=== PATIENT | male | born 1940 | race Caucasian/White ===

== ENCOUNTER 2021-05-11 00:12 | Day surgery (SDC) | payer MEDICARE, SELFPAY ==
[2021-05-03 14:54] VITALS: BMI 25.9
--- NOTE | 2021-05-03 15:18 | PC.NURSE ---
Report to the Outpatient Waiting Room, entrance under the green pavilion located off [facility], at time _1000_ on date _05/11/21_. OR Time: _1200_. - You and your visitor will be asked a series of questions to screen for COVID 19 for your protection. - A mask is required within the hospital. Preoperative COVID Testing Requirements: No COVID Test needed if: (proof is required; if not received patient will have Rapid Test prior to entry) - Patient has received COVID Vaccine at least 14 days prior to procedure date or - Patient has positive COVID test result within last 90 days of surgery date. COVID Test needed if above criteria is not met If not COVID vaccinated a COVID test must be conducted within 72 hours of surgery and patient is asked to isolate self from time of testing until procedure. You will go to the [facility] for your COVID testing. The [facility] Testing site is located at the corner of [address] [facility]. You will only be called if COVID results are positive and your surgeon may reschedule your elective surgery date. Patients may have clear liquids (water, carbonated beverages, clear teas, apple juice) until 3 hours prior to surgery with a maximum of 20 ounces. - No food from midnight until time of surgery - Infants may have breast milk until 4 hours before surgery, infant formula 6 hours prior to surgery. - Children will be allowed to drink immediately following surgery. If applicable, please bring a bottle or sippy cup to assist with drinking. Juice, water, soda, and popsicles are readily available. For infants on formula, please bring formula the day of surgery. Pacifiers are allowed. Take the following medications with a SIP of water the morning of surgery: _METOPROLOL_ Medications to discontinue per DR. CABRAL - _PLAVIX -PT STATES TAKING LAST DOSE 04/01/21, _ Medications to discontinue per ANESTHESIA _ALL VITAMINS AND SUPPLEMENTS 3 DAYS PRIOR TO SURGERY, Date to take last dose_05/07/21_ Please no make-up, nail syriac, hairspray, perfume, deodorant, or body powder the day of surgery. No jewelry (including any body piercings) or valuables the day of surgery, leave them at home. Please take a shower or bath the night before, or the morning of, surgery with an antibacterial soap. Wear comfortable, loose fitting clothing. Children are encouraged to wear pajamas. - Jewelry must be removed prior to entering the operating room. Rings and piercings that are not removed may be cut off. - The hospital will not accept responsibility for valuables. - Please leave all valuables, including medications, at home the day of surgery. If you are going home after surgery, a licensed otr company driver must drive you home. - NO public transportation without another adult. - We recommend that an adult stay with you for 24 hours following discharge. - We also recommend that you do not drive, make important decision, drink alcoholic beverages, or take any drugs that were not prescribed by your health care provider for at least 24 hours after your discharge time. For Pediatric surgeries, we recommend two adults accompany the child home (only one inside the building at this time). One visitor will be allowed to accompany the patient into the hospital. Patients visitor will be instructed to remain with patient at all times or leave the building. We will allow the visitor to come back to the postoperative area when patient is ready. Follow any additional instructions given to you from your surgeon. Telephone instructions given to __PT and asked if any additional questions and then verbalized understanding. Patient advised to call surgeon office or pre surgery nurse liaison [phone] if any additional questions.
--- NOTE | 2021-05-08 07:09 | P.HP_ITS ---
H&P: HPI History of Present Illness Date/Time: 05/08/21 07:09 Pleasant 80-year-old male who has been in our practice since May 2018. for outlet obstructive voiding symptoms at that time he underwent 8 Urolift. He had an initial favorable response which has since regressed. Now, he reports marked hesitancy intermittency and near urinary retention. 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 He has failed resumption of medical management with tamsulosin and the now elects for a TURP after discussing other therapeutic options. He is aware of the risk of this procedure including, but not limited to, persistent irritable and or obstructive voiding symptoms, retrograde ejaculation, hematuria, adverse cardiopulmonary events.. Chief Complaint: Difficult voiding Review of Systems Cardiovascular: Cardiovascular: Denies chest pain, Denies lightheadedness, Denies palpitations and Denies dyspnea Respiratory: Respiratory: Denies dyspnea Gastrointestinal: Gastrointestinal: Denies diarrhea, Denies nausea and Denies vomiting Genitourinary: Genitourinary: Denies hematuria and Denies dysuria Endocrine: Endocrine: Denies palpitations PMFSH Social History Social History Smoking packs per day: 1 Smoking cigarettes per day: 20.0 Years smoked: 25 Smoking pack-years: 25.00 Smoking status: Former smoker Tobacco type: cigarettes Second hand tobacco smoke exposure: No Smoking end date: 03/18/90 Alcohol intake: current Drinks per week: 2 Substance use: never Substance use type: does not use Living arrangements: with family Gender identity (if verbalized by the patient): Male Spiritual care concerns: No Meds Home Medications and Allergies Home Medications Medication Instructions Recorded Confirmed Type PreserVision AREDS-2 1 tablet PO DAILY 02/16/19 05/03/21 History multivitamin [Multiple Vitamins] 1 tablet PO DAILY 02/16/19 05/03/21 History omeprazole 20 mg PO DAILY 02/16/19 05/03/21 History atorvastatin 40 mg DAILY 05/03/21 05/03/21 History clopidogrel 75 mg DAILY 05/03/21 05/03/21 History furosemide 20 mg DAILY 05/03/21 05/03/21 History lisinopril 40 mg DAILY 05/03/21 05/03/21 History metoprolol tartrate 12.5 mg BID 05/03/21 05/03/21 History tramadol 50 mg PO BID PRN 05/03/21 05/03/21 History Allergies Allergy/AdvReac Type Severity Reaction Status Date / Time No Known Allergies Allergy Unverified 05/03/21 14:49 Exam Const: General: no acute distress Resp: Effort & Inspection: normal respiratory effort GI: Inspection: non-distended GI Palp: No abdominal tenderness and No Guarding due to palpation present (GI) Auscultation: normal bowel sounds Assessment and Plan Assessment and plan (1) BPH loc w urin obs/LUTS: Code(s): N40.1 - Benign prostatic hyperplasia with lower urinary tract symptoms Status: Acute Assessment and Plan: * TURP
[2021-05-11] VITALS (15 sets, daily range): BP systolic 108–167; BP diastolic 47–93; PULSE 65–86; RESP 12–18; TEMP 36.4–36.9; O2SAT 93–100
--- NOTE | 2021-05-11 06:45 | WPDHPUPDATE1 ---
History and Physical Update Update Date/Time: 05/11/21 06:45 History and Physical has been reviewed, including an updated exam of the patient. There are NO changes in the patient's condition. Risks, benefits, and alternatives have been discussed and questions answered. Patient agrees to proceed with procedure.
[2021-05-11] MEDS: LACTATED RINGERS 1,000 ML 30 ML IV CONT (10:00)
--- NOTE | 2021-05-11 10:08 | P.PNAN_ITS ---
Anes - Eval Pre Procedure Procedure: Operation Date: 05/11/21 11:30 Proposed Procedures p Trans Urethral Resection Prostate - Mikey Beltre MD Date/Time: 05/11/21 10:08 Pre Op Diagnosis: bph Patient Data Age: 80 Gender: M Height: 1.78 m Weight: 80.3 kg Last Vital Signs Temp 98.2 F 05/11/21 09:35 Pulse 86 05/11/21 09:35 Resp 16 05/11/21 09:35 BP 148/78 H 05/11/21 09:35 Pulse Ox 98 05/11/21 09:35 Allergies Allergy/AdvReac Type Severity Reaction Status Date / Time No Known Allergies Allergy Unverified 05/11/21 09:41 Home Medications Medication Instructions Recorded Confirmed Type PreserVision AREDS-2 1 tablet PO DAILY 02/16/19 05/11/21 History multivitamin [Multiple Vitamins] 1 tablet PO DAILY 02/16/19 05/11/21 History omeprazole 20 mg PO DAILY 02/16/19 05/11/21 History atorvastatin 40 mg DAILY 05/03/21 05/11/21 History clopidogrel 75 mg DAILY 05/03/21 05/03/21 History furosemide 20 mg DAILY 05/03/21 05/11/21 History lisinopril 40 mg DAILY 05/03/21 05/11/21 History metoprolol tartrate 12.5 mg BID 05/03/21 05/11/21 History tramadol 50 mg PO BID PRN 05/03/21 05/11/21 History aspirin [Adult Low Dose Aspirin] 81 mg PO DAILY 05/11/21 05/11/21 History Patient hx anesthesia problems: none Family hx anesthesia problems: none Results Review: All pre-operative results and documents have been reviewed as part of the pre-operative evaluation. [facility]LY [facility] Past Medical History Medical History BPH (benign prostatic hyperplasia) GERD (gastroesophageal reflux disease) History of smoking HTN (hypertension) with goal to be determined Hyperlipidemia Systolic murmur Surgical History Surgical History Hx of CABG Social History Social History Smoking packs per day: 1 Smoking cigarettes per day: 20.0 Years smoked: 25 Smoking pack-years: 25.00 Smoking status: Former smoker Tobacco type: cigarettes Second hand tobacco smoke exposure: No Smoking end date: 03/18/90 Alcohol intake: current Drinks per week: 2 Substance use: never Substance use type: does not use Living arrangements: with family Gender identity (if verbalized by the patient): Male Spiritual care concerns: No Exam Day of Procedure 05/11/21 10:08 Patient weight: overweight Heart: murmur (3/6 systolic) Lungs: clear to auscultation Airway: Mallampati scale class II Neurological: alert and oriented
--- NOTE | 2021-05-11 10:12 | WPDANESEFPP ---
Anes - Eval Final PreProcedure Day of Procedure 05/11/21 10:12 Patient weight: normal Heart: regular rate and rhythm and murmur (III/ SM) Lungs: clear to auscultation Airway: Mallampati scale class II Neurological: alert and oriented Last oral intake: >/= 8 hours ASA classification: III Anesthetic plan: proceed Anesthesia type and monitoring: general LMA and standard monitoring Results Review: All pre-operative results and documents have been reviewed as part of the pre-operative evaluation. Informed Consent: The patient's anesthetic plan and its attendant risks and benefits were discussed with the patient/family/POA. Questions were solicited and answers provided to the satisfaction of the patient/family/POA.
[2021-05-11] MEDS: ceFAZolin 2 GM/D5W 50 ML 2 GM/50 ML BAG IVPB (10:15)
--- NOTE | 2021-05-11 11:09 | P.OP_ITS ---
Procedure Note - Detailed Date of Procedure 05/11/21 Pre-op Diagnosis BPH Post-op Diagnosis other (BPH / Possible bladder tumor) Procedure Performed 1. TURBT (small, 2cm) 2. TURP Surgeon Mikey Beltre MD Anesthesia general Description of Procedure The patient was brought to the operative suite where he is prepped and draped in routine sterile fashion while in the dorsal lithotomy position after the uneventful induction of a general LMA anesthetic. A 27 Cambodian resectoscope sheath was placed into his bladder. He had no urethral strictures. The patient had bilobar hyperplasia with a small median lobe. The bladder, itself, this is a small area of papillary growth in the posterior bladder that measures to 2 cm.There was a single, orthotopic ureteral orifice bilaterally. These orifices were identified and preserved throughout the remainder of the procedure. I did resect a small posterior bladder growth in cauterized the base and periphery with loop electrode. Attention was then turned to resection of the median lobe. This resection was undertaken from the bladder neck to the verumontanum and carried out until the transverse fibers of the bladder neck were identified. The left lateral lobe was then resected starting at the 6 o'clock position, working counter clockwise to the 12 o'clock position. Again, resection was carried out from the bladder neck to the verumontanum until the capsular fibers of the prostate were identified. The right lateral lobe was resected in a similar fashion starting at the 6 o'clock position working clockwise to the 12 o'clock position and carried out until the capsular fibers of the prostate were identified. Apical tissue was then circumferentially resected. All chips were evacuated from the bladder using an [employer] evacuator. Hemostasis was obtained with electric cautery. The ureteral orifices were again inspected and found to be without inj ury. Estimated blood loss throughout this procedure was 50cc. The patient was taken to recovery room having tolerated this well. Drains Yes Packing No Pathology yes Complications No immediate complications Condition stable Disposition PACU
[2021-05-11] MEDS: fentaNYL CITRATE INJ (*CRX) 100 MCG/2 ML VIAL 25 MCG IV PUSH ×6 (11:15→12:31)
--- NOTE | 2021-05-11 13:03 | ADMGEN ---
This patient, Shania Pandya, was admitted to [facility] Surgery-5. Patient/family oriented to hospital policies and general routines including ID bracelet, bed and alarms, visiting hours, pain management, procedures, bathroom and other care routines, personal items, smoking policy, room service/diet, and visiting hours. Information on how to activate the Rapid Response Team has been discussed. Patient/Family are encouraged to report perceived risks to care and to ask questions if they do not understand what they are told or what they should do.
[2021-05-11] MEDS: lisinopriL 20 MG TABLET 40 MG PO (14:24)
[2021-05-11] MEDS: ATORVASTATIN 40 MG TABLET PO (14:24)
[2021-05-11] MEDS: DOCUSATE SODIUM 100 MG CAPSULE PO (16:46)
[2021-05-11] MEDS: METOPROLOL TARTRATE 12.5 MG TABLET PO (16:48)
[2021-05-12] VITALS (7 sets, daily range): BP systolic 116–149; BP diastolic 71–85; PULSE 71–73; RESP 16–18; TEMP 36.6–36.7; O2SAT 96–97
[2021-05-12 06:02] LABS: Hematocrit 40.7 % (42.0-52.0); Hemoglobin 13.9 g/dL (14.0-18.0)
[2021-05-12 06:20] LABS: Anion Gap 6 mmol/L (8-16); Blood Urea Nitrogen 17 mg/dL (9-20); Calcium 8.8 mg/dL (8.4-10.2); Carbon Dioxide 26 mmol/L (22-30); Chloride 107 mmol/L (98-107); Estimated CRCL calculation 74 ml/min; Estimated Glomerular Filt Rate > 60; Glucose 128 mg/dL (65-110); Potassium 4.4 mmol/L (3.4-5.0); Sodium 139 mmol/L (137-145)
--- NOTE | 2021-05-12 07:17 | WPDUROPN2 ---
Progress Note: A&P Assessment and Plan (1) BPH loc w urin obs/LUTS: Code(s): N40.1 - Benign prostatic hyperplasia with lower urinary tract symptoms Status: Acute Assessment and Plan: Doing well POD #1 Stop CBI now / voiding trial later this moring. Anticipate discharge midday. Subjective Subjective Date/Time Seen: 05/12/21 07:17 Comfortable/no complaints and urine clear Review of Systems Cardiovascular: Cardiovascular: Denies chest pain, Denies lightheadedness, Denies palpitations and Denies dyspnea Respiratory: Respiratory: Denies dyspnea Gastrointestinal: Gastrointestinal: Denies diarrhea, Denies nausea and Denies vomiting Genitourinary: Genitourinary: Denies hematuria and Denies dysuria Endocrine: Endocrine: Denies palpitations Exam Const: General: no acute distress Resp: Effort & Inspection: normal respiratory effort GI: Inspection: non-distended GI Palp: No abdominal tenderness and No Guarding due to palpation present (GI) Auscultation: normal bowel sounds Objective Data Vital Signs Vital Signs: Vital Signs - 24 hr 05/11/21 09:35 05/11/21 11:06 05/11/21 11:20 Temperature 98.2 F 98.0 F Pulse Rate 86 79 72 Respiratory Rate 16 16 14 Blood Pressure 148/78 H 137/84 117/47 L Pulse Oximetry 98 99 99 05/11/21 11:35 05/11/21 11:50 05/11/21 12:05 Temperature Pulse Rate 69 78 77 Respiratory Rate 12 12 12 Blood Pressure 167/77 H 150/81 H 149/79 H Pulse Oximetry 100 93 93 05/11/21 12:20 05/11/21 12:38 05/11/21 12:53 Temperature 97.6 F 97.6 F Pulse Rate 78 76 78 Respiratory Rate 14 14 14 Blood Pressure 136/70 138/66 126/93 H Pulse Oximetry 93 96 94 05/11/21 13:23 05/11/21 14:23 05/11/21 16:48 Temperature 98.1 F 97.6 F Pulse Rate 65 78 80 Respiratory Rate 12 16 Blood Pressure 146/70 H 131/67 Pulse Oximetry 96 97 05/11/21 18:23 05/11/21 20:00 05/11/21 22:23 Temperature 98.1 F 98.4 F Pulse Rate 74 68 Respiratory Rate 16 18 18 Blood Pressure 117/62 108/68 Pulse Oximetry 97 96 05/12/21 00:32 05/12/21 02:23 05/12/21 04:00 Temperature 98.0 F 98.1 F Pulse Rate 71 73 Respiratory Rate 18 18 18 Blood Pressure 116/71 149/85 H Pulse Oximetry 96 97 05/12/21 06:23 Temperature Pulse Rate Respiratory Rate 18 Blood Pressure Pulse Oximetry Intake/Output Intake/Output: Intake & Output 05/09/21 05/10/21 05/11/21 05/12/21 23:59 23:59 23:59 23:59 Intake Total 1010 300 Output Total 86383 30282 Balance -[id number] -80421 Meds/Results Medications: Active Medications Generic Name Dose Route Start Last Admin Trade Name Freq PRN Reason Stop Dose Admin Hydrocodone Bitart/Acetaminophen 1 tab 05/11/21 12:38 Hydrocodone/Acetaminophen (*Crx) 5-325 Mg Tablet PO Q4H PRN Pain Rated 1-6 Atorvastatin Calcium 40 mg 05/11/21 12:50 05/11/21 14:24 Atorvastatin 40 Mg Tablet PO 40 mg DAILY [facility] Administration Cephalexin HCl 500 mg 05/12/21 09:00 Cephalexin 500 Mg Capsule PO QID SAURABH Docusate Sodium 100 mg 05/11/21 17:00 05/11/21 16:46 Docusate Sodium 100 Mg Capsule PO 100 mg BID SAURABH Administration Furosemide 20 mg 05/12/21 09:00 Furosemide 20 Mg Tablet PO DAILY ASURABH Hyoscyamine 0.125 mg 05/11/21 12:38 Hyoscyamine Sulfate 0.125 Mg Tablet SUBLINGUAL Q6H PRN Bladder Spasm Lisinopril 40 mg 05/11/21 12:50 05/11/21 14:24 Lisinopril 20 Mg Tablet PO 40 mg DAILY SAURABH Administration Metoprolol Tartrate 12.5 mg 05/11/21 17:00 05/11/21 16:48 Metoprolol Tartrate 12.5 Mg Tablet PO 12.5 mg BID SAURABH Administration Morphine Sulfate 2 mg 05/11/21 12:38 Morphine Sulfate (*Crx) 2 Mg/Ml Inj IV PUSH Q2H PRN Pain Rated 7-10 Multivitamins/Minerals 1 tablet 05/12/21 09:00 Opti-Gen Tab PO DAILY [facility] Naloxone HCl 0.1 mg 05/11/21 12:38 Naloxone Hcl 0.4 Mg/Ml Vial IV PUSH Q2M PRN Opiate Reversal Ondansetron HCl 4 mg
[2021-05-12] MEDS: DOCUSATE SODIUM 100 MG CAPSULE PO (08:29)
[2021-05-12] MEDS: CEPHALEXIN 500 MG CAPSULE PO (08:29)
[2021-05-12] MEDS: FUROSEMIDE 20 MG TABLET PO (08:29)
[2021-05-12] MEDS: ATORVASTATIN 40 MG TABLET PO (08:29)
[2021-05-12] MEDS: lisinopriL 20 MG TABLET 40 MG PO (08:31)
[2021-05-12] MEDS: OPTI-GEN TAB 1 TABLET PO (08:32)
[2021-05-12] MEDS: HYDROcodone/acetaminophen (*CRX) 5-325 MG TABLET 1 TAB PO (08:32)
[2021-05-12] MEDS: METOPROLOL TARTRATE 12.5 MG TABLET PO (08:32)
[2021-05-12] MEDS: PANTOPRAZOLE 40 MG TABLET PO (08:32)
--- NOTE | 2021-05-12 11:01 | P.DS_ITS ---
DS: Admitting Diagnosis Discharge Date 05/12/2021 Admitting Diagnosis BPH DS: Discharge Diagnosis Discharge Diagnosis (1) BPH loc w urin obs/LUTS: Code(s): N40.1 - Benign prostatic hyperplasia with lower urinary tract symptoms Status: Acute DS: Summary Hospital Course Hospital Course: This patient with longstanding prostatism refractory for medical management was admitted on the morning of his planned TURP. The procedure was undertaken on that same day in an uneventful fashion. His post- operative course was, likewise, uneventful. On the evening of the procedure he was tolerating a diet. On POD#1 his urine was clear on CBI. The urine remained clear and, therefore, the catheter was removed late morning. The patient was observed for several hours, until he demonstrated he could void effectively without significant hematuria. He was discharged with careful instruction on limiting physical activity x2 weeks and plans to f/ in 2-3 weeks. At discharge he was comfortable and tolerating a diet. Time Spent with Patient Time attestation: Total time spent providing and/or coordinating discharge services: Exam Const: General: no acute distress Resp: Effort & Inspection: normal respiratory effort GI: Inspection: non-distended GI Palp: No abdominal tenderness and No Guarding due to palpation present (GI) Auscultation: normal bowel sounds DS: Data Data Completed and Pending Pending studies at discharge: Pending at discharge 05/11/21 10:33 Surgical [PTH] Routine Surgical [PTH] Routine Labs on day of discharge: Labs from last 24 hours 05/12/21 05/12/21 05:48 05:47 Hgb 13.9 L Hct 40.7 L Sodium 139 Potassium 4.4 Chloride 107 Carbon Dioxide 26 Anion Gap 6 L BUN 17 Creatinine 0.70 Estim Creat Clear Calc 74 Estimated GFR > 60 Glucose 128 H Calcium 8.8 Discharge Plan Discharge Patient Disposition: Home, Self-Care Discharge Instructions: 1) Activity: No lifting/straining >15lbs. x2 weeks. 2) Diet: Resume normal pre-admission diet. 3) Follow-up: 2-3 weeks / call office for appointment ([phone]). Stand Alone Forms: General Discharge Instructions Discharge Orders: Discharge Order (Routine); Ordered 05/12/21 Ordered By: Mikey Beltre Discharge Medications: New hydrocodone-acetaminophen 5-325 mg tablet 1 - 2 tablet PO Q6H PRN (Reason: pain) Qty: 20 RF: 0 cephalexin 500 mg capsule 500 mg PO Q8H Qty: 9 RF: 0 docusate sodium [Colace] 100 mg capsule 100 mg PO DAILY Qty: 30 RF: 0 Continued atorvastatin 40 mg tablet 40 mg DAILY RF: 0 tramadol 50 mg Tablet 50 mg PO BID PRN (Reason: Pain) RF: 0 furosemide 20 mg tablet 20 mg DAILY RF: 0 lisinopril 40 mg tablet 40 mg DAILY RF: 0 metoprolol tartrate 25 mg tablet 12.5 mg BID RF: 0 multivitamin [Multiple Vitamins] Tablet 1 tablet PO DAILY RF: 0 omeprazole 20 mg Tablet,Delayed Release (Dr/Ec) 20 mg PO DAILY RF: 0 PreserVision AREDS-2 [phone] Capsule 1 tablet PO DAILY RF: 0 Held clopidogrel 75 mg tablet 75 mg DAILY RF: 0 Hold Instructions: Resume on 05/15/21. aspirin 81 mg Tablet 81 mg PO DAILY RF: 0 Hold Instructions: Resume on 05/15/21.
== END 2021-05-12 11:50 | disposition home or self-care (01) ==
LOC: ANHSURGERY 11:15 → ANHSUROVER 12:42
PROVIDERS: PCP Family Medicine; Visit Provider Urology
PROC: 0VT08ZZ Resection of Prostate, Via Natural or Artificial Opening Endoscopic (ICD-10-PCS; CPT 52601; principal; 2021-05-11 11:30)
DX: D07.5 Carcinoma in situ of prostate (principal); D09.0 Carcinoma in situ of bladder; R33.8 Other retention of urine; K21.9 Gastro-esophageal reflux disease without esophagitis; I10 Essential (primary) hypertension; E78.5 Hyperlipidemia, unspecified; R01.1 Cardiac murmur, unspecified; Z87.891 Personal history of nicotine dependence; Z95.1 Presence of aortocoronary bypass graft
CPT/HCPCS: 52601; 52234; 36415; 80048; 85014; 85018; 88305; A9270; C1757; J0690; J1100; J2250; J2370; J2405; J2704; J3010; J7120

== ENCOUNTER 2021-06-05 07:36 | Outpatient (CLI) | payer MEDICARE, SELFPAY ==
--- NOTE | ~2021-06-05 | CT_ITS ---
EXAMINATION: CT abdomen pelvis wo/w con DATE: 06/05/2021 08:20 INDICATION: Transitional cell carcinoma of the prostate TECHNIQUE: Computed tomography (CT) of the abdomen and pelvis was performed without intravenous contr ast. CT of the abdomen and pelvis was then performed with a total of 130 mL Omnipaque 350 intravenous contrast using a double-bolus technique for simultaneous opacification of the renal parenchyma and r enal collecting system. The dose-length product (DLP) was 880.28 mGy-cm. Automated exposure control a nd iterative reconstruction technique were employed. COMPARISON: None FINDINGS: Minimal dependent atelectasis is present in the lung bases. The heart size is normal. The l iver, pancreas, and adrenal glands are normal. Punctate calcifications in an otherwise normal spleen likely represent healed granulomatous disease. A stone is present in the nondistended gallbladder. Si mple cysts of the kidneys measure up to 3.1 cm on the left. There is a 1.2 cm proteinaceous cyst of t he right mid kidney. No definite suspicious renal or urothelial lesion is identified. A 6 mm stone is present in the urinary bladder. No stones are identified in the kidneys or ureters. There is no hydr onephrosis or hydroureter. There is mild wall thickening of the urinary bladder. There is a 3.2 x 2.9 cm spiculated and partially calcified mass of the small bowel mesentery in the left mid abdomen. The re is no free intraperitoneal gas or evidence of bowel obstruction. Colonic diverticulosis is present without evidence of diverticulitis. There is moderate lumbar spondylosis. IMPRESSION: 1. Wall thickening of the urinary bladder which could reflect chronic outlet obstruction versus cysti tis. 2. Small stone in the urinary bladder. 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 Surgical consultation is recommended. Reviewed, dictated and finalized at location B. IMPRESSION: 1. Wall thickening of the urinary bladder which could reflect chronic outlet ob struction versus cystitis. 2. Small stone in the urinary bladder. 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 Surgical consultation is recomme nded.
--- NOTE | ~2021-06-05 | XR_ITS ---
EXAMINATION: XR chest 2V 06/05/2021 07:55 INDICATION: Transitional cell carcinoma. PROCEDURE: 2 view chest COMPARISON: No prior studies for comparison. FINDINGS: The lungs are clear. The cardiomediastinal silhouette is within normal limits. There are no pleural effusions. There is no pneumothorax suspected. Status post median sternotomy for CABG. IMPRESSION: 1: NO ACUTE CARDIOPULMONARY DISEASE. Reviewed, dictated and finalized at location A.
== END 2021-06-05 07:37 | disposition home or self-care (01) ==
LOC: ANHIMG 07:39
PROVIDERS: PCP Family Medicine; Visit Provider Urology
DX: C61 Malignant neoplasm of prostate (principal); D07.5 Carcinoma in situ of prostate; N21.0 Calculus in bladder; N28.1 Cyst of kidney, acquired; K80.80 Other cholelithiasis without obstruction; K57.30 Diverticulosis of large intestine without perforation or abscess without bleeding; M47.816 Spondylosis without myelopathy or radiculopathy, lumbar region; D37.2 Neoplasm of uncertain behavior of small intestine; Z95.1 Presence of aortocoronary bypass graft
CPT/HCPCS: 71046; 74178; Q9967

== ENCOUNTER 2021-11-08 00:56 | Day surgery (SDC) | payer MEDICARE, SELFPAY ==
[2021-10-11 14:40] VITALS: BMI 25.2
--- NOTE | 2021-10-23 11:12 | SUR.PREOP ---
dr sarmiento office faxed response ok to hold plavix, pt called and instructed to hold his plavix for 4 days prior to colonoscopy. last will be november 03. pt voiced understanding.
[2021-11-08 09:54] VITALS: BP 149/86; PULSE 109; RESP 20; TEMP 36.6; O2SAT 98; BMI 23.6
[2021-11-08] MEDS: LACTATED RINGERS 1,000 ML 150 ML IV CONT (10:09)
--- NOTE | 2021-11-08 10:25 | WPDANESEPPF ---
Anes - Initial Pre Proc Eval Procedure: Operation Date: 11/08/21 12:30 Proposed Procedures p Screening Colonoscopy - Kael Ayala MD Date/Time: 11/08/21 10:25 Surgeon: Kael Ayala MD Pre Op Diagnosis: hx of colon polyps Patient Data Age: 81 Gender: M Height: 1.78 m Weight: 74.8 kg Last Vital Signs Temp 98 F 11/08/21 09:54 Pulse 109 H 11/08/21 09:54 Resp 20 11/08/21 09:54 BP 149/86 H 11/08/21 09:54 Pulse Ox 98 11/08/21 09:54 O2 Del Method Room Air 11/08/21 09:54 Allergies Allergy/AdvReac Type Severity Reaction Status Date / Time No Known Allergies Allergy Verified 10/11/21 14:34 Home Medications Medication Instructions Recorded Confirmed Type multivitamin (Multiple Vitamins 1 tablet PO DAILY 02/16/19 10/11/21 History tablet) atorvastatin 40 mg tablet 40 mg DAILY 05/03/21 10/11/21 History clopidogrel 75 mg tablet 75 mg DAILY 05/03/21 10/11/21 History furosemide 20 mg tablet 20 mg DAILY 05/03/21 10/11/21 History lisinopril 40 mg tablet 40 mg DAILY 05/03/21 10/11/21 History metoprolol tartrate 25 mg tablet 12.5 mg BID 05/03/21 10/11/21 History tramadol 50 mg tablet 50 mg PO BID PRN Pain 05/03/21 10/11/21 History aspirin 81 mg tablet 81 mg PO DAILY 05/11/21 10/11/21 History levothyroxine 75 mcg capsule 75 mcg PO DAILY 09/12/21 10/11/21 History omeprazole magnesium 20 mg 20 mg PO .every other day 09/12/21 10/11/21 History tablet,delayed release (Prilosec OTC) vitamins A,C,G-qqtu-hbpone 14,320 1 cap PO BID 09/12/21 10/11/21 History unit-226 mg-200 unit capsule (ICaps AREDS) Patient hx anesthesia problems: none Family hx anesthesia problems: none Results Review: All pre-operative results and documents have been reviewed as part of the pre-operative evaluation. [facility] Past Medical History Medical History (Updated 09/12/21 @ 10:26 by Luz Haile) Bladder cancer BPH (benign prostatic hyperplasia) GERD (gastroesophageal reflux disease) History of smoking HTN (hypertension) with goal to be determined Hyperlipidemia Systolic murmur Surgical History Surgical History (Updated 09/12/21 @ 10:04 by Luz Haile) History of appendectomy History of inguinal hernia repair Hx of CABG Social History Social History Smoking packs per day: 1 Smoking cigarettes per day: 20.0 Years smoked: 20 Smoking pack-years: 20.00 Smoking status: Former smoker Tobacco type: cigarettes Alcohol intake: current Drinks per week: 3 Substance use: never Substance use type: does not use Living arrangements: with family Gender identity (if verbalized by the patient): Male Spiritual care concerns: No Anes - Eval Final PreProcedure Day of Procedure 11/08/21 10:25 Patient weight: normal Heart: regular rate and rhythm Lungs: clear to auscultation Airway: Mallampati scale class II Neurological: alert and oriented Last oral intake: >/= 8 hours ASA classification: III Emergent: no Anesthetic plan: proceed Anesthesia type and monitoring: general GIVS and standard monitoring Results Review: All pre-operative results and documents have been reviewed as part of the pre-operative evaluation. Informed Consent: The patient's anesthetic plan and its attendant risks and benefits were discussed with the patient/family/POA. Questions were solicited and answers provided to the satisfaction of the patient/family/POA.
--- NOTE | 2021-11-08 11:02 | PM.HPGS ---
History of Present Illness History of Present Illness Consent: Risks, benefits, and alternatives have been discussed and questions answered. Patient agrees to proceed with procedure. Chief complaint: hx of colon polyps Narrative: Shania Pandya is a 81 year old male with colon polyps in 2018 Review of Systems Constitutional: Constitutional: Denies headache(s) and Denies weakness Eyes: Eyes: Denies blurry vision ENT: Reports Normal hearing present, Denies headache(s) and Denies neck pain Cardiovascular: Cardiovascular: Denies chest pain and Denies dyspnea Respiratory: Respiratory: Denies dyspnea Gastrointestinal: Gastrointestinal: Reports no additional gastrointestinal complaints Genitourinary: Genitourinary: Denies dysuria Musculoskeletal: Musculoskeletal: Denies neck pain Integumentary/Breasts: Skin/Breast: Denies dry skin Neurologic: Reports Normal hearing present, Denies headache(s) and Denies weakness Psychiatric: Psychiatric: Denies anxiety Endocrine: Endocrine: Denies change in body appearance Hematologic/Lymphatic: Hematologic/Lymphatic: Denies easy bleeding Allergic/Immunologic: Allergic/Immunologic: Denies urticaria PMFSH Past Medical History Medical History (Updated 09/12/21 @ 10:26 by Luz Haile) Bladder cancer BPH (benign prostatic hyperplasia) GERD (gastroesophageal reflux disease) History of smoking HTN (hypertension) with goal to be determined Hyperlipidemia Systolic murmur Surgical History Surgical History (Updated 09/12/21 @ 10:04 by Luz Haile) History of appendectomy History of inguinal hernia repair Hx of CABG Social History Social History Smoking packs per day: 1 Smoking cigarettes per day: 20.0 Years smoked: 20 Smoking pack-years: 20.00 Smoking status: Former smoker Tobacco type: cigarettes Alcohol intake: current Drinks per week: 3 Substance use: never Substance use type: does not use Living arrangements: with family Gender identity (if verbalized by the patient): Male Spiritual care concerns: No Meds Home Medications and Allergies Home Medications Medication Instructions Recorded Confirmed Type multivitamin (Multiple Vitamins 1 tablet PO DAILY 02/16/19 10/11/21 History tablet) atorvastatin 40 mg tablet 40 mg DAILY 05/03/21 10/11/21 History clopidogrel 75 mg tablet 75 mg DAILY 05/03/21 10/11/21 History furosemide 20 mg tablet 20 mg DAILY 05/03/21 10/11/21 History lisinopril 40 mg tablet 40 mg DAILY 05/03/21 10/11/21 History metoprolol tartrate 25 mg tablet 12.5 mg BID 05/03/21 10/11/21 History tramadol 50 mg tablet 50 mg PO BID PRN Pain 05/03/21 10/11/21 History aspirin 81 mg tablet 81 mg PO DAILY 05/11/21 10/11/21 History levothyroxine 75 mcg capsule 75 mcg PO DAILY 09/12/21 10/11/21 History omeprazole magnesium 20 mg 20 mg PO .every other day 09/12/21 10/11/21 History tablet,delayed release (Prilosec OTC) vitamins A,C,V-rqaq-kpfihc 14,320 1 cap PO BID 09/12/21 10/11/21 History unit-226 mg-200 unit capsule (ICaps AREDS) Allergies Allergy/AdvReac Type Severity Reaction Status Date / Time No Known Allergies Allergy Verified 10/11/21 14:34 Vital Signs Vital Signs - 24 hr 11/08/21 09:54 Temperature 98 F Pulse Rate 109 H Respiratory Rate 20 Blood Pressure 149/86 H Pulse Oximetry 98 Oxygen Delivery Room Air Exam Const: General: comfortable and no acute distress HENMT: General nose exam: Normal nares present Eyes: General: appearance normal, both eyes and all related structures Neck: Neck: no JVD Resp: Auscultation: clear to auscultation bilaterally Cardio: Rate: regular rate Rhythm: regular rhythm GI: Inspection: non-distended GI Palp: Yes Soft to palpation Skin: General skin exam: normal color Neuro: General: gait normal Speech: normal speech Extrem: General: normal to inspection Psych:
[2021-11-08 11:21] VITALS: BP 116/71; PULSE 73; RESP 25; O2SAT 95
[2021-11-08 11:31] VITALS: BP 129/85; PULSE 87; RESP 29; O2SAT 98
[2021-11-08 11:41] VITALS: BP 145/87; PULSE 73; RESP 22; O2SAT 97
== END 2021-11-08 11:54 | disposition home or self-care (01) ==
PROVIDERS: PCP Family Medicine; Visit Provider Internal Medicine Gastroenterology
PROC: 0DJD8ZZ Inspection of Lower Intestinal Tract, Via Natural or Artificial Opening Endoscopic (ICD-10-PCS; CPT 45378; principal; 2021-11-08 12:30)
DX: Z12.11 Encounter for screening for malignant neoplasm of colon (principal); K57.30 Diverticulosis of large intestine without perforation or abscess without bleeding; K64.8 Other hemorrhoids; Z85.51 Personal history of malignant neoplasm of bladder; N40.0 Benign prostatic hyperplasia without lower urinary tract symptoms; K21.9 Gastro-esophageal reflux disease without esophagitis; E78.5 Hyperlipidemia, unspecified; R01.1 Cardiac murmur, unspecified; Z95.1 Presence of aortocoronary bypass graft; Z87.891 Personal history of nicotine dependence; E03.9 Hypothyroidism, unspecified; Z79.82 Long term (current) use of aspirin
CPT/HCPCS: G0105; J2001; J2704; J7120

== ENCOUNTER → 2021-12-06 08:06 | Outpatient (CLI) | payer MEDICARE, SELFPAY ==
--- NOTE | ~2021-12-06 | CT_ITS ---
EXAMINATION: CT abdomen pelvis w con DATE: 12/06/2021 08:48 INDICATION: Desmoid tumor follow-up TECHNIQUE: Computed tomography (CT) of the abdomen and pelvis was performed with 100 CC Omnipaque 350 intravenous contrast. Automated exposure control and iterative reconstruction technique were employe d. Exam dose: 644.67 mGy-cm total exam DLP. COMPARISON: 06/05/2021 CT abdomen pelvis FINDINGS: There is interval enlargement of a spiculated soft tissue mass with calcifications in the m esentery at the umbilical level of the left of midline, currently measuring up to approximately 2.6 x 4.1 cm on axial images compared to approximately 2.4 x 3.2 cm compared to 06/05/2021, consistent with interval enlargement. 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 Differential diagnosis includes carcinoid . Minimal atelectasis and/or scarring at the lung bases. Heart size is within normal limits. Aortic kali ve calcification. Coronary artery calcifications. No pericardial or pleural effusion. There is suggestion of cholelithiasis. Consider gallbladder ultrasound for confirmation as clinically appropriate. No hepatic, splenic, pancreatic, and adrenal space-occupying mass lesion. There are mul tiple bilateral renal cysts, the largest on the left, measuring approximately 3.1 cm. No urinary trac t calculus or hydroureteronephrosis. There is moderate diffuse thickening of the urinary bladder wall which may be due to prostate hypertr ophy or cystitis. Fat-containing left inguinal hernia. There is atherosclerotic calcification but normal caliber of the abdominal aorta. No intraperitoneal or retroperitoneal or pelvic mass lesion or adenopathy or ascites is noted within the previously ment ioned spiculated mesenteric mass. Diverticulosis of left and to a lesser extent right colon; no CT evidence of diverticulitis. No bowel obstruction, bowel wall thickening, pneumatosis or intraperitoneal free air. Small fat-containing umbilical hernia. There is severe degenerative disease of the lumbar spine. 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 IMPRESSION: Enlarged spiculated partially calcified mesenteric mass; history of desmoid tumor. Diffe rential diagnosis includes carcinoid tumor. Suggested in the left possible cholelithiasis; consider gallbladder ultrasound to confirm or exclude Bilateral renal cysts Moderate thickening of the urinary bladder wall; diffusion diagnosis includes bladder outlet obstruct ion due to prostate enlargement or cystitis Diverticulosis of the colon; no evidence of diverticulitis Reviewed, dictated and finalized at [facility]. Reviewed, dictated and finalized at location [facility]. IMPRESSION: Enlarged spiculated partially calcified mesenteric mass; history o f desmoid tumor. Differential diagnosis includes carcinoid tumor. Suggested in the left possible cholelithiasis; consider gallbladder ultrasound to confirm or exclude Bilateral renal cysts Moderate thickening of the urinary bladder wall; diffusion diagnosis includes b ladder outlet obstruction due to prostate enlargement or cystitis Diverticulosis of the colon; no evidence of diverticulitis
[2021-12-06 08:39] LABS: Estimated Glomerular Filt Rate > 60
== END ==
PROVIDERS: PCP Family Medicine; Visit Provider Surgery
DX: C61 Malignant neoplasm of prostate (principal); K57.30 Diverticulosis of large intestine without perforation or abscess without bleeding; I25.10 Atherosclerotic heart disease of native coronary artery without angina pectoris; K40.90 Unilateral inguinal hernia, without obstruction or gangrene, not specified as recurrent; I70.0 Atherosclerosis of aorta; M48.14 Ankylosing hyperostosis [Forestier], thoracic region; M16.0 Bilateral primary osteoarthritis of hip; M47.816 Spondylosis without myelopathy or radiculopathy, lumbar region
CPT/HCPCS: 74177; Q9967

== ENCOUNTER 2021-12-14 10:28 | Outpatient (CLI) | payer MEDICARE, SELFPAY ==
--- NOTE | ~2021-12-14 | US_ITS ---
US abdomen limited INDICATION: Gallstone. PROCEDURE: Realtime right upper abdominal ultrasound. COMPARISON: CT dated 12/06/2021 FINDINGS: The pancreas is normal without focal mass or pancreatic ductal dilation. Liver echotexture is increased, consistent with fatty infiltration. There is normal directional flow in the portal ve in. There are gallstones. No gallbladder wall thickening or pericholecystic fluid. Common bile duct carline ures 4.5 mm mm. No sonographic Ruff's sign. Incidental note is made of mild right hydronephrosis. There is a right renal cyst measuring 1.3 cm. IMPRESSION: 1: Cholelithiasis. 2: Hepatic steatosis. 3: Mild right hydronephrosis. Reviewed, dictated and finalized at location [facility].
== END 2021-12-14 10:29 | disposition home or self-care (01) ==
LOC: ANHIMG 10:30
PROVIDERS: PCP Family Medicine; Visit Provider Surgery
DX: K80.20 Calculus of gallbladder without cholecystitis without obstruction (principal); K76.0 Fatty (change of) liver, not elsewhere classified
CPT/HCPCS: 76705

== ENCOUNTER 2021-12-20 09:48 | Outpatient (CLI) | payer MEDICARE, SELFPAY ==
--- NOTE | 2021-12-20 10:00 | ECG_ITS ---
Measurements Intervals [place] Rate: 61 P: 62 ID: 173 QRS: 49 QRSD: 93 T: 66 QT: 392 QTc: 395 Interpretive Statements SINUS RHYTHM NORMAL ECG COMPARED TO ECG 06/10/2018 09:10:55 HEART RATE HAS INCREASED Electronically Signed On 12-20-2021 15:19:08 CDT by Osmar Barrientos M.D.
[2021-12-20 10:40] LABS: Anion Gap 7 mmol/L (8-16); Blood Urea Nitrogen 15 mg/dL (9-20); Calcium 9.1 mg/dL (8.4-10.2); Carbon Dioxide 28 mmol/L (22-30); Chloride 105 mmol/L (98-107); Estimated Glomerular Filt Rate > 60; Glucose 87 mg/dL (65-110); Potassium 4.8 mmol/L (3.4-5.0); Sodium 140 mmol/L (137-145)
== END 2021-12-20 09:49 | disposition home or self-care (01) ==
LOC: ANHSURGERY 09:57
PROVIDERS: Anesthesiology; PCP Family Medicine; Visit Provider Urology
DX: Z51.81 Encounter for therapeutic drug level monitoring (principal); I25.10 Atherosclerotic heart disease of native coronary artery without angina pectoris; Z79.899 Other long term (current) drug therapy; Z01.818 Encounter for other preprocedural examination
CPT/HCPCS: 36415; 80048; 93005

== ENCOUNTER 2021-12-21 00:52 | Day surgery (SDC) | payer MEDICARE, SELFPAY ==
[2021-12-19 10:15] VITALS: BMI 23.7
--- NOTE | 2021-12-19 10:50 | PC.NURSE ---
Addendum entered by Saumya Farooq RN 12/19/21 10:57: Instructions given to patient. Original Note: Report to the Outpatient Waiting Room, entrance under the green pavilion located off [address], at time __12:15PM on date __12/21/21 . OR Time: _2:15PM . Time changes happen often and if your time is changed the preop area will call you the afternoon before. - You and your visitor will be asked to self-screen and do not enter if you have any COVID symptoms. - Only one visitor and NO children visitors are allowed at this time. - The patient visitor is requested to leave or wait in car when not with patient due to restrictions. - A mask is required within the hospital. Patients may have clear liquids (water, carbonated beverages, clear teas, apple juice) until 3 hours prior to surgery with a maximum of 20 ounces. - No food from midnight until time of surgery Take the following medications with a SIP of water the morning of surgery: ____LEVOTHYROXINE, METOPROLOL, TRAMADOL NEEDED Medications to discontinue per physician HOLD PLAVIX NOW- LAST DOSE TODAY(SAW MD IN OFFICE THIS AM/AWARE), HOLD ASPIRIN PER DR DURBIN-STATES HE TOOK LAST DOSE 12/12/21. HOLD ALL VITAMINS/SUPPLEMENTS 3 DAYS [id number] NOW Date take last dose___12/19/21 Please no make-up, nail danish, hairspray, perfume, deodorant, or body powder the day of surgery. No jewelry (including any body piercings) or valuables the day of surgery, leave them at home. Please take a shower or bath the night before, or the morning of, surgery with an antibacterial soap. Wear comfortable, loose fitting clothing. Children are encouraged to wear pajamas. - Jewelry must be removed prior to entering the operating room. Rings and piercings that are not removed may be cut off. - The hospital will not accept responsibility for valuables. - Please leave all valuables, including medications, at home the day of surgery. If you are going home after surgery, a licensed driver engineer must drive you home. - NO public transportation without another adult. - We recommend that an adult stay with you for 24 hours following discharge. - We also recommend that you do not drive, make important decision, drink alcoholic beverages, or take any drugs that were not prescribed by your health care provider for at least 24 hours after your discharge time. Follow any additional instructions given to you from your surgeon. If you or anyone in your household have experienced Covid symptoms in the past week, please notify your surgeon or the nurse liaison at the phone number below for possible testing. Telephone instructions given to and asked if any additional questions and then verbalized understanding. Patient advised to call surgeon office or pre surgery nurse liaison [phone] if any additional questions.
--- NOTE | 2021-12-20 13:53 | WPDANESEPPF ---
Anes - Initial Pre Proc Eval Procedure: Operation Date: 12/21/21 14:15 Proposed Procedures p Cystoscopy, Urethral Dilatation - Mikey Beltre MD s Possible Trans Urethral Resection Bladder Tumor - Mikey Beltre MD Date/Time: 12/20/21 13:53 Surgeon: Mikey Beltre MD Pre Op Diagnosis: Bladder Ca Patient Data Age: 81 Gender: M Height: 1.78 m Weight: 75 kg Allergies Allergy/AdvReac Type Severity Reaction Status Date / Time No Known Allergies Allergy Verified 12/21/21 12:21 Home Medications Medication Instructions Recorded Confirmed Type multivitamin (Multiple Vitamins 1 tablet PO DAILY 02/16/19 12/21/21 History tablet) atorvastatin 40 mg tablet 40 mg PO DAILY 05/03/21 12/21/21 History clopidogrel 75 mg tablet 75 mg PO DAILY 05/03/21 12/21/21 History furosemide 20 mg tablet 20 mg PO DAILY 05/03/21 12/21/21 History lisinopril 40 mg tablet 40 mg PO DAILY 05/03/21 12/21/21 History metoprolol tartrate 25 mg tablet 12.5 mg PO BID 05/03/21 12/21/21 History tramadol 50 mg tablet 50 mg PO BID PRN Pain 05/03/21 12/21/21 History aspirin 81 mg tablet 81 mg PO DAILY 05/11/21 12/21/21 History levothyroxine 75 mcg capsule 75 mcg PO DAILY 09/12/21 12/19/21 History omeprazole magnesium 20 mg 20 mg PO .every other day 09/12/21 12/21/21 History tablet,delayed release (Prilosec OTC) vitamins A,C,N-nowf-qoxavc 14,320 1 cap PO DAILY 09/12/21 12/21/21 History unit-226 mg-200 unit capsule (ICaps AREDS) Patient hx anesthesia problems: none Family hx anesthesia problems: none Results Review: All pre-operative results and documents have been reviewed as part of the pre-operative evaluation. [facility] Past Medical History Medical History (Updated 12/20/21 @ 13:55 by Jerry Spann MD) Bladder cancer BPH (benign prostatic hyperplasia) GERD (gastroesophageal reflux disease) History of smoking HTN (hypertension) with goal to be determined Hyperlipidemia Hypothyroidism Systolic murmur Surgical History Surgical History History of appendectomy History of inguinal hernia repair Hx of CABG Social History Social History Smoking packs per day: 1 Smoking cigarettes per day: 20.0 Years smoked: 10 Smoking pack-years: 10.00 Smoking status: Former smoker Tobacco type: cigarettes Smoking end date: 09/15/90 Alcohol intake: current Drinks per week: 2 Substance use: never Substance use type: does not use Living arrangements: with family Additional living arrangements comments: Gender identity (if verbalized by the patient): Male Spiritual care concerns: No Anes - Eval Final PreProcedure Day of Procedure 12/20/21 13:53 Patient weight: normal Heart: regular rate and rhythm Lungs: clear to auscultation Airway: Mallampati scale class II Neurological: alert and oriented Last oral intake: >/= 8 hours ASA classification: III Emergent: no Anesthetic plan: proceed Anesthesia type and monitoring: general GIVS and LMA and standard monitoring Results Review: All pre-operative results and documents have been reviewed as part of the pre-operative evaluation. Informed Consent: The patient's anesthetic plan and its attendant risks and benefits were discussed with the patient/family/POA. Questions were solicited and answers provided to the satisfaction of the patient/family/POA.
--- NOTE | 2021-12-21 06:23 | WPDHPUPDATE1 ---
History and Physical Update Update Date/Time: 12/21/21 06:23 History and Physical has been reviewed, including an updated exam of the patient. There are NO changes in the patient's condition. Risks, benefits, and alternatives have been discussed and questions answered. Patient agrees to proceed with procedure.
[2021-12-21 12:03] VITALS: BP 143/79; PULSE 69; RESP 16; TEMP 36.9; O2SAT 97
[2021-12-21] MEDS: LACTATED RINGERS 1,000 ML 30 ML IV CONT (12:40)
[2021-12-21] MEDS: ceFAZolin 2 GM/D5W 50 ML 2 GM/50 ML BAG IVPB (13:20)
[2021-12-21 13:54] VITALS: BP 168/79; PULSE 56; RESP 14; TEMP 37.3; O2SAT 100
--- NOTE | 2021-12-21 13:58 | W.PM.PROC2 ---
Procedure Note - Detailed Date of Procedure 12/21/21 Pre-op Diagnosis Bladder neck contracture, history of bladder tumors Post-op Diagnosis Other (Bladder neck contracture) Procedure Performed Cystoscopy, urethral dilatation Surgeon Mikey Beltre MD Description of Procedure patient is brought the op suite was prepped draped in routine sterile fashion while in dorsal lithotomy position after the uneventful induction of a general LMA anesthetic. 2% lidocaine jelly was introduced in his urethra. Cystoscopy is undertaken with a 19 F rigid cystoscope. He has a very tight bladder neck contracture was identified in the office. I placed a 0.035 in superstiff wire into the bladder 1st dilated the bladder neck contracture with Amplatz dilators from 8 F to 20 F. I then replaced the 19 F rigid cystoscope. The bladder was carefully inspected found to be without recurrent neoplasm. There was no identifiable foreign body in the bladder and the mucosa was without hyperemia. I removed the cystoscope and dilated with Leonor sounds to 28 F. I then placed an 18 F coude catheters to drainage which I intend to leave for for 4 days. Drains Yes Packing No Pathology None sent Complications No immediate complications Condition Stable Disposition PACU
[2021-12-21] MEDS: fentaNYL CITRATE INJ (*CRX) 100 MCG/2 ML VIAL 25 MCG IV PUSH ×4 (14:10→14:27)
[2021-12-21 14:11] VITALS: BP 161/78; PULSE 61; RESP 16; O2SAT 96
[2021-12-21 14:27] VITALS: BP 167/86; PULSE 66; RESP 18; O2SAT 95
[2021-12-21 14:41] VITALS: BP 160/89; PULSE 61; RESP 14; O2SAT 94
[2021-12-21 15:10] VITALS: BP 176/83; PULSE 62; RESP 14
== END 2021-12-21 15:23 | disposition home or self-care (01) ==
PROVIDERS: PCP Family Medicine; Visit Provider Urology
PROC: 0T7D8ZZ Dilation of Urethra, Via Natural or Artificial Opening Endoscopic (ICD-10-PCS; CPT 52281; principal; 2021-12-21 14:15)
DX: N32.89 Other specified disorders of bladder (principal); Z08 Encounter for follow-up examination after completed treatment for malignant neoplasm; Z85.51 Personal history of malignant neoplasm of bladder; Z85.46 Personal history of malignant neoplasm of prostate; I10 Essential (primary) hypertension; I25.10 Atherosclerotic heart disease of native coronary artery without angina pectoris; Z87.891 Personal history of nicotine dependence
CPT/HCPCS: 52281; A9270; C1726; C1769; J0690; J1100; J2405; J2704; J3010; J7120

== ENCOUNTER 2022-01-25 07:38 | Outpatient (CLI) | payer MEDICARE, SELFPAY ==
[2022-01-25 09:19] LABS: Basophils Absolute Auto 0.1 K/mm3 (0.0-0.1); Eosinophils Absolute Auto 0.1 K/mm3 (0-0.3); Eosinophils Percent Auto 1.8 % (0-4.4); Hematocrit 43.1 % (42.0-52.0); Hemoglobin 14.1 g/dL (14.0-18.0); Immature Granulocyte Absolute 0.02 K/mm3 (0.00-0.031); Immature Granulocyte Percent A 0.3 % (0-0.5); Lymphocytes Absolute Auto 1.79 K/mm3 (0.9-3.2); Lymphocytes Percent Auto 29.2 % (18.3-44.2); Mean Corpuscular HGB Conc 32.7 g/dl (32-36); Mean Corpuscular Volume 94.7 fl (80-100); Mean Platelet Volume 8.9 fl (7.4-10.4); Monocytes Absolute Auto 0.4 K/mm3 (0.1-0.6); Monocytes Percent Auto 7.2 % (2.6-8.5); Neutrophils Absolute Auto 3.7 K/mm3 (1.3-6.7); Neutrophils Percent Auto 60.5 % (45.5-73.1); Platelet Count Result 251 k/mm3 (150-375); Red Blood Count 4.55 M/mm3 (4.6-6.20); Red Cell Distribution Width 13.8 % (11.5-14.5); White Blood Count 6.1 K/mm3 (4.5-10.0)
[2022-01-25 09:33] LABS: Alanine Aminotransferase 21 U/L (6-50); Albumin Level 4.1 g/dL (3.5-5.1); Alkaline Phosphatase 89 U/L (38-126); Amylase 70 U/L (30-110); Anion Gap 13 mmol/L (8-16); Aspartate Amino Transferase 30 U/L (17-59); Bilirubin,Total 0.5 mg/dL (0.2-1.3); Blood Urea Nitrogen 16 mg/dL (9-20); CRP < 0.5 mg/dL (<1.0); Carbon Dioxide 30 mmol/L (22-30); Chloride 102 mmol/L (98-107); Estimated Glomerular Filt Rate > 60; Glucose 96 mg/dL (65-110); Lipase 92 U/L (23-300); Potassium 4.7 mmol/L (3.4-5.0); Sodium 145 mmol/L (137-145)
--- NOTE | 2022-02-04 15:37 | PM.HPGS ---
History of Present Illness History of Present Illness Consent: Risks, benefits, and alternatives of a resection of a tumor associated with the mesentery of the small bowel and a cholecystectomy have been discussed and questions answered. Patient agrees to proceed with procedure. Chief complaint: Desmoid Tumor,Choclelithiasis /surg 02-05 Narrative: Shania Pandya is an 81 year old White male who recently was seen in the office and then had a F/U CT scan of the abd/pelvis with contrast. This was to follow up on a desmoid tumorCT to f/U on and for further evaluation fo his known urinary bladder Ca.. Patient had a colonoscopy completed by Dr Ayala on 11/08/21 that showed a few diverticula were present in the descending colon and in the sigmoid colon. The diverticula were not actively bleeding. The terminal ileum and the cecum were examined and were normal. No polyps, no colitis. A few small size internal hemorrhoids were seen in the rectum. The hemorrhoids were not actively bleeding. Patient reports since his last appointment (his first with me he is doing well with basically no symptoms.? He has no complaints today. He reports that he has followed up with Dr. Beltre and had a cystoscopy and dilation of a bladder neck stricture in Dec. He denies any symptoms from the gallstone that was also noted on the above noted CT scan incidentally. Review of Systems Review of Systems: All systems reviewed & are unremarkable except as noted in HPI and below (HPI) Constitutional: Constitutional: Reports as per HPI, Denies chills and Denies fever(s) Eyes: Eyes: Reports no additional eye complaints ENT: Reports Normal hearing present and Denies dizziness Cardiovascular: Cardiovascular: Reports no additional cardiovascular complaints, Denies chest pain and Denies irregular heart rhythm Comments: Hx. 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 Respiratory: Respiratory: Reports no additional respiratory complaints Comments: He is a Former smoker Gastrointestinal: Gastrointestinal: Reports no additional gastrointestinal complaints, Denies abdominal pain and Denies bloating Comments: Hx. of GERD -- on Omprazole Genitourinary: Genitourinary: Denies hematuria Comments: Being followed for Bladder CA. Has known BPH Musculoskeletal: Musculoskeletal: Denies back pain Integumentary/Breasts: Skin/Breast: Reports system reviewed and no additional complaints, except as docu Neurologic: Reports Normal hearing present, Denies Abnormal speech present, Denies confusion and Denies dizziness Psychiatric: Psychiatric: Reports no additional psychiatric complaints and Denies confusion Endocrine: Endocrine: Reports no additional endocrine complaints Comments: Hx. of hypothyroidism. Hematologic/Lymphatic: Hematologic/Lymphatic: Denies easy bleeding and Denies easy bruising Allergic/Immunologic: Allergic/Immunologic: Reports no additional allergic/immunologic complaints PMFSH Past Medical History Medical History Bladder cancer BPH (benign prostatic hyperplasia) GERD (gastroesophageal reflux disease) History of smoking HTN (hypertension) with goal to be determined Hyperlipidemia Hypothyroidism Systolic murmur Surgical History Surgical History History of appendectomy History of inguinal hernia repair Hx of CABG Social History Social History Smoking packs per day: 1 Smoking cigarettes per day: 20.0 Years smoked: 10 Smoking pack-years: 10.00 Smoking status: Former smoker Tobacco type: cigarettes Smoking end date: 03/18/90 Alcohol intake: current Drinks per week: 2 Alcohol use details: BEER Substance use: never Substance use type: does not use Living arrangements: with family Additional l
== END 2022-01-25 07:39 | disposition home or self-care (01) ==
LOC: ANHSURGERY 07:41
PROVIDERS: PCP Family Medicine; Visit Provider Surgery
DX: D48.1 Neoplasm of uncertain behavior of connective and other soft tissue (principal); K80.20 Calculus of gallbladder without cholecystitis without obstruction
CPT/HCPCS: 36415; 80053; 82150; 82248; 83690; 85025; 86140; 86850; 86900; 86901

== ENCOUNTER 2022-02-05 15:49 | Inpatient (IN) | payer MEDICARE, SELFPAY ==
[2022-01-25 07:53] VITALS: BMI 24.4
--- NOTE | 2022-01-25 08:22 | PC.NURSE ---
Report to the Outpatient Waiting Room, entrance under the green pavilion located off [facility], at time _0600 on date __02/05/22 . Planned Procedure Time: _0730 . Time changes happen often and if your time is changed the preop area will call you the afternoon before. - You and your visitor will be asked to self-screen and do not enter if you have any COVID symptoms. - We encourage only one visitor and NO visitors under age 16 are allowed at this time. Your visitor will receive communication by the phone number that is given day of service. - The patient visitor is requested to social distance or may leave the building when not with patient due to restrictions. - A mask is required within the hospital. Patients may have clear liquids (water, carbonated beverages, clear teas, apple juice) until 3 hours prior to surgery with a maximum of 20 ounces. - No food from midnight until time of surgery - Infants may have breast milk until 4 hours before surgery, formula 6 hours prior to surgery. - Children will be allowed to drink immediately following surgery. If applicable, please bring a bottle or sippy cup to assist with drinking. Juice, water, soda, and popsicles are readily available. For infants on formula, please bring formula the day of surgery. Pacifiers are allowed. Take the following medications with a SIP of water the morning of surgery: _LEVOTHYROXINE,METOPROLOL, Medications to discontinue per physician ___PER DR BRAULIO HASSAN PLAVIX 5 DAYS PRE OP. ALL VITAMINS AND SUPPLEMENTS 3 DAYS PRE OP Date to take last dose___PLAVIX 01/30/22 ALL VITAMINS/SUPPLEMENTS 02/01/22 HIBICLENS SHOWER DAY BEFORE SURGERY AND MORNING OF SURGERY FLEETS ENEMA NIGHT PRIOR TO SURGERY PER DR FIGUEROA Please no make-up, nail taiwanese, hairspray, perfume, deodorant, or body powder the day of surgery. No jewelry (including any body piercings) or valuables the day of surgery, leave them at home. Please take a shower or bath the night before, or the morning of, surgery with an antibacterial soap. Wear comfortable, loose fitting clothing. Children are encouraged to wear pajamas. - Jewelry must be removed prior to entering the operating room. Rings and piercings that are not removed may be cut off. - The hospital will not accept responsibility for valuables. - Please leave all valuables, including medications, at home the day of surgery. If you are going home after surgery, a licensed trash collector truck driver must drive you home. - NO public transportation without another adult. - We recommend that an adult stay with you for 24 hours following discharge. - We also recommend that you do not drive, make important decision, drink alcoholic beverages, or take any drugs that were not prescribed by your health care provider for at least 24 hours after your discharge time. Follow any additional instructions given to you from your surgeon. If you or anyone in your household have experienced Covid symptoms in the past week, please notify your surgeon or the nurse liaison at the phone number below for possible testing. VERBAL AND WRITTEN instructions given to __PATIENT and asked if any additional questions and then verbalized understanding. Patient advised to call surgeon office or pre surgery nurse liaison [phone] if any additional questions.
[2022-01-25 08:58] VITALS: BP 143/79; PULSE 62; RESP 18; TEMP 37.1; O2SAT 99
--- NOTE | 2022-02-04 15:37 | P.HP_ITS ---
History of Present Illness History of Present Illness Consent: Risks, benefits, and alternatives of a resection of a tumor associated with the mesentery of the small bowel and a cholecystectomy have been discussed and questions answered. Patient agrees to proceed with procedure. Chief complaint: Desmoid Tumor,Choclelithiasis /surg 02-05 Narrative: Shania Pandya is an 81 year old White male who recently was seen in the office and then had a F/U CT scan of the abd/pelvis with contrast. This was to follow up on a desmoid tumorCT to f/U on and for further evaluation fo his known urinary bladder Ca.. Patient had a colonoscopy completed by Dr Lucy kelly 11/08/21 that showed a few diverticula were present in the descending colon and in the sigmoid colon. The diverticula were not actively bleeding. The terminal ileum and the cecum were examined and were normal. No polyps, no colitis. A few small size internal hemorrhoids were seen in the rectum. The hemorrhoids were not actively bleeding. Patient reports since his last appointment (his first with me he is doing well with basically no symptoms.? He has no complaints today. He reports that he has followed up with Dr. Beltre and had a cystoscopy and dilation of a bladder neck stricture in Dec. He denies any symptoms from the gallstone that was also noted on the above noted CT scan incidentally. Review of Systems Review of Systems: All systems reviewed & are unremarkable except as noted in HPI and below (HPI) Constitutional: Constitutional: Reports as per HPI, Denies chills and Denies fever(s) Eyes: Eyes: Reports no additional eye complaints ENT: Reports Normal hearing present and Denies dizziness Cardiovascular: Cardiovascular: Reports no additional cardiovascular complaints, Denies chest pain and Denies irregular heart rhythm Comments: Hx. 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 Respiratory: Respiratory: Reports no additional respiratory complaints Comments: He is a Former smoker Gastrointestinal: Gastrointestinal: Reports no additional gastrointestinal complaints, Denies abdominal pain and Denies bloating Comments: Hx. of GERD -- on Omprazole Genitourinary: Genitourinary: Denies hematuria Comments: Being followed for Bladder CA. Has known BPH Musculoskeletal: Musculoskeletal: Denies back pain Integumentary/Breasts: Skin/Breast: Reports system reviewed and no additional complaints, except as docu Neurologic: Reports Normal hearing present, Denies Abnormal speech present, Denies confusion and Denies dizziness Psychiatric: Psychiatric: Reports no additional psychiatric complaints and Denies confusion Endocrine: Endocrine: Reports no additional endocrine complaints Comments: Hx. of hypothyroidism. Hematologic/Lymphatic: Hematologic/Lymphatic: Denies easy bleeding and Denies easy bruising Allergic/Immunologic: Allergic/Immunologic: Reports no additional allergic/immunologic complaints PMFSH Past Medical History Medical History Bladder cancer BPH (benign prostatic hyperplasia) GERD (gastroesophageal reflux disease) History of smoking HTN (hypertension) with goal to be determined Hyperlipidemia Hypothyroidism Systolic murmur Surgical History Surgical History History of appendectomy History of inguinal hernia repair Hx of CABG Social His
[2022-02-05] VITALS (20 sets, daily range): BP systolic 125–155; BP diastolic 65–87; PULSE 59–88; RESP 14–20; TEMP 36.2–36.9; O2SAT 91–100
[2022-02-05] MEDS: ACETAMINOPHEN 500 MG TABLET 1000 MG PO (06:26)
[2022-02-05] MEDS: LACTATED RINGERS 1,000 ML 30 ML IV CONT ×2 (06:51→12:42)
[2022-02-05] MEDS: KETOROLAC 15 MG/ML VIAL (*BKC) IV PUSH (06:52)
[2022-02-05] MEDS: ALVIMOPAN 12 MG CAPSULE PO (07:10)
--- NOTE | 2022-02-05 07:14 | WPDHPUPDATE1 ---
History and Physical Update Update Date/Time: 02/05/22 07:14 History and Physical has been reviewed, including an updated exam of the patient. There are NO changes in the patient's condition. Risks, benefits, and alternatives have been discussed and questions answered. Patient agrees to proceed with procedure.
--- NOTE | 2022-02-05 07:17 | WPDANESEPPF ---
Anes - Initial Pre Proc Eval Procedure: Operation Date: 02/05/22 07:30 Proposed Procedures p Laparoscopic Hand Assisted Small Bowel Resection with Resection of Associated Speculated Tumor of Small Bowel Mesentery Mid Abdomen, Possible Frozen Section or Gross Pathology Exam - Dereck Aguilar MD s Laparoscopic Cholecystectomy with Possible Open - Dereck Aguilar MD Date/Time: 02/05/22 07:17 Surgeon: Dereck Aguilar MD Pre Op Diagnosis: Desmoid Tumor, Cholelithiasis Patient Data Age: 81 Gender: M Height: 1.78 m Weight: 76.7 kg Last Vital Signs Temp 97.1 F L 02/05/22 06:02 Pulse 59 L 02/05/22 06:02 Resp 16 02/05/22 06:02 BP 147/87 H 02/05/22 06:02 Pulse Ox 98 02/05/22 06:02 O2 Del Method Room Air 02/05/22 06:02 Allergies Allergy/AdvReac Type Severity Reaction Status Date / Time No Known Allergies Allergy Verified 02/05/22 06:22 Home Medications Medication Instructions Recorded Confirmed Type multivitamin (Multiple Vitamins 1 tablet PO DAILY 02/16/19 02/05/22 History tablet) atorvastatin 40 mg tablet 40 mg PO DAILY 05/03/21 02/05/22 History clopidogrel 75 mg tablet 75 mg PO DAILY 05/03/21 02/05/22 History furosemide 20 mg tablet 20 mg PO DAILY 05/03/21 02/05/22 History lisinopril 40 mg tablet 40 mg PO DAILY 05/03/21 02/05/22 History metoprolol tartrate 25 mg tablet 12.5 mg PO BID 05/03/21 02/05/22 History tramadol 50 mg tablet 50 mg PO BID PRN Pain 05/03/21 02/05/22 History aspirin 81 mg tablet 81 mg PO DAILY 05/11/21 02/05/22 History levothyroxine 75 mcg capsule 75 mcg PO DAILY 09/12/21 02/05/22 History omeprazole magnesium 20 mg 20 mg PO .every other day 09/12/21 02/05/22 History tablet,delayed release (Prilosec OTC) vitamins A,C,I-bfuf-dpjegu 14,320 1 cap PO DAILY 09/12/21 02/05/22 History unit-226 mg-200 unit capsule (ICaps AREDS) acetaminophen 650 mg 1,300 mg PO Q12H PRN Pain 01/25/22 02/05/22 History tablet,extended release (Tylenol Arthritis Pain) Patient hx anesthesia problems: none Family hx anesthesia problems: none Results Review: All pre-operative results and documents have been reviewed as part of the pre-operative evaluation. [facility] Past Medical History Medical History Bladder cancer BPH (benign prostatic hyperplasia) GERD (gastroesophageal reflux disease) History of smoking HTN (hypertension) with goal to be determined Hyperlipidemia Hypothyroidism Systolic murmur Surgical History Surgical History History of appendectomy History of inguinal hernia repair Hx of CABG Social History Social History Smoking packs per day: 1 Smoking cigarettes per day: 20.0 Years smoked: 10 Smoking pack-years: 10.00 Smoking status: Former smoker Tobacco type: cigarettes Smoking end date: 03/18/90 Alcohol intake: current Drinks per week: 2 Alcohol use details: BEER Substance use: never Substance use type: does not use Living arrangements: with family Additional living arrangements comments: Gender identity (if verbalized by the patient): Male Spiritual care concerns: No Anes - Eval Final PreProcedure Day of Procedure 02/05/22 07:17 Patient weight: normal Heart: regular rate and rhythm Lungs: clear to auscultation Airway: Mallampati scale class III Neurological: alert and oriented Last oral intake: >/= 8 hours ASA classification: III Emergent: no Anesthetic plan: proceed Anesthesia type and monitoring: general ETT and standard monitoring Results Review: All pre-operative results and documents have been reviewed as part of the pre-operative evaluation. Informed Consent: The patient's anesthetic plan and its attendant risks and benefits were discussed with the patient/family/POA. Questions were solicited and answers provided to t
[2022-02-05] MEDS: ceFAZolin 2 GM/D5W 50 ML 2 GM/50 ML BAG IVPB (07:30)
[2022-02-05] MEDS: BUPIVACAINE/EPINEPHRINE 0.25% 10 ML VIAL 30 ML INFILTRATE (07:30)
[2022-02-05] MEDS: metroNIDAZOLE 500 MG/ISO 100ML 500 MG/100 ML BAG 100 MG IVPB ×2 (07:49→16:28)
[2022-02-05] MEDS: ceFAZolin SODIUM 1 GM VIAL IV PUSH (11:30)
--- NOTE | 2022-02-05 12:32 | SUR.OPER ---
Urine:225ml, EBL:50ml
--- NOTE | 2022-02-05 12:48 | W.PM.PROC2 ---
Procedure Note - Detailed Date of Procedure 02/05/22 Pre-op Diagnosis 1.Mass of the (Desmoid Tumor or carcinoid tumor) small bowel and small bowel mesentery. 2.Cholelithiasis Post-op Diagnosis Other (1. Two small bowel tumors with suspected mesenteric invasion or lymphadenopathy. 2. cholelithiasis with chronic cholecystitis) Procedure Performed 1. Laparoscopic assisted resection of mesenteric tumor and small-bowel ( 88 cm jejunum and ileum) 2. Laparoscopic cholecystectomy Surgeon Dereck Aguilar MD [employer] Martín ARIAS OR 1st assist Anesthesia General Indications enlargement a spiculated mass small-bowel mesentery left mid abdomen. This was initially a CT scan because of the patient's bladder cancer. Six month follow-up was done and it had grown some. Therefore, even though the patient had essentially no symptoms, it was felt we should pursue excision for diagnosis and treatment. Also found was what appeared to be a gallstone and ultrasound confirmed this. Therefore after thorough discussion the patient about extending the surgery for bowel 1 hour to did remove the gallbladder at the same time he agreed proceed with also so that would flare after the larger surgery. Findings gallbladder: there omental adhesions on the gallbladder that had to be taken down but it was not actively inflamed. Probably had had couple of episodes of inflammation that cause the omental adhesions. Small bowel and small bowel mesentery: Just beneath into the left of the umbilicus was a area of tethered small bowel where it seemed the mesentery had thickened in become adhered to itself and some of the surrounding small bowel mesentery. Was also the appearance of a small bowel tumor in 2 sites along the length of the adjacent small bowel. After completion of resection of the abnormal area because of needing to take the mesentery around this tumor there was 28 cm length of small bowel that appeared to be somewhat dusky therefore this was also resected in order to good healthy small bowel to reanastomose. Description of Procedure Patient was seen preoperatively in the holding area and risks, benefits and alternatives confirmed. Patient was taken to the operating room and general anesthesia was induced. Because we unsure of the length of the procedure a 18 q.day tip Dodson catheter was placed the beginning of the procedure. A time out was then preformed with the surgery team confirming patient and site of surgery. The abdomen was prepped and draped in the usual sterile fashion. A vertical ncision was made just below the umbilicus with an 11 blade knife. I started the incision in the umbilicus and extended about 2 cm inferiorly. I placed 2 stay sutures of O- Vicryl on either side of the mid-line fascia beneath the umbilicus and was then able to slide in the 12 mm Hook cannula through the fascial defect into the peritoneum. There did appear to be a very small umbilical hernia this site was smaller than the size of my trocar. First under low flow and then under high flow the abdomen was insufflated with carbon dioxide never exceeding a pressure of 14. Three 5 mm trocars were then introduced under direct vision. The following trocars were introduced under direct vision: a 5 mm in the epigastrium and two 5 mm trocars along the right costal margin laterally in the subcostal area. At this point we placed the 5 mm scope on laparoscoped and placed through the lateral right subcostal port carefully inspected the bowel mesentery just underneath the mid abdomen just to the left of the umbilicus. There did appear to be an area of strictured mesentery with an abnormal area small bowel present. Carefully maneuvered this be sure would not move significantly and be hard to discover if we placed the patient in reversed from Trendelenburg position for his cholecystectomy. This seemed to be fairly well positioned without movement in the area was able to follow 1 loop of small bowel least
[2022-02-05] MEDS: fentaNYL CITRATE INJ (*CRX) 100 MCG/2 ML VIAL 25 MCG IV PUSH ×4 (13:35→15:00)
--- NOTE | 2022-02-05 16:12 | ADMGEN ---
This patient, Shania Pandya, was admitted to Medical Room 346-01. Patient/family oriented to hospital policies and general routines including ID bracelet, bed and alarms, visiting hours, pain management, procedures, bathroom and other care routines, personal items, smoking policy, room service/diet, and visiting hours. Information on how to activate the Rapid Response Team has been discussed. Patient/Family are encouraged to report perceived risks to care and to ask questions if they do not understand what they are told or what they should do.
[2022-02-05] MEDS: LACTATED RINGERS 1,000 ML 75 ML IV CONT (17:43)
[2022-02-05] MEDS: HYDROcodone/acetaminophen (*CRX) 5-325 MG TABLET 2 TAB PO (17:46)
[2022-02-05] MEDS: SENNA/DOCUSATE SODIUM TABLET 2 TAB PO (20:34)
[2022-02-06 00:10] VITALS: BP 148/66; PULSE 70; RESP 18; TEMP 37.1; O2SAT 93
[2022-02-06] MEDS: metroNIDAZOLE 500 MG/ISO 100ML 500 MG/100 ML BAG 100 MG IVPB ×2 (01:01→08:42)
[2022-02-06 01:15] VITALS: PULSE 70; RESP 18; O2SAT 94
[2022-02-06] MEDS: HYDROcodone/acetaminophen (*CRX) 5-325 MG TABLET 2 TAB PO ×2 (04:47→10:46)
[2022-02-06 05:06] VITALS: BP 138/70; PULSE 73; RESP 18; TEMP 36.9; O2SAT 94
[2022-02-06 05:42] LABS: Mean Corpuscular HGB Conc 33.3 g/dl (32-36); Mean Corpuscular Hemoglobin 30.4 pg (26-34); Mean Corpuscular Volume 91.1 fl (80-100); Mean Platelet Volume 9.3 fl (7.4-10.4); Platelet Count Result 205 k/mm3 (150-375); Red Blood Count 3.95 M/mm3 (4.6-6.20); Red Cell Distribution Width 13.4 % (11.5-14.5); White Blood Count 10.7 K/mm3 (4.5-10.0)
[2022-02-06 05:59] LABS: Anion Gap 6 mmol/L (8-16); Blood Urea Nitrogen 14 mg/dL (9-20); Calcium 8.1 mg/dL (8.4-10.2); Carbon Dioxide 27 mmol/L (22-30); Chloride 104 mmol/L (98-107); Estimated CRCL calculation 83 ml/min; Estimated Glomerular Filt Rate > 60; Glucose 119 mg/dL (65-110); Sodium 137 mmol/L (137-145)
[2022-02-06] MEDS: MORPHINE SULFATE (*CRX) 4 MG/ML INJ IV PUSH (06:07)
[2022-02-06] MEDS: ENOXAPARIN 40 MG/0.4 ML SYRINGE SUB-Q (08:44)
[2022-02-06 10:18] VITALS: BP 126/66; PULSE 75; RESP 16; TEMP 36.7; O2SAT 95
--- NOTE | 2022-02-06 11:36 | WPDANESPN ---
Anes - Prog Note Post-Op Date/Time: 02/06/22 11:36 Vital Signs: Last Vital Signs Temp 36.7 C 02/06/22 10:18 Pulse 75 02/06/22 10:18 Resp 16 02/06/22 10:18 BP 126/66 02/06/22 10:18 Pulse Ox 95 02/06/22 10:18 O2 Del Method Room Air 02/06/22 08:00 O2 Flow Rate 2 02/06/22 01:15 Pain Score (VAS): 0 I/O: Intake & Output 02/05/22 02/06/22 02/06/22 23:59 07:59 15:59 Intake Total 2890 250 240 Output Total 2200 Balance 2890 -1950 240 Laboratory Tests 02/06/22 05:26 02/06/22 05:26 02/06/22 02/06/22 05:26 05:26 WBC 10.7 H RBC 3.95 L Hgb 12.0 L Hct 36.0 L MCV 91.1 MCH 30.4 MCHC 33.3 RDW 13.4 Plt Count 205 MPV 9.3 Sodium 137 Potassium 4.0 Chloride 104 Carbon Dioxide 27 Anion Gap 6 L BUN 14 Creatinine 0.60 L Estim Creat Clear Calc 83 Estimated GFR > 60 Glucose 119 H Calcium 8.1 L Patient Feedback: Patient satisfied with anesthetic care.
--- NOTE | 2022-02-06 11:48 | PM.PNGS ---
Subjective Subjective Date/Time Seen: 02/06/22 07:48 Post Op day: 1 ( Improving nicely.) Patient reports: still having pain ( mainly incisional in the midline.), tolerating liquids well, no flatus and no bowel movement Objective Data Vital Signs Vital Signs: Vital Signs - 24 hr 02/05/22 12:42 02/05/22 12:55 02/05/22 13:11 Temperature 36.4 C Pulse Rate 69 69 72 Respiratory Rate 16 20 16 Blood Pressure 130/67 155/73 H 142/71 H Pulse Oximetry 100 98 95 Oxygen Delivery Simple Face Mask Simple Face Mask Room Air Oxygen Flow Rate 6 6 02/05/22 13:25 02/05/22 13:39 02/05/22 13:54 Temperature Pulse Rate 73 71 71 Respiratory Rate 14 15 14 Blood Pressure 134/74 125/78 151/77 H Pulse Oximetry 95 91 96 Oxygen Delivery Room Air Room Air Nasal Cannula Oxygen Flow Rate 2 02/05/22 14:10 02/05/22 14:25 02/05/22 14:40 Temperature Pulse Rate 72 82 79 Respiratory Rate 17 16 14 Blood Pressure 137/69 130/67 139/73 Pulse Oximetry 93 94 94 Oxygen Delivery Nasal Cannula Nasal Cannula Nasal Cannula Oxygen Flow Rate 2 2 2 02/05/22 14:55 02/05/22 15:10 02/05/22 15:25 Temperature Pulse Rate 84 82 80 Respiratory Rate 18 16 16 Blood Pressure 145/71 H 132/79 146/78 H Pulse Oximetry 95 94 95 Oxygen Delivery Nasal Cannula Nasal Cannula Nasal Cannula Oxygen Flow Rate 2 2 2 02/05/22 15:40 02/05/22 16:22 02/05/22 16:10 Temperature 36.8 C Pulse Rate 88 81 Respiratory Rate 14 18 Blood Pressure 135/70 143/78 H Pulse Oximetry 99 95 95 Oxygen Delivery Nasal Cannula Nasal Cannula Oxygen Flow Rate 2 2 02/05/22 16:25 02/05/22 16:55 02/05/22 17:55 Temperature 36.9 C 36.8 C 36.9 C Pulse Rate 75 76 72 Respiratory Rate 16 16 16 Blood Pressure 146/67 H 141/80 H 135/72 Pulse Oximetry 94 96 95 Oxygen Delivery Oxygen Flow Rate 02/05/22 20:25 02/06/22 00:10 02/06/22 01:15 Temperature 36.8 C 37.1 C Pulse Rate 75 70 70 Respiratory Rate 18 18 18 Blood Pressure 130/65 148/66 H Pulse Oximetry 96 93 94 Oxygen Delivery Nasal Cannula Oxygen Flow Rate 2 02/06/22 05:06 02/06/22 08:00 02/06/22 10:18 Temperature 36.9 C 36.7 C Pulse Rate 73 75 Respiratory Rate 18 16 Blood Pressure 138/70 126/66 Pulse Oximetry 94 95 Oxygen Delivery Room Air Oxygen Flow Rate Intake/Output Intake/Output: Intake & Output 02/03/22 02/04/22 02/05/22 02/06/22 23:59 23:59 23:59 23:59 Intake Total 3140 490 Output Total 250 2200 Balance 2890 -1710 Meds/Results Medications: Active Medications Generic Name Dose Route Start Last Admin Trade Name Freq PRN Reason Stop Dose Admin Hydrocodone Bitart/Acetaminophen 1 tab 02/05/22 15:49 Hydrocodone/Acetaminophen (*Crx) 5-325 Mg Tablet PO Q4H PRN Pain Rated 4-6 Hydrocodone Bitart/Acetaminophen 2 tab 02/05/22 15:49 02/06/22 10:46 Hydrocodone/Acetaminophen (*Crx) 5-325 Mg Tablet PO 2 tab Q6H PRN Administration Pain Rated 7-10 Diphenhydramine HCl 25 mg 02/05/22 15:49 Diphenhydramine Hcl Inj 50 Mg/Ml Vial IV PUSH Q6H PRN Itching Enoxaparin Sodium 40 mg 02/06/22 09:00 02/06/22 08:44 Enoxaparin 40 Mg/0.4 Ml Syringe SUB-Q 40 mg DAILY SAURABH Administration Acetaminophen 1,000 mg in 100 mls @ 400 mls/hr 02/05/22 18:00 02/06/22 05:40 Ofirmev 1,000 Mg Ivpb IVPB 02/06/22 12:14 Infused Q6HR SAURABH Infusion Metronidazole 500 mg in 100 mls @ 100 mls/hr 02/05/22 16:00 02/06/22 08:42 Flagyl 500 Mg/Iso Soln 100 Ml IVPB 02/06/22 15:59 100 mls/hr Q8H SAURABH Administration Cefazolin Sodium 1 gm in 50 mls @ 100 mls/hr 02/05/22 16:00 02/06/22 08:43 Ancef 1 Gm/D5w 50 Ml Pm IVPB 02/06/22 15:59 100 mls/hr Q8H SAURABH Administration Morphine Sulfate 2 mg 02/05/22 15:49 Morphine Sulfate (*Crx) 2 Mg/Ml Inj IV PUSH Q2H PRN Pain Rated 4-6 Morphine Sulfate 4 mg 02/05/22 15:49 02/06/22 06:07 Morphine Sulfate (*Crx) 4 Mg/Ml Inj IV PUSH 4 mg Q2H PRN Administration
[2022-02-06 14:28] VITALS: BP 125/61; PULSE 64; RESP 16; TEMP 37.1; O2SAT 95
--- NOTE | 2022-02-06 14:43 | PM.DS ---
DS: Admitting Diagnosis Discharge Date 02/06/2022 Admitting Diagnosis 1. Mesenteric small bowel tumor 2. 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 He underwent an elective operation for removal of this tumor and segment of small bowel associated with the blood supply a affected by the tumor. Patient had uneventful postoperative course. He stayed overnight and gradually increased his diet. He had a Dodson catheter because of his other problems and this also was able to be removed the day following surgery. He was tolerating full liquids upon discharge in planning to advance to a low-fat low-sodium diet after the procedure. He will also be asked to do a low-fiber diet in view of thin recent anastomosis of the small bowel. (2) Hypothyroidism: Code(s): E03.9 - Hypothyroidism, unspecified Status: Acute Assessment and Plan: Patient will resume is usual thyroid medications (3) Cholelithiasis: Code(s): K80.20 - Calculus of gallbladder without cholecystitis without obstruction Status: Acute Assessment and Plan: now resolved, pathology pending. Patient had an elective laparoscopic cholecystectomy at the time of the surgery for his above-listed tumor of the mesentery. (4) BPH (benign prostatic hyperplasia): Code(s): N40.0 - Benign prostatic hyperplasia without lower urinary tract symptoms Status: Acute Assessment and Plan: Patient will resume his home medications for this. He will also follow-up with Dr. Beltre in March. (5) Bladder cancer: Code(s): C67.9 - Malignant neoplasm of bladder, unspecified Status: Acute Assessment and Plan: Patient had a recent cystoscopy with no signs of recurrence. Pathology is still pending on the mesenteric tumor but this would be an unusual spot for metastatic bladder cancer. Will await pathology on the newly resected tumor of the small bowel and mesentery. 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 Beltre during cystoscopy in December. He is to follow up with him in the office in March. (7) BPH loc w urin obs/LUTS: Code(s): N40.1 - Benign prostatic hyperplasia with lower urinary tract symptoms Status: Acute Assessment and Plan: Patient no trouble voiding following removal of his Dodson catheter today following surgery. DS: Summary Hospital Course Hospital Course: The incidentally discovered mesenteric/ small-bowel tumor noted on CT scan which was done early this year to check the rest of his urinary tract due to his bladder cancer was the main reason for the patient's admission. He underwent an elective operation for removal of this tumor and segment of small bowel associated with the blood supply affected by the tumor. Patient had uneventful postoperative course. He stayed overnight and gradually increased his diet. He had a Dodson catheter because of his other problems and this also was able to be removed the day following surgery. He was tolerating full liquids upon discharge and planning to advance to a low-fat, low-sodium diet after the procedure. He will also be asked to do a low-fiber diet in view of thin recent anastomosis of the small bowel. Status at Discharge Cognitive/behavioral status at discharge: back to baseline Functional status at discharge: independent ambulation Overall status at discharge: patient is not back to baseline ( patient will need to limit his strenuous activity due to his new incision) Time Spent with Patient Time attestation: Total time spent providing and/or coordinating discharge services: Time spent: Less
== END 2022-02-06 16:01 | disposition home or self-care (01) | DRG 827 ==
LOC: ANH3MED 16:37
PROVIDERS: Admitting Provider Surgery; PCP Family Medicine; Visit Provider Surgery
PROC: 0DTF4ZZ Resection of Right Large Intestine, Percutaneous Endoscopic Approach (ICD-10-PCS; CPT 44204; principal; 2022-02-05 07:30)
PROC: 0FT44ZZ Resection of Gallbladder, Percutaneous Endoscopic Approach (ICD-10-PCS; CPT 47562; 2022-02-05 07:30)
DX: C7A.8 Other malignant neuroendocrine tumors (principal); K80.10 Calculus of gallbladder with chronic cholecystitis without obstruction; N13.8 Other obstructive and reflux uropathy; C67.9 Malignant neoplasm of bladder, unspecified; N40.1 Benign prostatic hyperplasia with lower urinary tract symptoms; K82.8 Other specified diseases of gallbladder; E03.9 Hypothyroidism, unspecified; I25.10 Atherosclerotic heart disease of native coronary artery without angina pectoris; K21.9 Gastro-esophageal reflux disease without esophagitis; I10 Essential (primary) hypertension; E78.5 Hyperlipidemia, unspecified; K57.30 Diverticulosis of large intestine without perforation or abscess without bleeding; K64.8 Other hemorrhoids; Z86.010 Personal history of colon polyps; Z87.891 Personal history of nicotine dependence; Z95.1 Presence of aortocoronary bypass graft; Z90.49 Acquired absence of other specified parts of digestive tract; Z79.82 Long term (current) use of aspirin; Z79.899 Other long term (current) drug therapy
CPT/HCPCS: 36415; 80048; 85027; 88304; 88307; 88342; A9270; J0131; J0330; J0690; J1100; J1170; J1650; J1885; J2270; J2370; J2405; J2704; J3010; J7120

== ENCOUNTER 2022-02-11 09:50 | Inpatient (IN) | payer MEDICARE, SELFPAY ==
[2022-02-11] VITALS (8 sets, daily range): BP systolic 81–134; BP diastolic 55–93; PULSE 90–110; RESP 14–20; TEMP 36.3–36.4; O2SAT 86–99; BMI 23.4
--- NOTE | ~2022-02-11 | XR_ITS ---
EXAMINATION: XR abdomen obstructive series DATE: 02/12/2022 08:17 INDICATION: Small bowel obstruction. TECHNIQUE: Upright and supine views of the abdomen were obtained. COMPARISON: CT abdomen and pelvis 02/11/2022 FINDINGS: There are multiple dilated loops of small bowel. The colon is decompressed. The nasogastric tube tip is in the stomach. No free intraperitoneal gas. Surgical clips in the right upper quadrant are likely from cholecystectomy. Median sternotomy wires and mediastinal surgical clips are seen, lik alfa from prior coronary artery bypass grafting. IMPRESSION: 1. Persistently dilated small bowel, consistent with small bowel obstruction. Reviewed, dictated and finalized at location A. TIVE ARTS THERAPIST
--- NOTE | ~2022-02-11 | XR_ITS ---
CORRECTED REPORT ASSOCIATED TO REPORT. This report was recreated on 02/26/2022. Original report was NESS PROCESS MANAGER. 02/26/2022 se EXAMINATION: XR chest 1V portable DATE: 02/25/2022 06:55 INDICATION: Respiratory failure. TECHNIQUE: A single frontal view of the chest was obtained. COMPARISON: Chest single view 02/24/2022, CT abdomen and pelvis 02/23/2022 FINDINGS: There is mild atelectasis in the lower lung zones. There are small pleural effusions. No pneumothorax. The heart size is normal. Median sternotomy wires and mediastinal surgical clips are seen, likely from prior coronary artery bypass grafting. The nasogastric tube tip is beyond the inferior margin of the radiograph, but at least to the stomach. A right upper extremity peripherally inserted central venous catheter (PICC) is seen with tip in the superior vena cava. IMPRESSION: 1. Stable mild atelectasis in the lower lung zones. 2. Worsened small pleural effusions. Reviewed, dictated and finalized at location A. NESS PROCESS MANAGER [facility]
--- NOTE | ~2022-02-11 | XR_ITS ---
XR chest 2V 02/13/2022 14:33 Indication: Hypoxia Procedure: 2 view chest Comparison: 02/11/2022 Findings: Status post median sternotomy for CABG. NG tube in the stomach. There are dilated small bow el loops in the upper abdomen, suspicious for obstruction. Heart size normal. No focal air space dise ase, pulmonary edema, pleural effusion or suspected pneumothorax. Impression: 1: No acute cardiopulmonary disease. 2: Dilated small bowel upper abdomen with air-fluid levels, suspicious for obstruction. Reviewed, dictated and finalized at location A. R POOL HEATING INSTALLER Impression: 1: No acute cardiopulmonary disease. 2: Dilated small bowel upper abdomen with air-fluid levels, suspicious for obs truction.
--- NOTE | ~2022-02-11 | XR_ITS ---
EXAMINATION: XR chest ET placement Exam Date/Time: 02/18/2022 14:46 WINDLACE MACHINE OPERATOR HISTORY: ETT placement Comparison: 02/17/2022. RESULT: Lines, tubes, and devices: New endotracheal tube, 3 cm above the vinay. NG tube terminates in the s tomach. Right upper cavity PICC terminates in the distal SVC. Intact sternotomy wires. Mediastinal galvan rgical clips. Lungs and pleura: Increased subsegmental right basilar opacities. New left basilar consolidation, wi th loss of the left hemidiaphragm. Cardiomediastinal silhouette: Stable. Other: No acute osseous or upper abdominal finding. IMPRESSION: Endotracheal tube, 3 cm above the vinay. Worsening left greater than right bibasilar opacities may r eflect atelectasis or consolidation. Reviewed, dictated and finalized at location K. LACE MACHINE OPERATOR IMPRESSION: Endotracheal tube, 3 cm above the vinay. Worsening left greater than right bib asilar opacities may reflect atelectasis or consolidation.
--- NOTE | ~2022-02-11 | US_ITS ---
EXAMINATION: US renal BI DATE: 02/12/2022 14:06 INDICATION: SHYAM TECHNIQUE: Multiple grayscale and Doppler ultrasound images of the kidneys were obtained. COMPARISON: CT abdomen pelvis 02/11/2022 FINDINGS: The right kidney measures 11.5 x 5.6 x 5.4 cm. The left kidney measures 11.4 x 5.2 x 5.5 cm. The kidn eys demonstrate increased parenchymal echogenicity. Multiple simple right renal cysts, the largest me asures 1.8 cm. Punctate right renal calcification. Multiple simple left renal cysts, the largest carline ures 3.7 cm. 6 mm mid pole calcification. There is no hydronephrosis. The bladder is partially filled , with normal bilateral jets. Lobulated right posterior bladder mass measuring 2.0 x 2.7 x 2.2 cm, wh ich appears to be contiguous with the prostate. IMPRESSION: 1. Lobulated, asymmetric right posterior bladder wall mass possibly extending from the prostate, lulu elate with labs and consider evaluation with prostate MR or cystoscopy depending on the laboratory fi ndings. 2. Bilateral simple renal cysts. 3. Bilateral nephrolithiasis. 4. Medical renal disease. Reviewed, dictated and finalized at location K. INE STONE POLISHER IMPRESSION: 1. Lobulated, asymmetric right posterior bladder wall mass possibly extending f rom the prostate, correlate with labs and consider evaluation with prostate MR or cystoscopy depending on the laboratory findings. 2. Bilateral simple renal cysts. 3. Bilateral nephrolithiasis. 4. Medical renal disease.
--- NOTE | ~2022-02-11 | CT_ITS ---
EXAMINATION: CTA chest PE abdomen pel DATE: 02/17/2022 12:29 CERAMIST INDICATION: Shortness of breath. Pain. Recent abdominal surgery. TECHNIQUE: Computed tomographic angiography (CTA) of the chest, abdomen, and pelvis was performed wit h 100 mL Omnipaque-350 intravenous contrast. The dose-length product was 1100.80 mGy-cm. Maximum inte nsity projection 3D-reconstructions of the aorta and other arteries were constructed by the technolog ist on a separate workstation. Automated exposure control and iterative reconstruction technique were employed. COMPARISON: CT dated 02/11/2022. FINDINGS: CHEST CTA: There are subtle groundglass opacities in the right upper lobe and right lower lobe, suspicious for p neumonia. There are no suspicious pulmonary nodules or masses. There are a few small calcified granul omas. No endobronchial lesions. No pneumothorax. There is dependent atelectasis. Study is technically adequate without evidence for pulmonary embolism. No significant pleural or pericardial effusion. ABDOMEN AND PELVIS CTA: There is moderate free air in the upper abdomen. There are air-fluid levels throughout the small viktor l with mild segmental mucosal thickening and enhancement of the small bowel, likely ileus, although e nteritis not excluded. Fatty infiltration of the liver. There is an ill-defined hypovascular mass of the left hepatic lobe m easuring 2.1 x 1.8 cm. There is a small 1 cm mass in the right hepatic lobe. These findings are new s parth prior examination. The gallbladder is absent surgically. The pancreas, adrenal glands are unrema rkable. There is bilateral renal cysts, largest in the left kidney measuring 3.5 cm. There is a focal fluid collection in the mesentery which is not definitely contiguous with bowel, image 101, this may simply represent postoperative change, although a developing abscess is not excluded. The fluid carline ures 2.8 x 1.6 cm. The left colon is decompressed. Severe lower thoracic and lumbar spondylosis. No f ocal lytic or blastic lesions. There is atherosclerosis of the aorta without aneurysm. No lymphadenop athy. IMPRESSION: 1. No evidence for pulmonary embolism. Patchy groundglass opacities throughout the right lung, suspic ious for pneumonia. 2: Postoperative changes are seen with moderate free air and free fluid. There is a localized fluid c ollection in the mesentery measuring 2.8 x 1.6 cm which may simply represent postoperative change, al though developing abscess is not excluded. There is moderate diffuse edema of the mesentery. 3: Dilated small bowel loops containing air-fluid levels and mucosal enhancement may relate to ileus , although underlying enteritis is not excluded. 4: New hypodense lesions of the liver which are nonspecific. Consider portal venous thrombosis and in fection. Recommend correlation with MRI with contrast as clinically indicated. Reviewed, dictated and finalized at location A. MIST IMPRESSION: 1. No evidence for pulmonary embolism. Patchy groundglass opacities throughout the right lung, suspicious for pneumonia. 2: Postoperative changes are seen with moderate free air and free fluid. There is a localized fluid collection in the mesentery measuring 2.8 x 1.6 cm which m ay simply represent postoperative change, although developing abscess is not ex cluded. There is moderate diffuse edema of the mesentery. 3: Dilated small bowel loops containing air-fluid levels and mucosal enhanceme nt may relate to ileus, although underlying enteritis is not excluded. 4: New hypodense lesions of the liver which are nonspecific. Consider portal ve nous thrombosis and infection. Recommend correlation with MRI with contrast as clinically indicated.
--- NOTE | ~2022-02-11 | XR_ITS ---
EXAMINATION: XR chest 1V portable DATE: 02/23/2022 06:09 INDICATION: Acute respiratory failure TECHNIQUE: frontal view of the chest was obtained. COMPARISON: Chest radiograph dated 02/22/2022 FINDINGS: Endotracheal tube tip 4.9 cm above the vinay. Nasogastric tube extends below the left hemidiaphragm with distal tip collimated off the study. Right upper extremity peripherally inserted central venous catheter (PICC) tip near the superior cavoatrial junction. Persistent mild opacities at the bilateral lung bases and in the left midlung zone with configuration favoring atelectasis over pneumonia. No pulmonary edema, pleural effusion or pneumothorax. The cardi omediastinal silhouette is normal. IMPRESSION: 1. No significant change in mild opacities at the lung bases and left midlung zone with appearance fa voring atelectasis over pneumonia. Reviewed, dictated and finalized at location A. HER TOGGLER IMPRESSION: 1. No significant change in mild opacities at the lung bases and left midlung z one with appearance favoring atelectasis over pneumonia.
--- NOTE | ~2022-02-11 | CT_ITS ---
EXAMINATION: CT abdomen pelvis w con DATE: 02/11/2022 12:33 INDICATION: Abdominal pain, vomiting TECHNIQUE: Computed tomography (CT) of the abdomen and pelvis was performed with 100 CC Omnipaque 350 intravenous contrast. Automated exposure control and iterative reconstruction technique were employe d. Exam dose: 647.52 mGy-cm total exam DLP. COMPARISON: 12/14/2021 Limited abdominal ultrasound examination revealed cholelithiasis, hepatic steat osis, mild right hydronephrosis 12/06/2021 CT abdomen pelvis FINDINGS: Status post sternotomy. There is mild atelectasis at both lung bases. Prominent coronary artery calcifications. Heart size is normal. No pericardial or pleural effusion. The stomach is distended prominently with fluid and there is reflux of fluid into the distal esophage al lumen. There is dilated fluid containing small bowel loops with air-fluid levels extending into th e lower quadrants and pelvis. The small bowel is dilated up to 4.8 cm. There is a transition point ne ar a suture line of the distal small bowel. The distal limb beyond this point and the colon are decom pressed. Diverticulosis of the sigmoid colon; no CT evidence of diverticulitis. No intraperitoneal free air is detected. There is mild free fluid in the anterior lower abdomen adjac ent to the dilated small bowel loops and in both paracolic gutters. No bowel wall thickening hypoperf usion bowel is suggested. The gallbladder is generally absent. No bile duct dilatation. No hepatic, splenic, pancreatic or adre nal space-occupying mass lesion is evident. Scattered bilateral renal cysts, the largest in the lower pole left kidney, up to 3.4 cm. There is atherosclerotic calcification but normal caliber of the abdominal aorta and iliac arteries. No intraperitoneal or retroperitoneal or pelvic mass lesion or adenopathy. Left inguinal fat-containing hernia. Small fat-containing umbilical hernia. Degenerative changes of the thoracic and lumbar spine. Bilateral hip osteoarthritis. No suspicious os teolytic or osteoblastic lesions are noted. IMPRESSION: Distal small bowel obstruction at the surgical anastomotic site, with up to 4.8 cm dilat ed small bowel segments, prominent fluid distention of the small bowel, stomach and reflux of fluid i nto the distal esophagus Mild free fluid adjacent to the dilated distal small bowel and in the paracolic gutters Reviewed, dictated and finalized at Location A. Reviewed, dictated and finalized at location A. ETING COMMUNICATIONS ASSOCIATE IMPRESSION: Distal small bowel obstruction at the surgical anastomotic site, w ith up to 4.8 cm dilated small bowel segments, prominent fluid distention of th e small bowel, stomach and reflux of fluid into the distal esophagus Mild free fluid adjacent to the dilated distal small bowel and in the paracolic gutters
--- NOTE | ~2022-02-11 | XR_ITS ---
EXAMINATION: XR chest PICC line Exam Date/Time: 02/17/2022 18:40 SPANISH INSTRUCTOR HISTORY: picc line insertion Comparison: 02/17/2022 at 10:13 AM, x-ray abdomen, 02/17/2022. RESULT: Lines, tubes, and devices: New right upper extremity PICC, terminating in the distal SVC. Stable sol rnotomy wires, mediastinal clips and upper abdominal surgical clips. An NG tube terminates out of the [id number]. Lungs and pleura: Unchanged bibasilar atelectasis. Cardiomediastinal silhouette: Stable. Other: Unchanged pneumoperitoneum. IMPRESSION: New right upper extremity PICC, in good position. Reviewed, dictated and finalized at location K. ISH INSTRUCTOR
--- NOTE | ~2022-02-11 | XR_ITS ---
EXAMINATION: XR abdomen obstructive series DATE: 02/14/2022 09:02 INDICATION: Small bowel obstruction. TECHNIQUE: Upright and supine views of the abdomen were obtained. COMPARISON: CT abdomen and pelvis 02/11/2022 FINDINGS: There are multiple dilated loops of small bowel. The colon is decompressed. No free intrape ritoneal gas. Surgical clips in the right upper quadrant are likely from cholecystectomy. The nasogas tric tube tip is in the stomach. Median sternotomy wires and mediastinal surgical clips are seen, lik alfa from prior coronary artery bypass grafting. IMPRESSION: 1. Persistently dilated small bowel, consistent with adynamic ileus versus small bowel obstruction. Reviewed, dictated and finalized at location A. NE RIGGER IMPRESSION: 1. Persistently dilated small bowel, consistent with adynamic ileus versus smal l bowel obstruction.
--- NOTE | ~2022-02-11 | XR_ITS ---
EXAMINATION: XR chest 1V portable INDICATION: Acute respiratory failure TECHNIQUE: Portable AP chest at 0539 hours COMPARISON: 02/21/2022 FINDINGS: The endotracheal tube ends approximately 6.6 cm above the vinay. The nasogastric tube is f ollowed as far as the stomach. Its tip is beyond the inferior margin of the radiograph. A right upper extremity PICC ends with its tip in the superior vena cava. No pleural effusion or pneumothorax. The cardiomediastinal silhouette is stable. Median sternotomy wires and mediastinal surgical clips are s een, likely from prior coronary artery bypass grafting. Minimal airspace opacities of the lung bases persist but have improved. IMPRESSION: 1. Continued improvement of bibasilar airspace opacities, likely atelectasis. Reviewed, dictated and finalized at location A. IAL EDUCATION COORDINATOR
--- NOTE | ~2022-02-11 | XR_ITS ---
XR chest 1V portable DATE: 02/11/2022 12:46 INDICATION: Low oxygen saturation TECHNIQUE: Portable upright AP chest on 12 02/11/2022 at 1243 hours COMPARISON: 06/05/2021 PA and lateral chest FINDINGS: Status post sternotomy and probable coronary bypass graft surgery. Heart size appears withi n normal limits. No hilar or mediastinal enlargement. There is mild infiltrate or atelectasis in the right mid lung and both lung bases. No pleural effusion or pulmonary vascular congestion or pneumothorax. Severe osteoarthritic change at the left glenohumeral joint. Degenerative change at both the vinay c lavicular joints. There is dextroscoliosis and degenerative change of the thoracic spine. Osteopenia. Prominent gas distended small bowel segments overlying the upper abdomen. IMPRESSION: Mild infiltrate or atelectasis of right mid lung and both lung bases Prominent gaseous distention of small bowel Reviewed, dictated and finalized at location A. EL MARKER IMPRESSION: Mild infiltrate or atelectasis of right mid lung and both lung base s Prominent gaseous distention of small bowel
--- NOTE | ~2022-02-11 | CT_ITS ---
EXAMINATION: CT brain wo con DATE: 02/16/2022 09:19 INDICATION: Acute confusion TECHNIQUE: Computed tomography (CT) of the head was performed without intravenous contrast. The mA wa s adjusted according to patient size. Iterative reconstruction technique was employed. Exam dose: 68 1.00 mGy-cm total exam DLP. COMPARISON: None FINDINGS: No intracranial mass lesion or hemorrhage or cerebrovascular accident is evident. No midlin e shift or mass effect. Mild cerebral atherosclerotic calcification. There is nonspecific diminished attenuation of the cereb ral white matter, likely due to chronic small vessel ischemic changes. Minimal bilateral paranasal ganglia calcification. No orbital mass lesion. There is moderately prominent cerebral and cerebellar volume loss. No subdural or epidural hematoma i s detected. Approximately 1.5 cm polyp or mucous retention cysts of the right maxillary sinus. 6 mm mucus retenti on cyst of right frontal sinus. The paranasal sinuses and mastoid air cells otherwise are normally de veloped and aerated. No fracture or bone destruction of the cranial vault. IMPRESSION: Moderate cerebral and cerebellar volume loss Mild cerebral atherosclerosis and chronic small vessel ischemic changes of the cerebral white matter No acute intracranial finding Reviewed, dictated and finalized at Location A. Reviewed, dictated and finalized at location B. R ATTENDANT
--- NOTE | ~2022-02-11 | XR_ITS ---
EXAMINATION: XR chest 1V portable DATE: 02/24/2022 06:24 INDICATION: Acute respiratory failure TECHNIQUE: frontal view of the chest was obtained. COMPARISON: Chest radiograph and CT abdomen and pelvis dated 02/23/2022 FINDINGS: Endotracheal tube tip 6.1 cm above the vinay. Nasogastric tube extends below the left hemidiaphragm with distal tip collimated off the study. Right upper extremity peripherally inserted central venous catheter (PICC) tip at the mid superior vena cava. Unchanged linear discoid atelectasis in the left midlung zone. Additional mild bibasilar opacities. N o pleural effusion or pneumothorax. The cardiomediastinal silhouette is normal. Median sternotomy wir es and mediastinal surgical clips are seen, likely from prior coronary artery bypass grafting. IMPRESSION: 1. Unchanged mild bibasilar opacities which could represent atelectasis and/or pneumonia. Reviewed, dictated and finalized at location A. LAR ALARM INSPECTOR
--- NOTE | ~2022-02-11 | CT_ITS ---
EXAMINATION: CT abdomen pelvis wo con DATE: 02/23/2022 13:12 INDICATION: History of bowel resection. Diarrhea. TECHNIQUE: Computed tomography (CT) of the abdomen and pelvis was performed without intravenous contr ast. The dose-length product was 1070.32 mGy-cm. Automated exposure control and iterative reconstruct ion technique were employed. COMPARISON: CT dated 02/18/2022. FINDINGS: Significantly decreased amount of free air in the abdomen compared with prior study. There is increasing free fluid in the abdomen and pelvis. There is a rectal catheter. There is a Dodson cath eter. Small pleural effusions with underlying compressive atelectasis. Study limited by motion artifact and lack of contrast. The liver, spleen, pancreas, adrenal glands and right kidney are unremarkable. The re is a 3 cm left renal cyst. No definite bowel obstruction. There is an NG tube in the distal body o f the stomach. There is atherosclerosis without aneurysm. IMPRESSION: 1. Significantly increased free fluid in the abdomen and pelvis compared with prior study. Decreased volume of free air since prior examination. No definite discrete walled off fluid collection to sugge st abscess, although evaluation limited without contrast. 2: New small pleural effusions with bilateral lower lobe atelectasis. Severe lumbar spondylosis. No f ocal lytic or blastic lesions. Reviewed, dictated and finalized at location A. UNITY LIVING SPECIALIST IMPRESSION: 1. Significantly increased free fluid in the abdomen and pelvis compared with p rior study. Decreased volume of free air since prior examination. No definite d iscrete walled off fluid collection to suggest abscess, although evaluation perez ited without contrast. 2: New small pleural effusions with bilateral lower lobe atelectasis. Severe kota mbar spondylosis. No focal lytic or blastic lesions.
--- NOTE | ~2022-02-11 | XR_ITS ---
EXAMINATION: XR chest 1V portable DATE: 02/21/2022 06:18 INDICATION: Intubation TECHNIQUE: frontal view of the chest was obtained. COMPARISON: Chest radiograph dated 02/20/2022 FINDINGS: Endotracheal tube tip 3.6 cm above the vinay. Nasogastric tube extends below the left hemidiaphragm with distal tip collimated off the study. Right upper extremity peripherally inserted central venous catheter (PICC) tip at the superior vena cava. Decreased opacities in the bilateral lower lung zones which appear primarily thin and linear and woul d favor atelectasis over pneumonia. No pulmonary edema, pleural effusion or pneumothorax. The cardiom ediastinal silhouette is normal. Median sternotomy wires and mediastinal surgical clips are seen, lik alfa from prior coronary artery bypass grafting. IMPRESSION: 1. Resolution of prior small left pleural effusion and decreased bibasilar opacities with appearance favoring atelectasis over pneumonia. Reviewed, dictated and finalized at location A. ATIONAL ASSISTANT IMPRESSION: 1. Resolution of prior small left pleural effusion and decreased bibasilar opac ities with appearance favoring atelectasis over pneumonia.
--- NOTE | ~2022-02-11 | CT_ITS ---
EXAMINATION: CT brain wo con DATE: 02/21/2022 10:55 INDICATION: Encephalopathy TECHNIQUE: Computed tomography (CT) of the head was performed without intravenous contrast. The dose- length product was 908.00 mGy-cm. COMPARISON: CT dated 02/16/2022 FINDINGS: Generalized atrophy. Study limited by motion artifact. There are scattered mild periventric ular and subcortical white matter changes, most likely related to small vessel ischemic disease (micr oangiopathy). No ventriculomegaly or midline shift. Evaluation of the posterior fossa limited by yobany on artifact. Paranasal sinuses and mastoids are pneumatized. No acute intracranial hemorrhage, infarc tion, mass or mass effect. IMPRESSION: 1. No acute intracranial abnormality. 2: Chronic age-related findings. Reviewed, dictated and finalized at location A. E RIDE OPERATOR
--- NOTE | ~2022-02-11 | XR_ITS ---
EXAMINATION: XR chest 1V portable INDICATION: Respiratory failure TECHNIQUE: Portable AP chest at 0524 hours COMPARISON: 02/19/2022 FINDINGS: The endotracheal tube ends approximately 4.8 cm above the vinay. The nasogastric tube is f ollowed as far as the stomach. Its tip is beyond the inferior margin of the radiograph. A right upper extremity PICC ends with this tip in the distal superior vena cava. Bibasilar airspace opacities per sist without significant change. A small stable left pleural effusion is present. There is no pneumot horax. Median sternotomy wires and mediastinal surgical clips are seen, likely from prior coronary ar ivette bypass grafting. IMPRESSION: 1. Stable bibasilar airspace opacities, consistent with atelectasis versus pneumonia. 2. Small left pleural effusion, stable. Reviewed, dictated and finalized at location A. P OPERATOR IMPRESSION: 1. Stable bibasilar airspace opacities, consistent with atelectasis versus pneu monia. 2. Small left pleural effusion, stable.
--- NOTE | ~2022-02-11 | XR_ITS ---
XR abdomen/kub 1V 02/18/2022 06:42 Indication: Small bowel obstruction Procedure: KUB Comparison: Comparison to multiple prior studies sequentially, with oldest reviewed study dated 01/17. Findings: Dilated small bowel in the left abdomen. NG tube in the stomach. There are cholecystectomy clips. Moderate lumbar spondylosis. There is contrast in the bladder. No abnormal calcifications. Impression: 1: Dilated small bowel which may reflect postoperative ileus or small bowel obstruction. Reviewed, dictated and finalized at location A. SPORTATION SUPERINTENDENT Impression: 1: Dilated small bowel which may reflect postoperative ileus or small bowel obs truction.
--- NOTE | ~2022-02-11 | CT_ITS ---
EXAMINATION: CT abdomen pelvis wo con DATE: 02/18/2022 08:21 INDICATION: Abdomen pain. Leukocytosis. Acute renal failure. TECHNIQUE: Computed tomography (CT) of the abdomen and pelvis was performed without intravenous contr ast. The dose-length product was 1008.78 mGy-cm. Automated exposure control and iterative reconstruct ion technique were employed. COMPARISON: CT dated 02/17/2022. FINDINGS: There is free fluid in the abdomen. There is free intraperitoneal gas, slightly increased c ompared with prior study aligned for differences of technique. There is an NG tube in the stomach. Th ere is a large amount of fluid throughout the bowel with some loops of bowel wall thickening, althoug h evaluation limited without contrast. There is mild diffuse mesenteric edema. There is a stable smal l mesenteric fluid collection measuring 2.5 x 1.2 cm, now containing a small air-fluid level. There i s atherosclerosis. No lymphadenopathy. There is increasing free fluid in the upper abdomen. Severe kota mbar spondylosis. No acute osseous abnormality. Evaluation for abscess is significantly limited by la ck of contrast. There is a polypoid filling defect at the base of the bladder on the right. This may represent blood clots, although transitional cell carcinoma of the bladder is not excluded. IMPRESSION: 1. Increasing free air. Increasing free fluid in the upper abdomen. Cannot exclude bowel leak. 2: Thickened bowel loops are present with air-fluid levels in the left mid and upper abdomen. Evaluat ion is limited without contrast. 3: Small mesenteric fluid collection with new air-fluid level in the mid abdomen measuring 2.5 x 1.2 cm, possibly postoperative change, although developing abscess is not excluded. 4: Polypoid filling defect in the bladder which may represent blood clot or malignancy. Reviewed, dictated and finalized at location A. D REP IMPRESSION: 1. Increasing free air. Increasing free fluid in the upper abdomen. Cannot excl ude bowel leak. 2: Thickened bowel loops are present with air-fluid levels in the left mid and upper abdomen. Evaluation is limited without contrast. 3: Small mesenteric fluid collection with new air-fluid level in the mid abdome n measuring 2.5 x 1.2 cm, possibly postoperative change, although developing ab scess is not excluded. 4: Polypoid filling defect in the bladder which may represent blood clot or ma lignancy.
--- NOTE | ~2022-02-11 | XR_ITS ---
SMALL BOWEL SERIES ONLY INDICATION: Small bowel obstruction post bowel resection TECHNIQUE: Serial plain films and fluoroscopic spot films are performed following NG tube administrat ion of water-soluble contrast. COMPARISON: 02/14 and 02/13/2022 FINDINGS: Contrast was followed sequentially through the small bowel. Small bowel is diffusely dilate d with transit time to the colon of approximately 3 hours. No definitive transition site is identifie d. There are cholecystectomy clips. IMPRESSION: 1: Diffusely dilated small bowel without transition site. Mildly delayed passage of contrast to the colon of approximately 3 hours. Findings compatible with ileus. Partial small bowel obstruction is le ss favored. Reviewed, dictated and finalized at location A. L BUFFER IMPRESSION: 1: Diffusely dilated small bowel without transition site. Mildly delayed passa ge of contrast to the colon of approximately 3 hours. Findings compatible with ileus. Partial small bowel obstruction is less favored.
--- NOTE | ~2022-02-11 | XR_ITS ---
XR abdomen NG/feed tube insert DATE: 02/22/2022 09:33 INDICATION: NG tube placement TECHNIQUE: Portable AP view on 02/22/2022 at 0929 hours COMPARISON: 02/18/2022 KUB FINDINGS: A nasogastric tube is present, distal tip overlying the gastric antrum. Status post cholecystectomy. [place] overlie the midabdomen. Status post sternotomy. IMPRESSION: NG tube in distal stomach. Reviewed, dictated and finalized at Location A. Reviewed, dictated and finalized at location B. R INSPECTOR AND LEVELER IMPRESSION: NG tube in distal stomach.
--- NOTE | ~2022-02-11 | XR_ITS ---
XR chest 1V portable DATE: 02/16/2022 08:31 INDICATION: Shortness of breath. Leukocytosis. TECHNIQUE: Portable upright AP chest on 02/16/2022 at 0827 hours COMPARISON: 02/13/2022 PA and lateral chest FINDINGS: Status post sternotomy. Heart size is within normal limits. No hilar or mediastinal enlarge ment. No pulmonary infiltrate or consolidation, pleural effusion or pulmonary vascular congestion or pneumo thorax. 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 Osteopenia. Degenerative spurring of the thoracic spi ne. IMPRESSION: Status post sternotomy; no active cardiopulmonary disease Reviewed, dictated and finalized at location B. UALIZATION CONSULTANT
--- NOTE | ~2022-02-11 | XR_ITS ---
EXAMINATION: XR chest 1V portable DATE: 02/19/2022 06:25 INDICATION: Acute respiratory failure TECHNIQUE: frontal view of the chest was obtained. COMPARISON: Chest radiograph dated 02/18/2022 FINDINGS: Endotracheal tube tip 4.8 cm above the vinay. Nasogastric tube extends below the left hemidiaphragm with distal tip collimated off the study. Skinfolds project over the right hemithorax. Improving aeration at the left lung base with some persi stent airspace opacities of both lung bases, left greater than right. Small left pleural effusion. No pulmonary edema or pneumothorax. Median sternotomy wires and mediastinal surgical clips are seen, ang leal from prior coronary artery bypass grafting. IMPRESSION: 1. Mild bibasilar opacities which could represent atelectasis and/or pneumonia with improved aeration at the left lung base. 2. Decreasing small left pleural effusion. Reviewed, dictated and finalized at location A. ON SAWYER
--- NOTE | ~2022-02-11 | XR_ITS ---
EXAM: XR abdomen NG/feed tube insert DATE: 02/17/2022 17:06 HISTORY: check NG placement . COMPARISON: CTPA, abdomen and pelvis 02/17/2022, small bowel follow-through 02/14/2022. FINDINGS: Bibasilar atelectasis. Cholecystectomy clips. Additional surgical clips over the midline a bdomen. NG tube, tip and side port project over the expected location of the stomach. Persistent smal l bowel dilation. Free air. Degenerative change in the spine. IMPRESSION: NG tube, in good position. Persistent free air. Persistent small bowel dilation. Reviewed, dictated and finalized at location K. SHER POLISHER IMPRESSION: NG tube, in good position. Persistent free air. Persistent small radha wel dilation.
--- NOTE | ~2022-02-11 | XR_ITS ---
EXAMINATION: XR abdomen/kub 1V DATE: 02/13/2022 06:06 INDICATION: Nasogastric tube placement. TECHNIQUE: An upright view of the abdomen was obtained. COMPARISON: Abdomen radiographs 02/12/2022 FINDINGS: The lower abdomen is excluded. There are multiple dilated loops of small bowel. The nasogas tric tube tip is in the stomach. Surgical clips in the right upper quadrant are likely from cholecyst ectomy. Median sternotomy wires and mediastinal surgical clips are seen, likely from prior coronary a rtery bypass grafting. IMPRESSION: 1. Nasogastric tube tip in the stomach. 2. Persistently dilated small bowel, consistent with small bowel obstruction. Reviewed, dictated and finalized at location A. L BIT SHARPENER
--- NOTE | ~2022-02-11 | XR_ITS ---
EXAMINATION: XR chest 1V portable DATE: 02/26/2022 06:40 INDICATION: Acute respiratory failure. TECHNIQUE: A single frontal view of the chest was obtained. COMPARISON: Chest single view 02/25/2022, CT abdomen and pelvis 02/23/2022 FINDINGS: There are airspace opacities in the lower lung zones. There is a small right pleural effusi on. No pneumothorax. The heart size is normal. Median sternotomy wires and mediastinal surgical clips are seen, likely from prior coronary artery bypass grafting. A right upper extremity peripherally in serted central venous catheter (PICC) is seen with tip in the superior vena cava. IMPRESSION: 1. Stable airspace opacities in the lower lung zones, likely atelectasis. 2. Stable small right pleural effusion. Reviewed, dictated and finalized at location A. ORK ACCOUNT MANAGER
--- NOTE | ~2022-02-11 | XR_ITS ---
XR abdomen NG/feed tube insert DATE: 02/11/2022 14:02 INDICATION: NG tube placement TECHNIQUE: Portable upright AP view on 02/11/2022 at 1359 hours COMPARISON: None FINDINGS: NG tube is present in the upper body of the stomach, the proximal side-port 4 cm distal to the diaphragmatic hiatus. Gastric air-fluid level and gaseous distention and some air-fluid levels of the small bowel, consiste nt with small bowel obstruction. No intraperitoneal free air is evident. Status post sternotomy. IMPRESSION: NG tube in upper body of stomach Small bowel obstruction Reviewed, dictated and finalized at Location A. Reviewed, dictated and finalized at location A. COLOR MIXER
--- NOTE | ~2022-02-11 | XR_ITS ---
XR chest 1V portable 02/17/2022 10:20 Indication: Post abdominal surgery. Shortness of breath. Procedure: AP portable chest Comparison: Comparison to multiple prior studies sequentially, with oldest reviewed study dated 06/05. Findings: Status post median sternotomy for CABG. Heart size normal. There is basilar atelectasis. No edema, significant effusion or pneumothorax. There is advanced glenohumeral joint osteoarthritis on the left. Impression: 1: Bibasilar atelectasis. Reviewed, dictated and finalized at location A. WIRER Impression: 1: Bibasilar atelectasis.
[2022-02-11 10:58] LABS: Hematocrit 45.2 % (42.0-52.0); Hemoglobin 15.1 g/dL (14.0-18.0); Mean Corpuscular HGB Conc 33.4 g/dl (32-36); Mean Corpuscular Hemoglobin 30.6 pg (26-34); Mean Corpuscular Volume 91.7 fl (80-100); Mean Platelet Volume 9.6 fl (7.4-10.4); Platelet Count Result 442 k/mm3 (150-375); Red Blood Count 4.93 M/mm3 (4.6-6.20); Red Cell Distribution Width 13.3 % (11.5-14.5)
[2022-02-11 11:10] LABS: Alanine Aminotransferase 27 U/L (6-50); Albumin Level 3.9 g/dL (3.5-5.1); Alkaline Phosphatase 100 U/L (38-126); Aspartate Amino Transferase 32 U/L (17-59); Bilirubin,Total 0.6 mg/dL (0.2-1.3); Blood Urea Nitrogen 55 mg/dL (9-20); Calcium 8.6 mg/dL (8.4-10.2); Carbon Dioxide > 40 mmol/L (22-30); Chloride 79 mmol/L (98-107); Estimated CRCL calculation 30 ml/min; Estimated Glomerular Filt Rate 36; Glucose 180 mg/dL (65-110); Lipase 58 U/L (23-300); Potassium 3.3 mmol/L (3.4-5.0); Sodium 138 mmol/L (137-145)
[2022-02-11 11:29] LABS: Band Neutrophils Percent 26 % (0-6); Lymphocytes Absolute Manual 2.16 K/mm3 (1.1-4.5); Metamyelocytes Percent 2 %; Monocytes Percent Manual 5 % (3-9); Neutrophils Percent Manual 49 % (46-73); Total Cells Counted 100
[2022-02-11 11:30] LABS: Atypical Lymphocytes Present; Platelet Estimate Increased (Adequate); Schistocytes None Seen (NORMAL)
--- NOTE | 2022-02-11 12:57 | ED.GENADULT ---
HPI - General Adult General Chief complaint: Recheck/Abnormal Lab/Rx Stated complaint: constipation, vomiting Time Seen by Provider: 02/11/22 12:03 Source: patient, family, RN notes reviewed and old records reviewed Mode of arrival: ambulatory Limitations: no limitations History of Present Illness HPI narrative: This is an 81 year old male POD s/p cholecystitis, dermoid tumor removal, small bowel resection who presents for evaluation of constipation with nausea and vomiting. Patient states he has not had a bowel movement in 4 days. He is having mid diffuse abdominal pain with nausea and vomiting starting yesterday. HE has been unable to eat and drink since yesterday. His states he is now too weak to walk and his abdomen does appear distended. Patient rates his pain as 5/10. He has been taking Dulcolax and Colace for his constipation, but he still has not had a bowel movement. He also denies passing flatus. Quality: dull Pain Consistency: constant Relieving factors: none Exacerbating factors: none Related Data Home Medications Medication Instructions Recorded Confirmed multivitamin (Multiple Vitamins 1 tablet PO DAILY 02/16/19 02/11/22 tablet) atorvastatin 40 mg tablet 40 mg PO DAILY 05/03/21 02/11/22 clopidogrel 75 mg tablet 75 mg PO DAILY 05/03/21 02/11/22 furosemide 20 mg tablet 20 mg PO DAILY 05/03/21 02/11/22 lisinopril 40 mg tablet 40 mg PO DAILY 05/03/21 02/11/22 metoprolol tartrate 25 mg tablet 12.5 mg PO BID 05/03/21 02/11/22 tramadol 50 mg tablet 50 mg PO BID PRN Pain 05/03/21 02/11/22 aspirin 81 mg tablet 81 mg PO DAILY 05/11/21 02/11/22 levothyroxine 75 mcg capsule 75 mcg PO DAILY 09/12/21 02/11/22 omeprazole magnesium 20 mg 20 mg PO .every other day 09/12/21 02/11/22 tablet,delayed release (Prilosec OTC) vitamins A,C,W-sukk-jylknp 14,320 1 cap PO DAILY 09/12/21 02/11/22 unit-226 mg-200 unit capsule (ICaps AREDS) acetaminophen 650 mg 1,300 mg PO Q12H PRN Pain 01/25/22 02/11/22 tablet,extended release (Tylenol Arthritis Pain) Allergies Allergy/AdvReac Type Severity Reaction Status Date / Time No Known Allergies Allergy Verified 02/11/22 12:11 Review of Systems Review of Systems: All systems reviewed & are unremarkable except as noted in HPI and below Constitutional: Constitutional: Denies chills, Reports fatigue, Denies fever(s) and Reports weakness Cardiovascular: Cardiovascular: Denies chest pain and Denies radiating jaw, neck or arm pain Respiratory: Respiratory: Denies chest congestion, Denies cough and Denies dyspnea Gastrointestinal: Gastrointestinal: Reports abdominal pain, Reports constipation, Reports nausea and Reports vomiting Genitourinary: Genitourinary: Denies hematuria, Denies oliguria, Denies dysuria and Denies urinary frequency [facility] Past Medical History Medical History Bladder cancer BPH (benign prostatic hyperplasia) GERD (gastroesophageal reflux disease) History of smoking HTN (hypertension) with goal to be determined Hyperlipidemia Hypothyroidism Systolic murmur Surgical History Surgical History History of appendectomy History of inguinal hernia repair Hx of CABG S/P cholecystectomy Social History Social History Smoking packs per day: 1 Smoking cigarettes per day: 20.0 Years smoked: 10 Smoking pack-years: 10.00 Smoking status: Former smoker Alcohol intake: current Drinks per week: 2 Alcohol use details: BEER Substance use: never Substance use type: does not use Lack of Transportation: No Lack of Food: Never True Current Housing: I Have Housing Concerned About Future Housing: No Difficulty Paying Gas/Electric Bills: No Difficulty Paying for Meds: No Currently Unemployed: No Education: High School Diploma/GED Difficulty w/ Childcare or Family Care:
[2022-02-11 13:15] LABS: Alveolar/Arterial O2 Gradient 88.8 mmHg; Base Excess ABG 22.9 mEq/l (+/-2.0); Carboxyhemoglobin 0.9 % THb (0-2.0); Fractional Inspired Oxygen 28 %; HCO3 ABG 46.6 mEq/l (22.0-26.0); Methemoglobin ABG 0.2 %THb (0-1.5); Oxygen Saturation ABG 94.5 % (95.0-100.0); Oxyhemoglobin 91.4 % THb (90.0-100.0); PO2 ABG 58.9 mmHg (80.0-100.0); Reduced Hemoglobin 7.5 %THb (0-5.0); Total Hemoglobin 14.8 g/dL (12.0-18.0)
[2022-02-11] MEDS: SODIUM CHLORIDE 0.9% IV 1,000 ML 999 ML IV CONT ×2 (13:17→14:26)
[2022-02-11 13:18] LABS: Device NASAL CANNULA; Modified Allen's Test Pass; Site Drawn RIGHT RADIAL; pH ABG 7.643 (7.350-7.450)
--- NOTE | 2022-02-11 13:50 | PM.IMHP ---
H&P: HPI History of Present Illness Date/Time: 02/11/22 13:50 Chief Complaint: abdominal pain, N/V Narrative: The pt is a 81 y/o M s/o SBR, cholecystectomy on 02/05. Pt initially did well and was dc'd home. Pt reports he has not had BM in last 4 days and has become progressively more distended and uncomfortable. Pt also started c N/V yesterday. Pt reports poor to no appetite and has not really been able to keep anything down over the last day or so. Workup, including CT, significant for distal SBO. Review of Systems Constitutional: Constitutional: Reports as per HPI, Reports anorexia, Denies chills, Reports fatigue, Denies fever(s), Denies increased appetite, Reports lethargy, Reports malaise, Reports poor appetite, Reports weakness, Denies weight gain and Denies weight loss Eyes: Eyes: Reports no additional eye complaints ENT: Reports system reviewed and no additional complaints, except as documented Cardiovascular: Cardiovascular: Reports no additional cardiovascular complaints Respiratory: Respiratory: Reports no additional respiratory complaints Gastrointestinal: Gastrointestinal: Reports as per HPI, Reports abdominal pain, Reports belching, Reports bloating, Reports change in bowel habits, Denies change in stool character, Reports constipation, Reports GI cramping, Reports early satiety, Reports nausea, Reports vomiting and Denies hematemesis Genitourinary: Genitourinary: Reports no additional male genitourinary complaints Musculoskeletal: Musculoskeletal: Reports no additional musculoskeletal complaints Integumentary/Breasts: Skin/Breast: Reports system reviewed and no additional complaints, except as docu Neurologic: Reports system reviewed and no additional complaints, except as documented Psychiatric: Psychiatric: Reports no additional psychiatric complaints Endocrine: Endocrine: Reports no additional endocrine complaints Hematologic/Lymphatic: Hematologic/Lymphatic: Reports no additional hematologic/lymphatic complaints Allergic/Immunologic: Allergic/Immunologic: Reports no additional allergic/immunologic complaints [facility] Past Medical History Medical History Bladder cancer BPH (benign prostatic hyperplasia) GERD (gastroesophageal reflux disease) History of smoking HTN (hypertension) with goal to be determined Hyperlipidemia Hypothyroidism Systolic murmur Surgical History Surgical History History of appendectomy History of inguinal hernia repair Hx of CABG S/P cholecystectomy Social History Social History Smoking packs per day: 1 Smoking cigarettes per day: 20.0 Years smoked: 10 Smoking pack-years: 10.00 Smoking status: Former smoker Alcohol intake: current Drinks per week: 2 Alcohol use details: BEER Substance use: never Substance use type: does not use Lack of Transportation: No Lack of Food: Never True Current Housing: I Have Housing Concerned About Future Housing: No Difficulty Paying Gas/Electric Bills: No Difficulty Paying for Meds: No Currently Unemployed: No Education: High School Diploma/GED Difficulty w/ Childcare or Family Care: No Additional living arrangements comments: Gender identity (if verbalized by the patient): Male Spiritual care concerns: No Meds Home Medications and Allergies Home Medications Medication Instructions Recorded Confirmed Type multivitamin (Multiple Vitamins 1 tablet PO DAILY 02/16/19 02/05/22 History tablet) atorvastatin 40 mg tablet 40 mg PO DAILY 05/03/21 02/05/22 History clopidogrel 75 mg tablet 75 mg PO DAILY 05/03/21 02/05/22 History furosemide 20 mg tablet 20 mg PO DAILY 05/03/21 02/05/22 History lisinopril 40 mg tablet 40 mg PO DAILY 05/03/21 02/05/22 History metoprolol tartrate 25 mg tablet 12.5 mg PO BID 05/03/21 02/05/22 His
[2022-02-11 13:55] LABS: Influenza A QL RT-PCR Negative (Negative); Influenza B QL RT-PCR Negative (Negative); SARS-CoV-2 RNA PCR Negative
[2022-02-11 14:13] LABS: Appearance Urine Cloudy (Clear); Bilirubin Urine 2+ (Negative); Blood Urine 2+ (Negative); Color Urine Yellow (Yellow); Glucose Urine UA Negative (Negative); Ketones Urine Trace mg/dL (Negative); Leukocyte Esterase Ur Trace LEU/UL (Negative); Nitrate Urine Negative (Negative); Protein Urine 2+ mg/dL (Negative); Urobilinogen Urine 0.2 mg/dL (<2.0); pH Urine 5.5 (5.0-9.0)
[2022-02-11 14:22] LABS: Bacteria Urine Trace /hpf; Mucus Urine Rare /lpf; RBC Urine >75 /hpf (0-2); Squamous Epithelial Cell Urine Occasional /hpf (Few); WBC Urine >75 /hpf
[2022-02-11 14:25] LABS: Add Urine Microscopic? YES
[2022-02-11] MEDS: SODIUM CHLORIDE 0.9% IV 500 ML 999 ML IV CONT (15:09)
--- NOTE | 2022-02-11 15:29 | ADMGEN ---
This patient, Shania Pandya, was admitted to [facility] Room 303-01 at 1530. Patient/family oriented to hospital policies and general routines including ID bracelet, bed and alarms, visiting hours, pain management, procedures, bathroom and other care routines, personal items, smoking policy, room service/diet, and visiting hours. Information on how to activate the Rapid Response Team has been discussed. Patient/Family are encouraged to report perceived risks to care and to ask questions if they do not understand what they are told or what they should do.
[2022-02-11] MEDS: FAMOTIDINE 20 MG/2 ML VIAL IV PUSH (21:37)
[2022-02-11] MEDS: SODIUM CHLORIDE 0.9% IV 1,000 ML 100 ML IV CONT (21:37)
--- NOTE | 2022-02-11 23:28 | PM.IMCN ---
Assessment and Plan Assessment and plan (1) SBO (small bowel obstruction): Code(s): K56.609 - Unspecified intestinal obstruction, unspecified as to partial versus complete obstruction Status: Acute Assessment and Plan: -the patient has NG tube in place the upper abdomen. -obstructive series has been ordered for tomorrow. -surgery has admitted the patient. The patient recently had a surgery within the last week. He has not had a bowel movement 4 days. -the patient has had approximately 1500 cc of light brown gastric content removed. -continue with analgesics -continue with IV fluids. -the patient is NPO at this time. (2) Hypothyroidism: Code(s): E03.9 - Hypothyroidism, unspecified Status: Acute Assessment and Plan: -I switched his thyroid medicine to IV. Which is half the dose of his p.o. (3) HTN (hypertension) with goal to be determined: Code(s): I10 - Essential (primary) hypertension Status: Acute Assessment and Plan: -patient NPO at this time. His lisinopril, Lasix, and metoprolol on hold at this time. -p.r.n. Hydralazine for now. -may consider Lopressor IV if patient has rebound tachycardia (4) CAD (coronary artery disease): Code(s): I25.10 - Atherosclerotic heart disease of [place] coronary artery without angina pectoris Status: Acute Assessment and Plan: -the patient is NPO at this time and had been on Plavix -he had a history of a CABG many years ago. (5) BPH loc w urin obs/LUTS: Code(s): N40.1 - Benign prostatic hyperplasia with lower urinary tract symptoms Status: Acute (6) Hypokalemia: Code(s): E87.6 - Hypokalemia Status: Acute Assessment and Plan: -repeat potassium levels in the a.m.. -the patient was given IV potassium. -check magnesium level -the patient has an NG tube that is connected to suction and he was also having a poor appetite for several days. (7) Acute renal failure: Code(s): N17.9 - Acute kidney failure, unspecified Status: Acute Assessment and Plan: -continue with IV fluids. -check BMP daily -avoid nephrotoxic medication. -most likely prerenal azotemia due to poor oral intake. HPI Data of Consult Consult date: 02/11/22 Requesting Physician: Kiki Sinha MD Primary Care Provider: Baldev CorreaLatesha Consult Narrative Narrative: Shania Pandya is a 81 year old male who came to the emergency room with complaints of constipation and vomiting. The patient had a history of cholecystitis with laparoscopic cholecystectomy and laparoscopic dermoid tumor removal and small-bowel resection on 02/05/2022 and the patient was discharged on 02/06/2022. The patient also recently had a recent cystoscopy and no recurrence of his bladder cancer was found. The patient stated he has not had a bowel movement 4 days. He was having diffuse abdominal pain today with nausea and vomiting that started yesterday. The patient was unable to eat or drink anything since yesterday. The patient has been taking Dulcolax as well as Colace for his constipation. Patient stated that he is not able to pass gas in his abdomen is distended. His chest x-ray today shows mild infiltrate or atelectasis of right midlung and both lung bases. Prominent gaseous distension of small bowel. Abdominal pelvis CT was read as the following?Distal small bowel obstruction at the surgical anastomotic site, with up to 4.8 cm dilated small bowel segments, prominent fluid distention of the small bowel, stomach and reflux of fluid into the distal esophagus Mild free fluid adjacent to the dilated distal small bowel and in the paracolic gutters NG tube was placed in the emergency room. Abdominal x-ray shows that the NG tube is in the upper body of the stomach. Patient has already the 1 and half containers of gastric contents. The patient was started on IV fluids and given Zofran as well as IV Tylenol in the emergency room.
[2022-02-12] MEDS: POTASSIUM CHLORIDE INJ 40 MEQ in SODIUM CHLORIDE 0.9% IV 500 ML 130 MEQ IVPB (04:12)
[2022-02-12] MEDS: MORPHINE SULFATE (*CRX) 2 MG/ML INJ IV PUSH (04:18)
[2022-02-12] MEDS: PHENOL/SOD PHENO SPRAY CHERRY (*BKC) 1 SPRAY MUCOUS MEM (04:21)
[2022-02-12] MEDS: LEVOTHYROXINE SODIUM INJ 100 MCG/5 ML VIAL 37.5 MCG IV PUSH (05:57)
[2022-02-12 06:06] VITALS: BP 93/67; PULSE 92; RESP 16; TEMP 36.4; O2SAT 99
[2022-02-12 07:16] LABS: Hematocrit 42.3 % (42.0-52.0); Hemoglobin 13.8 g/dL (14.0-18.0); Mean Corpuscular HGB Conc 32.6 g/dl (32-36); Mean Corpuscular Hemoglobin 30.9 pg (26-34); Mean Corpuscular Volume 94.6 fl (80-100); Mean Platelet Volume 9.5 fl (7.4-10.4); Platelet Count Result 366 k/mm3 (150-375); Red Blood Count 4.47 M/mm3 (4.6-6.20); Red Cell Distribution Width 13.9 % (11.5-14.5); White Blood Count 10.8 K/mm3 (4.5-10.0)
[2022-02-12 07:30] LABS: Alanine Aminotransferase 20 U/L (6-50); Albumin Level 3.2 g/dL (3.5-5.1); Alkaline Phosphatase 84 U/L (38-126); Aspartate Amino Transferase 29 U/L (17-59); Bilirubin,Total 0.5 mg/dL (0.2-1.3); Blood Urea Nitrogen 70 mg/dL (9-20); Calcium 7.2 mg/dL (8.4-10.2); Carbon Dioxide > 40 mmol/L (22-30); Chloride 83 mmol/L (98-107); Estimated CRCL calculation 23 ml/min; Estimated Glomerular Filt Rate 27; Glucose 119 mg/dL (65-110); Magnesium 4.4 mg/dL (1.6-2.3); Potassium 3.2 mmol/L (3.4-5.0); Sodium 140 mmol/L (137-145)
[2022-02-12 08:15] LABS: Band Neutrophils Percent 14 % (0-6); Lymphocytes Absolute Manual 0.64 K/mm3 (1.1-4.5); Neutrophils Absolute Manual 10.15 K/mm3 (1.3-6.7); Neutrophils Percent Manual 80 % (46-73); Total Cells Counted 100
[2022-02-12 08:16] LABS: Platelet Estimate Adequate (Adequate)
[2022-02-12 08:17] LABS: Schistocytes None Seen (NORMAL); Target Cells 1+ (NORMAL)
[2022-02-12] MEDS: FAMOTIDINE 20 MG/2 ML VIAL IV PUSH ×2 (08:23→20:36)
[2022-02-12] MEDS: SODIUM CHLORIDE 0.9% IV 1,000 ML 100 ML IV CONT ×2 (08:23→18:53)
--- NOTE | 2022-02-12 10:28 | PM.PNGS ---
Progress Note: A&P Assessment and Plan (1) SBO (small bowel obstruction): Code(s): K56.609 - Unspecified intestinal obstruction, unspecified as to partial versus complete obstruction Status: Acute Assessment and Plan: Abdominal x-ray this morning still shows dilated small bowel c/w small bowel obstruction. No flatus or BM. Had high NG output overnight. Will continue NG tube decompression, bowel rest, and IV fluids today. Monitor electrolytes and replace as needed. Encouraged patient to be up to the chair and ambulating in the halls today as much as tolerated. (2) Acute renal failure: Code(s): N17.9 - Acute kidney failure, unspecified Status: Acute Assessment and Plan: Creatinine up to 2.3 today. Continue IV fluids, monitor labs, management per Hospitalist. (3) Hypokalemia: Code(s): E87.6 - Hypokalemia Status: Acute Assessment and Plan: K 3.2 today. KCL IV rider ordered, monitor labs and replace as needed. (4) CAD (coronary artery disease): Code(s): I25.10 - Atherosclerotic heart disease of [place] coronary artery without angina pectoris Status: Acute Plan I have discussed the patient's case and plan of care with Dr. Sinha. Subjective Subjective Date/Time Seen: 02/12/22 10:28 Patient reports: feels better, no flatus, no bowel movement and afebrile Interval history: Patient seen and examined. Chart reviewed. He reports feeling less distended and bloated today. Nausea has improved. NG had 2 L out overnight. No flatus or BM. Denies any abdominal pain. Review of Systems Review of Systems: All systems reviewed & are unremarkable except as noted in HPI and below Exam Const: General: comfortable and no acute distress Orientation/consciousness: patient oriented x3 GI: Inspection: incision (dry and intact, healing well, no erythema) and other (mildly distended) GI Palp: Yes Soft to palpation, No Tenderness to palpation present (GI), No Guarding due to palpation present (GI) and No Rebound tenderness present Auscultation: Hypoactive bowel sounds present (very hypoactive) Objective Data Vital Signs Vital Signs: Vital Signs - 24 hr 02/11/22 10:35 02/11/22 12:14 02/11/22 12:41 Temperature 97.6 F Pulse Rate 90 Respiratory Rate 16 18 Blood Pressure 134/93 H Pulse Oximetry 99 96 Oxygen Delivery Room Air Oxygen Flow Rate 2 02/11/22 12:42 02/11/22 15:05 02/11/22 15:12 Temperature Pulse Rate 108 H 110 H Respiratory Rate 20 20 Blood Pressure 94/60 L 94/60 L Pulse Oximetry 86 L 97 97 Oxygen Delivery Oxygen Flow Rate 02/11/22 15:46 02/11/22 21:45 02/11/22 22:02 Temperature 97.3 F L Pulse Rate 100 Respiratory Rate 14 Blood Pressure 81/55 L 102/62 Pulse Oximetry 95 90 Oxygen Delivery Nasal Cannula Oxygen Flow Rate 2 02/12/22 06:06 Temperature 97.5 F L Pulse Rate 92 Respiratory Rate 16 Blood Pressure 93/67 L Pulse Oximetry 99 Oxygen Delivery Oxygen Flow Rate Intake/Output Intake/Output: Intake & Output 02/09/22 02/10/22 02/11/22 02/12/22 23:59 23:59 23:59 23:59 Intake Total 2500 1000 Output Total 100 2525 Balance 2400 -1525 Meds/Results Medications: Active Medications Generic Name Dose Route Start Last Admin Trade Name Freq PRN Reason Stop Dose Admin Famotidine 20 mg 02/11/22 21:00 02/12/22 08:23 Famotidine 20 Mg/2 Ml Vial IV PUSH 20 mg Q12HR SAURABH Administration Hydralazine HCl 10 mg 02/11/22 23:40 Hydralazine Hcl 20 Mg/Ml Vial IV PUSH Q8H PRN Blood Pressure - High Acetaminophen 1,000 mg in 100 mls @ 400 mls/hr 02/11/22 13:59 Ofirmev 1,000 Mg Ivpb IVPB 02/12/22 13:58 Q6H PRN Mild Pain (1-3) or Fever Sodium Chloride 1,000 mls @ 125 mls/hr 02/11/22 20:55 02/12/22 08:23 Normal Saline Iv IV CONT 100 mls/hr .Q8H SAURABH Administration Potassium Chloride 100 mls @ 50 mls/hr 02/12/22 09:00 Kcl 20 Meq/Sw 100 Ml
--- NOTE | 2022-02-12 12:41 | P.PNIM_ITS ---
Progress Note: A&P Assessment and Plan (1) SBO (small bowel obstruction): Code(s): K56.609 - Unspecified intestinal obstruction, unspecified as to partial versus complete obstruction Status: Acute Assessment and Plan: Presented with abdominal distension, nausea, vomiting * CT of the abdomen/pelvis showed distal small-bowel obstruction of the surgical anastomotic site * Continue with NG decompression * Management per General surgery * KUB today revealed persistently dilated small bowel * Continue with IV fluids while NPO (2) Acute renal failure: Code(s): N17.9 - Acute kidney failure, unspecified Status: Acute Assessment and Plan: Baseline creatinine 0.6-0.9. Creatinine elevated up to 2.3 today * Suspect prerenal secondary to decreased p.o. intake and episode of hypotension * Will increase IV fluids to 125 mL/hour. Monitor volume status closely * Hold home lisinopril and furosemide * Renal ultrasound pending * Postvoid bladder scan with 206 cc. Patient voiding independently * Consider nephrology consultation if worsening (3) Hypotension: Code(s): I95.9 - Hypotension, unspecified Status: Acute Assessment and Plan: Blood pressure declined to 81/55 yesterday. * Likely due to dehydration * Blood pressures improved today. Last BP 132/70 * Holding antihypertensives * Monitor BP trends. (4) Hypokalemia: Code(s): E87.6 - Hypokalemia Status: Acute Assessment and Plan: Potassium 3.2 today * IV potassium supplementation * Monitor BMP (5) Hypermagnesemia: Code(s): E83.41 - Hypermagnesemia Status: Acute Assessment and Plan: Magnesium 4.4 * Likely due to SHYAM * Patient is not receiving magnesium supplements * Continue IV fluids * Monitor serum magnesium, anticipate downward trend (6) Hypothyroidism: Code(s): E03.9 - Hypothyroidism, unspecified Status: Chronic Assessment and Plan: TSH is within normal limits * Continue IV levothyroxine (7) CAD (coronary artery disease): Code(s): I25.10 - Atherosclerotic heart disease of [place] coronary artery without angina pectoris Status: Chronic Assessment and Plan: No acute issues. 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 He is feeling fairly well today. He denies nausea or vomiting. He endorses tenderness across his mid abdomen but states his abdomen is softer today. No bowel movements and denies passing flatus. He denies fevers or chills. No shortness of breath, cough, chest pain, palpitation. He has been ambulating with assistance but does endorse weakness. Voiding independently and denies urinary symptoms Review of Systems Review of Systems: All systems reviewed & are unremarkable except as noted in HPI and below Exam Narrative: General: Well-nourished, well-appearing 81-year-old male, sitting up in bed, comfortable, NARD Neuro: awake, alert and oriented x4, speech clear, no focal neuro deficits noted HEENMT: normocephalic, atraumatic, EOMI, sclerae anicteric Respiratory: clear to auscultation bi
--- NOTE | 2022-02-12 12:41 | PM.IMPN ---
Progress Note: A&P Assessment and Plan (1) SBO (small bowel obstruction): Code(s): K56.609 - Unspecified intestinal obstruction, unspecified as to partial versus complete obstruction Status: Acute Assessment and Plan: Presented with abdominal distension, nausea, vomiting CT of the abdomen/pelvis showed distal small-bowel obstruction of the surgical anastomotic site Continue with NG decompression Management per General surgery KUB today revealed persistently dilated small bowel Continue with IV fluids while NPO (2) Acute renal failure: Code(s): N17.9 - Acute kidney failure, unspecified Status: Acute Assessment and Plan: Baseline creatinine 0.6-0.9. Creatinine elevated up to 2.3 today Suspect prerenal secondary to decreased p.o. intake and episode of hypotension Will increase IV fluids to 125 mL/hour. Monitor volume status closely Hold home lisinopril and furosemide Renal ultrasound pending Postvoid bladder scan with 206 cc. Patient voiding independently Consider nephrology consultation if worsening (3) Hypotension: Code(s): I95.9 - Hypotension, unspecified Status: Acute Assessment and Plan: Blood pressure declined to 81/55 yesterday. Likely due to dehydration Blood pressures improved today. Last BP 132/70 Holding antihypertensives Monitor BP trends. (4) Hypokalemia: Code(s): E87.6 - Hypokalemia Status: Acute Assessment and Plan: Potassium 3.2 today IV potassium supplementation Monitor BMP (5) Hypermagnesemia: Code(s): E83.41 - Hypermagnesemia Status: Acute Assessment and Plan: Magnesium 4.4 Likely due to SHYAM Patient is not receiving magnesium supplements Continue IV fluids Monitor serum magnesium, anticipate downward trend (6) Hypothyroidism: Code(s): E03.9 - Hypothyroidism, unspecified Status: Chronic Assessment and Plan: TSH is within normal limits Continue IV levothyroxine (7) CAD (coronary artery disease): Code(s): I25.10 - Atherosclerotic heart disease of [place] coronary artery without angina pectoris Status: Chronic Assessment and Plan: No acute issues. 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 He is feeling fairly well today. He denies nausea or vomiting. He endorses tenderness across his mid abdomen but states his abdomen is softer today. No bowel movements and denies passing flatus. He denies fevers or chills. No shortness of breath, cough, chest pain, palpitation. He has been ambulating with assistance but does endorse weakness. Voiding independently and denies urinary symptoms Review of Systems Review of Systems: All systems reviewed & are unremarkable except as noted in HPI and below Exam Narrative: General: Well-nourished, well-appearing 81-year-old male, sitting up in bed, comfortable, NARD Neuro: awake, alert and oriented x4, speech clear, no focal neuro deficits noted HEENMT: normocephalic, atraumatic, EOMI, sclerae anicteric Respiratory: clear to auscultation bilaterally, nonlabored breathing Cardio: regular rate, regular rhythm with S1-S2 Abdomen: Mildly distended, hypoactive bowel sounds, soft, nontender to palpation Extremities: no edema, erythema, or tenderness to palpation Skin: no rashes or lesions, warm and dry Psych: appropriate mood and affect, judgment and insight intact Objective Data Vital Signs Vital Signs: Vital Signs - 24 hr 02/11/22 12:42 02/11/22 15:05 02/11/22 15:12 Temperature Pulse Rate 108 H 110 H Respiratory Rate
[2022-02-12 13:05] VITALS: BP 132/70
[2022-02-12 14:00] VITALS: BP 119/70; PULSE 88; RESP 16; TEMP 36.6; O2SAT 91
[2022-02-12 20:00] VITALS: O2SAT 91
[2022-02-12 22:00] VITALS: BP 130/73; PULSE 99; RESP 14; TEMP 36.5; O2SAT 93
[2022-02-13] VITALS (7 sets, daily range): BP systolic 137–149; BP diastolic 68–74; PULSE 83–95; RESP 14–20; TEMP 36.4–37.2; O2SAT 89–96
[2022-02-13] MEDS: SODIUM CHLORIDE 0.9% IV 1,000 ML 125 ML IV CONT (02:47)
[2022-02-13] MEDS: LEVOTHYROXINE SODIUM INJ 100 MCG/5 ML VIAL 37.5 MCG IV PUSH (05:46)
[2022-02-13 06:11] LABS: Basophils Percent Auto 0.3 % (0.2-1.2); Eosinophils Percent Auto 0.1 % (0-4.4); Hematocrit 42.2 % (42.0-52.0); Hemoglobin 13.3 g/dL (14.0-18.0); Immature Granulocyte Absolute 0.06 K/mm3 (0.00-0.031); Immature Granulocyte Percent A 0.4 % (0-0.5); Lymphocytes Absolute Auto 1.14 K/mm3 (0.9-3.2); Lymphocytes Percent Auto 8.3 % (18.3-44.2); Mean Corpuscular HGB Conc 31.5 g/dl (32-36); Mean Corpuscular Hemoglobin 29.8 pg (26-34); Mean Corpuscular Volume 94.4 fl (80-100); Mean Platelet Volume 9.2 fl (7.4-10.4); Monocytes Absolute Auto 0.9 K/mm3 (0.1-0.6); Monocytes Percent Auto 6.2 % (2.6-8.5); Neutrophils Absolute Auto 11.6 K/mm3 (1.3-6.7); Neutrophils Percent Auto 84.7 % (45.5-73.1); Platelet Count Result 391 k/mm3 (150-375); Red Blood Count 4.47 M/mm3 (4.6-6.20); Red Cell Distribution Width 13.9 % (11.5-14.5); White Blood Count 13.7 K/mm3 (4.5-10.0)
[2022-02-13 06:27] LABS: Alanine Aminotransferase 21 U/L (6-50); Albumin Level 3.2 g/dL (3.5-5.1); Alkaline Phosphatase 95 U/L (38-126); Anion Gap 11 mmol/L (8-16); Aspartate Amino Transferase 32 U/L (17-59); Bilirubin,Total 0.6 mg/dL (0.2-1.3); Blood Urea Nitrogen 76 mg/dL (9-20); Calcium 6.9 mg/dL (8.4-10.2); Carbon Dioxide 39 mmol/L (22-30); Chloride 95 mmol/L (98-107); Estimated CRCL calculation 24 ml/min; Estimated Glomerular Filt Rate 29; Glucose 106 mg/dL (65-110); Potassium 3.1 mmol/L (3.4-5.0); Sodium 145 mmol/L (137-145)
[2022-02-13] MEDS: FAMOTIDINE 20 MG/2 ML VIAL IV PUSH ×2 (09:46→20:34)
[2022-02-13] MEDS: BISACODYL 10 MG SUPPOSITORY RECTAL (09:48)
[2022-02-13] MEDS: CALCIUM GLUC 1,000 MG/NS 50 ML 1,000 MG/50 ML BAG 100 MG IVPB (09:48)
[2022-02-13] MEDS: KCL 20 MEQ/SW 100 ML 100 ML 50 MEQ IVPB (12:15)
[2022-02-13] MEDS: KCL 40 MEQ/D5 1/2NS 1,000 ML 100 ML IV CONT (12:16)
--- NOTE | 2022-02-13 12:18 | PM.PNGS ---
Progress Note: A&P Assessment and Plan (1) SBO (small bowel obstruction): Code(s): K56.609 - Unspecified intestinal obstruction, unspecified as to partial versus complete obstruction Status: Acute Assessment and Plan: Abdominal x-ray this morning still shows dilated small bowel c/w small bowel obstruction. He did have a BM after the dulcolax suppository and seems to be clinically improving. Will continue NG tube decompression, IV fluids, and bowel rest today. Repeat obstructive series tomorrow. May consider Gastrografin small bowel follow through tomorrow depending on plain films and how he progresses. Encouraged patient to be up to the chair and ambulating in the halls again today as much as tolerated. (2) Acute renal failure: Code(s): N17.9 - Acute kidney failure, unspecified Status: Acute Assessment and Plan: Creatinine up 2.2 today. Renal US noted. Follows with Dr. 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 Recommend to f/u as an outpatient with Dr. Beltre. He is not having any retention issues currently. Continue IV fluids, monitor labs, Hospitalist has held his lisinopril and furosemide. (3) Hypokalemia: Code(s): E87.6 - Hypokalemia Status: Acute Assessment and Plan: K 3.1 today. KCL IV rider ordered, monitor labs and replace as needed. (4) CAD (coronary artery disease): Code(s): I25.10 - Atherosclerotic heart disease of [place] coronary artery without angina pectoris Status: Chronic Plan I have discussed the patient's case and plan of care with Dr. Aguilar. Subjective Subjective Date/Time Seen: 02/13/22 12:18 Patient reports: feels better, no flatus, bowel movement (after suppository today) and afebrile Interval history: Patient feeling well today. He has been up walking with staff and is feeling less bloated. He had a suppository earlier and had a large formed BM after the supp. He denies nausea. Much less out the NG tube with 200 cc output documented overnight. No new complaints. Review of Systems Review of Systems: All systems reviewed & are unremarkable except as noted in HPI and below Exam Const: General: no acute distress and awake Orientation/consciousness: patient oriented x3 GI: Inspection: non-distended and incision (dry and intact, healing well, no erythema) GI Palp: Yes Soft to palpation, Yes Tenderness to palpation present (GI) (very mild diffuse tenderness), No Guarding due to palpation present (GI) and No Rebound tenderness present Auscultation: Hypoactive bowel sounds present (better today) Extrem: General: normal to inspection Objective Data Vital Signs Vital Signs: Vital Signs - 24 hr 02/12/22 13:05 02/12/22 14:00 02/12/22 20:00 Temperature 97.9 F Pulse Rate 88 Respiratory Rate 16 Blood Pressure 132/70 119/70 Pulse Oximetry 91 91 Oxygen Delivery Nasal Cannula Oxygen Flow Rate 2 02/12/22 22:00 02/13/22 06:00 02/13/22 09:45 Temperature 97.7 F 97.6 F Pulse Rate 99 90 Respiratory Rate 14 14 Blood Pressure 130/73 138/74 Pulse Oximetry 93 93 96 Oxygen Delivery Nasal Cannula Oxygen Flow Rate 2 02/13/22 09:48 02/13/22 09:51 Temperature Pulse Rate Respiratory Rate Blood Pressure Pulse Oximetry 89 L 94 Oxygen Delivery Room Air Nasal Cannula Oxygen Flow Rate 1 Intake/Output Intake/Output: Intake & Output 02/10/22 02/11/22 02/12/22 02/13/22 23:59 23:59 23:59 23:59 Intake Total 2500 2520 1000 Output Total 100 2875 800 Balance 2400 -355 200 Meds/Results Medications: Active Medications Generic Name Dose Route Start Last Admin Trade Name Freq PRN Reason Stop Dose Admin Famotidine 20 mg 02/11/22 21:00 02/13/22 09:46 Famotidine 20 Mg/2 Ml Vial IV PUSH 20 mg Q12HR SAURABH Administration Hydralazine HCl 10 mg 02/11/22 23:40 Hydralazine Hcl 20 Mg/Ml Vial IV PUSH Q8H PRN Blood
--- NOTE | 2022-02-13 13:41 | P.PNIM_ITS ---
Progress Note: A&P Assessment and Plan (1) SBO (small bowel obstruction): Code(s): K56.609 - Unspecified intestinal obstruction, unspecified as to partial versus complete obstruction Status: Acute Assessment and Plan: Presented with abdominal distension, nausea, vomiting * CT of the abdomen/pelvis showed distal small-bowel obstruction of the surgical anastomotic site * Continue with NG decompression * Management per General surgery * KUB today revealed persistently dilated small bowel * Continue with IV fluids while NPO (2) Acute renal failure: Code(s): N17.9 - Acute kidney failure, unspecified Status: Acute Assessment and Plan: Baseline creatinine 0.6-0.9. Creatinine elevated up to 2.3 * Suspect prerenal secondary to decreased p.o. intake and episode of hypotension * Creatinine 2.2 today * Continue IV fluids and monitor volume status closely * Renal US revealed medical renal disease with bladder mass but no hydronephrosis. Patient is voiding and no evidence of urinary retention based on PVR * Hold home lisinopril and furosemide * Consider nephrology consultation if worsening (3) Hypotension: Code(s): I95.9 - Hypotension, unspecified Status: Acute Assessment and Plan: Blood pressure declined to 81/55 on 02/11. * Likely due to dehydration * Blood pressures improved. Last BP 138/74 * Holding antihypertensives * Monitor BP trends. (4) Hypokalemia: Code(s): E87.6 - Hypokalemia Status: Acute Assessment and Plan: Potassium 3.1 today * IV potassium supplementation * Fluids transitioned to KCl/D5/half NS * Monitor BMP (5) Hypermagnesemia: Code(s): E83.41 - Hypermagnesemia Status: Acute Assessment and Plan: Magnesium 4.4 yesterday * Likely due to SHYAM * Patient is not receiving magnesium supplements * Continue IV fluids * Magnesium 4.0 today. Continue to monitor serum magnesium, anticipate downward trend (6) Hypothyroidism: Code(s): E03.9 - Hypothyroidism, unspecified Status: Chronic Assessment and Plan: TSH is within normal limits * Continue IV levothyroxine (7) CAD (coronary artery disease): Code(s): I25.10 - Atherosclerotic heart disease of [place] coronary artery without angina pectoris Status: Chronic Assessment and Plan: No acute issues. * Monitor closely (8) Hypoxia: Code(s): R09.02 - Hypoxemia Status: Acute Assessment and Plan: Patient became hypoxic today in the upper 80s. * Currently requiring 1 L supplemental O2 per nasal cannula * CXR in presentation showed mild infiltrate vs atelectasis. * Patient does endorse productive cough and has mild leukocytosis * Will repeat CXR today and based on results, will initiate antibiotic therapy for CAP * Check COVID and influenza * Incentive spirometry * Supportive care. * Wean oxygen as tolerated (9) Bladder mass: Code(s): N32.89 - Other specified disorders of bladder Status: Acute Assessment and Plan: Patient with history of prostate and bladder cancer. Renal ultrasound showed lobulated, asymmetric right posterior bladder wall mass possibly extending from the prostate * Reviewed imaging with patient's urologist, Dr. Beltre. * Plan for outpatient cystoscopy * Not felt to be contributing to SHYAM is there is no evidence of hydronephrosis * No need for intervention at this time Subjective Date/
--- NOTE | 2022-02-13 13:41 | PM.IMPN ---
Progress Note: A&P Assessment and Plan (1) SBO (small bowel obstruction): Code(s): K56.609 - Unspecified intestinal obstruction, unspecified as to partial versus complete obstruction Status: Acute Assessment and Plan: Presented with abdominal distension, nausea, vomiting CT of the abdomen/pelvis showed distal small-bowel obstruction of the surgical anastomotic site Continue with NG decompression Management per General surgery KUB today revealed persistently dilated small bowel Continue with IV fluids while NPO (2) Acute renal failure: Code(s): N17.9 - Acute kidney failure, unspecified Status: Acute Assessment and Plan: Baseline creatinine 0.6-0.9. Creatinine elevated up to 2.3 Suspect prerenal secondary to decreased p.o. intake and episode of hypotension Creatinine 2.2 today Continue IV fluids and monitor volume status closely Renal US revealed medical renal disease with bladder mass but no hydronephrosis. Patient is voiding and no evidence of urinary retention based on PVR Hold home lisinopril and furosemide Consider nephrology consultation if worsening (3) Hypotension: Code(s): I95.9 - Hypotension, unspecified Status: Acute Assessment and Plan: Blood pressure declined to 81/55 on 02/11. Likely due to dehydration Blood pressures improved. Last BP 138/74 Holding antihypertensives Monitor BP trends. (4) Hypokalemia: Code(s): E87.6 - Hypokalemia Status: Acute Assessment and Plan: Potassium 3.1 today IV potassium supplementation Fluids transitioned to KCl/D5/half NS Monitor BMP (5) Hypermagnesemia: Code(s): E83.41 - Hypermagnesemia Status: Acute Assessment and Plan: Magnesium 4.4 yesterday Likely due to SHYAM Patient is not receiving magnesium supplements Continue IV fluids Magnesium 4.0 today. Continue to monitor serum magnesium, anticipate downward trend (6) Hypothyroidism: Code(s): E03.9 - Hypothyroidism, unspecified Status: Chronic Assessment and Plan: TSH is within normal limits Continue IV levothyroxine (7) CAD (coronary artery disease): Code(s): I25.10 - Atherosclerotic heart disease of [place] coronary artery without angina pectoris Status: Chronic Assessment and Plan: No acute issues. Monitor closely (8) Hypoxia: Code(s): R09.02 - Hypoxemia Status: Acute Assessment and Plan: Patient became hypoxic today in the upper 80s. Currently requiring 1 L supplemental O2 per nasal cannula CXR in presentation showed mild infiltrate vs atelectasis. Patient does endorse productive cough and has mild leukocytosis Will repeat CXR today and based on results, will initiate antibiotic therapy for CAP Check COVID and influenza Incentive spirometry Supportive care. Wean oxygen as tolerated (9) Bladder mass: Code(s): N32.89 - Other specified disorders of bladder Status: Acute Assessment and Plan: Patient with history of prostate and bladder cancer. Renal ultrasound showed lobulated, asymmetric right posterior bladder wall mass possibly extending from the prostate Reviewed imaging with patient's urologist, Dr. Beltre. 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 He feels ?rough? today. He states I am sick. Has trouble elaborating on his symptoms. He denies abdominal pain. Denies abdominal bloating or cr
[2022-02-14] MEDS: KCL 40 MEQ/D5 1/2NS 1,000 ML 100 ML IV CONT ×4 (01:22→22:46)
[2022-02-14 01:25] VITALS: O2SAT 94
[2022-02-14] MEDS: LEVOTHYROXINE SODIUM INJ 100 MCG/5 ML VIAL 37.5 MCG IV PUSH (05:41)
[2022-02-14 06:00] VITALS: BP 162/79; PULSE 80; RESP 16; TEMP 36.6; O2SAT 99
[2022-02-14 06:36] LABS: Basophils Percent Auto 0.2 % (0.2-1.2); Eosinophils Absolute Auto 0.1 K/mm3 (0-0.3); Eosinophils Percent Auto 0.7 % (0-4.4); Hematocrit 38.9 % (42.0-52.0); Hemoglobin 12.3 g/dL (14.0-18.0); Immature Granulocyte Percent A 0.7 % (0-0.5); Lymphocytes Absolute Auto 1.15 K/mm3 (0.9-3.2); Lymphocytes Percent Auto 7.7 % (18.3-44.2); Mean Corpuscular HGB Conc 31.6 g/dl (32-36); Mean Corpuscular Volume 94.9 fl (80-100); Monocytes Absolute Auto 0.9 K/mm3 (0.1-0.6); Monocytes Percent Auto 6.1 % (2.6-8.5); Neutrophils Absolute Auto 12.7 K/mm3 (1.3-6.7); Neutrophils Percent Auto 84.6 % (45.5-73.1); Platelet Count Result 393 k/mm3 (150-375); Red Cell Distribution Width 13.8 % (11.5-14.5)
[2022-02-14 06:41] LABS: Anion Gap 2 mmol/L (8-16); Blood Urea Nitrogen 58 mg/dL (9-20); Calcium 7.3 mg/dL (8.4-10.2); Carbon Dioxide 38 mmol/L (22-30); Chloride 103 mmol/L (98-107); Estimated CRCL calculation 41 ml/min; Estimated Glomerular Filt Rate 53; Glucose 158 mg/dL (65-110); Magnesium 3.6 mg/dL (1.6-2.3); Potassium 3.5 mmol/L (3.4-5.0); Sodium 143 mmol/L (137-145)
[2022-02-14] MEDS: FAMOTIDINE 20 MG/2 ML VIAL IV PUSH ×2 (08:49→21:03)
--- NOTE | 2022-02-14 10:27 | PM.PNGS ---
Progress Note: A&P Assessment and Plan (1) SBO (small bowel obstruction): Code(s): K56.609 - Unspecified intestinal obstruction, unspecified as to partial versus complete obstruction Status: Acute Assessment and Plan: Clinically improving and had another BM this morning. Obstructive series this morning still suggests small bowel obstruction. Will get a Gastrografin small bowel follow through to further evaluate. Continue NG tube, NPO, IV fluids. If SBFT shows contrast moving through to colon, then will remove NG and start clear liquids. Encouraged patient to be up to the chair and ambulating in the halls again today as much as tolerated. (2) Acute renal failure: Code(s): N17.9 - Acute kidney failure, unspecified Status: Acute Assessment and Plan: Improving. Creatinine down to 1.3. Renal US noted. Follows with Dr. 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 Recommend to f/u as an outpatient with Dr. Beltre. He is not having any retention issues currently. (3) Hypokalemia: Code(s): E87.6 - Hypokalemia Status: Acute Assessment and Plan: K 3.5 today. KCL IV in IV fluids, monitor labs and replace as needed. (4) CAD (coronary artery disease): Code(s): I25.10 - Atherosclerotic heart disease of [place] coronary artery without angina pectoris Status: Chronic Plan I have discussed the patient's case and plan of care with Dr. Aguilar. Subjective Subjective Date/Time Seen: 02/14/22 09:27 Post Op day: 9 Patient reports: no new complaints, feels better, flatus, bowel movement and afebrile Interval history: Patient seen and examined. Reports feeling better today. No abdominal pain or bloating. He had one BM yesterday after the suppository and then had another large BM reportedly this morning. Review of Systems Review of Systems: All systems reviewed & are unremarkable except as noted in HPI and below Exam Const: General: comfortable, no acute distress and awake Orientation/consciousness: patient oriented x3 GI: Inspection: non-distended and incision (dry and intact, healing well, no erythema) GI Palp: Yes Soft to palpation, No Tenderness to palpation present (GI), No Guarding due to palpation present (GI) and No Rebound tenderness present Auscultation: Hypoactive bowel sounds present Objective Data Vital Signs Vital Signs: Vital Signs - 24 hr 02/13/22 14:00 02/13/22 20:00 02/13/22 22:00 Temperature 99 F 98.8 F Pulse Rate 95 83 Respiratory Rate 20 20 Blood Pressure 137/68 149/73 H Pulse Oximetry 93 95 95 Oxygen Delivery Room Air 02/14/22 01:25 02/14/22 06:00 Temperature 97.9 F Pulse Rate 80 Respiratory Rate 16 Blood Pressure 162/79 H Pulse Oximetry 94 99 Oxygen Delivery Room Air Intake/Output Intake/Output: Intake & Output 02/11/22 02/12/22 02/13/22 02/14/22 23:59 23:59 23:59 23:59 Intake Total 2500 2520 2150 140 Output Total 100 2875 2100 1200 Balance 2400 -403 50 1060 Meds/Results Medications: Active Medications Generic Name Dose Route Start Last Admin Trade Name Freq PRN Reason Stop Dose Admin Albuterol 2.5 mg 02/13/22 13:59 Albuterol Sulfate Neb 2.5 Mg/3 Ml Inh INHALATION Q6HRT PRN Shortness Of Breath Famotidine 20 mg 02/11/22 21:00 02/14/22 08:49 Famotidine 20 Mg/2 Ml Vial IV PUSH 20 mg Q12HR SAURABH Administration Hydralazine HCl 10 mg 02/11/22 23:40 Hydralazine Hcl 20 Mg/Ml Vial IV PUSH Q8H PRN Blood Pressure - High Potassium Chloride/Dextrose/Sod Cl 1,000 mls @ 100 mls/hr 02/13/22 12:00 02/14/22 01:22 Kcl 40 Meq/D5 1/2ns IV CONT 100 mls/hr .Q10H SAURABH Administration Levothyroxine Sodium 37.5 mcg 02/12/22 06:30 02/14/22 05:41 Levothyroxine Sodium Inj 100 Mcg/5 Ml Vial IV PUSH 37.5 mcg DAILY@0630 SAURABH Administration Morphine Sulfate 2 mg 02/11/22 23:42 02/12/22 04:18 Morphin
--- NOTE | 2022-02-14 11:30 | PM.IMPN ---
Progress Note: A&P Assessment and Plan (1) SBO (small bowel obstruction): Code(s): K56.609 - Unspecified intestinal obstruction, unspecified as to partial versus complete obstruction Status: Acute Assessment and Plan: Presented with abdominal distension, nausea, vomiting CT of the abdomen/pelvis showed distal small-bowel obstruction of the surgical anastomotic site Continue with NG decompression, clamped Small bowel follow through in process Management per General surgery KUB 02/13/22 revealed persistently dilated small bowel Continue with IV fluids while NPO (2) Acute renal failure: Code(s): N17.9 - Acute kidney failure, unspecified Status: Acute Assessment and Plan: Baseline creatinine 0.6-0.9. Creatinine elevated up to 2.3 Suspect prerenal secondary to decreased p.o. intake and episode of hypotension Creatinine 1.30 today Continue IV fluids and monitor volume status closely Renal US revealed medical renal disease with bladder mass but no hydronephrosis. Patient is voiding and no evidence of urinary retention based on PVR Consider restarting home lisinopril and furosemide Consider nephrology consultation if worsening (3) Hypotension: Code(s): I95.9 - Hypotension, unspecified Status: Acute Assessment and Plan: Resolved Blood pressure declined to 81/55 on 02/11. Likely due to dehydration Blood pressures improved. Last BP 162/79 Holding antihypertensives Monitor BP trends. (4) Hypokalemia: Code(s): E87.6 - Hypokalemia Status: Acute Assessment and Plan: Potassium 3.5 today Fluids transitioned to KCl/D5/half NS, continued Monitor BMP (5) Hypermagnesemia: Code(s): E83.41 - Hypermagnesemia Status: Acute Assessment and Plan: Magnesium 3.6 today Likely due to SHYAM Patient is not receiving magnesium supplements Continue IV fluids Continue to trend labs (6) Hypothyroidism: Code(s): E03.9 - Hypothyroidism, unspecified Status: Chronic Assessment and Plan: TSH is within normal limits Continue IV levothyroxine (7) CAD (coronary artery disease): Code(s): I25.10 - Atherosclerotic heart disease of [place] coronary artery without angina pectoris Status: Chronic Assessment and Plan: No acute issues. Monitor closely (8) Hypoxia: Code(s): R09.02 - Hypoxemia Status: Acute Assessment and Plan: Patient became hypoxic today in the upper 80s. weaned to room air CXR in presentation showed mild infiltrate vs atelectasis. Patient does endorse productive cough and has mild leukocytosis CXR from 02/13/22 showed no acute cardiopulmonary disease COVID and influenza both negative Incentive spirometry Supportive care. Wean oxygen as tolerated Appears resolved (9) Bladder mass: Code(s): N32.89 - Other specified disorders of bladder Status: Acute Assessment and Plan: Patient with history of prostate and bladder cancer. Renal ultrasound showed lobulated, asymmetric right posterior bladder wall mass possibly extending from the prostate Reviewed imaging with patient's urologist, Dr. Beltre. Plan for outpatient cystoscopy Not felt to be contributing to SHYAM is there is no evidence of hydronephrosis No need for intervention at this time Time Spent With Patient Time with patient: Greater than 35 minutes Subjective Date/time seen: 02/14/22 1130 Interval history: 02/14/22 1130 Patient walked from the bathroom. Patient stated that he has had about 3 bowel movements overnight. He does seem to have some light bowel sounds. He denies any pain or discomfort at this time. He said he wishes he would just go home. He denies any chest pain, shortness a breath, nausea, vomiting, diarrhea, constipation, weakness or fatigue. He also stated that he is hungry.
--- NOTE | 2022-02-14 11:30 | P.PNIM_ITS ---
Progress Note: A&P Assessment and Plan (1) SBO (small bowel obstruction): Code(s): K56.609 - Unspecified intestinal obstruction, unspecified as to partial versus complete obstruction Status: Acute Assessment and Plan: * Presented with abdominal distension, nausea, vomiting * CT of the abdomen/pelvis showed distal small-bowel obstruction of the surgical anastomotic site * Continue with NG decompression, clamped * Small bowel follow through in process * Management per General surgery * KUB 02/13/22 revealed persistently dilated small bowel * Continue with IV fluids while NPO (2) Acute renal failure: Code(s): N17.9 - Acute kidney failure, unspecified Status: Acute Assessment and Plan: * Baseline creatinine 0.6-0.9. Creatinine elevated up to 2.3 * Suspect prerenal secondary to decreased p.o. intake and episode of hypotension * Creatinine 1.30 today * Continue IV fluids and monitor volume status closely * Renal US revealed medical renal disease with bladder mass but no hydronephrosis. Patient is voiding and no evidence of urinary retention based on PVR * Consider restarting home lisinopril and furosemide * Consider nephrology consultation if worsening (3) Hypotension: Code(s): I95.9 - Hypotension, unspecified Status: Acute Assessment and Plan: * Resolved * Blood pressure declined to 81/55 on 02/11. * Likely due to dehydration * Blood pressures improved. Last BP 162/79 * Holding antihypertensives * Monitor BP trends. (4) Hypokalemia: Code(s): E87.6 - Hypokalemia Status: Acute Assessment and Plan: Potassium 3.5 today * Fluids transitioned to KCl/D5/half NS, continued * Monitor BMP (5) Hypermagnesemia: Code(s): E83.41 - Hypermagnesemia Status: Acute Assessment and Plan: * Magnesium 3.6 today * Likely due to SHYAM * Patient is not receiving magnesium supplements * Continue IV fluids * Continue to trend labs (6) Hypothyroidism: Code(s): E03.9 - Hypothyroidism, unspecified Status: Chronic Assessment and Plan: TSH is within normal limits * Continue IV levothyroxine (7) CAD (coronary artery disease): Code(s): I25.10 - Atherosclerotic heart disease of [place] coronary artery without angina pectoris Status: Chronic Assessment and Plan: No acute issues. * Monitor closely (8) Hypoxia: Code(s): R09.02 - Hypoxemia Status: Acute Assessment and Plan: * Patient became hypoxic today in the upper 80s. * weaned to room air * CXR in presentation showed mild infiltrate vs atelectasis. * Patient does endorse productive cough and has mild leukocytosis * CXR from 02/13/22 showed no acute cardiopulmonary disease * COVID and influenza both negative * Incentive spirometry * Supportive care. * Wean oxygen as tolerated * Appears resolved (9) Bladder mass: Code(s): N32.89 - Other specified disorders of bladder Status: Acute Assessment and Plan: * Patient with history of prostate and bladder cancer. * Renal ultrasound showed lobulated, asymmetric right posterior bladder wall mass possibly extending from the prostate * Reviewed imaging with patient's urologist, Dr. Beltre. * Plan for outpatient cystoscopy * Not felt to be contributing to SHYAM is there is no evidence of hydronephros
[2022-02-14 13:42] VITALS: BP 150/85; PULSE 97; RESP 16; TEMP 36.6; O2SAT 94
[2022-02-14] MEDS: ATORVASTATIN 40 MG TABLET PO (16:48)
[2022-02-14] MEDS: lisinopriL 20 MG TABLET 40 MG PO (16:48)
[2022-02-14] MEDS: CLOPIDOGREL BISULFATE 75 MG TABLET PO (16:48)
[2022-02-14] MEDS: LEVOTHYROXINE SODIUM 75 MCG TABLET PO (16:48)
[2022-02-14 21:03] VITALS: PULSE 110
[2022-02-14] MEDS: METOPROLOL TARTRATE 12.5 MG TABLET PO (21:03)
[2022-02-14 22:00] VITALS: BP 131/74; PULSE 91; RESP 16; TEMP 36.4; O2SAT 96
[2022-02-15] MEDS: LEVOTHYROXINE SODIUM 75 MCG TABLET PO (05:46)
[2022-02-15 06:00] VITALS: BP 162/75; PULSE 80; RESP 16; TEMP 36.2; O2SAT 96
[2022-02-15 06:53] LABS: Basophils Absolute Auto 0.1 K/mm3 (0.0-0.1); Basophils Percent Auto 0.5 % (0.2-1.2); Eosinophils Absolute Auto 0.2 K/mm3 (0-0.3); Eosinophils Percent Auto 1.2 % (0-4.4); Hemoglobin 13.4 g/dL (14.0-18.0); Immature Granulocyte Absolute 0.16 K/mm3 (0.00-0.031); Immature Granulocyte Percent A 1.2 % (0-0.5); Lymphocytes Absolute Auto 1.32 K/mm3 (0.9-3.2); Lymphocytes Percent Auto 10.2 % (18.3-44.2); Mean Corpuscular HGB Conc 30.5 g/dl (32-36); Mean Corpuscular Hemoglobin 30.6 pg (26-34); Mean Corpuscular Volume 100.5 fl (80-100); Mean Platelet Volume 9.3 fl (7.4-10.4); Monocytes Percent Auto 7.3 % (2.6-8.5); Neutrophils Absolute Auto 10.3 K/mm3 (1.3-6.7); Neutrophils Percent Auto 79.6 % (45.5-73.1); Platelet Count Result 408 k/mm3 (150-375); Red Blood Count 4.38 M/mm3 (4.6-6.20); Red Cell Distribution Width 14.1 % (11.5-14.5)
--- NOTE | 2022-02-15 08:27 | PM.PNGS ---
Progress Note: A&P Assessment and Plan (1) SBO (small bowel obstruction): Code(s): K56.609 - Unspecified intestinal obstruction, unspecified as to partial versus complete obstruction Status: Acute Assessment and Plan: appears to have been partial obstruction or ileus. Now seeming to resolve. (See small-bowel study from yesterday ) Patient has had multiple stools overnight so will begin advancing his diet but continue to do this slowly in view of the signs dilated bowel on the x-ray study yesterday. Will probably even have him go home on mostly a liquid diet and then transition to a low-fiber soft diet several days after home going if doing well. Reassured patient that loose stools or because of the resolving ileus. (2) Acute renal failure: Code(s): N17.9 - Acute kidney failure, unspecified Status: Acute Assessment and Plan: Improving. Creatinine down to 1.3. Renal US noted. Follows with Dr. 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 Recommend to f/u as an outpatient with Dr. Beltre. He is not having any retention issues currently. (3) Hypokalemia: Code(s): E87.6 - Hypokalemia Status: Acute Assessment and Plan: K 4.3 today. KCL IV in IV fluids, monitor labs and replace as needed. Could also use p.o. now is the patient is starting a diet. Will saline lock IV as long as he is taking liquids well. (4) CAD (coronary artery disease): Code(s): I25.10 - Atherosclerotic heart disease of [place] coronary artery without angina pectoris Status: Chronic Subjective Subjective Date/Time Seen: 02/15/22 08:10 Post Op day: POD# 10 Patient reports: no new complaints and bowel movement (Multiple overnight.) Interval history: Patient awakens easily when I entered the room. Complains that he feels tied down from the tubes and SCD hose. Patient is a tonight helped him set up in the chair. He tolerated the NG clamped and drink water last evening. Only 400 cc out the NG overnight. (Since midnight). He denies nausea or abdominal pain. Review of Systems Review of Systems: All systems reviewed & are unremarkable except as noted in HPI and below Exam Const: General: comfortable, no acute distress and awake Orientation/consciousness: patient oriented x3 HENMT: Other: Mucous membranes slightly dry. Resp: Auscultation: clear to auscultation bilaterally Cardio: Heart sounds: Murmur heart sound present systolic holo GI: Inspection: non-distended and incision (dry and intact, healing well, no erythema) GI Palp: Yes Soft to palpation, No Tenderness to palpation present (GI), No Guarding due to palpation present (GI) and No Rebound tenderness present Auscultation: normal bowel sounds Rectal Exam: deferred Objective Data Vital Signs Vital Signs: Vital Signs - 24 hr 02/14/22 13:42 02/14/22 21:03 02/14/22 22:00 Temperature 36.6 C 36.4 C L Pulse Rate 97 110 H 91 Respiratory Rate 16 16 Blood Pressure 150/85 H 131/74 Pulse Oximetry 94 96 Oxygen Delivery 02/14/22 20:00 02/15/22 06:00 Temperature 36.2 C L Pulse Rate 80 Respiratory Rate 16 Blood Pressure 162/75 H Pulse Oximetry 96 Oxygen Delivery Room Air Intake/Output Intake/Output: Intake & Output 02/12/22 02/13/22 02/14/22 02/15/22 23:59 23:59 23:59 23:59 Intake Total 2520 2150 3620 190 Output Total 2875 2100 1750 600 Balance -801 27 6521 -410 Meds/Results Medications: Active Medications Generic Name Dose Route Start Last Admin Trade Name Freq PRN Reason Stop Dose Admin Acetaminophen 1,300 mg 02/14/22 15:07 Acetaminophen 325 Mg Tablet PO Q12H PRN Pain 1-3 Albuterol 2.5 mg 02/13/22 13:59 Albuterol Sulfate Neb 2.5 Mg/3 Ml Inh INHALATION Q6HRT PRN Shortness Of Breath Atorvastatin Calcium 40 mg 02/14/22 15:10 02/14/22 16:48 Atorvastatin 40 Mg Tablet PO 40 mg DAILY
[2022-02-15 09:08] VITALS: PULSE 80
[2022-02-15] MEDS: METOPROLOL TARTRATE 12.5 MG TABLET PO ×2 (09:08→21:36)
[2022-02-15] MEDS: ATORVASTATIN 40 MG TABLET PO (09:08)
[2022-02-15] MEDS: FAMOTIDINE 20 MG/2 ML VIAL IV PUSH ×2 (09:08→21:37)
[2022-02-15] MEDS: lisinopriL 20 MG TABLET 40 MG PO (09:08)
[2022-02-15] MEDS: FUROSEMIDE 20 MG TABLET PO (09:08)
[2022-02-15] MEDS: CLOPIDOGREL BISULFATE 75 MG TABLET PO (09:08)
[2022-02-15] MEDS: MAG HYDROX/AL HYDROX/SIMETH 30 ML UDC PO (09:09)
[2022-02-15 09:31] LABS: Alanine Aminotransferase 23 U/L (6-50); Alkaline Phosphatase 110 U/L (38-126); Anion Gap 8 mmol/L (8-16); Aspartate Amino Transferase 28 U/L (17-59); Bilirubin,Total 0.5 mg/dL (0.2-1.3); Blood Urea Nitrogen 38 mg/dL (9-20); Calcium 7.9 mg/dL (8.4-10.2); Carbon Dioxide 35 mmol/L (22-30); Chloride 112 mmol/L (98-107); Estimated CRCL calculation 47 ml/min; Estimated Glomerular Filt Rate > 60; Glucose 149 mg/dL (65-110); Potassium 4.3 mmol/L (3.4-5.0); Sodium 155 mmol/L (137-145)
--- NOTE | 2022-02-15 09:45 | PM.IMPN ---
Progress Note: A&P Assessment and Plan (1) SBO (small bowel obstruction): Code(s): K56.609 - Unspecified intestinal obstruction, unspecified as to partial versus complete obstruction Status: Acute Assessment and Plan: Presented with abdominal distension, nausea, vomiting CT of the abdomen/pelvis showed distal small-bowel obstruction of the surgical anastomotic site NG remains clamped should be removed this afternoon per surgery Small bowel follow through possible ileus however contrast did get the colon Management per General surgery KUB 02/13/22 revealed persistently dilated small bowel Continue with IV fluids . diet clear liquids currently advanced per General surgery's recommendations (2) Acute renal failure: Code(s): N17.9 - Acute kidney failure, unspecified Status: Acute Assessment and Plan: Baseline creatinine 0.6-0.9. Creatinine elevated up to 2.3 Suspect prerenal secondary to decreased p.o. intake and episode of hypotension Creatinine 1.10 today Continue IV fluids and monitor volume status closely Renal US revealed medical renal disease with bladder mass but no hydronephrosis. Patient is voiding and no evidence of urinary retention based on PVR Consider restarting home lisinopril and furosemide Consider nephrology consultation if worsening seems to be resolving (3) Hypotension: Code(s): I95.9 - Hypotension, unspecified Status: Acute Assessment and Plan: Resolved Blood pressure declined to 81/55 on 02/11. Likely due to dehydration Blood pressures improved. Last BP 162/79 Holding antihypertensives Monitor BP trends. resolved (4) Hypokalemia: Code(s): E87.6 - Hypokalemia Status: Acute Assessment and Plan: Potassium 4.3 today Fluids transitioned to KCl/D5/half NS, continued Monitor BMP (5) Hypermagnesemia: Code(s): E83.41 - Hypermagnesemia Status: Acute Assessment and Plan: Magnesium 3.0 today Likely due to SHYAM Patient is not receiving magnesium supplements Continue IV fluids Continue to trend labs (6) Hypothyroidism: Code(s): E03.9 - Hypothyroidism, unspecified Status: Chronic Assessment and Plan: TSH is within normal limits Continue IV levothyroxine (7) CAD (coronary artery disease): Code(s): I25.10 - Atherosclerotic heart disease of [place] coronary artery without angina pectoris Status: Chronic Assessment and Plan: No acute issues. Monitor closely (8) Hypoxia: Code(s): R09.02 - Hypoxemia Status: Acute Assessment and Plan: Patient became hypoxic today in the upper 80s. weaned to room air CXR in presentation showed mild infiltrate vs atelectasis. Patient does endorse productive cough and has mild leukocytosis CXR from 02/13/22 showed no acute cardiopulmonary disease COVID and influenza both negative Incentive spirometry Supportive care. Wean oxygen as tolerated Appears resolved (9) Bladder mass: Code(s): N32.89 - Other specified disorders of bladder Status: Acute Assessment and Plan: Patient with history of prostate and bladder cancer. Renal ultrasound showed lobulated, asymmetric right posterior bladder wall mass possibly extending from the prostate Reviewed imaging with patient's urologist, Dr. Beltre. Plan for outpatient cystoscopy Not felt to be contributing to SHYAM is there is no evidence of hydronephrosis No need for intervention at this time (10) Hypernatremia: Code(s): E87.0 - Hyperosmolality and hypernatremia Status: Acute Assessment and Plan: sodium 155 today repeat lab ordered consider changing fluids continue trend labs Time Spent With Patient Time with patient: Greater than 35 minutes Subjective Date/time seen: 02/15/22 0945 Interval history
--- NOTE | 2022-02-15 09:45 | P.PNIM_ITS ---
Progress Note: A&P Assessment and Plan (1) SBO (small bowel obstruction): Code(s): K56.609 - Unspecified intestinal obstruction, unspecified as to partial versus complete obstruction Status: Acute Assessment and Plan: * Presented with abdominal distension, nausea, vomiting * CT of the abdomen/pelvis showed distal small-bowel obstruction of the surgical anastomotic site * NG remains clamped should be removed this afternoon per surgery * Small bowel follow through possible ileus however contrast did get the colon * Management per General surgery * KUB 02/13/22 revealed persistently dilated small bowel * Continue with IV fluids . * diet clear liquids currently advanced per General surgery's recommendations (2) Acute renal failure: Code(s): N17.9 - Acute kidney failure, unspecified Status: Acute Assessment and Plan: * Baseline creatinine 0.6-0.9. Creatinine elevated up to 2.3 * Suspect prerenal secondary to decreased p.o. intake and episode of hypotension * Creatinine 1.10 today * Continue IV fluids and monitor volume status closely * Renal US revealed medical renal disease with bladder mass but no hydronephrosis. Patient is voiding and no evidence of urinary retention based on PVR * Consider restarting home lisinopril and furosemide * Consider nephrology consultation if worsening * seems to be resolving (3) Hypotension: Code(s): I95.9 - Hypotension, unspecified Status: Acute Assessment and Plan: * Resolved * Blood pressure declined to 81/55 on 02/11. * Likely due to dehydration * Blood pressures improved. Last BP 162/79 * Holding antihypertensives * Monitor BP trends. * resolved (4) Hypokalemia: Code(s): E87.6 - Hypokalemia Status: Acute Assessment and Plan: Potassium 4.3 today * Fluids transitioned to KCl/D5/half NS, continued * Monitor BMP (5) Hypermagnesemia: Code(s): E83.41 - Hypermagnesemia Status: Acute Assessment and Plan: * Magnesium 3.0 today * Likely due to SHYAM * Patient is not receiving magnesium supplements * Continue IV fluids * Continue to trend labs (6) Hypothyroidism: Code(s): E03.9 - Hypothyroidism, unspecified Status: Chronic Assessment and Plan: TSH is within normal limits * Continue IV levothyroxine (7) CAD (coronary artery disease): Code(s): I25.10 - Atherosclerotic heart disease of [place] coronary artery without angina pectoris Status: Chronic Assessment and Plan: No acute issues. * Monitor closely (8) Hypoxia: Code(s): R09.02 - Hypoxemia Status: Acute Assessment and Plan: * Patient became hypoxic today in the upper 80s. * weaned to room air * CXR in presentation showed mild infiltrate vs atelectasis. * Patient does endorse productive cough and has mild leukocytosis * CXR from 02/13/22 showed no acute cardiopulmonary disease * COVID and influenza both negative * Incentive spirometry * Supportive care. * Wean oxygen as tolerated * Appears resolved (9) Bladder mass: Code(s): N32.89 - Other specified disorders of bladder Status: Acute Assessment and Plan: * Patient with history of prostate and bladder cancer. * Renal ultrasound showed lobulated, asymmetric right posterior bladder wall mass possibly extending from the pros
[2022-02-15 10:55] LABS: Sodium 152 mmol/L (137-145)
[2022-02-15 14:00] VITALS: BP 134/67; PULSE 92; RESP 26; TEMP 36.6; O2SAT 96
[2022-02-15 21:36] VITALS: PULSE 108
[2022-02-15 22:00] VITALS: BP 134/81; PULSE 103; RESP 16; TEMP 36.8; O2SAT 96
[2022-02-16] MEDS: LEVOTHYROXINE SODIUM 75 MCG TABLET PO (05:32)
[2022-02-16 06:04] VITALS: BP 107/70; PULSE 94; RESP 18; TEMP 36; O2SAT 96
[2022-02-16 06:38] LABS: Basophils Absolute Auto 0.1 K/mm3 (0.0-0.1); Basophils Percent Auto 0.3 % (0.2-1.2); Eosinophils Percent Auto 0.2 % (0-4.4); Hematocrit 43.5 % (42.0-52.0); Hemoglobin 13.8 g/dL (14.0-18.0); Immature Granulocyte Absolute 0.31 K/mm3 (0.00-0.031); Immature Granulocyte Percent A 1.6 % (0-0.5); Lymphocytes Absolute Auto 1.79 K/mm3 (0.9-3.2); Lymphocytes Percent Auto 9.2 % (18.3-44.2); Mean Corpuscular HGB Conc 31.7 g/dl (32-36); Mean Corpuscular Hemoglobin 30.2 pg (26-34); Mean Corpuscular Volume 95.2 fl (80-100); Mean Platelet Volume 9.4 fl (7.4-10.4); Monocytes Absolute Auto 1.5 K/mm3 (0.1-0.6); Monocytes Percent Auto 7.6 % (2.6-8.5); Neutrophils Absolute Auto 15.7 K/mm3 (1.3-6.7); Neutrophils Percent Auto 81.1 % (45.5-73.1); Platelet Count Result 515 k/mm3 (150-375); Red Blood Count 4.57 M/mm3 (4.6-6.20); Red Cell Distribution Width 13.9 % (11.5-14.5); White Blood Count 19.4 K/mm3 (4.5-10.0)
[2022-02-16 06:49] LABS: Alanine Aminotransferase 26 U/L (6-50); Alkaline Phosphatase 91 U/L (38-126); Anion Gap 6 mmol/L (8-16); Aspartate Amino Transferase 40 U/L (17-59); Bilirubin,Total 0.7 mg/dL (0.2-1.3); Blood Urea Nitrogen 36 mg/dL (9-20); Calcium 7.8 mg/dL (8.4-10.2); Carbon Dioxide 31 mmol/L (22-30); Chloride 113 mmol/L (98-107); Estimated CRCL calculation 44 ml/min; Estimated Glomerular Filt Rate 58; Glucose 139 mg/dL (65-110); Magnesium 2.5 mg/dL (1.6-2.3); Potassium 3.3 mmol/L (3.4-5.0); Sodium 150 mmol/L (137-145)
--- NOTE | 2022-02-16 07:45 | PM.IMPN ---
Progress Note: A&P Assessment and Plan (1) SBO (small bowel obstruction): Code(s): K56.609 - Unspecified intestinal obstruction, unspecified as to partial versus complete obstruction Status: Acute Assessment and Plan: Presented with abdominal distension, nausea, vomiting CT of the abdomen/pelvis showed distal small-bowel obstruction of the surgical anastomotic site NG removed 02/15/22 Small bowel follow through possible ileus however contrast did get the colon Management per General surgery KUB 02/13/22 revealed persistently dilated small bowel Full liquid diet currently advanced per General surgery's recommendations (2) Acute metabolic encephalopathy: Code(s): G93.41 - Metabolic encephalopathy Status: Acute Assessment and Plan: A&O x1 Head ct ordered Could be from the hypernatremia, IV fluids changed Could be related to infection as his WBC is elevated Also had a reported large bloody BM, occult blood ordered, consider GI Consider neurology Urine and blood cultures ordered (3) Leukocytosis: Code(s): D72.829 - Elevated white blood cell count, unspecified Status: Acute Assessment and Plan: WBC is elevated at 19.4 Urine and blood cultures ordered Chest xray is negative for any acute findings Lactic acid ordered Continue to trend labs Consider antibiotics after obtaining further testing (4) Hypernatremia: Code(s): E87.0 - Hyperosmolality and hypernatremia Status: Acute Assessment and Plan: sodium 150 today Changed fluids to D5w x 1 bag Repeat CMP this afternoon Could be contributing to the confusion continue trend labs (5) Acute renal failure: Code(s): N17.9 - Acute kidney failure, unspecified Status: Acute Assessment and Plan: Baseline creatinine 0.6-0.9. Creatinine elevated up to 2.3 Suspect prerenal secondary to decreased p.o. intake and episode of hypotension Creatinine 1.20 today Change IV fluid due to hypernatremia Renal US revealed medical renal disease with bladder mass but no hydronephrosis. Patient is voiding and no evidence of urinary retention based on PVR Home lisinopril resumed, hold furosemide due to hypernatremia Consider nephrology consultation if worsening Seems to be resolving, remains stable (6) Hypokalemia: Code(s): E87.6 - Hypokalemia Status: Acute Assessment and Plan: Potassium 3.3 today Fluids changed to D5w Supplement with IV potassium x 1 Monitor BMP (7) Hypermagnesemia: Code(s): E83.41 - Hypermagnesemia Status: Acute Assessment and Plan: Magnesium 2.5 today Likely due to SHYAM Seems to be resolving Continue to trend labs (8) Hypothyroidism: Code(s): E03.9 - Hypothyroidism, unspecified Status: Inactive Assessment and Plan: TSH is within normal limits Converted to PO levothyroxine (9) Bladder mass: Code(s): N32.89 - Other specified disorders of bladder Status: Acute Assessment and Plan: Patient with history of prostate and bladder cancer. Renal ultrasound showed lobulated, asymmetric right posterior bladder wall mass possibly extending from the prostate Reviewed imaging with patient's urologist, Dr. Beltre. Plan for outpatient cystoscopy Not felt to be contributing to SHYAM no evidence of hydronephrosis No need for intervention at this time Will need follow up with outpatient care (10) Melena: Code(s): K92.1 - Melena Status: Acute Assessment and Plan: Reported large blood BM Repeating H/H Patient appears pallor Anemia labs ordered Occult blood ordered Continue to trend labs Consider GI consult Time Spent With Patient Time with patient: Greater than 35 minutes Subjective Date/time seen: 02/16/22 0
--- NOTE | 2022-02-16 07:45 | P.PNIM_ITS ---
Progress Note: A&P Assessment and Plan (1) SBO (small bowel obstruction): Code(s): K56.609 - Unspecified intestinal obstruction, unspecified as to partial versus complete obstruction Status: Acute Assessment and Plan: * Presented with abdominal distension, nausea, vomiting * CT of the abdomen/pelvis showed distal small-bowel obstruction of the surgical anastomotic site * NG removed 02/15/22 * Small bowel follow through possible ileus however contrast did get the colon * Management per General surgery * KUB 02/13/22 revealed persistently dilated small bowel * Full liquid diet currently advanced per General surgery's recommendations (2) Acute metabolic encephalopathy: Code(s): G93.41 - Metabolic encephalopathy Status: Acute Assessment and Plan: * A&O x1 * Head ct ordered * Could be from the hypernatremia, IV fluids changed * Could be related to infection as his WBC is elevated * Also had a reported large bloody BM, occult blood ordered, consider GI * Consider neurology * Urine and blood cultures ordered (3) Leukocytosis: Code(s): D72.829 - Elevated white blood cell count, unspecified Status: Acute Assessment and Plan: * WBC is elevated at 19.4 * Urine and blood cultures ordered * Chest xray is negative for any acute findings * Lactic acid ordered * Continue to trend labs * Consider antibiotics after obtaining further testing (4) Hypernatremia: Code(s): E87.0 - Hyperosmolality and hypernatremia Status: Acute Assessment and Plan: * sodium 150 today * Changed fluids to D5w x 1 bag * Repeat CMP this afternoon * Could be contributing to the confusion * continue trend labs (5) Acute renal failure: Code(s): N17.9 - Acute kidney failure, unspecified Status: Acute Assessment and Plan: * Baseline creatinine 0.6-0.9. Creatinine elevated up to 2.3 * Suspect prerenal secondary to decreased p.o. intake and episode of hypotension * Creatinine 1.20 today * Change IV fluid due to hypernatremia * Renal US revealed medical renal disease with bladder mass but no hydronephrosis. Patient is voiding and no evidence of urinary retention based on PVR * Home lisinopril resumed, hold furosemide due to hypernatremia * Consider nephrology consultation if worsening * Seems to be resolving, remains stable (6) Hypokalemia: Code(s): E87.6 - Hypokalemia Status: Acute Assessment and Plan: * Potassium 3.3 today * Fluids changed to D5w * Supplement with IV potassium x 1 * Monitor BMP (7) Hypermagnesemia: Code(s): E83.41 - Hypermagnesemia Status: Acute Assessment and Plan: * Magnesium 2.5 today * Likely due to SHYAM * Seems to be resolving * Continue to trend labs (8) Hypothyroidism: Code(s): E03.9 - Hypothyroidism, unspecified Status: Inactive Assessment and Plan: * TSH is within normal limits * Converted to PO levothyroxine (9) Bladder mass: Code(s): N32.89 - Other specified disorders of bladder Status: Acute Assessment and Plan: * Patient with history of prostate and bladder cancer. * Renal ultrasound showed lobulated, asymmetric right posterior bladder wall mass possibly extending from the prostate * Rev
[2022-02-16 08:54] LABS: Hematocrit 44.3 % (42.0-52.0); Hemoglobin 13.9 g/dL (14.0-18.0)
[2022-02-16 09:07] VITALS: BP 95/55; PULSE 90; RESP 16; TEMP 37.3; O2SAT 96
[2022-02-16 09:12] LABS: Transferrin 148 mg/dL (206-381)
[2022-02-16 09:25] LABS: Iron 13 ug/dL (49-181)
[2022-02-16 09:35] LABS: Percent Iron Saturation 6 % (20-50)
[2022-02-16] MEDS: DEXTROSE 5% 1,000 ML 1,000 ML 125 ML IV CONT (09:37)
[2022-02-16] MEDS: POTASSIUM CHLORIDE INJ 40 MEQ in SODIUM CHLORIDE 0.9% IV 500 ML 130 MEQ IVPB (09:37)
[2022-02-16] MEDS: FAMOTIDINE 20 MG/2 ML VIAL IV PUSH ×2 (09:41→20:28)
[2022-02-16] MEDS: ATORVASTATIN 40 MG TABLET PO (09:42)
--- NOTE | 2022-02-16 10:09 | PM.PNGS ---
Progress Note: A&P Assessment and Plan (1) SBO (small bowel obstruction): Code(s): K56.609 - Unspecified intestinal obstruction, unspecified as to partial versus complete obstruction Status: Acute Assessment and Plan: Appears to have been partial obstruction or ileus. Now seeming to resolve. (See small-bowel study from 02/14 ) Patient has had multiple stools overnight so have begun advancing his diet but continue to do this slowly in view of the signs dilated bowel on the x-ray study. Will probably even have him go home on mostly a liquid diet and then transition to a low-fiber soft diet several days after home going if doing well. Reassured patient that loose stools are likely because of the resolving ileus. In view of possible stress gastritis will order some Q 8 hour Myl[place] p.o. once patient has restarted his diet. (2) Acute renal failure: Code(s): N17.9 - Acute kidney failure, unspecified Status: Acute Assessment and Plan: Improving. Creatinine down to 1.3. Renal US noted. Follows with Dr. 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 Recommend to f/u as an outpatient with Dr. Beltre. He is not having any retention issues currently. (3) Hypokalemia: Code(s): E87.6 - Hypokalemia Status: Acute Assessment and Plan: K 3.3 today. KCL IV in IV fluids, monitor labs and replace as needed. Could also use p.o. now is the patient is starting a diet. Back on IV fluids because of elevated sodium and possible slight dehydration with his diarrhea. (4) CAD (coronary artery disease): Code(s): I25.10 - Atherosclerotic heart disease of [place] coronary artery without angina pectoris Status: Chronic Assessment and Plan: Patient has a history of this but denies of chest pain Plavix has been held because there was some apparent blood in the stool today although his hemoglobin was again stable and normal at 13 (5) Acute metabolic encephalopathy: Code(s): G93.41 - Metabolic encephalopathy Status: Acute Assessment and Plan: appreciate workup by hospitalist. CT head shows changes consistent with age and multivessel disease in white matter. No acute changes to suggest stroke. (6) Hypernatremia: Code(s): E87.0 - Hyperosmolality and hypernatremia Status: Acute Assessment and Plan: Continue to follow electrolytes closely. Appreciate hospitalist's help. discussed with Samuel Bowers today. Will resume diet later today if patient shows no signs of problems with swallowing when sitting. Subjective Subjective Date/Time Seen: 02/16/22 10:09 Post Op day: POD#11 Patient reports: still having pain ( I have some pain all over today ), voiding w/o difficulty, flatus, bowel movement and diarrhea (possibly somewhat bloody today.) Interval history: Nurse reports that originally on 1st evaluation of the day the patient was alert and oriented x3 but then on re-evaluation could only tell her his name. Blood pressure was slightly low also therefore IV fluids started and hospitalist consulted. See head CT has been ordered and is returned fairly normal other than aging changes. Patient denies shortness of breath but respiratory rate is slightly elevated. Denies pain with urination. Review of Systems Review of Systems: All systems reviewed & are unremarkable except as noted in HPI and below Constitutional: Constitutional: Reports as per HPI, Denies chills, Denies fever(s) and Reports lethargy ENT: Denies Normal hearing present ( Hearing is decreased) and Reports dry mouth Cardiovascular: Cardiovascular: Denies chest pain and Denies dyspnea Respiratory: Respiratory: Reports no additional respiratory complaints and Denies dyspnea Gastrointestinal: Gastrointestinal: Reports as per HPI and Denies bloating Psychiatric: Psychiatric: Denies anxiety Exam Const: General: comfo
[2022-02-16 10:11] LABS: Folic Acid 17.6 ng/mL (2.76->20)
[2022-02-16 12:51] LABS: Appearance Urine Slightly Cloudy (Clear); Bilirubin Urine 1+ (Negative); Blood Urine 1+ (Negative); Color Urine Yellow (Yellow); Glucose Urine UA Negative (Negative); Ketones Urine Negative (Negative); Leukocyte Esterase Ur 2+ LEU/UL (Negative); Nitrate Urine Negative (Negative); Protein Urine 1+ mg/dL (Negative); Urobilinogen Urine 0.2 mg/dL (<2.0); pH Urine 5.5 (5.0-9.0)
[2022-02-16 12:52] LABS: IFOB Positive Control Positive; Immunochemical Fecal Occult Bl Positive (N)
[2022-02-16 12:57] LABS: Bacteria Urine Trace /hpf; Mucus Urine Rare /lpf; Squamous Epithelial Cell Urine Rare /hpf (Few); WBC Clumps Urine Present /HPF; WBC Urine >75 /hpf
[2022-02-16 12:59] LABS: Add Urine Microscopic? YES
[2022-02-16 14:00] VITALS: BP 116/65; PULSE 91; RESP 18; TEMP 36.4; O2SAT 95
[2022-02-16] MEDS: ACETAMINOPHEN 325 MG TABLET 1300 MG PO (15:04)
[2022-02-16 15:20] LABS: Basophils Absolute Auto 0.1 K/mm3 (0.0-0.1); Basophils Percent Auto 0.4 % (0.2-1.2); Eosinophils Percent Auto 0.1 % (0-4.4); Hematocrit 43.5 % (42.0-52.0); Hemoglobin 13.5 g/dL (14.0-18.0); Immature Granulocyte Absolute 0.18 K/mm3 (0.00-0.031); Immature Granulocyte Percent A 0.9 % (0-0.5); Lymphocytes Absolute Auto 1.67 K/mm3 (0.9-3.2); Lymphocytes Percent Auto 8.5 % (18.3-44.2); Mean Corpuscular Hemoglobin 30.3 pg (26-34); Mean Corpuscular Volume 97.5 fl (80-100); Mean Platelet Volume 9.3 fl (7.4-10.4); Monocytes Absolute Auto 1.2 K/mm3 (0.1-0.6); Neutrophils Absolute Auto 16.5 K/mm3 (1.3-6.7); Neutrophils Percent Auto 84.1 % (45.5-73.1); Platelet Count Result 471 k/mm3 (150-375); Red Blood Count 4.46 M/mm3 (4.6-6.20); Red Cell Distribution Width 14.1 % (11.5-14.5); White Blood Count 19.6 K/mm3 (4.5-10.0)
[2022-02-16 15:31] LABS: Alanine Aminotransferase 27 U/L (6-50); Albumin Level 3.2 g/dL (3.5-5.1); Alkaline Phosphatase 81 U/L (38-126); Anion Gap 8 mmol/L (8-16); Aspartate Amino Transferase 39 U/L (17-59); Bilirubin,Total 0.7 mg/dL (0.2-1.3); Blood Urea Nitrogen 33 mg/dL (9-20); Calcium 7.4 mg/dL (8.4-10.2); Carbon Dioxide 28 mmol/L (22-30); Chloride 107 mmol/L (98-107); Estimated CRCL calculation 47 ml/min; Estimated Glomerular Filt Rate > 60; Glucose 165 mg/dL (65-110); Potassium 3.3 mmol/L (3.4-5.0); Sodium 143 mmol/L (137-145)
[2022-02-16] MEDS: FERROUS SULFATE 324 MG TABLET PO (17:25)
--- NOTE | 2022-02-16 19:08 | PC.NURSE ---
This RN received report from night RN that pt had a 0630 large BM that had considerable saurabh red blood and had been playing in his stool. Pt was still a/ox4. Assessing pt, this RN found that pt A/Ox1, very confused, SOB. Notified HEAD STILL OPERATOR and GS who came to bedside. Orders received and over the AM collected. Discussion with family about code status-pt remains full code. also confused. Both children added to chart and notify one to communicate. Pt reevaluated for swallowing; pt returned to full liquid diet as his mentation has improved. Pt having numerous loose BMs causing futher skin deterioration. T&R q 2hr. Depend left off and anti-fungal to fungal areas, barrier cream applied to rest of diaper area. Close monitoring continues on pt.
[2022-02-16 20:28] VITALS: PULSE 60
[2022-02-16] MEDS: KCL 40 MEQ/D5 1/2NS 1,000 ML 75 ML IV CONT (20:28)
[2022-02-16] MEDS: METOPROLOL TARTRATE 12.5 MG TABLET PO (20:28)
[2022-02-16] MEDS: MAG HYDROX/AL HYDROX/SIMETH 30 ML UDC PO (20:29)
[2022-02-16 21:40] VITALS: BP 111/67; PULSE 86; RESP 14; TEMP 36.8; O2SAT 97
[2022-02-17] VITALS (9 sets, daily range): BP systolic 93–136; BP diastolic 53–67; PULSE 99–106; RESP 18–44; TEMP 36.4–37.4; O2SAT 92–98
[2022-02-17] MEDS: ACETAMINOPHEN 325 MG TABLET 1300 MG PO (03:54)
[2022-02-17] MEDS: LEVOTHYROXINE SODIUM 75 MCG TABLET PO (05:47)
[2022-02-17] MEDS: MAG HYDROX/AL HYDROX/SIMETH 30 ML UDC PO (05:47)
[2022-02-17 07:39] LABS: Basophils Absolute Auto 0.1 K/mm3 (0.0-0.1); Basophils Percent Auto 0.8 % (0.2-1.2); Eosinophils Percent Auto 0.2 % (0-4.4); Hematocrit 41.2 % (42.0-52.0); Hemoglobin 13.1 g/dL (14.0-18.0); Immature Granulocyte Absolute 0.11 K/mm3 (0.00-0.031); Immature Granulocyte Percent A 0.7 % (0-0.5); Lymphocytes Absolute Auto 1.64 K/mm3 (0.9-3.2); Lymphocytes Percent Auto 10.8 % (18.3-44.2); Mean Corpuscular HGB Conc 31.8 g/dl (32-36); Mean Corpuscular Hemoglobin 30.8 pg (26-34); Mean Corpuscular Volume 96.7 fl (80-100); Mean Platelet Volume 9.5 fl (7.4-10.4); Monocytes Absolute Auto 0.4 K/mm3 (0.1-0.6); Monocytes Percent Auto 2.8 % (2.6-8.5); Neutrophils Absolute Auto 12.9 K/mm3 (1.3-6.7); Neutrophils Percent Auto 84.7 % (45.5-73.1); Platelet Count Result 451 k/mm3 (150-375); Red Blood Count 4.26 M/mm3 (4.6-6.20); White Blood Count 15.2 K/mm3 (4.5-10.0)
[2022-02-17 07:40] LABS: Alanine Aminotransferase 24 U/L (6-50); Albumin Level 2.6 g/dL (3.5-5.1); Alkaline Phosphatase 69 U/L (38-126); Anion Gap 8 mmol/L (8-16); Aspartate Amino Transferase 27 U/L (17-59); Bilirubin,Total 0.8 mg/dL (0.2-1.3); Blood Urea Nitrogen 29 mg/dL (9-20); Carbon Dioxide 22 mmol/L (22-30); Chloride 111 mmol/L (98-107); Estimated CRCL calculation 52 ml/min; Estimated Glomerular Filt Rate > 60; Glucose 115 mg/dL (65-110); Magnesium 2.1 mg/dL (1.6-2.3); Potassium 3.3 mmol/L (3.4-5.0); Sodium 141 mmol/L (137-145)
--- NOTE | 2022-02-17 08:30 | P.PNIM_ITS ---
Progress Note: A&P Assessment and Plan (1) SBO (small bowel obstruction): Code(s): K56.609 - Unspecified intestinal obstruction, unspecified as to partial versus complete obstruction Status: Acute Assessment and Plan: * Presented with abdominal distension, nausea, vomiting * CT of the abdomen/pelvis showed distal small-bowel obstruction of the surgical anastomotic site * NG removed 02/15/22 * Small bowel follow through possible ileus however contrast did get the colon * Management per General surgery * KUB 02/13/22 revealed persistently dilated small bowel * Full liquid diet currently advanced per General surgery's recommendations (2) Acute metabolic encephalopathy: Code(s): G93.41 - Metabolic encephalopathy Status: Acute Assessment and Plan: * A&O x3 today * Head ct no acute abnormalities * Hypernatremia resolved, currently 141 * Ceftriaxone started, UA did appear infectious * Also had a reported large bloody BM, occult blood positive, H/H remains stable * blood cultures NGTD * Urine culture pending (3) Leukocytosis: Code(s): D72.829 - Elevated white blood cell count, unspecified Status: Acute Assessment and Plan: * WBC trending down, currently 15.2 * Urine culture pending * UA appear infectious * blood cultures NGTD * Chest xray is negative for any acute findings * Lactic acid 2.0 * Continue to trend labs * Started ceftriaxone to empirically treat for possible UTI (4) Hypernatremia: Code(s): E87.0 - Hyperosmolality and hypernatremia Status: Acute Assessment and Plan: * sodium 141 today * Stable continue to trend * Fluids stopped at this time * continue trend labs (5) Acute renal failure: Code(s): N17.9 - Acute kidney failure, unspecified Status: Acute Assessment and Plan: * Baseline creatinine 0.6-0.9. Creatinine elevated up to 2.3 * Suspect prerenal secondary to decreased p.o. intake and episode of hypotension * Creatinine 1.00 today * IV fluids stopped at this time * Renal US revealed medical renal disease with bladder mass but no hydronephrosis. Patient is voiding and no evidence of urinary retention based on PVR * Home lisinopril resumed, Resume home furosemide * Consider nephrology consultation if worsening * Seems to be resolving, remains stable (6) Hypokalemia: Code(s): E87.6 - Hypokalemia Status: Acute Assessment and Plan: * Potassium 3.3 today * Supplement with 40mcg PO and IV * Monitor BMP (7) Hypermagnesemia: Code(s): E83.41 - Hypermagnesemia Status: Acute Assessment and Plan: * Magnesium 2.1 today * Likely due to SHYAM * Resolved * Continue to trend labs (8) Hypothyroidism: Code(s): E03.9 - Hypothyroidism, unspecified Status: Inactive Assessment and Plan: * TSH is within normal limits * Converted to PO levothyroxine (9) Bladder mass: Code(s): N32.89 - Other specified disorders of bladder Status: Acute Assessment and Plan: * Patient with history of prostate and bladder cancer. * Renal ultrasound showed lobulated, asymmetric right posterior bladder wall mass possibly extending from the prostate * Reviewed imaging with patient's urologist, Dr. Beltre.
--- NOTE | 2022-02-17 08:30 | PM.IMPN ---
Progress Note: A&P Assessment and Plan (1) SBO (small bowel obstruction): Code(s): K56.609 - Unspecified intestinal obstruction, unspecified as to partial versus complete obstruction Status: Acute Assessment and Plan: Presented with abdominal distension, nausea, vomiting CT of the abdomen/pelvis showed distal small-bowel obstruction of the surgical anastomotic site NG removed 02/15/22 Small bowel follow through possible ileus however contrast did get the colon Management per General surgery KUB 02/13/22 revealed persistently dilated small bowel Full liquid diet currently advanced per General surgery's recommendations (2) Acute metabolic encephalopathy: Code(s): G93.41 - Metabolic encephalopathy Status: Acute Assessment and Plan: A&O x3 today Head ct no acute abnormalities Hypernatremia resolved, currently 141 Ceftriaxone started, UA did appear infectious Also had a reported large bloody BM, occult blood positive, H/H remains stable blood cultures NGTD Urine culture pending (3) Leukocytosis: Code(s): D72.829 - Elevated white blood cell count, unspecified Status: Acute Assessment and Plan: WBC trending down, currently 15.2 Urine culture pending UA appear infectious blood cultures NGTD Chest xray is negative for any acute findings Lactic acid 2.0 Continue to trend labs Started ceftriaxone to empirically treat for possible UTI (4) Hypernatremia: Code(s): E87.0 - Hyperosmolality and hypernatremia Status: Acute Assessment and Plan: sodium 141 today Stable continue to trend Fluids stopped at this time continue trend labs (5) Acute renal failure: Code(s): N17.9 - Acute kidney failure, unspecified Status: Acute Assessment and Plan: Baseline creatinine 0.6-0.9. Creatinine elevated up to 2.3 Suspect prerenal secondary to decreased p.o. intake and episode of hypotension Creatinine 1.00 today IV fluids stopped at this time Renal US revealed medical renal disease with bladder mass but no hydronephrosis. Patient is voiding and no evidence of urinary retention based on PVR Home lisinopril resumed, Resume home furosemide Consider nephrology consultation if worsening Seems to be resolving, remains stable (6) Hypokalemia: Code(s): E87.6 - Hypokalemia Status: Acute Assessment and Plan: Potassium 3.3 today Supplement with 40mcg PO and IV Monitor BMP (7) Hypermagnesemia: Code(s): E83.41 - Hypermagnesemia Status: Acute Assessment and Plan: Magnesium 2.1 today Likely due to SHYAM Resolved Continue to trend labs (8) Hypothyroidism: Code(s): E03.9 - Hypothyroidism, unspecified Status: Inactive Assessment and Plan: TSH is within normal limits Converted to PO levothyroxine (9) Bladder mass: Code(s): N32.89 - Other specified disorders of bladder Status: Acute Assessment and Plan: Patient with history of prostate and bladder cancer. Renal ultrasound showed lobulated, asymmetric right posterior bladder wall mass possibly extending from the prostate Reviewed imaging with patient's urologist, Dr. Beltre. Plan for outpatient cystoscopy Not felt to be contributing to SHYAM no evidence of hydronephrosis No need for intervention at this time Will need follow up with outpatient care (10) Melena: Code(s): K92.1 - Melena Status: Acute Assessment and Plan: Reported large blood BM H/H stable Patient appears pallor Anemia labs did indicate iron deficiency, will start supplementation Occult blood positive Continue to trend labs Consider GI consult Plan One dose of Morphine 0.5mg IV for pain Time Spent With Patient Time with patient: Greater than 35 minutes Sub
[2022-02-17] MEDS: ATORVASTATIN 40 MG TABLET PO (08:43)
[2022-02-17] MEDS: FAMOTIDINE 20 MG/2 ML VIAL IV PUSH (08:44)
[2022-02-17] MEDS: FERROUS SULFATE 324 MG TABLET PO (08:44)
[2022-02-17] MEDS: POTASSIUM CHLORIDE INJ 40 MEQ in SODIUM CHLORIDE 0.9% IV 500 ML 130 MEQ IVPB (09:10)
[2022-02-17] MEDS: POTASSIUM CHLORIDE 20 MEQ PACKET (FOR LIQUID) 40 MEQ PO (09:10)
[2022-02-17] MEDS: MORPHINE SULFATE (*CRX) 2 MG/ML INJ 0.5 MG IV PUSH (09:11)
--- NOTE | 2022-02-17 10:00 | ECG_ITS ---
Measurements Intervals [place] Rate: 105 P: DE: 0 QRS: 42 QRSD: 94 T: 66 QT: 371 QTc: 492 Interpretive Statements SINUS TACHYCARDIA WITH FREQUENT PREMATURE ATRIAL CONTRACTIONS BASELINE ARTIFACT NONSPECIFIC ST ABNORMALITY BORDERLINE ECG COMPARED TO ECG 12/20/2021 10:19:53 HEART RATE HAS INCREASED AND PREMATURE ATRIAL CONTRACTIONS ARE NOW APPRECIATED Electronically Signed On 02-17-2022 14:09:52 STAFF THERAPIST by Osmar Barrientos M.D.
--- NOTE | 2022-02-17 11:01 | PCOTNOTE ---
Attempted occupational therapy evaluation, hold per RN, increased confusion, not medically stable at this time. Following.
[2022-02-17 11:28] LABS: Alveolar/Arterial O2 Gradient 52.5 mmHg; Base Excess ABG 1.6 mEq/l (+/-2.0); Carboxyhemoglobin 0.2 % THb (0-2.0); Fractional Inspired Oxygen 21 %; HCO3 ABG 23.1 mEq/l (22.0-26.0); Methemoglobin ABG 0.3 %THb (0-1.5); Oxygen Content ABG 18.6 %vol (16.0-22.0); Oxygen Saturation ABG 94.7 % (95.0-100.0); Oxyhemoglobin 93.1 % THb (90.0-100.0); PCO2 ABG 28.2 mmHg (35.0-45.0); PO2 ABG 63.5 mmHg (80.0-100.0); PO2 FiO2 Ratio Arterial Blood 3.02 %; Reduced Hemoglobin 6.4 %THb (0-5.0); Total Hemoglobin 14.2 g/dL (12.0-18.0)
[2022-02-17 11:33] LABS: Modified Allen's Test Pass; Site Drawn LEFT RADIAL; pH ABG 7.532 (7.350-7.450)
--- NOTE | 2022-02-17 11:56 | PM.PNGS ---
Progress Note: A&P Assessment and Plan (1) Tachypnea: Code(s): R06.82 - Tachypnea, not elsewhere classified Status: Acute Assessment and Plan: patient having respiratory rate in the 40s with PO2 63.5 on ABG. Chest x-ray is negative. CTA of the chest is pending. Also complaining of abdominal pain. (2) Hypokalemia: Code(s): E87.6 - Hypokalemia Status: Acute Assessment and Plan: Will be supplemented. (3) Pain, abdominal, epigastric: Code(s): R10.13 - Epigastric pain Status: Acute Assessment and Plan: Patient describes epigastric abdominal pain radiating laterally to each side to me. He would like pain medication. I ordered some IV ibuprofen as a 1 time dose. His Plavix has been held. Pending CT scan abdomen and pelvis with CTA of the chest. (4) Diarrhea: Code(s): R19.7 - Diarrhea, unspecified Status: Acute Assessment and Plan: Nursing reports multiple bowel movements. (5) Atrial fibrillation with rapid ventricular response: Code(s): I48.91 - Unspecified atrial fibrillation Status: Acute Assessment and Plan: Confirmed on EKG with heart rate 105. Will discuss with hospitalist. Subjective Subjective Date/Time Seen: 02/17/22 11:56 Post Op day: #12 (Laparoscopic cholecystectomy, laparoscopic small bowel resection.) Patient reports: still having pain ( Having more abdominal pain, epigastric radiating around to each side.), diarrhea, shortness of breath ( Respiratory rate of 40 earlier this morning.) and afebrile Review of Systems Review of Systems: All systems reviewed & are unremarkable except as noted in HPI and below ( HPI and those items noted below) Constitutional: Constitutional: Denies chills and Denies fever(s) Cardiovascular: Cardiovascular: Denies chest pain, Denies diaphoresis, Reports dyspnea and Denies paroxysmal nocturnal dyspnea Respiratory: Respiratory: Reports as per HPI, Denies chest congestion, Denies cough and Reports dyspnea Gastrointestinal: Gastrointestinal: Reports as per HPI, Reports abdominal pain and Reports diarrhea ( nursing reports patient having quite a bit of diarrhea.) Genitourinary: Genitourinary: Reports other ( Abnormal UA yesterday. Patient started on ceftriaxone) Integumentary/Breasts: Skin/Breast: Denies lesions and Denies rash Exam Const: General: cooperative, no acute distress, alert, awake, anxious ( Possibly a little confused) and uncomfortable Nutritional Appearance: average body habitus Orientation/consciousness: patient oriented x3 Resp: Effort & Inspection: normal respiratory effort, abnormal respiratory pattern ( shallow respirations), no audible wheezes, no cough and tachypneic Auscultation: crackles on the right at the base tactile fremitus present: tactile fremitus absent Cardio: Rate: tachycardic Rhythm: abnormal rhythm Heart sounds: Murmur heart sound present systolic GI: Inspection: incision ( dry, healing well) and no visible herniation GI Palp: Yes Soft to palpation, Yes Tenderness to palpation present (GI) ( throughout), No Guarding due to palpation present (GI) and No Rebound tenderness present Auscultation: absent bowel sounds Extrem: General: no calf tenderness and no edema Psych: Appearance: disheveled Affect: Anxious affect present Insight: Fair insight present (Psych) Judgement: Fair judgement present (Psych) Objective Data Vital Signs Vital Signs: Vital Signs - 24 hr 02/16/22 14:00 02/16/22 20:28 02/16/22 21:40 Temperature 36.4 C L 36.8 C Pulse Rate 91 60 86 Respiratory Rate 18 14 Blood Pressure 116/65 111/67 Pulse Oximetry 95 97 02/17/22 05:44 02/17/22 04:54 02/17/22 07:28 Temperature 37.4 C 37.4 C 36.7 C Pulse Rate 103 H 99 Respiratory Rate 18 40 H Blood Pressure 136/57 L 102/65 Pulse Oximetry 97 94 Intake/Output Intake/Output: Intake & Output 02/14/22 02/15/22 02/16/22 02/17/22 23:59 23:59 23:59
[2022-02-17 11:57] LABS: Troponin I 0.029 ng/mL (0.000-0.034)
[2022-02-17] MEDS: LORazepam INJ (*CRX) 2 MG/ML VIAL 0.25 MG IV PUSH (13:34)
[2022-02-17] MEDS: IBUPROFEN IV 800 MG/200 ML 800 MG/200 ML BAG 400 MG IVPB (13:35)
[2022-02-17 13:48] LABS: NT Pro B Type Natriuretic Pept 1680 pg/mL (5-100)
[2022-02-17 13:49] LABS: Troponin I 0.025 ng/mL (0.000-0.034)
[2022-02-17 14:09] LABS: CRP 21.9 mg/dL (<1.0)
[2022-02-17 15:31] LABS: Basophils Absolute Auto 0.1 K/mm3 (0.0-0.1); Basophils Percent Auto 0.5 % (0.2-1.2); Hematocrit 40.1 % (42.0-52.0); Immature Granulocyte Absolute 0.16 K/mm3 (0.00-0.031); Lymphocytes Absolute Auto 1.01 K/mm3 (0.9-3.2); Lymphocytes Percent Auto 6.5 % (18.3-44.2); Mean Corpuscular HGB Conc 32.4 g/dl (32-36); Mean Corpuscular Hemoglobin 30.9 pg (26-34); Mean Corpuscular Volume 95.2 fl (80-100); Mean Platelet Volume 9.6 fl (7.4-10.4); Monocytes Absolute Auto 0.4 K/mm3 (0.1-0.6); Monocytes Percent Auto 2.5 % (2.6-8.5); Neutrophils Percent Auto 89.5 % (45.5-73.1); Platelet Count Result 455 k/mm3 (150-375); Red Blood Count 4.21 M/mm3 (4.6-6.20); Red Cell Distribution Width 14.1 % (11.5-14.5); White Blood Count 15.6 K/mm3 (4.5-10.0)
[2022-02-17 15:39] LABS: Alanine Aminotransferase 23 U/L (6-50); Albumin Level 2.4 g/dL (3.5-5.1); Alkaline Phosphatase 68 U/L (38-126); Anion Gap 7 mmol/L (8-16); Aspartate Amino Transferase 27 U/L (17-59); Bilirubin,Total 0.7 mg/dL (0.2-1.3); Blood Urea Nitrogen 33 mg/dL (9-20); Carbon Dioxide 25 mmol/L (22-30); Chloride 109 mmol/L (98-107); Estimated CRCL calculation 33 ml/min; Estimated Glomerular Filt Rate 42; Glucose 141 mg/dL (65-110); Magnesium 2.3 mg/dL (1.6-2.3); Potassium 4.6 mmol/L (3.4-5.0); Sodium 141 mmol/L (137-145)
[2022-02-17 15:41] LABS: Partial Thromboplastin Time 29.1 SECONDS (22.3-36.8)
[2022-02-17 15:48] LABS: Ovalocytes 1+ (NORMAL); Platelet Estimate Increased (Adequate); Schistocytes None Seen (NORMAL)
[2022-02-17 15:58] LABS: Transferrin 93 mg/dL (206-381)
[2022-02-17] MEDS: metroNIDAZOLE 500 MG/ISO 100ML 500 MG/100 ML BAG 100 MG IVPB (16:53)
[2022-02-17] MEDS: KCL 20 MEQ/0.45% NS 1,000 ML 75 ML IV CONT (18:49)
--- NOTE | 2022-02-17 20:16 | PC.NURSE ---
This RN received report from night RN that pt had a rough night with c/o dyspnea, SOB, pain in ribs and chest, and AMS throughout the night. Night RN had given tylenol and stopped IVF. Upon assessment, this RN noted that pt RR 40, abd breathing, pain all over. HEAVY EQUIPMENT OPERATOR/PAVER placed several orders. Called results back. Surgery involved. New orders received, including PICC, NG, and TPN. Pt family reading through online results. Tried reassuring family and redirecting to tasks at hand. Family concerned and asked about possible other treatments. Pt A/Ox4 but very confused, falling asleep midsentence. A/Ox4 eventually signed consent and NG and PICC placed successfully. Called pharmacy to retime medications. Updated daughter who will share with brother and mother. Report given to night patrol inspector; will continue to monitor.
[2022-02-17] MEDS: AMINO ACIDS 5%/D15W/E-LYTES/CA 2,000 ML with MULTIVITAMINS-12 INJ VIAL 1 2.5 ML, MULTIV... 70 ML IV CONT (20:35)
[2022-02-17] MEDS: FAT EMULSIONS IV 20% 250 ML 20.83 ML IVPB (20:36)
[2022-02-17] MEDS: CENTRAL LINE FLUSH 10 ML IV PUSH ×2 (20:38→22:01)
[2022-02-17] MEDS: PANTOPRAZOLE SODIUM IV 40 MG VIAL IV PUSH (20:38)
[2022-02-17 20:56] LABS: Glucose Point of Care 125 mg/dl (65-105)
[2022-02-17 23:54] LABS: Glucose Point of Care 211 mg/dl (65-105)
[2022-02-18] VITALS (24 sets, daily range): BP systolic 67–129; BP diastolic 42–67; PULSE 80–117; RESP 16–38; TEMP 36.1–37; O2SAT 93–100
[2022-02-18] MEDS: METOPROLOL TARTRATE INJ 5 MG/5 ML VIAL IV PUSH ×2 (00:03→05:09)
[2022-02-18] MEDS: metroNIDAZOLE 500 MG/ISO 100ML 500 MG/100 ML BAG 100 MG IVPB ×3 (00:08→16:00)
[2022-02-18] MEDS: INSULIN HUMAN REGULAR (*BKC) 100 UNITS/ML SUB-Q (00:08)
[2022-02-18] MEDS: CENTRAL LINE FLUSH 10 ML IV PUSH ×3 (05:09→21:13)
[2022-02-18] MEDS: LEVOTHYROXINE SODIUM INJ 100 MCG/5 ML VIAL 38 MCG IV PUSH (05:10)
[2022-02-18 05:53] LABS: Hematocrit 35.6 % (42.0-52.0); Hemoglobin 11.6 g/dL (14.0-18.0); Mean Corpuscular HGB Conc 32.6 g/dl (32-36); Mean Corpuscular Hemoglobin 30.3 pg (26-34); Platelet Count Result 459 k/mm3 (150-375); Red Blood Count 3.83 M/mm3 (4.6-6.20); Red Cell Distribution Width 14.2 % (11.5-14.5); White Blood Count 26.5 K/mm3 (4.5-10.0)
[2022-02-18 05:54] LABS: Glucose Point of Care 171 mg/dl (65-105)
[2022-02-18 06:24] LABS: Band Neutrophils Percent 4 % (0-6); Lymphocytes Absolute Manual 0.53 K/mm3 (1.1-4.5); Monocytes Absolute Manual 0.53 K/mm3 (0.1-0.90); Monocytes Percent Manual 2 % (3-9); Neutrophils Absolute Manual 25.44 K/mm3 (1.3-6.7); Neutrophils Percent Manual 92 % (46-73); Platelet Estimate Increased (Adequate); Schistocytes None Seen (NORMAL); Total Cells Counted 100
[2022-02-18 06:25] LABS: Alanine Aminotransferase 17 U/L (6-50); Albumin Level 2.1 g/dL (3.5-5.1); Alkaline Phosphatase 52 U/L (38-126); Anion Gap 4 mmol/L (8-16); Aspartate Amino Transferase 22 U/L (17-59); Bilirubin,Total 0.1 mg/dL (0.2-1.3); Blood Urea Nitrogen 49 mg/dL (9-20); Calcium 6.9 mg/dL (8.4-10.2); Carbon Dioxide 26 mmol/L (22-30); Chloride 103 mmol/L (98-107); Estimated CRCL calculation 30 ml/min; Estimated Glomerular Filt Rate 36; Glucose 170 mg/dL (65-110); Magnesium 2.4 mg/dL (1.6-2.3); Phosphorus 2.9 mg/dL (2.5-4.5); Potassium 4.3 mmol/L (3.4-5.0); Sodium 133 mmol/L (137-145)
[2022-02-18 07:54] LABS: Glucose Point of Care 175 mg/dl (65-105)
--- NOTE | 2022-02-18 07:58 | PM.PNGS ---
Progress Note: A&P Assessment and Plan (1) Leukocytosis: Code(s): D72.829 - Elevated white blood cell count, unspecified Status: Acute Assessment and Plan: significant increase in white blood cell count today. Band forms are not increased. Will get repeat CT scan today. No IV contrast as creatinine is increased. Does not have an acute abdomen on exam. Patient more somnolent and does have signs of sepsis. Continue broad spectrum antibiotics. (2) Acute renal failure: Code(s): N17.9 - Acute kidney failure, unspecified Status: Acute Assessment and Plan: Creatinine up to 1.6. (3) Diarrhea: Code(s): R19.7 - Diarrhea, unspecified Status: Acute Assessment and Plan: improved per nursing, no diarrhea reported through the night (4) Tachypnea: Code(s): R06.82 - Tachypnea, not elsewhere classified Status: Resolved Assessment and Plan: normal resp rate this a.m. Subjective Subjective Date/Time Seen: 02/18/22 07:58 Post Op day: #13 ( laparoscopic cholecystectomy, laparoscopic small bowel resection) Patient reports: afebrile Interval history: patient more lethargic this morning, falls back asleep when asked questions. Feels about the same as yesterday from what I can tell. Review of Systems Review of Systems: ROS unobtainable: Yes unobtainable due to medical condition Exam Const: General: comfortable, no acute distress and lethargic ( Somnolent); No confusion Nutritional Appearance: average body habitus Orientation/consciousness: lethargic Resp: Effort & Inspection: normal respiratory effort, normal respiratory pattern and not tachypneic GI: Inspection: distended and incision ( dry and healing well) GI Palp: Yes Soft to palpation, Yes Tenderness to palpation present (GI) ( no peritoneal signs but abdomen remains tender), No Guarding due to palpation present (GI) and No Rebound tenderness present Auscultation: absent bowel sounds Extrem: General: no calf tenderness and no edema Objective Data Vital Signs Vital Signs: Vital Signs - 24 hr 02/17/22 12:04 02/17/22 16:17 02/17/22 12:00 Temperature 36.4 C 36.4 C Pulse Rate 102 H 105 H 106 H Respiratory Rate 44 H 40 H Blood Pressure 115/67 102/65 Pulse Oximetry 98 96 Oxygen Delivery 02/17/22 16:00 02/17/22 21:53 02/18/22 00:03 Temperature 36.5 C Pulse Rate 105 H 102 H 102 H Respiratory Rate 22 H Blood Pressure 93/53 L Pulse Oximetry 92 Oxygen Delivery 02/17/22 20:00 02/17/22 20:00 02/18/22 00:00 Temperature Pulse Rate 102 H 102 H 101 H Respiratory Rate 22 H Blood Pressure Pulse Oximetry 92 Oxygen Delivery Room Air 02/18/22 04:00 02/18/22 05:09 02/18/22 05:58 Temperature 36.6 C Pulse Rate 92 98 94 Respiratory Rate 16 Blood Pressure 106/56 L Pulse Oximetry 94 Oxygen Delivery normal respiratory rate Intake/Output Intake/Output: Intake & Output 02/15/22 02/16/22 02/17/22 02/18/22 23:59 23:59 23:59 23:59 Intake Total 1540 282 8572 200 Output Total 6293 596 9927 600 Balance 310 -180 690 -400 1100 cc out NG tube since placed Meds/Results Medications: Active Medications Generic Name Dose Route Start Last Admin Trade Name Freq PRN Reason Stop Dose Admin Acetaminophen 1,300 mg 02/14/22 15:07 02/17/22 03:54 Acetaminophen 325 Mg Tablet PO 1,300 mg Q12H PRN Administration Pain 1-3 Hydrocodone Bitart/Acetaminophen 1 tab 02/17/22 08:49 Hydrocodone/Acetaminophen (*Crx) 5-325 Mg Tablet PO Q6H PRN Pain Rated 4-10 Albuterol 2.5 mg 02/13/22 13:59 Albuterol Sulfate Neb 2.5 Mg/3 Ml Inh INHALATION Q6HRT PRN Shortness Of Breath Atorvastatin Calcium 40 mg 02/14/22 15:10 02/17/22 08:43 Atorvastatin 40 Mg Tablet PO 40 mg DAILY SAURABH Administration Ferrous Sulfate 324 mg 02/16/22 17:00 02/17/22 08:44 Ferrous Sulfate 324 Mg Tablet PO 324 mg BIDWM SAURABH Adm
--- NOTE | 2022-02-18 08:09 | PC.NURSE ---
patient to CT scan per bed. ng clamped. tpn/lipids still running. ivf saline locked.
--- NOTE | 2022-02-18 08:28 | PC.NURSE ---
patient returning to room from CT
[2022-02-18] MEDS: PANTOPRAZOLE SODIUM IV 40 MG VIAL IV PUSH (08:30)
--- NOTE | 2022-02-18 09:00 | P.PNIM_ITS ---
Progress Note: A&P Assessment and Plan (1) SBO (small bowel obstruction): Code(s): K56.609 - Unspecified intestinal obstruction, unspecified as to partial versus complete obstruction Status: Acute Assessment and Plan: * Presented with abdominal distension, nausea, vomiting * CT of the abdomen/pelvis showed distal small-bowel obstruction of the surgical anastomotic site * NG removed 02/15/22 * Small bowel follow through possible ileus however contrast did get the colon * Management per General surgery * KUB 02/13/22 revealed persistently dilated small bowel * Patient went back to OR, now in ICU intubated (2) Acute metabolic encephalopathy: Code(s): G93.41 - Metabolic encephalopathy Status: Acute Assessment and Plan: * A&O x3 today * Head ct no acute abnormalities * Hypernatremia resolved, currently 133 * Ceftriaxone started, UA did appear infectious * Also had a reported large bloody BM, occult blood positive, H/H remains stable * blood cultures NGTD * Urine culture pending (3) Leukocytosis: Code(s): D72.829 - Elevated white blood cell count, unspecified Status: Acute Assessment and Plan: * WBC back up currently 26.5 * Urine culture pending * UA appear infectious * blood cultures NGTD * Chest xray is negative for any acute findings * Lactic acid 2.0 * Continue to trend labs * Started ceftriaxone to empirically treat for possible UTI (4) Hypernatremia: Code(s): E87.0 - Hyperosmolality and hypernatremia Status: Acute Assessment and Plan: * sodium 133 today * Stable continue to trend * Fluids stopped at this time * continue trend labs (5) Acute renal failure: Code(s): N17.9 - Acute kidney failure, unspecified Status: Acute Assessment and Plan: * Baseline creatinine 0.6-0.9. Creatinine elevated up to 2.3 * Suspect prerenal secondary to decreased p.o. intake and episode of hypotension * Creatinine 1.80 today * IV fluids stopped at this time * Renal US revealed medical renal disease with bladder mass but no hydronephrosis. Patient is voiding and no evidence of urinary retention based on PVR * Home lisinopril resumed, Resume home furosemide * Consider nephrology consultation if worsening * rising at this time (6) Hypokalemia: Code(s): E87.6 - Hypokalemia Status: Acute Assessment and Plan: * Potassium 4.3 today * Supplement with 40mcg PO and IV * Monitor BMP (7) Hypermagnesemia: Code(s): E83.41 - Hypermagnesemia Status: Acute Assessment and Plan: * Magnesium 2.1 today * Likely due to SHYAM * Resolved * Continue to trend labs (8) Hypothyroidism: Code(s): E03.9 - Hypothyroidism, unspecified Status: Inactive Assessment and Plan: * TSH is within normal limits * Converted to PO levothyroxine (9) Bladder mass: Code(s): N32.89 - Other specified disorders of bladder Status: Acute Assessment and Plan: * Patient with history of prostate and bladder cancer. * Renal ultrasound showed lobulated, asymmetric right posterior bladder wall mass possibly extending from the prostate * Reviewed imaging with patient's urologist, Dr. Beltre. * Plan for outpatient cystoscopy * Not felt to be co
--- NOTE | 2022-02-18 09:00 | PM.IMPN ---
Progress Note: A&P Assessment and Plan (1) SBO (small bowel obstruction): Code(s): K56.609 - Unspecified intestinal obstruction, unspecified as to partial versus complete obstruction Status: Acute Assessment and Plan: Presented with abdominal distension, nausea, vomiting CT of the abdomen/pelvis showed distal small-bowel obstruction of the surgical anastomotic site NG removed 02/15/22 Small bowel follow through possible ileus however contrast did get the colon Management per General surgery KUB 02/13/22 revealed persistently dilated small bowel Patient went back to OR, now in ICU intubated (2) Acute metabolic encephalopathy: Code(s): G93.41 - Metabolic encephalopathy Status: Acute Assessment and Plan: A&O x3 today Head ct no acute abnormalities Hypernatremia resolved, currently 133 Ceftriaxone started, UA did appear infectious Also had a reported large bloody BM, occult blood positive, H/H remains stable blood cultures NGTD Urine culture pending (3) Leukocytosis: Code(s): D72.829 - Elevated white blood cell count, unspecified Status: Acute Assessment and Plan: WBC back up currently 26.5 Urine culture pending UA appear infectious blood cultures NGTD Chest xray is negative for any acute findings Lactic acid 2.0 Continue to trend labs Started ceftriaxone to empirically treat for possible UTI (4) Hypernatremia: Code(s): E87.0 - Hyperosmolality and hypernatremia Status: Acute Assessment and Plan: sodium 133 today Stable continue to trend Fluids stopped at this time continue trend labs (5) Acute renal failure: Code(s): N17.9 - Acute kidney failure, unspecified Status: Acute Assessment and Plan: Baseline creatinine 0.6-0.9. Creatinine elevated up to 2.3 Suspect prerenal secondary to decreased p.o. intake and episode of hypotension Creatinine 1.80 today IV fluids stopped at this time Renal US revealed medical renal disease with bladder mass but no hydronephrosis. Patient is voiding and no evidence of urinary retention based on PVR Home lisinopril resumed, Resume home furosemide Consider nephrology consultation if worsening rising at this time (6) Hypokalemia: Code(s): E87.6 - Hypokalemia Status: Acute Assessment and Plan: Potassium 4.3 today Supplement with 40mcg PO and IV Monitor BMP (7) Hypermagnesemia: Code(s): E83.41 - Hypermagnesemia Status: Acute Assessment and Plan: Magnesium 2.1 today Likely due to SHYAM Resolved Continue to trend labs (8) Hypothyroidism: Code(s): E03.9 - Hypothyroidism, unspecified Status: Inactive Assessment and Plan: TSH is within normal limits Converted to PO levothyroxine (9) Bladder mass: Code(s): N32.89 - Other specified disorders of bladder Status: Acute Assessment and Plan: Patient with history of prostate and bladder cancer. Renal ultrasound showed lobulated, asymmetric right posterior bladder wall mass possibly extending from the prostate Reviewed imaging with patient's urologist, Dr. Beltre. Plan for outpatient cystoscopy Not felt to be contributing to SHYAM no evidence of hydronephrosis No need for intervention at this time Will need follow up with outpatient care (10) Melena: Code(s): K92.1 - Melena Status: Acute Assessment and Plan: Reported large blood BM H/H stable Patient appears pallor Anemia labs did indicate iron deficiency, will start supplementation Occult blood positive Continue to trend labs Consider GI consult Time Spent With Patient Time with patient: Greater than 35 minutes Subjective Date/time seen: 02/18/22899 Interval history: 02/18/22899 Patient was lying in
--- NOTE | 2022-02-18 09:23 | PCOTNOTE ---
Pt. unable to be seen for occupational therapy evaluation today. Per nursing pt. is preparing to have procedure done this morning. Following.
--- NOTE | 2022-02-18 10:06 | WPDANESEPPF ---
Anes - Initial Pre Proc Eval Procedure: Operation Date: 02/18/22 10:30 Proposed Procedures p Exploratory Laparotomy - Levi Jay MD Date/Time: 02/18/22 10:06 Surgeon: Kiki Sinha MD Pre Op Diagnosis: Small Bowel Obstrusion s/p small bowel resection Patient Data Age: 81 Gender: M Height: 1.78 m Weight: 74.2 kg Last Vital Signs Temp 36.1 C L 02/18/22 09:51 Pulse 90 02/18/22 09:51 Resp 18 02/18/22 09:51 BP 90/58 L 02/18/22 09:51 Pulse Ox 93 02/18/22 09:51 O2 Del Method Room Air 02/17/22 20:00 O2 Flow Rate 1 02/13/22 09:51 Allergies Allergy/AdvReac Type Severity Reaction Status Date / Time No Known Allergies Allergy Verified 02/11/22 12:11 Home Medications Medication Instructions Recorded Confirmed Type multivitamin (Multiple Vitamins 1 tablet PO DAILY 02/16/19 02/11/22 History tablet) atorvastatin 40 mg tablet 40 mg PO DAILY 05/03/21 02/11/22 History clopidogrel 75 mg tablet 75 mg PO DAILY 05/03/21 02/11/22 History furosemide 20 mg tablet 20 mg PO DAILY 05/03/21 02/11/22 History lisinopril 40 mg tablet 40 mg PO DAILY 05/03/21 02/11/22 History metoprolol tartrate 25 mg tablet 12.5 mg PO BID 05/03/21 02/11/22 History tramadol 50 mg tablet 50 mg PO BID PRN Pain 05/03/21 02/11/22 History aspirin 81 mg tablet 81 mg PO DAILY 05/11/21 02/11/22 History levothyroxine 75 mcg capsule 75 mcg PO DAILY 09/12/21 02/11/22 History omeprazole magnesium 20 mg 20 mg PO .every other day 09/12/21 02/11/22 History tablet,delayed release (Prilosec OTC) vitamins A,C,H-gkvf-ieqndl 14,320 1 cap PO DAILY 09/12/21 02/11/22 History unit-226 mg-200 unit capsule (ICaps AREDS) acetaminophen 650 mg 1,300 mg PO Q12H PRN Pain 01/25/22 02/11/22 History tablet,extended release (Tylenol Arthritis Pain) hydrocodone 5 mg-acetaminophen 325 1 tablet PO Q6H PRN pain #25 tabs 02/06/22 02/11/22 Rx mg tablet Laboratory Tests 02/17/22 02/17/22 02/17/22 11:11 11:13 13:08 WBC RBC Hgb Hct MCV MCH MCHC RDW Plt Count MPV Immature Gran % (Auto) Neut % (Auto) Lymph % (Auto) Stanton % (Auto) Eos % (Auto) Baso % (Auto) Lymph # (Auto) Stanton # (Auto) Eos # (Auto) Baso # (Auto) Abs Immat Gran (auto) Absolute Neuts (auto) Absolute Nucleated RBC Total Counted Neutrophils % (Manual) Band Neutrophils % Lymphocytes % (Manual) Monocytes % (Manual) Nucleated RBC % Abs Neuts (Manual) Abs Lymphs (Manual) Abs Monocytes (Manual) Platelet Estimate Ovalocytes Schistocytes APTT Puncture Site Left radial ABG pH 7.532 H* (7.350-7.450) ABG pCO2 28.2 mmHg L mmHg (35.0-45.0) ABG pO2 63.5 mmHg L mmHg (80.0-100.0) ABG PO2/FiO2 Ratio 3.02 % % ABG HCO3 23.1 mEq/l mEq/l (22.0-26.0) ABG O2 Saturation 94.7 % L % (95.0-100.0) ABG O2 Content 18.6 %vol %vol (16.0-22.0) ABG Base Excess 1.6 mEq/l mEq/l (+/-2.0) A-a Gradient 52.5 mmHg mmHg Oxyhemoglobin 93.1 % THb % THb (90.0-100.0) Carboxyhemoglobin 0.2 % THb % THb (0-2.0) Methemoglobin 0.3 %THb %THb (0-1.5) Reduced Hemoglobin 6.4 %THb H %THb (0-5.0) Total Hemoglobin 14.2 g/dL g/dL (12.0-18.0) O2 Delivery Device Not Reportable O2 Liters/Min Not Reportable FiO2 21 % % Sodium Potassium Chloride Carbon Dioxide Anion Gap BUN Creatinine Est
--- NOTE | 2022-02-18 10:06 | WPDHPUPDATE1 ---
History and Physical Update Update Date/Time: 02/18/22 10:06 History and Physical has been reviewed, including an updated exam of the patient. There are NO changes in the patient's condition. Risks, benefits, and alternatives have been discussed and questions answered. Patient agrees to proceed with procedure.
--- NOTE | 2022-02-18 10:14 | PC.NURSE ---
to OR per bed. iv saline locked. Report given to Mona. She will get cross match in OR. blood pressure 90/58. Discussed with Anesthesia.
--- NOTE | 2022-02-18 11:59 | PCPTNOTE ---
pt went to surgery after PT evaluation; will check on pt post op when PT can resume;
--- NOTE | 2022-02-18 13:42 | W.PM.PROC2 ---
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 He did well after surgery and was able to be discharged. He had to be readmitted 5 days later for a small-bowel obstruction. This was treated conservatively and 4 days ago a small-bowel follow-through study showed delayed transit of 3 hours and ileus but no obstruction. Patient was tolerating full liquids but yesterday became tachypneic. He was having abdominal pain. CT scan of the chest abdomen pelvis sewed some free intra abdominal air but no fluid and no obvious signs of obstruction or bowel perforation. There was concern regarding pneumonia. He was started on antibiotics, NG tube was placed and TPN was started. However today, he had lethargy and increasing white blood cell count 00257 with acute renal failure. Repeat CT showed increased intraperitoneal air. He is taken to surgery now for bowel perforation. Findings The source of the leak appeared to be the anastomosis. There was some gangrenous tissue and evidence of obstruction associated with the inflammatory process and adhesions. Besides the anastomosis, there was some patchy gangrenous change in the small intestine leading up to the anastomosis. About 18 in of small bowel including the anastomosis was resected. He had quite a bit of enteric content and ascites in the abdomen. He had diffuse peritonitis. Description of Procedure Patient was taken to surgery and induced into general anesthesia. The abdomen was prepped and draped. We reopened the midline incision and removed suture material that we encountered. Eventually we were able to re-enter the peritoneal cavity and saw there was a lot of inflammatory exudate and greenish fluid in the abdomen. The bowel was quite dilated also. I extended the incision cephalad and caudad. We were then able to suction away the ascites which was greenish consistent with enteric leakage. There were a lot of adhesions in the bowel was dilated. Once the free fluid was largely suctioned away, I began gentle exploration of the abdominal cavity. Freeing of the and phlegm a mariaelena adhesions was carried out. Eventually I was able to find in the right lower quadrant the source of leakage. It was still not apparent what precipitated this. There was dusky bowel with gangrenous patches on the anti mesenteric surface leading up to the leakage. There was very dilated bowel proximal to this. After further dissecting this out it was evident that this was associated with the previous small bowel anastomosis. It appeared there had been leakage and then the inflammatory adhesions had created a small bowel obstruction. I mobilized the area of bowel that was leaking and tried to minimize any further contamination. Once I had eviscerated this portion of bowel and freed it from adhesions I was able to proceed with resection. Going to the most distal aspect of small intestine that was not compromised in its vascularity, I divided this with the TLC 75 stapler. I then used the LigaSure and divided the mesentery on distally to include the previous anastomosis. The distal small bowel that was viable was very close to the terminal ileum and cecum. There was perhaps 8 cm of distal ileum remaining. I divided the mesentery to the distal extent of resection. The TLC 75 stapler was then used to divide the distal ileum so that the specimen could be passed off. Before passing it off to pathology I did look at the specimen more thoroughly. The leakage was at the crotch of the previous staple line. This was then passed off as a sp
[2022-02-18] MEDS: PROPOFOL IV EMULSION 100 ML 2.23 MG IV CONT (13:47)
--- NOTE | 2022-02-18 13:50 | WPDCNINT ---
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 Increasing free air. Increasing free fluid in the upper abdomen. Cannot exclude bowel leak. 2: Thickened bowel loops are present with air-fluid levels in the left mid and upper abdomen. Evaluation is limited without contrast. 3: Small mesenteric fluid collection with new air-fluid level in the mid abdomen measuring 2.5 x 1.2 cm, possibly postoperative change, although developing abscess is not excluded. 4:? Polypoid filling defect in the bladder which may represent blood clot or malignancy. 02/18/2022: s/p Small-bowel resection with anastomosis, for bowel perforation - Continue Levaquin, Vancomycin and flagyl (2) Acute respiratory failure: Code(s): J96.00 - Acute respiratory failure, unspecified whether with hypoxia or hypercapnia Status: Acute Assessment and Plan: Acute respiratory failure s/p surgery Remains intubated post surgery. - on CMV mode, PEEP of 5 - Check CXR - check ABGs - propofol for sedation, maintain RASS of 0 to -2 (3) Sepsis: Code(s): A41.9 - Sepsis, unspecified organism Status: Acute Assessment and Plan: Severe sepsis, due to SBO and bowel perforation check lactic acid blood pressures stable at the this time will add albumin for volume expansion received 5 L IV fluids in OR Has a picc line -02/16/2022 urine culture growing Enterococcus -02/16/2022 blood cultures negative x2 (4) Acute renal failure: Code(s): N17.9 - Acute kidney failure, unspecified Status: Acute Assessment and Plan: acute renal failure received adequate IV fluid in OR - start albumin for volume expansion - continue to monitor UO, renal function and electrolytes (5) UTI (urinary tract infection): Code(s): N39.0 - Urinary tract infection, site not specified Status: Acute Assessment and Plan: Enteroccus UTI on Vancomycin Plan DVT prophylaxis: Lovenox subQ Stress ulcer prophylaxis: Tone Nutrition: NPO Code Status: Full code Critical Care Time Spent: 49 minute Due to a high probability of clinically significant, life threatening deterioration, the patient required my highest level of preparedness to intervene emergently and I personally spent this critical care time directly and personally managing the patient. This critical care time included obtaining a history; examining the patient; pulse oximetry; ordering and review of studies; arranging urgent treatment with development of a management plan; evaluation of patient's response to treatment; frequent reassessment; and discussions with other providers. It was exclusive of separately billable procedures and treating other patients and teaching time. 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 Patient presented the ED on 10/04/2021 with complains constipation, abdominal pain, vomiting, decreased p.o. intake along with weakness and abdominal distens
[2022-02-18] MEDS: SODIUM CHLORIDE 0.9% IV 1,000 ML 125 ML IV CONT (14:37)
[2022-02-18 14:54] LABS: Glucose Point of Care 83 mg/dl (65-105)
[2022-02-18] MEDS: AMINO ACIDS 5%/D15W/E-LYTES/CA 2,000 ML with MULTIVITAMINS-12 INJ VIAL 1 2.5 ML, MULTIV... 70 ML IV CONT (15:14)
[2022-02-18 15:25] LABS: Alveolar/Arterial O2 Gradient 371.9 mmHg; Base Excess ABG -5.4 mEq/l (+/-2.0); Fractional Inspired Oxygen 100 %; HCO3 ABG 20.4 mEq/l (22.0-26.0); Oxygen Content ABG 19.5 %vol (16.0-22.0); Oxygen Saturation ABG 99.6 % (95.0-100.0); Oxyhemoglobin 98.2 % THb (90.0-100.0); PCO2 ABG 40.6 mmHg (35.0-45.0); PO2 ABG 300.5 mmHg (80.0-100.0); PO2 FiO2 Ratio Arterial Blood 3.01 %; Total Hemoglobin 13.6 g/dL (12.0-18.0); pH ABG 7.318 (7.350-7.450)
[2022-02-18] MEDS: ALBUMIN HUMAN 25% 25 GM/100 ML 100 ML IVPB ×2 (15:27→21:11)
[2022-02-18 15:29] LABS: Arterial Blood Gas PEEP 5 cmH2O; Arterial Blood Gas Tidal Volume 450 ml; Arterial Blood Gas Vent Mode CMV; Arterial Blood Gas Ventilator rate 20 /MIN; Device VENTILATOR; Modified Allen's Test Pass; Site Drawn LEFT RADIAL
[2022-02-18 15:49] LABS: Lactic Acid Reflex 1.5 mmol/L (0.7-2.0)
[2022-02-18 17:57] LABS: Glucose Point of Care 142 mg/dl (65-105)
[2022-02-18] MEDS: FAT EMULSIONS IV 20% 250 ML 20.83 ML IVPB (18:06)
[2022-02-18] MEDS: NOREPINEPHRINE 8 MG/D5W 250 ML 8 MG/250 ML BAG 9.38 MG IV CONT (19:45)
[2022-02-18] MEDS: MINERAL OIL/WHITE PETROLATUM OINTMENT 1 APPLIC EACH EYE (21:25)
--- NOTE | 2022-02-18 23:12 | PC.NURSE ---
1930 RR 36-40. Patient appears uncomfortable. Propofol titrated up for sedation as ordered.
--- NOTE | 2022-02-18 23:13 | PC.NURSE ---
1944 Levophed started for decreased blood pressure as ordered.
[2022-02-19] VITALS (44 sets, daily range): BP systolic 85–132; BP diastolic 47–66; PULSE 79–117; RESP 19–33; TEMP 36.9–37.4; O2SAT 97–100; BMI 24.9
[2022-02-19] MEDS: SODIUM CHLORIDE 0.9% IV 1,000 ML 125 ML IV CONT (00:49)
[2022-02-19] MEDS: PROPOFOL IV EMULSION 100 ML 13.36 MG IV CONT (00:52)
[2022-02-19 01:06] LABS: Glucose Point of Care 160 mg/dl (65-105)
[2022-02-19] MEDS: metroNIDAZOLE 500 MG/ISO 100ML 500 MG/100 ML BAG 100 MG IVPB ×3 (01:07→19:51)
[2022-02-19] MEDS: ALBUMIN HUMAN 25% 25 GM/100 ML 100 ML IVPB ×4 (03:20→21:53)
[2022-02-19 05:01] LABS: Alveolar/Arterial O2 Gradient 116.5 mmHg; Base Excess ABG -4.1 mEq/l (+/-2.0); Carboxyhemoglobin 0.3 % THb (0-2.0); Fractional Inspired Oxygen 40 %; HCO3 ABG 20.8 mEq/l (22.0-26.0); Methemoglobin ABG 0.3 %THb (0-1.5); Oxygen Saturation ABG 98.4 % (95.0-100.0); Oxyhemoglobin 97.2 % THb (90.0-100.0); PCO2 ABG 37.6 mmHg (35.0-45.0); PO2 ABG 125.5 mmHg (80.0-100.0); PO2 FiO2 Ratio Arterial Blood 3.14 %; Reduced Hemoglobin 2.2 %THb (0-5.0); Total Hemoglobin 13.8 g/dL (12.0-18.0); pH ABG 7.361 (7.350-7.450)
[2022-02-19 05:02] LABS: Device VENTILATOR; Modified Allen's Test Unable to perform; Site Drawn LEFT RADIAL
[2022-02-19 05:03] LABS: Arterial Blood Gas PEEP 5 cmH2O; Arterial Blood Gas Tidal Volume 450 ml; Arterial Blood Gas Vent Mode CMV; Arterial Blood Gas Ventilator rate 20 /MIN
[2022-02-19 05:11] LABS: Basophils Absolute Auto 0.2 K/mm3 (0.0-0.1); Basophils Percent Auto 0.6 % (0.2-1.2); Eosinophils Percent Auto 0.1 % (0-4.4); Hematocrit 28.1 % (42.0-52.0); Hemoglobin 9.1 g/dL (14.0-18.0); Immature Granulocyte Percent A 1.2 % (0-0.5); Lymphocytes Absolute Auto 0.91 K/mm3 (0.9-3.2); Lymphocytes Percent Auto 3.5 % (18.3-44.2); Mean Corpuscular HGB Conc 32.4 g/dl (32-36); Mean Corpuscular Hemoglobin 31.4 pg (26-34); Mean Corpuscular Volume 96.9 fl (80-100); Mean Platelet Volume 10.2 fl (7.4-10.4); Monocytes Absolute Auto 0.6 K/mm3 (0.1-0.6); Monocytes Percent Auto 2.2 % (2.6-8.5); Neutrophils Absolute Auto 24.1 K/mm3 (1.3-6.7); Neutrophils Percent Auto 92.4 % (45.5-73.1); Platelet Count Result 362 k/mm3 (150-375); Red Cell Distribution Width 14.8 % (11.5-14.5); White Blood Count 26.1 K/mm3 (4.5-10.0)
[2022-02-19 05:24] LABS: Lactic Acid Reflex 1.5 mmol/L (0.7-2.0)
[2022-02-19 06:04] LABS: INR 1.7; Prothrombin Time 19.4 Seconds (11.1-14.7)
[2022-02-19 06:05] LABS: Partial Thromboplastin Time 36.2 SECONDS (22.3-36.8)
[2022-02-19 06:07] LABS: Burr Cells 3+ (NORMAL); Hypochromasia 2+ (NORMAL); Poikilocytosis 2+ (NORMAL); Schistocytes 1+ (NORMAL)
[2022-02-19] MEDS: CENTRAL LINE FLUSH 10 ML IV PUSH ×2 (06:20→20:20)
[2022-02-19] MEDS: LEVOTHYROXINE SODIUM INJ 100 MCG/5 ML VIAL 38 MCG IV PUSH (06:26)
[2022-02-19] MEDS: PROPOFOL IV EMULSION 100 ML 15.58 MG IV CONT (07:59)
[2022-02-19 08:00] LABS: Alanine Aminotransferase 17 U/L (6-50); Albumin Level 2.1 g/dL (3.5-5.1); Alkaline Phosphatase 38 U/L (38-126); Anion Gap 7 mmol/L (8-16); Aspartate Amino Transferase 63 U/L (17-59); Bilirubin,Total 0.4 mg/dL (0.2-1.3); Blood Urea Nitrogen 53 mg/dL (9-20); Calcium 6.8 mg/dL (8.4-10.2); Carbon Dioxide 15 mmol/L (22-30); Chloride 113 mmol/L (98-107); Estimated CRCL calculation 24 ml/min; Estimated Glomerular Filt Rate 29; Glucose 165 mg/dL (65-110); Magnesium 2.3 mg/dL (1.6-2.3); Phosphorus 4.2 mg/dL (2.5-4.5); Sodium 135 mmol/L (137-145)
[2022-02-19 08:06] LABS: Transferrin < 80 mg/dL (206-381)
[2022-02-19] MEDS: MINERAL OIL/WHITE PETROLATUM OINTMENT 1 APPLIC EACH EYE ×3 (08:12→20:20)
[2022-02-19] MEDS: ENOXAPARIN 40 MG/0.4 ML SYRINGE SUB-Q (08:12)
--- NOTE | 2022-02-19 08:37 | PCOTNOTE ---
Pt. is currently intubated and unable to participate in therapy services. Canceling OT orders at this time. Re-order when medically stable.
--- NOTE | 2022-02-19 09:13 | PCPTNOTE ---
Pt. is currently intubated and unable to participate in therapy services. Canceling PT orders at this time. Re-order when medically stable.
[2022-02-19] MEDS: FENTANYL 2,500MCG/NS250ML(*CRX 2,500 MCG/250 ML BAG IV CONT (10:02)
[2022-02-19] MEDS: PANTOPRAZOLE SODIUM IV 40 MG VIAL IV PUSH (10:08)
[2022-02-19] MEDS: MIDAZOLAM 100MG/NS 100ML(*CRX) 100 MG/100 ML BAG IV CONT (11:09)
[2022-02-19] MEDS: NOREPINEPHRINE 8 MG/D5W 250 ML 8 MG/250 ML BAG 13.13 MG IV CONT (11:57)
--- NOTE | 2022-02-19 12:43 | WPDINTPN ---
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 Increasing free air. Increasing free fluid in the upper abdomen. Cannot exclude bowel leak. 2: Thickened bowel loops are present with air-fluid levels in the left mid and upper abdomen. Evaluation is limited without contrast. 3: Small mesenteric fluid collection with new air-fluid level in the mid abdomen measuring 2.5 x 1.2 cm, possibly postoperative change, although developing abscess is not excluded. 4:? Polypoid filling defect in the bladder which may represent blood clot or malignancy. 02/18/2022: s/p Small-bowel resection with anastomosis, for bowel perforation - Continue cefepime, Vancomycin and flagyl (2) Acute respiratory failure: Code(s): J96.00 - Acute respiratory failure, unspecified whether with hypoxia or hypercapnia Status: Acute Assessment and Plan: Acute respiratory failure s/p surgery Remains intubated post surgery. - on CMV mode, PEEP of 5 - chest x-ray this morning: Mild bibasilar opacities which could represent atelectasis and/or pneumonia with improved aeration at the left lung base. Decreasing small left pleural effusion. -ABGs reviewed -will switch propofol to fentanyl and Versed infusion maintain RASS of 0 to -2 (3) Sepsis: Code(s): A41.9 - Sepsis, unspecified organism Status: Acute Assessment and Plan: Severe sepsis/septic shock, due to SBO and bowel perforation -lactic acid is normal -patient was started on Levophed, maintain mean arterial pressures > 65 mmHg Patient has been receiving maintenance IV fluids and TPN, will discontinue maintenance IV fluids IV received 5 L IV fluids in OR Has a picc line -02/16/2022 urine culture growing Enterococcus -02/16/2022 blood cultures negative x2 (4) Acute renal failure: Code(s): N17.9 - Acute kidney failure, unspecified Status: Acute Assessment and Plan: acute renal failure received adequate IV fluid in OR -received albumin, continue TPN, will discontinue maintenance IV fluids - continue to monitor UO, renal function and electrolytes -creatinine worsening, will continue to monitor renal function, electrolytes and urine output (5) UTI (urinary tract infection): Code(s): N39.0 - Urinary tract infection, site not specified Status: Acute Assessment and Plan: Enteroccus UTI on Vancomycin Plan DVT prophylaxis: Lovenox subQ Stress ulcer prophylaxis: Protonix Nutrition: TPN Discuss with Dr. Jay, surgery Code Status: Full code Critical Care Time Spent: 36 minutes Due to a high probability of clinically significant, life threatening deterioration, the patient required my highest level of preparedness to intervene emergently and I personally spent this critical care time directly and personally managing the patient. This critical care time included obtaining a history; examining the patient; pulse oximetry; ordering and review of studies; arranging urgent treatment with development of a management plan; evaluation of patient's response to treatment; frequent reassessment; and discussions with other providers. It was exclusive of separately billable procedures and treating other patients and teaching time. Please see Assessment and Plan section and the rest of the note for further information on patient assessment and treatment Subjective Date/time seen: 02/19/22 12:43 Interval history: Reason for consult: Postop respiratory failure and shock, small-bowel resection with anastomosis
[2022-02-19 13:18] LABS: Creatinine Urine 75.5 mg/dL; Urea Random Urine 425 MG/DL
[2022-02-19 13:19] LABS: Sodium Urine Random 8 meq/L
[2022-02-19 13:27] LABS: Glucose Point of Care 164 mg/dl (65-105)
[2022-02-19] MEDS: ALBUTEROL SULFATE NEB 2.5 MG/3 ML INH INHALATION ×2 (14:42→20:13)
[2022-02-19] MEDS: IPRATROPIUM BR 0.02% INH SOLN 0.5 MG/2.5 ML VIAL INHALATION ×2 (14:42→20:13)
--- NOTE | 2022-02-19 17:05 | PM.PNGS ---
Progress Note: A&P Assessment and Plan (1) Anastomotic leak of intestine: Code(s): K91.89 - Other postprocedural complications and disorders of digestive system Status: Acute Assessment and Plan: Status post resection with anastomosis yesterday. No sign of bowel function resuming as yet. Continue NG tube and fluids. (2) Sepsis: Code(s): A41.9 - Sepsis, unspecified organism Status: Acute Assessment and Plan: Patient still hypotensive--requiring 7 mics of Levophed. Receiving cefepime, metronidazole and vancomycin IV antibiotics. Consider changing to single agent such as Zosyn and possibly an antifungal agent. (3) Acute respiratory failure: Code(s): J96.00 - Acute respiratory failure, unspecified whether with hypoxia or hypercapnia Status: Acute Assessment and Plan: Continue ventilator and critical care management Subjective Subjective Date/Time Seen: 02/19/22 17:05 Post Op day: 1 Patient reports: other (INTUBATED ON MECHANICAL VENTILATOR) Exam Narrative: Patient is sedated on ventilator in the ICU. Has Levophed running at 7 micrograms/kilogram per minute. Blood pressure varies with degree of sedation. Making adequate urine Const: General: patient obtunded Resp: Auscultation: rhonchi and diminished lung sounds bilateral in the lower lung johnson Cardio: Rate: tachycardic Rhythm: regular rhythm Heart sounds: Murmur heart sound present GI: Inspection: non-distended and incision (Dressing dry and intact) GI Palp: Yes Firmness to palpation present (GI) and No Palpable mass present Auscultation: absent bowel sounds Objective Data Vital Signs Vital Signs: Vital Signs - 24 hr 02/18/22 18:00 02/18/22 18:00 02/18/22 18:47 Temperature 36.9 C Pulse Rate 101 H 101 H 102 H Respiratory Rate 30 H Blood Pressure 97/57 L Pulse Oximetry 97 98 Oxygen Delivery Mechanical Ventilation Fraction of Inspired Oxygen 40 02/18/22 19:45 02/18/22 20:50 02/18/22 20:00 Temperature Pulse Rate 111 H 111 H 117 H Respiratory Rate Blood Pressure 67/42 L Pulse Oximetry 98 Oxygen Delivery Mechanical Ventilation Fraction of Inspired Oxygen 40 02/18/22 20:00 02/18/22 22:00 02/18/22 20:00 Temperature Pulse Rate 117 H 110 H Respiratory Rate 30 H Blood Pressure Pulse Oximetry 97 Oxygen Delivery Mechanical Ventilation Fraction of Inspired Oxygen 40 40 02/18/22 20:00 02/18/22 22:00 02/18/22 20:15 Temperature 37.0 C Pulse Rate 117 H 110 H 117 H Respiratory Rate 30 H 28 H Blood Pressure 73/54 L 95/56 L 76/42 L Pulse Oximetry 97 99 Oxygen Delivery Fraction of Inspired Oxygen 02/18/22 19:30 02/18/22 20:30 02/18/22 20:45 Temperature Pulse Rate 111 H 110 H 112 H Respiratory Rate 38 H 28 H Blood Pressure 80/50 L Pulse Oximetry Oxygen Delivery Fraction of Inspired Oxygen 02/19/22 00:03 02/19/22 00:00 02/19/22 00:00 Temperature 36.9 C Pulse Rate 107 H 105 H 105 H Respiratory Rate 26 H Blood Pressure 110/58 L Pulse Oximetry 100 97 Oxygen Delivery Mechanical Ventilation Fraction of Inspired Oxygen 40 02/19/22 00:00 02/19/22 00:00 02/19/22 00:52 Temperature Pulse Rate 117 H 105 H Respiratory Rate 30 H 28 H Blood Pressure Pulse Oximetry 97 Oxygen Delivery Mechanical Ventilation Fraction of Inspired Oxygen 40 40 02/19/22 00:52 02/19/22 02:39 02/19/22 02:00 Temperature Pulse Rate 105 H 103 H 103 H Respiratory Rate 28 H 28 H Blood Pressure 110/66 Pulse Oximetry 100 99 Oxygen Delivery Mechanical Ventilation Fraction of Inspired Oxygen 40 02/19/22 02:00 02/19/22 04:00 02/19/22 04:00 Temperature 36.9 C Pulse Rate 103 H 101 H 101 H Respiratory Rate 30 H Blood Pressure 111/60 Pulse Oximetry 100 Oxygen Delivery Fraction of Inspired Oxygen 02/19/22 04:00 02/19/22 04:00 02/19/22 06:04 Temperature Pulse Rate 101 H 102 H
[2022-02-19 18:46] LABS: Glucose Point of Care 153 mg/dl (65-105)
[2022-02-19] MEDS: FAT EMULSIONS IV 20% 250 ML 20.83 ML IVPB (19:02)
[2022-02-19] MEDS: AMINO ACIDS 5%/D15W/E-LYTES/CA 2,000 ML with MULTIVITAMINS-12 INJ VIAL 1 2.5 ML, MULTIV... 70 ML IV CONT (19:02)
[2022-02-19 23:49] LABS: Glucose Point of Care 131 mg/dl (65-105)
[2022-02-20] VITALS (41 sets, daily range): BP systolic 88–125; BP diastolic 51–69; PULSE 79–107; RESP 20–26; TEMP 36.8–37.5; O2SAT 100
[2022-02-20] MEDS: ALBUTEROL SULFATE NEB 2.5 MG/3 ML INH INHALATION ×4 (01:37→20:31)
[2022-02-20] MEDS: IPRATROPIUM BR 0.02% INH SOLN 0.5 MG/2.5 ML VIAL INHALATION ×4 (01:37→20:30)
[2022-02-20] MEDS: metroNIDAZOLE 500 MG/ISO 100ML 500 MG/100 ML BAG 100 MG IVPB ×3 (02:32→16:29)
[2022-02-20] MEDS: NOREPINEPHRINE 8 MG/D5W 250 ML 8 MG/250 ML BAG 16.88 MG IV CONT (02:55)
[2022-02-20 04:04] LABS: Hematocrit 28.1 % (42.0-52.0); Hemoglobin 8.7 g/dL (14.0-18.0); Mean Corpuscular Hemoglobin 30.6 pg (26-34); Mean Corpuscular Volume 98.9 fl (80-100); Mean Platelet Volume 10.5 fl (7.4-10.4); Platelet Count Result 276 k/mm3 (150-375); Red Blood Count 2.84 M/mm3 (4.6-6.20); Red Cell Distribution Width 15.3 % (11.5-14.5); White Blood Count 23.4 K/mm3 (4.5-10.0)
[2022-02-20 04:23] LABS: Anion Gap 8 mmol/L (8-16); Blood Urea Nitrogen 57 mg/dL (9-20); Calcium 7.3 mg/dL (8.4-10.2); Carbon Dioxide 18 mmol/L (22-30); Chloride 111 mmol/L (98-107); Estimated CRCL calculation 23 ml/min; Estimated Glomerular Filt Rate 27; Glucose 120 mg/dL (65-110); Phosphorus 4.1 mg/dL (2.5-4.5); Potassium 4.4 mmol/L (3.4-5.0); Sodium 137 mmol/L (137-145)
[2022-02-20] MEDS: MIDAZOLAM 100MG/NS 100ML(*CRX) 100 MG/100 ML BAG IV CONT (05:30)
[2022-02-20 06:15] LABS: Alveolar/Arterial O2 Gradient 88.8 mmHg; Base Excess ABG -4.4 mEq/l (+/-2.0); Carboxyhemoglobin 0.2 % THb (0-2.0); Fractional Inspired Oxygen 30 %; HCO3 ABG 20.9 mEq/l (22.0-26.0); Methemoglobin ABG 0.2 %THb (0-1.5); Oxygen Content ABG 14.2 %vol (16.0-22.0); Oxygen Saturation ABG 95.2 % (95.0-100.0); Oxyhemoglobin 94.7 % THb (90.0-100.0); PO2 ABG 79.3 mmHg (80.0-100.0); PO2 FiO2 Ratio Arterial Blood 2.64 %; Reduced Hemoglobin 4.9 %THb (0-5.0); Total Hemoglobin 10.6 g/dL (12.0-18.0); pH ABG 7.347 (7.350-7.450)
[2022-02-20] MEDS: LEVOTHYROXINE SODIUM INJ 100 MCG/5 ML VIAL 38 MCG IV PUSH (06:15)
[2022-02-20] MEDS: CENTRAL LINE FLUSH 10 ML IV PUSH ×3 (06:15→20:13)
[2022-02-20 06:16] LABS: Device VENTILATOR; Modified Allen's Test Pass; Site Drawn LEFT RADIAL
[2022-02-20 06:17] LABS: Arterial Blood Gas PEEP 5 cmH2O; Arterial Blood Gas Tidal Volume 450 ml; Arterial Blood Gas Vent Mode CMV; Arterial Blood Gas Ventilator rate 20 /MIN
--- NOTE | 2022-02-20 07:22 | PM.PNGS ---
Progress Note: A&P Assessment and Plan (1) Anastomotic leak of intestine: Code(s): K91.89 - Other postprocedural complications and disorders of digestive system Status: Acute Assessment and Plan: making slow progress. Continue critical care management. Keep NPO with NG tube in place to suction. Continue to follow closely. (2) Acute respiratory failure: Code(s): J96.00 - Acute respiratory failure, unspecified whether with hypoxia or hypercapnia Status: Acute (3) Sepsis: Code(s): A41.9 - Sepsis, unspecified organism Status: Acute Subjective Subjective Date/Time Seen: 02/20/22 07:22 Post Op day: 2 Patient reports: other ( Intubated on ventilator) Interval history: still on Levophed. Review of Systems Review of Systems: ROS unobtainable: Yes unobtainable due to endotracheal tube Exam Const: General: patient obtunded GI: Inspection: non-distended and incision ( Minimal drainage, healing well) GI Palp: Yes Soft to palpation Auscultation: absent bowel sounds Objective Data Vital Signs Vital Signs: Vital Signs - 24 hr 02/19/22 07:59 02/19/22 08:08 02/19/22 09:00 Temperature Pulse Rate 101 H 99 93 Respiratory Rate 33 H 28 H 27 H Blood Pressure Pulse Oximetry Oxygen Delivery Fraction of Inspired Oxygen 02/19/22 09:39 02/19/22 10:01 02/19/22 10:02 Temperature 37.4 C Pulse Rate 91 92 Respiratory Rate 26 H 27 H Blood Pressure Pulse Oximetry Oxygen Delivery Fraction of Inspired Oxygen 02/19/22 08:10 02/19/22 11:09 02/19/22 11:54 Temperature Pulse Rate 100 90 90 Respiratory Rate 28 H 23 H Blood Pressure Pulse Oximetry 100 Oxygen Delivery Mechanical Ventilation Fraction of Inspired Oxygen 40 02/19/22 11:30 02/19/22 11:56 02/19/22 11:56 Temperature Pulse Rate 90 90 90 Respiratory Rate 26 H 28 H 23 H Blood Pressure Pulse Oximetry Oxygen Delivery Fraction of Inspired Oxygen 02/19/22 11:57 02/19/22 12:05 02/19/22 12:10 Temperature Pulse Rate 90 86 86 Respiratory Rate 25 H 21 H Blood Pressure 92/52 L Pulse Oximetry Oxygen Delivery Fraction of Inspired Oxygen 02/19/22 12:18 02/19/22 08:00 02/19/22 08:00 Temperature Pulse Rate 88 Respiratory Rate Blood Pressure 85/47 L Pulse Oximetry Oxygen Delivery Mechanical Ventilation Fraction of Inspired Oxygen 40 40 02/19/22 08:00 02/19/22 08:00 02/19/22 12:00 Temperature 37.4 C Pulse Rate 96 101 H Respiratory Rate 33 H Blood Pressure 102/62 Pulse Oximetry 100 Oxygen Delivery Mechanical Ventilation Fraction of Inspired Oxygen 40 02/19/22 12:00 02/19/22 10:00 02/19/22 10:00 Temperature Pulse Rate 92 92 Respiratory Rate 29 H Blood Pressure 100/59 L Pulse Oximetry 100 Oxygen Delivery Fraction of Inspired Oxygen 40 02/19/22 12:00 02/19/22 12:00 02/19/22 11:00 Temperature 37.2 C 37.2 C Pulse Rate 89 89 Respiratory Rate 24 H Blood Pressure 85/52 L Pulse Oximetry 100 Oxygen Delivery Fraction of Inspired Oxygen 02/19/22 12:30 02/19/22 13:00 02/19/22 14:00 Temperature Pulse Rate 86 85 85 Respiratory Rate 26 H 26 H Blood Pressure Pulse Oximetry Oxygen Delivery Fraction of Inspired Oxygen 02/19/22 14:00 02/19/22 14:00 02/19/22 14:00 Temperature Pulse Rate 85 85 85 Respiratory Rate 25 H 25 H Blood Pressure 106/50 L 106/50 L Pulse Oximetry 100 Oxygen Delivery Fraction of Inspired Oxygen 02/19/22 14:00 02/19/22 11:10 02/19/22 14:42 Temperature Pulse Rate 85 88 88 Respiratory Rate 25 H Blood Pressure Pulse Oximetry 100 100 Oxygen Delivery Mechanical Ventilation Mechanical Ventilation Fraction of Inspired Oxygen 35 35 02/19/22 14:42 02/19/22 14:53 02/19/22 17:30 Temperature Pulse Rate 84 89 95 Respiratory Rate 24 H 24 H Blood Pressure Pulse Oximetry 100 Oxygen
[2022-02-20] MEDS: FENTANYL 2,500MCG/NS250ML(*CRX 2,500 MCG/250 ML BAG 12.5 MCG IV CONT (09:05)
[2022-02-20] MEDS: ENOXAPARIN 40 MG/0.4 ML SYRINGE SUB-Q (09:06)
[2022-02-20] MEDS: MINERAL OIL/WHITE PETROLATUM OINTMENT 1 APPLIC EACH EYE ×2 (09:07→20:13)
[2022-02-20] MEDS: PANTOPRAZOLE SODIUM IV 40 MG VIAL IV PUSH (09:07)
--- NOTE | 2022-02-20 11:41 | PCNFU ---
Nutrition Follow-Up Complete: Inadequate oral intake related to acute small bowel obstruction as evidenced by NPO status, need for full parenteral feeding goal: Meet estimated nutrition needs Patient is progressing towards goal. We will continue current goal. Pt current nutrition is TPN. Last recorded weight is 82.6 kg. Bowel Motility:Hypoactive bowel sounds Labs Reviewed:Glu 120, BUN 57, Cr 2.3,Hct 28.1,Hgb 8.7 Meds Noted:Lovenox, NovoLog, cefepime, Fentanyl, Versed,Lovenox, Clinimix 5/15 at 70 ml/hr with 250 ml of 20% lipid emulsion. Skin: maceration-buttock Additional Notes: Patient remains on mechanical vent. TPN continues providing 91% kcal needs and 89% protein needs. Agree with diet orders. Monitoring tolerance, plan of care, labs, etc Following daily in ICU. Follow up Saturday and Saturday per policy
[2022-02-20] MEDS: CALCIUM GLUC 2,000 MG/NS 100ML 2,000 MG/100 ML BAG 100 MG IVPB (12:44)
[2022-02-20 12:59] LABS: Glucose Point of Care 118 mg/dl (65-105)
--- NOTE | 2022-02-20 13:49 | WPDINTPN ---
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 Increasing free air. Increasing free fluid in the upper abdomen. Cannot exclude bowel leak. 2: Thickened bowel loops are present with air-fluid levels in the left mid and upper abdomen. Evaluation is limited without contrast. 3: Small mesenteric fluid collection with new air-fluid level in the mid abdomen measuring 2.5 x 1.2 cm, possibly postoperative change, although developing abscess is not excluded. 4:? Polypoid filling defect in the bladder which may represent blood clot or malignancy. 02/18/2022: s/p Small-bowel resection with anastomosis, for bowel perforation - Continue cefepime, Vancomycin and flagyl (2) Acute respiratory failure: Code(s): J96.00 - Acute respiratory failure, unspecified whether with hypoxia or hypercapnia Status: Acute Assessment and Plan: Acute respiratory failure s/p surgery Remains intubated post surgery. - on CMV mode, PEEP of 5 - chest x-ray this morning: Mild bibasilar opacities which could represent atelectasis and/or pneumonia with improved aeration at the left lung base. Decreasing small left pleural effusion. -ABGs reviewed -will switch propofol to fentanyl and Versed infusion maintain RASS of 0 to -2, will give sedation vacation to evaluate minutes time spent -is 11 L positive in fluid balance, currently on Levophed so will hold diuresis for now, will increase PEEP to 8 (3) Sepsis: Code(s): A41.9 - Sepsis, unspecified organism Status: Acute Assessment and Plan: Severe sepsis/septic shock, due to SBO and bowel perforation -lactic acid is normal -patient was started on Levophed, maintain mean arterial pressures > 65 mmHg Patient has been receiving maintenance IV fluids and TPN, will discontinue maintenance IV fluids IV received 5 L IV fluids in OR Has a picc line -02/16/2022 urine culture growing Enterococcus -02/16/2022 blood cultures negative x2 (4) Acute renal failure: Code(s): N17.9 - Acute kidney failure, unspecified Status: Acute Assessment and Plan: acute renal failure received adequate IV fluid in OR -received albumin, continue TPN, will discontinue maintenance IV fluids - continue to monitor UO, renal function and electrolytes -creatinine worsening, will continue to monitor renal function, electrolytes and urine output (5) UTI (urinary tract infection): Code(s): N39.0 - Urinary tract infection, site not specified Status: Acute Assessment and Plan: Enteroccus UTI on Vancomycin Plan DVT prophylaxis: Lovenox subQ Stress ulcer prophylaxis: Protonix Nutrition: TPN Discuss with Dr. Jay, surgery Code Status: Full code Critical Care Time Spent: 32 minutes Due to a high probability of clinically significant, life threatening deterioration, the patient required my highest level of preparedness to intervene emergently and I personally spent this critical care time directly and personally managing the patient. This critical care time included obtaining a history; examining the patient; pulse oximetry; ordering and review of studies; arranging urgent treatment with development of a management plan; evaluation of patient's response to treatment; frequent reassessment; and discussions with other providers. It was exclusive of separately billable procedures and treating other patients and teaching time. Please see Assessment and Plan section and the rest of the note for further information on patient assessment and treat
[2022-02-20] MEDS: AMINO ACIDS 5%/D15W/E-LYTES/CA 2,000 ML with MULTIVITAMINS-12 INJ VIAL 1 2.5 ML, MULTIV... 70 ML IV CONT (16:21)
[2022-02-20] MEDS: FAT EMULSIONS IV 20% 250 ML 20.83 ML IVPB (16:22)
[2022-02-20 16:37] LABS: Triglycerides 69 mg/dL (<150)
[2022-02-20 17:00] LABS: Vancomycin Trough 8.6 ug/mL (10.0-20.0)
[2022-02-20 17:26] LABS: Glucose Point of Care 137 mg/dl (65-105)
[2022-02-21] VITALS (72 sets, daily range): BP systolic 90–133; BP diastolic 59–84; PULSE 95–129; RESP 18–37; TEMP 36.4–37.3; O2SAT 96–100
[2022-02-21] MEDS: metroNIDAZOLE 500 MG/ISO 100ML 500 MG/100 ML BAG 200 MG IVPB ×2 (00:16→08:21)
[2022-02-21 00:35] LABS: Glucose Point of Care 120 mg/dl (65-105)
[2022-02-21] MEDS: IPRATROPIUM BR 0.02% INH SOLN 0.5 MG/2.5 ML VIAL INHALATION ×3 (03:23→21:09)
[2022-02-21] MEDS: ALBUTEROL SULFATE NEB 2.5 MG/3 ML INH INHALATION ×3 (03:23→21:09)
[2022-02-21 04:19] LABS: Anion Gap 5 mmol/L (8-16); Blood Urea Nitrogen 59 mg/dL (9-20); Calcium 7.7 mg/dL (8.4-10.2); Carbon Dioxide 21 mmol/L (22-30); Chloride 112 mmol/L (98-107); Estimated CRCL calculation 26 ml/min; Estimated Glomerular Filt Rate 30; Glucose 136 mg/dL (65-110); Phosphorus 4.7 mg/dL (2.5-4.5); Potassium 4.6 mmol/L (3.4-5.0); Sodium 138 mmol/L (137-145)
[2022-02-21 05:45] LABS: Alveolar/Arterial O2 Gradient 57.2 mmHg; Base Excess ABG -4.7 mEq/l (+/-2.0); Carboxyhemoglobin 0.3 % THb (0-2.0); Fractional Inspired Oxygen 30 %; HCO3 ABG 20.4 mEq/l (22.0-26.0); Methemoglobin ABG 0.1 %THb (0-1.5); Oxygen Content ABG 13.5 %vol (16.0-22.0); Oxyhemoglobin 97.2 % THb (90.0-100.0); PCO2 ABG 37.4 mmHg (35.0-45.0); PO2 ABG 112.8 mmHg (80.0-100.0); PO2 FiO2 Ratio Arterial Blood 3.76 %; Reduced Hemoglobin 2.4 %THb (0-5.0); Total Hemoglobin 9.7 g/dL (12.0-18.0); pH ABG 7.354 (7.350-7.450)
[2022-02-21 05:46] LABS: Site Drawn LEFT RADIAL
[2022-02-21 05:47] LABS: Device VENTILATOR; Modified Allen's Test Pass
[2022-02-21 05:48] LABS: Arterial Blood Gas PEEP 8 cmH2O; Arterial Blood Gas Tidal Volume 450 ml; Arterial Blood Gas Vent Mode CMV; Arterial Blood Gas Ventilator rate 20 /MIN
[2022-02-21] MEDS: CENTRAL LINE FLUSH 10 ML IV PUSH ×3 (05:57→20:11)
[2022-02-21] MEDS: LEVOTHYROXINE SODIUM INJ 100 MCG/5 ML VIAL 38 MCG IV PUSH (05:58)
--- NOTE | 2022-02-21 07:05 | PM.PNGS ---
Progress Note: A&P Assessment and Plan (1) Anastomotic leak of intestine: Code(s): K91.89 - Other postprocedural complications and disorders of digestive system Status: Acute Assessment and Plan: some bowel sounds present and patient did have a bowel movement last night. Wound looks okay. Continue dressing changes. Continue NG tube to suction and TPN. (2) Sepsis: Code(s): A41.9 - Sepsis, unspecified organism Status: Acute Assessment and Plan: Improving. Hopefully Levophed can be discontinued today. Continue antibiotics and critical care management. (3) Acute respiratory failure: Code(s): J96.00 - Acute respiratory failure, unspecified whether with hypoxia or hypercapnia Status: Acute Assessment and Plan: Possibly extubate today. Subjective Subjective Date/Time Seen: 02/21/22 07:05 Post Op day: 3 Patient reports: bowel movement and other ( Remains intubated) Interval history: O2 sats are better. Levophed has weaned down to 1 mcg per kg per minute and hopefully will being weaned off this morning. Exam Const: General: comfortable GI: Inspection: incision ( Small amount drainage upper aspect incision, otherwise looks okay) GI Palp: Yes Firmness to palpation present (GI) Auscultation: Hypoactive bowel sounds present Objective Data Vital Signs Vital Signs: Vital Signs - 24 hr 02/20/22 08:00 02/20/22 09:05 02/20/22 09:20 Temperature 36.8 C Pulse Rate 85 82 84 Respiratory Rate 20 20 20 Blood Pressure 96/51 L Pulse Oximetry 100 Oxygen Delivery Fraction of Inspired Oxygen 02/20/22 09:21 02/20/22 08:56 02/20/22 08:56 Temperature Pulse Rate 82 83 83 Respiratory Rate 20 20 Blood Pressure Pulse Oximetry 100 Oxygen Delivery Mechanical Ventilation Fraction of Inspired Oxygen 30 02/20/22 09:13 02/20/22 09:48 02/20/22 09:49 Temperature Pulse Rate 84 92 92 Respiratory Rate 20 20 20 Blood Pressure Pulse Oximetry Oxygen Delivery Fraction of Inspired Oxygen 02/20/22 08:00 02/20/22 08:00 02/20/22 08:00 Temperature Pulse Rate 92 Respiratory Rate Blood Pressure Pulse Oximetry 100 Oxygen Delivery Mechanical Ventilation Fraction of Inspired Oxygen 30 30 02/20/22 10:00 02/20/22 10:00 02/20/22 10:50 Temperature Pulse Rate 96 95 96 Respiratory Rate 20 Blood Pressure 104/55 L Pulse Oximetry 100 100 Oxygen Delivery Mechanical Ventilation Fraction of Inspired Oxygen 30 02/20/22 12:00 02/20/22 08:00 02/20/22 10:00 Temperature Pulse Rate 85 94 Respiratory Rate Blood Pressure 96/51 L 104/55 L Pulse Oximetry 100 Oxygen Delivery Mechanical Ventilation Fraction of Inspired Oxygen 30 02/20/22 12:00 02/20/22 12:00 02/20/22 12:00 Temperature 37.1 C Pulse Rate 96 96 Respiratory Rate 20 Blood Pressure 109/59 L 109/59 L Pulse Oximetry 100 Oxygen Delivery Fraction of Inspired Oxygen 30 02/20/22 13:29 02/20/22 14:05 02/20/22 14:05 Temperature Pulse Rate 104 H 106 H 106 H Respiratory Rate 21 H Blood Pressure 125/69 Pulse Oximetry 100 Oxygen Delivery Mechanical Ventilation Fraction of Inspired Oxygen 30 02/20/22 14:20 02/20/22 14:00 02/20/22 12:00 Temperature Pulse Rate 105 H 105 H 93 Respiratory Rate 22 H 20 Blood Pressure 107/61 Pulse Oximetry 100 Oxygen Delivery Fraction of Inspired Oxygen 02/20/22 14:00 02/20/22 14:30 02/20/22 16:01 Temperature Pulse Rate 105 H 105 H 103 H Respiratory Rate Blood Pressure 104/57 L 106/62 Pulse Oximetry Oxygen Delivery Fraction of Inspired Oxygen 02/20/22 16:00 02/20/22 16:37 02/20/22 16:00 Temperature 37.4 C Pulse Rate 106 H 104 H Respiratory Rate 20 Blood Pressure 106/62 104/60 Pulse Oximetry 100 Oxygen Delivery Fraction of Inspired Oxygen 30 02/20/22 16:58 02/20/22 18:00 02/20/22 18:08 Temperature
[2022-02-21] MEDS: ENOXAPARIN 40 MG/0.4 ML SYRINGE SUB-Q (08:07)
[2022-02-21] MEDS: MINERAL OIL/WHITE PETROLATUM OINTMENT 1 APPLIC EACH EYE ×2 (08:07→20:11)
[2022-02-21] MEDS: PANTOPRAZOLE SODIUM IV 40 MG VIAL IV PUSH (08:07)
--- NOTE | 2022-02-21 10:40 | PCRCNOTE ---
Window of time for administration has passed. See next scheduled administration.
[2022-02-21 11:25] LABS: Glucose Point of Care 127 mg/dl (65-105)
--- NOTE | 2022-02-21 11:59 | PCFNICU ---
ICU Rounding Note: Pt current nutrition is TPN. Last recorded weight is 81.8 kg. Bowel Motility:+BM reported 02/21 Labs Reviewed:PO4 4.7,Cr 2.10,BUN 59, Glu 136 Meds Noted:Lovenox, NovoLog, cefepime, Fentanyl, Versed,Lovenox, Clinimix 5/15 at 70 ml/hr with 250 ml of 20% lipid emulsion. Skin: maceration-buttocks Additional Notes: Patient remains on mechanical vent. TPN at 70 ml/hr + Lipids providing 1693 kcals/84 gms protein. Sedation is off. Plans for CT brain today. Agree with diet orders. Following daily in ICU rounds. Monitoring tolerance, plan of care, labs, etc
--- NOTE | 2022-02-21 13:25 | WPDINTPN ---
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 Increasing free air. Increasing free fluid in the upper abdomen. Cannot exclude bowel leak. 2: Thickened bowel loops are present with air-fluid levels in the left mid and upper abdomen. Evaluation is limited without contrast. 3: Small mesenteric fluid collection with new air-fluid level in the mid abdomen measuring 2.5 x 1.2 cm, possibly postoperative change, although developing abscess is not excluded. 4:? Polypoid filling defect in the bladder which may represent blood clot or malignancy. 02/18/2022: s/p Small-bowel resection with anastomosis, for bowel perforation - Continue cefepime, Vancomycin and flagyl (2) Acute respiratory failure: Code(s): J96.00 - Acute respiratory failure, unspecified whether with hypoxia or hypercapnia Status: Acute Assessment and Plan: Acute respiratory failure s/p surgery Remains intubated post surgery. - on CMV mode, PEEP of 8 and 30% FiO2 - chest x-ray this morning: Resolution of prior small left pleural effusion and decreased bibasilar opacities with appearance favoring atelectasis over pneumonia. -ABGs reviewed -patient has been off all sedation since 02/20/2022 a.m.. -patient with significant positive fluid balance since surgery. Patient is came off Levophed early this morning, will diurese if pressures permit (3) Sepsis: Code(s): A41.9 - Sepsis, unspecified organism Status: Acute Assessment and Plan: Severe sepsis/septic shock, due to SBO and bowel perforation -lactic acid is normal -OFF LEVOPHED SINCE 02/21 A.M. -continue TPN Has a picc line -02/16/2022 urine culture growing Enterococcus -02/16/2022 blood cultures negative x2 (4) Acute renal failure: Code(s): N17.9 - Acute kidney failure, unspecified Status: Acute Assessment and Plan: acute renal failure received adequate IV fluid in OR -received albumin, continue TPN, will discontinue maintenance IV fluids - continue to monitor UO, renal function and electrolytes -creatinine slowly improving, will continue to monitor renal function, electrolytes and urine output 02/12/2022 renal ultrasound Lobulated, asymmetric right posterior bladder wall mass possibly extending from the prostate, correlate with labs and consider evaluation with prostate MR or cystoscopy depending on the laboratory findings. 2. Bilateral simple renal cysts. 3. Bilateral nephrolithiasis. 4. Medical renal disease. (5) UTI (urinary tract infection): Code(s): N39.0 - Urinary tract infection, site not specified Status: Acute Assessment and Plan: Enteroccus UTI on Vancomycin (6) Acute metabolic encephalopathy: Code(s): G93.41 - Metabolic encephalopathy Status: Acute Assessment and Plan: Encephalopathy could be related to sedation medications, renal failure, infection, post surgery -02/21/2022 CT brain with no acute intracranial abnormality, chronic age related changes -keep patient off the sedation -continue to monitor Plan DVT prophylaxis: Lovenox subQ Stress ulcer prophylaxis: Protonix Nutrition: TPN Code Status: Full code Critical Care Time Spent: 32 minutes Due to a high probability of clinically significant, life threatening deterioration, the patient required my highest level of preparedness to intervene emergently and I personally spent this critical care time directly and personally managing the patient. This critical care time included obtaining a history; exam
[2022-02-21] MEDS: AMINO ACIDS 5%/D15W/E-LYTES/CA 2,000 ML with MULTIVITAMINS-12 INJ VIAL 1 2.5 ML, MULTIV... 70 ML IV CONT (15:21)
[2022-02-21] MEDS: metroNIDAZOLE 500 MG/ISO 100ML 500 MG/100 ML BAG 100 MG IVPB (17:02)
[2022-02-21] MEDS: FAT EMULSIONS IV 20% 250 ML 20.83 ML IVPB (17:04)
[2022-02-21 17:27] LABS: Glucose Point of Care 155 mg/dl (65-105)
[2022-02-21] MEDS: dexmedeTOMIDine 400 MCG/100 ML 400 MCG/100 ML BAG IV CONT (20:10)
[2022-02-21 20:34] LABS: Osmolality, Urine 306 mOsm/kg (50-1200)
[2022-02-22] VITALS (66 sets, daily range): BP systolic 78–153; BP diastolic 43–74; PULSE 67–105; RESP 20–33; TEMP 36.6–37.4; O2SAT 95–100
[2022-02-22] MEDS: metroNIDAZOLE 500 MG/ISO 100ML 500 MG/100 ML BAG 100 MG IVPB ×2 (00:18→09:10)
[2022-02-22 00:38] LABS: Glucose Point of Care 166 mg/dl (65-105)
[2022-02-22] MEDS: NOREPINEPHRINE 8 MG/D5W 250 ML 8 MG/250 ML BAG 5.63 MG IV CONT (00:38)
[2022-02-22] MEDS: IPRATROPIUM BR 0.02% INH SOLN 0.5 MG/2.5 ML VIAL INHALATION ×4 (02:23→21:20)
[2022-02-22] MEDS: ALBUTEROL SULFATE NEB 2.5 MG/3 ML INH INHALATION ×4 (02:23→21:19)
[2022-02-22 05:18] LABS: Basophils Absolute Auto 0.1 K/mm3 (0.0-0.1); Basophils Percent Auto 0.3 % (0.2-1.2); Eosinophils Absolute Auto 0.1 K/mm3 (0-0.3); Eosinophils Percent Auto 0.4 % (0-4.4); Hematocrit 30.4 % (42.0-52.0); Hemoglobin 9.2 g/dL (14.0-18.0); Immature Granulocyte Absolute 0.22 K/mm3 (0.00-0.031); Immature Granulocyte Percent A 1.3 % (0-0.5); Lymphocytes Absolute Auto 0.88 K/mm3 (0.9-3.2); Lymphocytes Percent Auto 5.3 % (18.3-44.2); Mean Corpuscular HGB Conc 30.3 g/dl (32-36); Mean Corpuscular Hemoglobin 30.4 pg (26-34); Mean Corpuscular Volume 100.3 fl (80-100); Monocytes Absolute Auto 1.1 K/mm3 (0.1-0.6); Monocytes Percent Auto 6.5 % (2.6-8.5); Neutrophils Absolute Auto 14.4 K/mm3 (1.3-6.7); Neutrophils Percent Auto 86.2 % (45.5-73.1); Platelet Count Result 358 k/mm3 (150-375); Red Blood Count 3.03 M/mm3 (4.6-6.20); Red Cell Distribution Width 15.9 % (11.5-14.5); White Blood Count 16.7 K/mm3 (4.5-10.0)
[2022-02-22 05:19] LABS: Alveolar/Arterial O2 Gradient 59.3 mmHg; Carboxyhemoglobin 0.3 % THb (0-2.0); Fractional Inspired Oxygen 30 %; HCO3 ABG 21.7 mEq/l (22.0-26.0); Methemoglobin ABG 0.1 %THb (0-1.5); Oxygen Content ABG 16.1 %vol (16.0-22.0); Oxygen Saturation ABG 96.8 % (95.0-100.0); Oxyhemoglobin 96.4 % THb (90.0-100.0); PCO2 ABG 46.6 mmHg (35.0-45.0); PO2 ABG 99.8 mmHg (80.0-100.0); PO2 FiO2 Ratio Arterial Blood 3.33 %; Reduced Hemoglobin 3.2 %THb (0-5.0); Total Hemoglobin 11.8 g/dL (12.0-18.0)
[2022-02-22 05:20] LABS: Device VENTILATOR; Modified Allen's Test Unable to perform; Site Drawn LEFT RADIAL; pH ABG 7.285 (7.350-7.450)
[2022-02-22 05:21] LABS: Arterial Blood Gas PEEP 8 cmH2O; Arterial Blood Gas Tidal Volume 450 ml; Arterial Blood Gas Vent Mode CMV; Arterial Blood Gas Ventilator rate 20 /MIN
[2022-02-22 05:22] LABS: Alanine Aminotransferase 19 U/L (6-50); Albumin Level 2.6 g/dL (3.5-5.1); Alkaline Phosphatase 59 U/L (38-126); Anion Gap 6 mmol/L (8-16); Aspartate Amino Transferase 40 U/L (17-59); Bilirubin,Total 0.3 mg/dL (0.2-1.3); Blood Urea Nitrogen 64 mg/dL (9-20); Calcium 7.7 mg/dL (8.4-10.2); Carbon Dioxide 21 mmol/L (22-30); Chloride 113 mmol/L (98-107); Estimated CRCL calculation 30 ml/min; Estimated Glomerular Filt Rate 36; Glucose 154 mg/dL (65-110); Magnesium 2.4 mg/dL (1.6-2.3); Phosphorus 4.9 mg/dL (2.5-4.5); Potassium 4.5 mmol/L (3.4-5.0); Sodium 140 mmol/L (137-145)
[2022-02-22] MEDS: CENTRAL LINE FLUSH 10 ML IV PUSH ×3 (06:32→21:41)
[2022-02-22] MEDS: SODIUM BICARBONATE 8.4% 50 MEQ/50 ML SYRINGE IV PUSH (06:32)
[2022-02-22] MEDS: LEVOTHYROXINE SODIUM INJ 100 MCG/5 ML VIAL 38 MCG IV PUSH (06:33)
[2022-02-22] MEDS: dexmedeTOMIDine 400 MCG/100 ML 400 MCG/100 ML BAG 12.27 MCG IV CONT (09:09)
[2022-02-22] MEDS: PANTOPRAZOLE SODIUM IV 40 MG VIAL IV PUSH (09:11)
[2022-02-22] MEDS: MINERAL OIL/WHITE PETROLATUM OINTMENT 1 APPLIC EACH EYE ×2 (09:11→20:05)
[2022-02-22] MEDS: ENOXAPARIN 40 MG/0.4 ML SYRINGE SUB-Q (09:11)
--- NOTE | 2022-02-22 09:25 | PCRCNOTE ---
Per Dr. Krueger pt trialed on spont trial of 07/20 at 0800 vent checks, pt was observed for 5 mins and began to have increased WOB and became agitated.
--- NOTE | 2022-02-22 10:45 | PCFNICU ---
ICU Rounding Note: Pt current nutrition is TPN. Last recorded weight is 87.7 kg. Bowel Motility:+BM reported 02/21 Labs Reviewed:PO4 4.9,BUN 64, GFR 36, Cr 1.8,Hct 30.4,Hgb 9.2 Meds Noted:Precedex, Levophed, NovoLog, cefepime, Lovenox, Clinimix 5/15 at 70 ml/hr with 250 ml of 20% lipid emulsion Skin: WNL Additional Notes: Patient remains on mechanical vent-attempted breathing trial today. TPN remains at 70 ml/hr. Agree with diet orders at this time. Following daily in ICU. Follow up Saturday and Saturday per policy.
--- NOTE | 2022-02-22 11:10 | PM.PNGS ---
Progress Note: A&P Assessment and Plan (1) Anastomotic leak of intestine: Code(s): K91.89 - Other postprocedural complications and disorders of digestive system Status: Acute Assessment and Plan: patient now having diarrhea. Abdominal exam does not indicate any acute abdominal process. Consider repeat CT scan if diarrhea persists. (2) Sepsis: Code(s): A41.9 - Sepsis, unspecified organism Status: Acute Assessment and Plan: Patient back on low-dose of Levophed today. Remains in ICU receiving critical care management. Continue antibiotics. Diarrhea is a new problem. (3) Acute respiratory failure: Code(s): J96.00 - Acute respiratory failure, unspecified whether with hypoxia or hypercapnia Status: Acute Assessment and Plan: Restless on vent. Extubation at Dr. Flores's discretion. Subjective Subjective Date/Time Seen: 02/22/22 11:10 Patient reports: diarrhea, afebrile and other (Still on ventilator, not sedated, restless) Review of Systems Review of Systems: ROS unobtainable: Yes unobtainable due to endotracheal tube Exam Const: General: awake ( very restless) GI: Inspection: distended and incision ( dry with minimal drainage, no redness or purulent drainage) GI Palp: Yes Firmness to palpation present (GI) Auscultation: normal bowel sounds Rectal Exam: other ( rectal tube in place due to significant diarrhea) Objective Data Vital Signs Vital Signs: Vital Signs - 24 hr 02/21/22 12:00 02/21/22 12:00 02/21/22 12:00 Temperature 36.6 C Pulse Rate 108 H 106 H Respiratory Rate 32 H Blood Pressure 103/62 Pulse Oximetry 99 Oxygen Delivery Fraction of Inspired Oxygen 30 02/21/22 12:00 02/21/22 13:50 02/21/22 13:54 Temperature Pulse Rate 103 H 103 H Respiratory Rate 28 H Blood Pressure Pulse Oximetry 98 Oxygen Delivery Mechanical Ventilation Mechanical Ventilation Fraction of Inspired Oxygen 30 02/21/22 13:57 02/21/22 14:00 02/21/22 14:00 Temperature Pulse Rate 110 H 113 H 107 H Respiratory Rate 24 H 34 H Blood Pressure 103/70 Pulse Oximetry 99 Oxygen Delivery Fraction of Inspired Oxygen 02/21/22 15:43 02/21/22 16:00 02/21/22 16:00 Temperature 36.6 C Pulse Rate 105 H Respiratory Rate 33 H Blood Pressure 100/64 Pulse Oximetry 96 Oxygen Delivery Mechanical Ventilation Fraction of Inspired Oxygen 30 02/21/22 16:00 02/21/22 16:41 02/21/22 18:00 Temperature Pulse Rate 106 H 107 H 104 H Respiratory Rate Blood Pressure Pulse Oximetry 99 Oxygen Delivery Mechanical Ventilation Fraction of Inspired Oxygen 30 02/21/22 18:00 02/21/22 20:10 02/21/22 20:00 Temperature Pulse Rate 104 H 105 H 102 H Respiratory Rate 30 H 37 H Blood Pressure 121/62 Pulse Oximetry 98 Oxygen Delivery Fraction of Inspired Oxygen 02/21/22 20:00 02/21/22 20:00 02/21/22 20:00 Temperature 36.4 C L Pulse Rate 104 H Respiratory Rate 34 H Blood Pressure 127/72 Pulse Oximetry 97 Oxygen Delivery Fraction of Inspired Oxygen 30 02/21/22 20:00 02/21/22 21:10 02/21/22 21:43 Temperature Pulse Rate 100 99 Respiratory Rate 32 H Blood Pressure Pulse Oximetry 98 96 Oxygen Delivery Mechanical Ventilation Mechanical Ventilation Fraction of Inspired Oxygen 30 30 02/21/22 22:00 02/21/22 22:00 02/21/22 22:35 Temperature Pulse Rate 98 98 98 Respiratory Rate 26 H 27 H Blood Pressure 111/71 Pulse Oximetry 97 Oxygen Delivery Fraction of Inspired Oxygen 02/22/22 00:00 02/22/22 00:00 02/22/22 00:32 Temperature 36.8 C Pulse Rate 90 90 Respiratory Rate 30 H Blood Pressure 94/59 L 78/56 L Pulse Oximetry 98 Oxygen Delivery Fraction of Inspired Oxygen 30 02/22/22 00:33 02/22/22 00:38 02/22/22 00:00 Temperature Pulse Rate 95 95 Respiratory Rate Blood Pressure 113/68 113/68 Pulse Oximetr
[2022-02-22 12:36] LABS: Glucose Point of Care 144 mg/dl (65-105)
--- NOTE | 2022-02-22 14:01 | WPDINTPN ---
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 Increasing free air. Increasing free fluid in the upper abdomen. Cannot exclude bowel leak. 2: Thickened bowel loops are present with air-fluid levels in the left mid and upper abdomen. Evaluation is limited without contrast. 3: Small mesenteric fluid collection with new air-fluid level in the mid abdomen measuring 2.5 x 1.2 cm, possibly postoperative change, although developing abscess is not excluded. 4:? Polypoid filling defect in the bladder which may represent blood clot or malignancy. 02/18/2022: s/p Small-bowel resection with anastomosis, for bowel perforation -patient is currently on cefepime, Vancomycin and flagyl -will change to IV Zosyn (2) Acute respiratory failure: Code(s): J96.00 - Acute respiratory failure, unspecified whether with hypoxia or hypercapnia Status: Acute Assessment and Plan: Acute respiratory failure s/p surgery Remains intubated post surgery. - on CMV mode, PEEP of 8 and 30% FiO2 -ABG reviewed - chest x-ray reviewed: Continued improvement of bibasilar airspace opacities, likely atelectasis. Advance ET tube 3 cm -patient placed on weaning trial this morning he was agitated and was aborted. I placed him again on trial this afternoon and he appears to be doing much better. Will see how it goes and check ABG -patient with significant positive fluid balance since surgery. Patient is came off Levophed early this morning, will diurese if pressures permit (3) Sepsis: Code(s): A41.9 - Sepsis, unspecified organism Status: Acute Assessment and Plan: Severe sepsis/septic shock, due to SBO and bowel perforation -lactic acid is normal -OFF LEVOPHED SINCE 1207 A.M. -continue TPN Has a picc line -02/16/2022 urine culture growing Enterococcus -02/16/2022 blood cultures negative x2 -change antibiotics to Zosyn (4) Acute renal failure: Code(s): N17.9 - Acute kidney failure, unspecified Status: Acute Assessment and Plan: acute renal failure received adequate IV fluid in OR -received albumin, continue TPN, off maintenance IV fluids - continue to monitor UO, renal function and electrolytes -creatinine slowly improving, will continue to monitor renal function, electrolytes and urine output 02/12/2022 renal ultrasound Lobulated, asymmetric right posterior bladder wall mass possibly extending from the prostate, correlate with labs and consider evaluation with prostate MR or cystoscopy depending on the laboratory findings. 2. Bilateral simple renal cysts. 3. Bilateral nephrolithiasis. 4. Medical renal disease. (5) UTI (urinary tract infection): Code(s): N39.0 - Urinary tract infection, site not specified Status: Acute Assessment and Plan: Enteroccus UTI on Vancomycin Antibiotics changed to Zosyn as above (6) Acute metabolic encephalopathy: Code(s): G93.41 - Metabolic encephalopathy Status: Acute Assessment and Plan: Encephalopathy could be related to sedation medications, renal failure, infection, post surgery, delirium -02/21/2022 CT brain with no acute intracranial abnormality, chronic age related changes - Improving -continue Precedex -continue to monitor Plan DVT prophylaxis: Lovenox subQ Stress ulcer prophylaxis: Protonix Nutrition: TPN Replace NG tube Code Status: Full code Critical Care Time Spent: 30 minutes Due to a high probability of clinically significant, life threatening deterioration, the patie
[2022-02-22 15:17] LABS: Alveolar/Arterial O2 Gradient 75.3 mmHg; Base Excess ABG -2.9 mEq/l (+/-2.0); Device VENTILATOR; Fractional Inspired Oxygen 30 %; HCO3 ABG 22.9 mEq/l (22.0-26.0); Modified Allen's Test Pass; Oxygen Content ABG 13.3 %vol (16.0-22.0); Oxygen Saturation ABG 95.9 % (95.0-100.0); Oxyhemoglobin 94.8 % THb (90.0-100.0); PCO2 ABG 44.5 mmHg (35.0-45.0); PO2 ABG 86.3 mmHg (80.0-100.0); PO2 FiO2 Ratio Arterial Blood 2.88 %; Site Drawn LEFT RADIAL; Total Hemoglobin 9.9 g/dL (12.0-18.0)
[2022-02-22 15:19] LABS: Arterial Blood Gas PEEP 5 cmH2O; Arterial Blood Gas Pressure Support 5 cmH2O; Arterial Blood Gas Vent Mode SPONTANEOUS
--- NOTE | 2022-02-22 15:33 | PM.EVENT ---
Event Note Event Note Event Note: 07/20 weaning trial done for close to 1 hour. ABG was susceptible but patient had high RSBI with respirator rate above 30 with use of accessory muscles. Weaning trial was aborted and patient was placed back on CMV. Continue diuretics. Will try again tomorrow.
[2022-02-22] MEDS: AMINO ACIDS 5%/D15W/E-LYTES/CA 2,000 ML with MULTIVITAMINS-12 INJ VIAL 1 2.5 ML, MULTIV... 70 ML IV CONT (15:59)
[2022-02-22] MEDS: dexmedeTOMIDine 400 MCG/100 ML 400 MCG/100 ML BAG 14.32 MCG IV CONT (16:02)
[2022-02-22] MEDS: FUROSEMIDE INJ 40 MG/4 ML VIAL IV PUSH (16:02)
[2022-02-22] MEDS: FAT EMULSIONS IV 20% 250 ML 20.83 ML IVPB (18:12)
[2022-02-22 18:33] LABS: Glucose Point of Care 149 mg/dl (65-105)
[2022-02-22 18:49] LABS: Triglycerides 1008 mg/dL (<150)
[2022-02-22] MEDS: dexmedeTOMIDine 400 MCG/100 ML 400 MCG/100 ML BAG 24.54 MCG IV CONT (21:40)
[2022-02-23] VITALS (44 sets, daily range): BP systolic 82–127; BP diastolic 48–69; PULSE 61–92; RESP 20–32; TEMP 36.6–37.1; O2SAT 96–100
[2022-02-23 00:33] LABS: Glucose Point of Care 175 mg/dl (65-105)
[2022-02-23] MEDS: dexmedeTOMIDine 400 MCG/100 ML 400 MCG/100 ML BAG 28.63 MCG IV CONT ×2 (00:52→04:24)
[2022-02-23 05:40] LABS: Hematocrit 25.4 % (42.0-52.0); Mean Corpuscular HGB Conc 31.5 g/dl (32-36); Mean Corpuscular Hemoglobin 30.1 pg (26-34); Mean Corpuscular Volume 95.5 fl (80-100); Platelet Count Result 302 k/mm3 (150-375); Red Blood Count 2.66 M/mm3 (4.6-6.20); Red Cell Distribution Width 15.3 % (11.5-14.5); White Blood Count 11.3 K/mm3 (4.5-10.0)
[2022-02-23 05:50] LABS: Alveolar/Arterial O2 Gradient 77.4 mmHg; Base Excess ABG -1.4 mEq/l (+/-2.0); Carboxyhemoglobin 0.2 % THb (0-2.0); Fractional Inspired Oxygen 30 %; HCO3 ABG 22.9 mEq/l (22.0-26.0); Oxygen Content ABG 13.9 %vol (16.0-22.0); Oxygen Saturation ABG 97.2 % (95.0-100.0); Oxyhemoglobin 96.2 % THb (90.0-100.0); Reduced Hemoglobin 3.6 %THb (0-5.0); Total Hemoglobin 10.2 g/dL (12.0-18.0)
[2022-02-23 05:50] LABS: Anion Gap 2 mmol/L (8-16); Blood Urea Nitrogen 62 mg/dL (9-20); Calcium 7.3 mg/dL (8.4-10.2); Carbon Dioxide 27 mmol/L (22-30); Chloride 113 mmol/L (98-107); Estimated CRCL calculation 38 ml/min; Estimated Glomerular Filt Rate 49; Glucose 142 mg/dL (65-110); Phosphorus 3.7 mg/dL (2.5-4.5); Potassium 3.6 mmol/L (3.4-5.0); Sodium 142 mmol/L (137-145)
[2022-02-23 05:52] LABS: Device VENTILATOR; Modified Allen's Test Pass; Site Drawn LEFT RADIAL
[2022-02-23 05:53] LABS: Arterial Blood Gas PEEP 5 cmH2O; Arterial Blood Gas Tidal Volume 450 ml; Arterial Blood Gas Vent Mode CMV; Arterial Blood Gas Ventilator rate 20 /MIN
[2022-02-23] MEDS: CENTRAL LINE FLUSH 10 ML IV PUSH ×3 (06:05→20:17)
[2022-02-23] MEDS: LEVOTHYROXINE SODIUM INJ 100 MCG/5 ML VIAL 38 MCG IV PUSH (06:06)
[2022-02-23] MEDS: NOREPINEPHRINE 8 MG/D5W 250 ML 8 MG/250 ML BAG 7.5 MG IV CONT (07:18)
[2022-02-23] MEDS: dexmedeTOMIDine 400 MCG/100 ML 400 MCG/100 ML BAG 20.45 MCG IV CONT ×2 (08:26→12:42)
[2022-02-23] MEDS: ENOXAPARIN 40 MG/0.4 ML SYRINGE SUB-Q (08:28)
[2022-02-23] MEDS: PANTOPRAZOLE SODIUM IV 40 MG VIAL IV PUSH (08:28)
--- NOTE | 2022-02-23 11:49 | PCNFU ---
Nutrition Follow-Up Complete: Inadequate oral intake related to acute small bowel obstruction as evidenced by NPO status, need for full parenteral feeding Goal: Meet estimated nutrition needs We will continue current goal. Pt current nutrition is TPN. Last recorded weight is 85.6 kg. Bowel Motility:FMS Labs Reviewed:TG 1008,Cr 1.4,BUN 62, Glu 142, GFR 49 Meds Noted:Precedex, Levophed, NovoLog, cefepime, Lovenox, Clinimix 5/15 at 70 ml/hr Skin: Maceration-buttock Additional Notes: Patient remains on TPN at 70 ml/hr. Lipids not renewed due to elevated TG. Current TPN is providing 1193 kcals and 84 gms protein. Meeting 61% kcal and 89% protein needs. Plans to check TG lab and monitor lipids. Lipids will provide an additional 500 kcals. Plans for Breathing Trial today. Monitoring tolerance, plan of care, labs, etc Following daily in ICU. Follow up Saturday and Saturday per policy
[2022-02-23 12:02] LABS: Glucose Point of Care 126 mg/dl (65-105)
--- NOTE | 2022-02-23 12:40 | WPDINTPN ---
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 Increasing free air. Increasing free fluid in the upper abdomen. Cannot exclude bowel leak. 2: Thickened bowel loops are present with air-fluid levels in the left mid and upper abdomen. Evaluation is limited without contrast. 3: Small mesenteric fluid collection with new air-fluid level in the mid abdomen measuring 2.5 x 1.2 cm, possibly postoperative change, although developing abscess is not excluded. 4:? Polypoid filling defect in the bladder which may represent blood clot or malignancy. 02/18/2022: s/p Small-bowel resection with anastomosis, for bowel perforation -cefepime, Vancomycin and flagyl changed to IV Zosyn on 02/22 - 02/[address] abdomen ordered by general surgery and is pending (2) Acute respiratory failure: Code(s): J96.00 - Acute respiratory failure, unspecified whether with hypoxia or hypercapnia Status: Acute Assessment and Plan: Acute respiratory failure s/p surgery Remains intubated post surgery. - on CMV mode, PEEP of 8 and 30% FiO2 -ABG reviewed - chest x-ray reviewed -02/22 patient placed on weaning trial this morning he was agitated and was aborted. Patient was given Lasix -will try again with a weaning trial today after CT scan (3) Sepsis: Code(s): A41.9 - Sepsis, unspecified organism Status: Acute Assessment and Plan: Severe sepsis/septic shock, due to SBO and bowel perforation -lactic acid is normal -OFF LEVOPHED SINCE 1207 A.M. -continue TPN Has a picc line -02/16/2022 urine culture growing Enterococcus -02/16/2022 blood cultures negative x2 -continue Zosyn (4) Acute renal failure: Code(s): N17.9 - Acute kidney failure, unspecified Status: Acute Assessment and Plan: acute renal failure received adequate IV fluid in OR -received albumin, continue TPN, off maintenance IV fluids - continue to monitor UO, renal function and electrolytes -creatinine slowly improving, will continue to monitor renal function, electrolytes and urine output 02/12/2022 renal ultrasound Lobulated, asymmetric right posterior bladder wall mass possibly extending from the prostate, correlate with labs and consider evaluation with prostate MR or cystoscopy depending on the laboratory findings. 2. Bilateral simple renal cysts. 3. Bilateral nephrolithiasis. 4. Medical renal disease. (5) UTI (urinary tract infection): Code(s): N39.0 - Urinary tract infection, site not specified Status: Acute Assessment and Plan: Enteroccus UTI on Vancomycin Antibiotics changed to Zosyn as above (6) Acute metabolic encephalopathy: Code(s): G93.41 - Metabolic encephalopathy Status: Acute Assessment and Plan: Encephalopathy could be related to sedation medications, renal failure, infection, post surgery, delirium -02/21/2022 CT brain with no acute intracranial abnormality, chronic age related changes - Improving -continue Precedex -continue to monitor (7) Dietary surveillance and counseling: Code(s): Z71.3 - Dietary counseling and surveillance Status: Acute Assessment and Plan: Patient currently on TPN. Triglyceride level was very high this morning Will discontinue lipid component Recheck triglyceride in the morning NG tube is in place Plan DVT prophylaxis: Lovenox subQ Stress ulcer prophylaxis: Protonix Nutrition: TPN Code Status: Full code Critical Care Time Spent: 31 minutes Due to a high probability of clinically
[2022-02-23] MEDS: IPRATROPIUM BR 0.02% INH SOLN 0.5 MG/2.5 ML VIAL INHALATION ×2 (14:03→20:20)
[2022-02-23] MEDS: ALBUTEROL SULFATE NEB 2.5 MG/3 ML INH INHALATION ×2 (14:04→20:20)
[2022-02-23] MEDS: MORPHINE SULFATE (*CRX) 2 MG/ML INJ IV PUSH (14:45)
[2022-02-23] MEDS: AMINO ACIDS 5%/D15W/E-LYTES/CA 2,000 ML with MULTIVITAMINS-12 INJ VIAL 1 2.5 ML, MULTIV... 70 ML IV CONT (16:34)
--- NOTE | 2022-02-23 16:44 | PM.PNGS ---
Progress Note: A&P Assessment and Plan (1) Anastomotic leak of intestine: Code(s): K91.89 - Other postprocedural complications and disorders of digestive system Status: Acute Assessment and Plan: abdominal exam negative. White blood cell count decreasing, creatinine improving. Wound looks to be healing well. CT scan was reviewed and although there is fluid in the colon and ascites, there was no increase in free air. Patient is quite alert and awake this evening. Nodding to questions. I do not feel there was any acute event going on in the abdomen. I am not sure what the cause of the diarrhea is. Even with 2 small intestinal resections, it seems unlikely he would be experiencing short bowel syndrome. (2) Sepsis: Code(s): A41.9 - Sepsis, unspecified organism Status: Acute Assessment and Plan: Improving but still some low-dose Levophed. (3) Acute respiratory failure: Code(s): J96.00 - Acute respiratory failure, unspecified whether with hypoxia or hypercapnia Status: Acute Assessment and Plan: Still on vent, hopefully can be extubated tomorrow (4) Diarrhea: Code(s): R19.7 - Diarrhea, unspecified Status: Acute Assessment and Plan: etiology unclear. See the note above. Fecal containment device in place. Consider GI consultation. Subjective Subjective Date/Time Seen: 02/23/22 16:44 Post Op day: 5 Patient reports: pain is less, diarrhea and afebrile Interval history: remains intubated but eyes were open, nods to questions. Appears to be alert and lucid this evening. Review of Systems Review of Systems: ROS unobtainable: Yes unobtainable due to endotracheal tube Exam Const: General: comfortable, alert and awake GI: Inspection: non-distended and incision ( Dry and appears to be healing nicely.) GI Palp: Yes Soft to palpation, Yes Tenderness to palpation present (GI) ( Minimal tenderness), No Guarding due to palpation present (GI) and No Rebound tenderness present Auscultation: normal bowel sounds Rectal Exam: other ( fecal containment device in place) Objective Data Vital Signs Vital Signs: Vital Signs - 24 hr 02/22/22 17:29 02/22/22 18:00 02/22/22 18:00 Temperature Pulse Rate 85 92 92 Respiratory Rate 27 H Blood Pressure 129/43 L Pulse Oximetry 100 100 Oxygen Delivery Mechanical Ventilation Fraction of Inspired Oxygen 30 02/22/22 16:45 02/22/22 17:00 02/22/22 17:01 Temperature Pulse Rate 82 81 81 Respiratory Rate Blood Pressure 120/61 Pulse Oximetry 100 100 100 Oxygen Delivery Fraction of Inspired Oxygen 02/22/22 17:15 02/22/22 17:30 02/22/22 17:45 Temperature Pulse Rate 83 85 83 Respiratory Rate Blood Pressure Pulse Oximetry 100 100 100 Oxygen Delivery Fraction of Inspired Oxygen 02/22/22 18:00 02/22/22 18:01 02/22/22 18:15 Temperature Pulse Rate 81 82 84 Respiratory Rate Blood Pressure 122/59 L Pulse Oximetry 100 100 99 Oxygen Delivery Fraction of Inspired Oxygen 02/22/22 18:30 02/22/22 20:00 02/22/22 20:02 Temperature 37.4 C Pulse Rate 86 84 84 Respiratory Rate 29 H 31 H 30 H Blood Pressure 143/68 H Pulse Oximetry 99 100 Oxygen Delivery Fraction of Inspired Oxygen 02/22/22 20:00 02/22/22 19:00 02/22/22 20:30 Temperature Pulse Rate 90 78 Respiratory Rate 32 H 28 H Blood Pressure Pulse Oximetry Oxygen Delivery Fraction of Inspired Oxygen 30 02/22/22 21:00 02/22/22 21:40 02/22/22 21:41 Temperature Pulse Rate 88 72 Respiratory Rate 30 H 25 H Blood Pressure 126/74 Pulse Oximetry Oxygen Delivery Fraction of Inspired Oxygen 02/22/22 21:19 02/22/22 21:15 02/22/22 22:30 Temperature Pulse Rate 87 81 Respiratory Rate 24 H Blood Pressure 119/66 Pulse Oximetry 99 Oxygen Delivery Mechanical Ventilation Fraction of Inspired Oxygen 30 02/22/22 22:30
[2022-02-23] MEDS: dexmedeTOMIDine 400 MCG/100 ML 400 MCG/100 ML BAG 22.5 MCG IV CONT (17:20)
[2022-02-23 17:29] LABS: Glucose Point of Care 134 mg/dl (65-105)
[2022-02-23] MEDS: dexmedeTOMIDine 400 MCG/100 ML 400 MCG/100 ML BAG 26.59 MCG IV CONT (21:25)
[2022-02-24] VITALS (37 sets, daily range): BP systolic 94–128; BP diastolic 32–70; PULSE 64–98; RESP 14–29; TEMP 36.6–37.4; O2SAT 96–100
[2022-02-24] MEDS: dexmedeTOMIDine 400 MCG/100 ML 400 MCG/100 ML BAG 26.59 MCG IV CONT ×3 (01:13→09:03)
[2022-02-24] MEDS: ALBUTEROL SULFATE NEB 2.5 MG/3 ML INH INHALATION ×4 (01:44→21:02)
[2022-02-24] MEDS: IPRATROPIUM BR 0.02% INH SOLN 0.5 MG/2.5 ML VIAL INHALATION ×4 (01:45→21:02)
[2022-02-24] MEDS: CENTRAL LINE FLUSH 10 ML IV PUSH ×3 (05:28→23:31)
[2022-02-24 05:36] LABS: Glucose Point of Care 143 mg/dl (65-105)
[2022-02-24] MEDS: LEVOTHYROXINE SODIUM INJ 100 MCG/5 ML VIAL 38 MCG IV PUSH (05:44)
[2022-02-24 05:59] LABS: Alveolar/Arterial O2 Gradient 69.7 mmHg; Base Excess ABG 1.7 mEq/l (+/-2.0); Carboxyhemoglobin 0.9 % THb (0-2.0); Fractional Inspired Oxygen 30 %; Methemoglobin ABG 0.4 %THb (0-1.5); Oxygen Content ABG 5.9 %vol (16.0-22.0); Oxygen Saturation ABG 97.8 % (95.0-100.0); Oxyhemoglobin 95.1 % THb (90.0-100.0); PCO2 ABG 38.5 mmHg (35.0-45.0); Reduced Hemoglobin 3.6 %THb (0-5.0); pH ABG 7.447 (7.350-7.450)
[2022-02-24 06:07] LABS: Total Hemoglobin 4.2 g/dL (12.0-18.0)
[2022-02-24 06:09] LABS: Modified Allen's Test Unable to perform; Site Drawn RIGHT RADIAL
[2022-02-24 06:10] LABS: Arterial Blood Gas Ventilator rate 20 /MIN; Device VENTILATOR
[2022-02-24 06:11] LABS: Arterial Blood Gas PEEP 5 cmH2O; Arterial Blood Gas Tidal Volume 450 ml; Arterial Blood Gas Vent Mode CMV
[2022-02-24 06:11] LABS: Glucose Point of Care 150 mg/dl (65-105)
[2022-02-24 06:59] LABS: Anion Gap 4 mmol/L (8-16); Blood Urea Nitrogen 53 mg/dL (9-20); Calcium 7.2 mg/dL (8.4-10.2); Carbon Dioxide 26 mmol/L (22-30); Chloride 115 mmol/L (98-107); Estimated CRCL calculation 47 ml/min; Estimated Glomerular Filt Rate > 60; Glucose 125 mg/dL (65-110); Phosphorus 3.7 mg/dL (2.5-4.5); Potassium 3.8 mmol/L (3.4-5.0); Sodium 145 mmol/L (137-145); Triglycerides 70 mg/dL (<150)
--- NOTE | 2022-02-24 08:13 | PM.PNGS ---
Progress Note: A&P Assessment and Plan (1) Sepsis: Code(s): A41.9 - Sepsis, unspecified organism Status: Acute Assessment and Plan: Improving but still some low-dose Levophed. (2) Acute respiratory failure: Code(s): J96.00 - Acute respiratory failure, unspecified whether with hypoxia or hypercapnia Status: Acute Assessment and Plan: Still on vent, hopefully can be extubated tomorrow (3) Diarrhea: Code(s): R19.7 - Diarrhea, unspecified Status: Acute Assessment and Plan: etiology unclear. See the note above. Fecal containment device in place. Consider Trying trickle tube feedings through current NG. Would recommend frequent residual checks as stomach still somewhat distended with gas on recent CT. (4) Anastomotic leak of intestine: Code(s): K91.89 - Other postprocedural complications and disorders of digestive system Status: Acute Assessment and Plan: CT yesterday showed some increased sensitive fluid some residual free air but no drainable abscesses. No signs of small-bowel obstruction so consider trickle tube feedings to see how patient tolerates it so. Since he is having very loose stools it would appear that this will probably improve. agree with fecal containment system until patient is more mobile. If Diarrhea does not improve since the patient has been on antibiotics consider check of stool studies. Subjective Subjective Date/Time Seen: 02/24/22 07:23 Post Op day: Pod # 6 Patient reports: no new complaints and other ( Opens eyes and shakes head to answer yes no questions) Interval history: seems to deny abdominal pain. Review of Systems Review of Systems: ROS unobtainable: Yes unobtainable due to endotracheal tube Exam Const: General: comfortable, alert and awake GI: Inspection: non-distended GI Palp: Yes Soft to palpation, Yes Tenderness to palpation present (GI) ( Minimal tenderness), No Guarding due to palpation present (GI) and No Rebound tenderness present Auscultation: normal bowel sounds Rectal Exam: other ( fecal containment device in place) Other: No erythema along the incision. One small spot of serosanguineous drainage on dressing when inspected. This was on the upper end approximately 3 cm from the most cephalad portion of the incision. Extrem: Other: No real pitting edema. Objective Data Vital Signs Vital Signs: Vital Signs - 24 hr 02/23/22 08:26 02/23/22 08:27 02/23/22 08:22 Temperature Pulse Rate 69 68 73 Respiratory Rate 24 H Blood Pressure 109/69 Pulse Oximetry 100 Oxygen Delivery Mechanical Ventilation Fraction of Inspired Oxygen 30 02/23/22 08:22 02/23/22 09:30 02/23/22 10:00 Temperature Pulse Rate 73 70 70 Respiratory Rate 28 H 24 H Blood Pressure 103/59 L 95/53 L Pulse Oximetry 99 Oxygen Delivery Fraction of Inspired Oxygen 02/23/22 10:00 02/23/22 10:00 02/23/22 12:00 Temperature Pulse Rate 70 70 75 Respiratory Rate 24 H 24 H Blood Pressure Pulse Oximetry Oxygen Delivery Fraction of Inspired Oxygen 02/23/22 12:39 02/23/22 12:00 02/23/22 11:22 Temperature 36.7 C Pulse Rate 71 72 72 Respiratory Rate 26 H Blood Pressure 104/59 L 107/58 L Pulse Oximetry 100 100 Oxygen Delivery Mechanical Ventilation Fraction of Inspired Oxygen 30 02/23/22 12:00 02/23/22 14:00 02/23/22 14:00 Temperature Pulse Rate 73 92 92 Respiratory Rate 32 H Blood Pressure 114/62 Pulse Oximetry 97 Oxygen Delivery Fraction of Inspired Oxygen 02/23/22 14:15 02/23/22 14:48 02/23/22 12:00 Temperature Pulse Rate 82 72 Respiratory Rate Blood Pressure 82/52 L 87/52 L Pulse Oximetry Oxygen Delivery Fraction of Inspired Oxygen 30 02/23/22 12:00 02/23/22 15:51 02/23/22 13:19 Temperature Pulse Rate 71 80 Respiratory Rate Blood Pressure 109/60 Pulse Oximetry 99 98 Oxygen De
[2022-02-24] MEDS: PANTOPRAZOLE SODIUM IV 40 MG VIAL IV PUSH (08:25)
[2022-02-24 08:37] LABS: Hemoglobin 7.8 g/dL (14.0-18.0); Mean Corpuscular HGB Conc 31.2 g/dl (32-36); Mean Corpuscular Hemoglobin 30.4 pg (26-34); Mean Corpuscular Volume 97.3 fl (80-100); Mean Platelet Volume 9.8 fl (7.4-10.4); Platelet Count Result 314 k/mm3 (150-375); Red Blood Count 2.57 M/mm3 (4.6-6.20); Red Cell Distribution Width 14.9 % (11.5-14.5); White Blood Count 8.2 K/mm3 (4.5-10.0)
[2022-02-24] MEDS: ENOXAPARIN 40 MG/0.4 ML SYRINGE SUB-Q (09:07)
--- NOTE | 2022-02-24 09:21 | WPDINTPN ---
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 Increasing free air. Increasing free fluid in the upper abdomen. Cannot exclude bowel leak. 2: Thickened bowel loops are present with air-fluid levels in the left mid and upper abdomen. Evaluation is limited without contrast. 3: Small mesenteric fluid collection with new air-fluid level in the mid abdomen measuring 2.5 x 1.2 cm, possibly postoperative change, although developing abscess is not excluded. 4:? Polypoid filling defect in the bladder which may represent blood clot or malignancy. 02/18/2022: s/p Small-bowel resection with anastomosis, for bowel perforation -cefepime, Vancomycin and flagyl changed to IV Zosyn on 02/22 - 02/23 CT abdomen IMPRESSION: 1. Significantly increased free fluid in the abdomen and pelvis compared with prior study. Decreased volume of free air since prior examination. No definite discrete walled off fluid collection to suggest abscess, although evaluation limited without contrast. 2: New small pleural effusions with bilateral lower lobe atelectasis. Severe lumbar spondylosis. No focal lytic or blastic lesions. Discussed with general surgery. Will start trickle tube feeds if unable to extubate today (2) Acute respiratory failure: Code(s): J96.00 - Acute respiratory failure, unspecified whether with hypoxia or hypercapnia Status: Acute Assessment and Plan: Acute respiratory failure s/p surgery Remains intubated post surgery. - on CMV mode, PEEP of 8 and 30% FiO2 -ABG reviewed - chest x-ray reviewed -02/22 patient placed on weaning trial this morning he was agitated and was aborted. Patient was given Lasix -02/23 failed weaning trial due to high RSBI - will try again with a weaning trial today (3) Sepsis: Code(s): A41.9 - Sepsis, unspecified organism Status: Acute Assessment and Plan: Severe sepsis/septic shock, due to SBO and bowel perforation -lactic acid is normal -OFF LEVOPHED SINCE 02/21 A.M. -continue TPN Has a picc line -02/16/2022 urine culture growing Enterococcus -02/16/2022 blood cultures negative x2 -continue Zosyn (4) Acute renal failure: Code(s): N17.9 - Acute kidney failure, unspecified Status: Acute Assessment and Plan: acute renal failure received adequate IV fluid in OR -received albumin, continue TPN, off maintenance IV fluids - continue to monitor UO, renal function and electrolytes -creatinine slowly improving, will continue to monitor renal function, electrolytes and urine output 02/12/2022 renal ultrasound Lobulated, asymmetric right posterior bladder wall mass possibly extending from the prostate, correlate with labs and consider evaluation with prostate MR or cystoscopy depending on the laboratory findings. 2. Bilateral simple renal cysts. 3. Bilateral nephrolithiasis. 4. Medical renal disease. (5) UTI (urinary tract infection): Code(s): N39.0 - Urinary tract infection, site not specified Status: Acute Assessment and Plan: Enteroccus UTI on Vancomycin Antibiotics changed to Zosyn as above (6) Acute metabolic encephalopathy: Code(s): G93.41 - Metabolic encephalopathy Status: Acute Assessment and Plan: Encephalopathy could be related to sedation medications, renal failure, infection, post surgery, delirium -02/21/2022 CT brain with no acute intracranial abnormality, chronic age related changes - Improving -continue Precedex -continue to monitor (7) Dietary surveillance and counseli
[2022-02-24] MEDS: FUROSEMIDE INJ 40 MG/4 ML VIAL IV PUSH (10:00)
[2022-02-24 10:21] LABS: Alveolar/Arterial O2 Gradient 82.5 mmHg; Base Excess ABG 3.2 mEq/l (+/-2.0); Fractional Inspired Oxygen 30 %; HCO3 ABG 26.8 mEq/l (22.0-26.0); Oxygen Content ABG 12.4 %vol (16.0-22.0); Oxygen Saturation ABG 97.2 % (95.0-100.0); Oxyhemoglobin 95.7 % THb (90.0-100.0); PCO2 ABG 37.1 mmHg (35.0-45.0); PO2 ABG 87.8 mmHg (80.0-100.0); PO2 FiO2 Ratio Arterial Blood 2.93 %; Total Hemoglobin 9.1 g/dL (12.0-18.0); pH ABG 7.477 (7.350-7.450)
[2022-02-24 10:22] LABS: Device VENTILATOR; Modified Allen's Test Pass; Site Drawn LEFT RADIAL
[2022-02-24 10:23] LABS: Arterial Blood Gas PEEP 5 cmH2O; Arterial Blood Gas Pressure Support 5 cmH2O; Arterial Blood Gas Vent Mode SPONTANEOUS
[2022-02-24 13:10] LABS: Glucose Point of Care 134 mg/dl (65-105)
[2022-02-24] MEDS: dexmedeTOMIDine 400 MCG/100 ML 400 MCG/100 ML BAG 16.36 MCG IV CONT (14:02)
[2022-02-24] MEDS: AMINO ACIDS 5%/D15W/E-LYTES/CA 2,000 ML with MULTIVITAMINS-12 INJ VIAL 1 2.5 ML, MULTIV... 70 ML IV CONT (18:25)
[2022-02-24 19:52] LABS: Glucose Point of Care 126 mg/dl (65-105)
[2022-02-25] VITALS (23 sets, daily range): BP systolic 118–145; BP diastolic 63–109; PULSE 82–106; RESP 16–27; TEMP 36.8–37.7; O2SAT 95–100
[2022-02-25 01:37] LABS: Glucose Point of Care 139 mg/dl (65-105)
[2022-02-25 06:03] LABS: Hematocrit 27.9 % (42.0-52.0); Hemoglobin 8.9 g/dL (14.0-18.0); Mean Corpuscular HGB Conc 31.9 g/dl (32-36); Mean Corpuscular Hemoglobin 30.8 pg (26-34); Mean Corpuscular Volume 96.5 fl (80-100); Mean Platelet Volume 9.8 fl (7.4-10.4); Platelet Count Result 365 k/mm3 (150-375); Red Blood Count 2.89 M/mm3 (4.6-6.20); Red Cell Distribution Width 14.6 % (11.5-14.5); White Blood Count 8.7 K/mm3 (4.5-10.0)
[2022-02-25] MEDS: CENTRAL LINE FLUSH 10 ML IV PUSH ×3 (06:05→20:39)
[2022-02-25] MEDS: LEVOTHYROXINE SODIUM INJ 100 MCG/5 ML VIAL 38 MCG IV PUSH (06:06)
[2022-02-25 06:18] LABS: Potassium 3.1 mmol/L (3.4-5.0)
[2022-02-25 07:02] LABS: Alanine Aminotransferase 17 U/L (6-50); Albumin Level 2.5 g/dL (3.5-5.1); Alkaline Phosphatase 64 U/L (38-126); Anion Gap 3 mmol/L (8-16); Aspartate Amino Transferase 35 U/L (17-59); Bilirubin,Total 0.8 mg/dL (0.2-1.3); Blood Urea Nitrogen 44 mg/dL (9-20); Calcium 7.6 mg/dL (8.4-10.2); Carbon Dioxide 26 mmol/L (22-30); Chloride 111 mmol/L (98-107); Estimated CRCL calculation 52 ml/min; Estimated Glomerular Filt Rate > 60; Glucose 148 mg/dL (65-110); Magnesium 1.7 mg/dL (1.6-2.3); Phosphorus 3.4 mg/dL (2.5-4.5); Sodium 140 mmol/L (137-145)
[2022-02-25] MEDS: IPRATROPIUM BR 0.02% INH SOLN 0.5 MG/2.5 ML VIAL INHALATION ×3 (08:13→20:16)
[2022-02-25] MEDS: ALBUTEROL SULFATE NEB 2.5 MG/3 ML INH INHALATION ×3 (08:13→20:16)
[2022-02-25] MEDS: POTASSIUM CHLORIDE 20 MEQ PACKET (FOR LIQUID) 40 MEQ FEED TUBE (09:42)
[2022-02-25] MEDS: KCL 40 MEQ/WATER 100 ML 100 ML 25 ML IVPB (09:43)
[2022-02-25] MEDS: MAGNESIUM SULF 2 GM/WATER 50ML 2 GM/50 ML BAG IVPB (09:43)
[2022-02-25] MEDS: ENOXAPARIN 40 MG/0.4 ML SYRINGE SUB-Q (09:43)
[2022-02-25] MEDS: FUROSEMIDE INJ 40 MG/4 ML VIAL IV PUSH (09:43)
[2022-02-25] MEDS: METOPROLOL TARTRATE 12.5 MG TABLET PO ×2 (09:44→20:38)
[2022-02-25] MEDS: PANTOPRAZOLE SODIUM IV 40 MG VIAL IV PUSH (09:44)
--- NOTE | 2022-02-25 09:45 | PCSTNOTE ---
Please refer to the Bedside Swallow Evaluation in the EMR. Please note, silent aspiration cannot be ruled out at bedside.
[2022-02-25] MEDS: MINERAL OIL/WHITE PETROLATUM OINTMENT 1 APPLIC EACH EYE (10:00)
--- NOTE | 2022-02-25 10:47 | WPDINTPN ---
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 Increasing free air. Increasing free fluid in the upper abdomen. Cannot exclude bowel leak. 2: Thickened bowel loops are present with air-fluid levels in the left mid and upper abdomen. Evaluation is limited without contrast. 3: Small mesenteric fluid collection with new air-fluid level in the mid abdomen measuring 2.5 x 1.2 cm, possibly postoperative change, although developing abscess is not excluded. 4:? Polypoid filling defect in the bladder which may represent blood clot or malignancy. 02/18/2022: s/p Small-bowel resection with anastomosis, for bowel perforation -cefepime, Vancomycin and flagyl changed to IV Zosyn on 02/22 - 02/23 CT abdomen IMPRESSION: 1. Significantly increased free fluid in the abdomen and pelvis compared with prior study. Decreased volume of free air since prior examination. No definite discrete walled off fluid collection to suggest abscess, although evaluation limited without contrast. 2: New small pleural effusions with bilateral lower lobe atelectasis. Severe lumbar spondylosis. No focal lytic or blastic lesions. Patient did well on speech therapy swallow evaluation Start modified diet as per recommendations Discontinue NG tube Discussed with general surgery Continue TPN for another 24 hours (2) Acute respiratory failure: Code(s): J96.00 - Acute respiratory failure, unspecified whether with hypoxia or hypercapnia Status: Acute Assessment and Plan: Acute respiratory failure s/p surgery Remains intubated post surgery. - on CMV mode, PEEP of 8 and 30% FiO2 -ABG reviewed - chest x-ray reviewed -02/22 patient placed on weaning trial this morning he was agitated and was aborted. Patient was given Lasix -02/23 failed weaning trial due to high RSBI 02/24 extubated after successful weaning trial. Maintaining oxygenation on nasal cannula Incentive spirometry PT OT (3) Sepsis: Code(s): A41.9 - Sepsis, unspecified organism Status: Acute Assessment and Plan: Severe sepsis/septic shock, due to SBO and bowel perforation -lactic acid is normal -OFF LEVOPHED SINCE 02/21 A.M. -continue TPN Has a picc line -02/16/2022 urine culture growing Enterococcus -02/16/2022 blood cultures negative x2 -continue Zosyn (4) Acute renal failure: Code(s): N17.9 - Acute kidney failure, unspecified Status: Acute Assessment and Plan: acute renal failure received adequate IV fluid in OR -received albumin, continue TPN, off maintenance IV fluids - continue to monitor UO, renal function and electrolytes -creatinine improved and normalized, will continue to monitor renal function, electrolytes and urine output -will give Lasix for volume overload 02/12/2022 renal ultrasound Lobulated, asymmetric right posterior bladder wall mass possibly extending from the prostate, correlate with labs and consider evaluation with prostate MR or cystoscopy depending on the laboratory findings. 2. Bilateral simple renal cysts. 3. Bilateral nephrolithiasis. 4. Medical renal disease. (5) UTI (urinary tract infection): Code(s): N39.0 - Urinary tract infection, site not specified Status: Acute Assessment and Plan: Enteroccus UTI on Vancomycin Antibiotics changed to Zosyn as above (6) Acute metabolic encephalopathy: Code(s): G93.41 - Metabolic encephalopathy Status: Acute Assessment and Plan: Encephalopathy could be related to sedation medications, renal failure, infecti
[2022-02-25 13:11] LABS: Glucose Point of Care 170 mg/dl (65-105)
[2022-02-25] MEDS: AMINO ACIDS 5%/D15W/E-LYTES/CA 2,000 ML with MULTIVITAMINS-12 INJ VIAL 1 2.5 ML, MULTIV... 70 ML IV CONT (15:52)
--- NOTE | 2022-02-25 16:30 | PM.PNGS ---
Progress Note: A&P Assessment and Plan (1) Sepsis: Code(s): A41.9 - Sepsis, unspecified organism Status: Acute Assessment and Plan: Improving , recovering from peritonitis from anastomotic leak. Denies abdominal pain which is good and tolerated a diet. Hopefully will be able to move out of ICU in the morning. Continue IV antibiotics. Patient is very weak so will ask PT to begin working with him tomorrow now that he is extubated. Continue TPN until patient has been on his diet for a day or 2. --- Very malnourished at this point. (2) Acute respiratory failure: Code(s): J96.00 - Acute respiratory failure, unspecified whether with hypoxia or hypercapnia Status: Acute Assessment and Plan: he was extubated extubated today in the morning and I have seen him in the afternoon. Dr. Radford says he looks good. Because he is having liquid stools and passed a bedside swallow test he has been started on a soft diet and the patient is answering questions and stated he had no problems eating is soft diet at lunch time. (3) Diarrhea: Code(s): R19.7 - Diarrhea, unspecified Status: Acute Assessment and Plan: etiology unclear. See the note above. Fecal containment device in place. There was at least 2-300 cc of liquid brown fluid in the containment system from today. Some liquid stool was even leaking around this. We will given as nurses permission to leave it out now that he is extubated if it comes out or if they feel that the stool is becoming so solid it will come out through the containment system. Patient apparently tolerated trickle tube feedings through current NG yesterday in the evening then the NG was removed with extubation today and patient started on diet. (4) Anastomotic leak of intestine: Code(s): K91.89 - Other postprocedural complications and disorders of digestive system Status: Acute Assessment and Plan: CT yesterday showed some increased sensitive fluid some residual free air but no drainable abscesses. No signs of small-bowel obstruction so consider trickle tube feedings to see how patient tolerates it so. Since he is having very loose stools it would appear that this will probably improve. agree with fecal containment system until patient is more mobile. If Diarrhea does not improve since the patient has been on antibiotics consider check of stool studies. (5) Acute metabolic encephalopathy: Code(s): G93.41 - Metabolic encephalopathy Status: Acute Assessment and Plan: Improved as the patient seems lucid at this time. Memory may be somewhat lacking as he did not remember me talking to him about his neuroendocrine tumor. Subjective Subjective Date/Time Seen: 02/25/22 16:30 Post Op day: POD# 7 Patient reports: feels better and bowel movement ( still very watery stools in to rectal containment system some even leaking around it.) Interval history: patient seen in ICU room 5 wall nurses were changing him and rolling him. Some stool leaked out around the containment system. Now that he is extubated and having stools and better able to move if this comes out or if the nurses feel like this stool was too solid to come into the tubing they will remove it p.r.n. patient states he is not having much pain. Dr. Krueger put him on soft diet and he had it for lunch with no difficulty. Review of Systems Review of Systems: All systems reviewed & are unremarkable except as noted in HPI and below Constitutional: Constitutional: Reports as per HPI, Denies chills and Denies fever(s) Cardiovascular: Cardiovascular: Denies chest pain and Denies dyspnea Gastrointestinal: Gastrointestinal: Reports as per HPI and Denies bloating Comments: I discussed his neuroendocrine tumor with him again. He did remember talking about it 2 Fridays ago when I talked to his and his daughter and he in their room in IMU. Genitourinary: Comme
[2022-02-25 17:54] LABS: Glucose Point of Care 144 mg/dl (65-105)
[2022-02-26] VITALS (18 sets, daily range): BP systolic 116–139; BP diastolic 54–77; PULSE 51–100; RESP 16–24; TEMP 36.8–37.5; O2SAT 96–98
[2022-02-26 00:23] LABS: Glucose Point of Care 148 mg/dl (65-105)
[2022-02-26] MEDS: ALBUTEROL SULFATE NEB 2.5 MG/3 ML INH INHALATION ×4 (01:50→21:06)
[2022-02-26] MEDS: IPRATROPIUM BR 0.02% INH SOLN 0.5 MG/2.5 ML VIAL INHALATION ×4 (01:50→21:06)
[2022-02-26 04:30] LABS: Basophils Percent Auto 0.4 % (0.2-1.2); Eosinophils Absolute Auto 0.1 K/mm3 (0-0.3); Eosinophils Percent Auto 0.7 % (0-4.4); Hematocrit 27.4 % (42.0-52.0); Hemoglobin 8.8 g/dL (14.0-18.0); Immature Granulocyte Absolute 0.15 K/mm3 (0.00-0.031); Immature Granulocyte Percent A 1.6 % (0-0.5); Lymphocytes Absolute Auto 0.98 K/mm3 (0.9-3.2); Lymphocytes Percent Auto 10.4 % (18.3-44.2); Mean Corpuscular HGB Conc 32.1 g/dl (32-36); Mean Corpuscular Hemoglobin 30.3 pg (26-34); Mean Corpuscular Volume 94.5 fl (80-100); Mean Platelet Volume 9.7 fl (7.4-10.4); Monocytes Absolute Auto 0.5 K/mm3 (0.1-0.6); Monocytes Percent Auto 5.2 % (2.6-8.5); Neutrophils Absolute Auto 7.7 K/mm3 (1.3-6.7); Neutrophils Percent Auto 81.7 % (45.5-73.1); Platelet Count Result 355 k/mm3 (150-375); Red Cell Distribution Width 14.5 % (11.5-14.5); White Blood Count 9.4 K/mm3 (4.5-10.0)
[2022-02-26 04:48] LABS: Alanine Aminotransferase 24 U/L (6-50); Albumin Level 2.4 g/dL (3.5-5.1); Alkaline Phosphatase 66 U/L (38-126); Anion Gap 2 mmol/L (8-16); Aspartate Amino Transferase 54 U/L (17-59); Bilirubin,Total 0.7 mg/dL (0.2-1.3); Blood Urea Nitrogen 35 mg/dL (9-20); Calcium 7.5 mg/dL (8.4-10.2); Carbon Dioxide 28 mmol/L (22-30); Chloride 110 mmol/L (98-107); Estimated CRCL calculation 57 ml/min; Estimated Glomerular Filt Rate > 60; Glucose 146 mg/dL (65-110); Magnesium 1.8 mg/dL (1.6-2.3); Phosphorus 3.3 mg/dL (2.5-4.5); Potassium 3.3 mmol/L (3.4-5.0); Sodium 140 mmol/L (137-145)
[2022-02-26 05:04] LABS: INR 1.3; Prothrombin Time 15.7 Seconds (11.1-14.7)
[2022-02-26 05:05] LABS: Partial Thromboplastin Time 29.2 SECONDS (22.3-36.8)
[2022-02-26] MEDS: CENTRAL LINE FLUSH 10 ML IV PUSH ×3 (05:06→20:37)
[2022-02-26 05:21] LABS: Transferrin 86 mg/dL (206-381)
[2022-02-26] MEDS: LEVOTHYROXINE SODIUM 75 MCG TABLET PO (05:54)
[2022-02-26] MEDS: ATORVASTATIN 40 MG TABLET PO (09:08)
[2022-02-26] MEDS: POTASSIUM CHLORIDE 20 MEQ TABLET.ER PO ×2 (09:09→18:32)
[2022-02-26] MEDS: ENOXAPARIN 40 MG/0.4 ML SYRINGE SUB-Q (09:09)
[2022-02-26] MEDS: PANTOPRAZOLE 40 MG TABLET PO (09:09)
[2022-02-26] MEDS: METOPROLOL TARTRATE 12.5 MG TABLET PO ×2 (09:09→20:37)
[2022-02-26] MEDS: ASPIRIN 81 MG ENTERIC TABLET PO (09:09)
[2022-02-26] MEDS: FERROUS SULFATE 324 MG TABLET PO ×2 (09:09→18:31)
--- NOTE | 2022-02-26 10:35 | PC.NURSE ---
This patient, Shania Pandya, was transferred to [[id number]] on 02/26/22 at 1035. Personal belongings sent with patient. Report given to [Vinny ARIAS]. Appropriate documentation sent with patient.
--- NOTE | 2022-02-26 11:09 | PCFNICU ---
ICU Rounding Note: Pt current nutrition is Low Fiber/soft and bite sized, Level 6. Last recorded weight is 79.5 kg. Bowel Motility:FMS Labs Reviewed:Glu 146, BUN 35, K 3.3,Hct 27.4,Hgb 8.8,Alb 2.4 Meds Noted:NovoLog, Flagyl, Lovenox, Lopressor, Synthroid, Atrovent. Skin:maceration-buttock Additional Notes: Patient extubated 02/24. Speech therapy eval today, recommending Minced and Moist Level 5 diet. Spoke with nursing today patient is still having large amounts of stool. Recommending Banatrol Plus TID for stool bulking. Diet supplements of Ensure compact TID added for additional kcal and protein needs. Agree with diet orders. Monitoring tolerance, plan of care, labs, etc every 5 days.
--- NOTE | 2022-02-26 11:53 | PM.PNGS ---
Progress Note: A&P Assessment and Plan (1) Anastomotic leak of intestine: Code(s): K91.89 - Other postprocedural complications and disorders of digestive system Status: Acute Assessment and Plan: S/p small bowel resection due to anastomotic leak. Resolved s/p surgery. Stop IV antibiotics. Incision healing well. Passed swallow study yesterday by speech with recommendations of thin liquids and level 6 diet. Reportedly tolerating diet well. Continue increasing activity, PT/OT following. Will remove Dodson today and rectal tube. (2) Sepsis: Code(s): A41.9 - Sepsis, unspecified organism Status: Acute Assessment and Plan: Continues to improve. Will stop IV antibiotics today. Transfer to medical/surgical floor today. (3) Acute respiratory failure: Code(s): J96.00 - Acute respiratory failure, unspecified whether with hypoxia or hypercapnia Status: Acute Assessment and Plan: Extubated on 02/24 and remains stable on room air. IMU status in ICU today. Will transfer to med/surg floor today. Continue to monitor. (4) Diarrhea: Code(s): R19.7 - Diarrhea, unspecified Status: Acute Assessment and Plan: Continues to have diarrhea. Will stop IV antibiotics and start oral metronidazole. Remove rectal tube today. Continue to monitor. (5) Acute metabolic encephalopathy: Code(s): G93.41 - Metabolic encephalopathy Status: Acute Assessment and Plan: Seems to be improving. Subjective Subjective Date/Time Seen: 02/26/22 11:53 Post Op day: 8 (Small-bowel resection with anastomosis) Patient reports: feels better, tolerating a regular diet, diarrhea and afebrile Interval history: Patient seen and examined, chart reviewed since last seen. He is feeling well today. He denies any abdominal pain or any other pain at this time. Reportedly tolerating oral intake well without any nausea or vomiting. He is requesting his urinary catheter and rectal tube are removed. No other complaints at this time. Review of Systems Review of Systems: All systems reviewed & are unremarkable except as noted in HPI and below Constitutional: Constitutional: Reports no additional constitutional complaints, Denies fever(s) and Denies headache(s) Cardiovascular: Cardiovascular: Reports no additional cardiovascular complaints and Denies chest pain Respiratory: Respiratory: Reports no additional respiratory complaints and Denies dyspnea (no worsening shortness of breath) Gastrointestinal: Gastrointestinal: Reports as per HPI, Reports no additional gastrointestinal complaints and Reports diarrhea (rectal tube) Exam Const: General: comfortable, no acute distress and awake Orientation/consciousness: patient oriented x3 GI: Inspection: non-distended and incision (dry and healing well, sheridan intact) GI Palp: Yes Soft to palpation, Yes Tenderness to palpation present (GI) (minimal incisional tenderness) and No Guarding due to palpation present (GI) Auscultation: normal bowel sounds Other: rectal tube with drown liquid stool in bag Urinary Catheter: Urinary Catheter: patent and draining and urine clear Neuro: General: No confusion Extrem: General: no calf tenderness and no edema Psych: Insight: Fair insight present (Psych) Objective Data Vital Signs Vital Signs: Vital Signs - 24 hr 02/25/22 12:00 02/25/22 12:00 02/25/22 12:00 Temperature 98.5 F Pulse Rate 105 H 101 H Respiratory Rate 24 H Blood Pressure 118/109 H Pulse Oximetry 96 97 Oxygen Delivery Room Air 02/25/22 14:00 02/25/22 15:02 02/25/22 15:12 Temperature Pulse Rate 90 90 91 Respiratory Rate 16 22 H Blood Pressure Pulse Oximetry Oxygen Delivery 02/25/22 15:14 02/25/22 16:00 02/25/22 16:00 Temperature 98.3 F Pulse Rate 93 93 Respiratory Rate 27 H Blood Pressure 122/72 Pulse Oximetry 100 95 Oxygen Delivery Room Air 02/25/22 18:00 02/25/22 20:17 02/25
[2022-02-26] MEDS: metroNIDAZOLE 250 MG TABLET 500 MG PO ×3 (12:53→23:41)
[2022-02-27] VITALS (11 sets, daily range): BP systolic 115–121; BP diastolic 65–70; PULSE 76–94; RESP 14–18; TEMP 37–37.3; O2SAT 96–100
[2022-02-27] MEDS: ALBUTEROL SULFATE NEB 2.5 MG/3 ML INH INHALATION ×4 (02:38→21:35)
[2022-02-27] MEDS: IPRATROPIUM BR 0.02% INH SOLN 0.5 MG/2.5 ML VIAL INHALATION ×4 (02:38→21:35)
[2022-02-27] MEDS: metroNIDAZOLE 250 MG TABLET 500 MG PO ×3 (05:49→16:59)
[2022-02-27] MEDS: CENTRAL LINE FLUSH 10 ML IV PUSH ×3 (05:49→21:31)
[2022-02-27] MEDS: LEVOTHYROXINE SODIUM 75 MCG TABLET PO (05:49)
[2022-02-27 06:12] LABS: Hematocrit 27.2 % (42.0-52.0); Hemoglobin 8.5 g/dL (14.0-18.0); Mean Corpuscular HGB Conc 31.3 g/dl (32-36); Mean Corpuscular Hemoglobin 30.4 pg (26-34); Mean Corpuscular Volume 97.1 fl (80-100); Platelet Count Result 367 k/mm3 (150-375); Red Cell Distribution Width 14.5 % (11.5-14.5); White Blood Count 11.3 K/mm3 (4.5-10.0)
[2022-02-27 06:23] LABS: Anion Gap 4 mmol/L (8-16); Blood Urea Nitrogen 30 mg/dL (9-20); Calcium 7.4 mg/dL (8.4-10.2); Carbon Dioxide 27 mmol/L (22-30); Chloride 113 mmol/L (98-107); Estimated CRCL calculation 52 ml/min; Estimated Glomerular Filt Rate > 60; Glucose 102 mg/dL (65-110); Potassium 3.9 mmol/L (3.4-5.0); Sodium 144 mmol/L (137-145)
[2022-02-27] MEDS: FERROUS SULFATE 324 MG TABLET PO ×2 (09:10→16:41)
[2022-02-27] MEDS: ASPIRIN 81 MG ENTERIC TABLET PO (09:11)
[2022-02-27] MEDS: POTASSIUM CHLORIDE 20 MEQ TABLET.ER PO ×2 (09:11→16:42)
[2022-02-27] MEDS: PANTOPRAZOLE 40 MG TABLET PO (09:12)
[2022-02-27] MEDS: ATORVASTATIN 40 MG TABLET PO (09:12)
[2022-02-27] MEDS: METOPROLOL TARTRATE 12.5 MG TABLET PO ×2 (09:13→21:31)
[2022-02-27] MEDS: ENOXAPARIN 40 MG/0.4 ML SYRINGE SUB-Q (09:14)
--- NOTE | 2022-02-27 09:24 | PM.PNGS ---
Progress Note: A&P Assessment and Plan (1) Diarrhea: Code(s): R19.7 - Diarrhea, unspecified Status: Acute Assessment and Plan: large amount out fecal to obtainment device last night. Will add Imodium on a scheduled dose. Continue to monitor closely. Continue potassium supplement. Suspect antibiotic associated colitis. (2) Anastomotic leak of intestine: Code(s): K91.89 - Other postprocedural complications and disorders of digestive system Status: Acute Assessment and Plan: Status post resection, antibiotics have been stopped. Normal abdominal exam and wound appears to be healing well. White blood cell count is slightly increased. Will watch closely. 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) Review of Systems Review of Systems: All systems reviewed & are unremarkable except as noted in HPI and below ( HPI and those items noted below) Constitutional: Constitutional: Denies chills and Denies fever(s) Cardiovascular: Cardiovascular: Denies chest pain, Denies diaphoresis, Denies dyspnea and Denies paroxysmal nocturnal dyspnea Respiratory: Respiratory: Denies chest congestion, Denies cough and Denies dyspnea Integumentary/Breasts: Skin/Breast: Denies lesions and Denies rash Exam Const: General: comfortable and no acute distress; No confusion Orientation/consciousness: No confusion GI: Inspection: non-distended and incision ( dry, healing. Every other staple removed) GI Palp: Yes Soft to palpation, No Tenderness to palpation present (GI), No Guarding due to palpation present (GI) and No Rebound tenderness present Auscultation: normoactive bowel sounds Neuro: General: moves all extremities, no focal motor deficits, CN's II-XI intact bilaterally and No confusion Speech: normal speech Motor exam (neuro): No tremor noted Extrem: General: no calf tenderness and no edema Psych: Appearance: grossly normal Speech and movement: Clear speech present Affect: normal affect Attitude: cooperative Thought process: Normal thought process present Thought content: Yes Normal thought content present Insight: Fair insight present (Psych) Judgement: Fair judgement present (Psych) Objective Data Vital Signs Vital Signs: Vital Signs - 24 hr 02/26/22 09:26 02/26/22 09:30 02/26/22 10:55 Temperature 36.9 C Pulse Rate 94 73 Respiratory Rate 22 H 16 Blood Pressure 117/58 L Pulse Oximetry 97 96 Oxygen Delivery Room Air 02/26/22 11:09 02/26/22 11:42 02/26/22 14:26 Temperature Pulse Rate Respiratory Rate Blood Pressure Pulse Oximetry Oxygen Delivery Room Air Room Air Room Air 02/26/22 15:09 02/26/22 17:54 02/26/22 20:37 Temperature 36.8 C Pulse Rate 88 80 68 Respiratory Rate 22 H 18 Blood Pressure 137/69 Pulse Oximetry 98 Oxygen Delivery 02/26/22 21:07 02/26/22 21:56 02/26/22 20:00 Temperature 37.0 C Pulse Rate 85 51 L Respiratory Rate 18 23 H Blood Pressure 116/54 L Pulse Oximetry 97 Oxygen Delivery Room Air 02/26/22 23:56 02/27/22 02:39 02/27/22 05:33 Temperature 37.1 C 37.1 C Pulse Rate 89 90 93 Respiratory Rate 20 18 18 Blood Pressure 122/66 115/65 Pulse Oximetry 97 96 Oxygen Delivery 02/27/22 07:56 02/27/22 09:13 Temperature Pulse Rate 86 77 Respiratory Rate 18 Blood Pressure Pulse Oximetry Oxygen Delivery Intake/Output Intake/Output: Intake & Output 02/24/22 02/25/22 02/26/22 02/27/22 23:59 23:59 23:59 23:59 Intake Total 2605 3505 770 250 Output Total 2500 3350 2550 1750 Balance 105 155 -1780 -1500 Meds/Results Medications: Active Medications Generic Name Dose Route Start Last Admin Trade Name Freq PRN Reason Stop Dose Admin Albuterol 2.5 mg 02/19/22 14:00 02/15
[2022-02-27] MEDS: LOPERAMIDE HCL 2 MG CAPSULE 4 MG PO ×2 (09:32→16:41)
--- NOTE | 2022-02-27 11:53 | PM.IMPN ---
Progress Note: A&P Assessment and Plan (1) Diarrhea: Code(s): R19.7 - Diarrhea, unspecified Status: Acute Assessment and Plan: with rectal tube still has soft stools will order C diff. Just started Imodium today will monitor response (2) Anastomotic leak of intestine: Code(s): K91.89 - Other postprocedural complications and disorders of digestive system Status: Acute Assessment and Plan: status post cholecystectomy and mesenteric tumor removed was discharged on 02/06 readmitted with small bowel obstruction free air in the abdominal cavity possibly secondary to that anastomosis leak. General surgery consulted. TPN was started. IV antibiotics had been continued which has been stopped now was on cefepime, vanco and Flagyl. Repeat CT of the abdomen shows improvement still has some free air but patient clinically much improved (3) SBO (small bowel obstruction): Code(s): K56.609 - Unspecified intestinal obstruction, unspecified as to partial versus complete obstruction Status: Acute Assessment and Plan: surgery still following the patient recommendation as above. Patient was in the ICU was intubated on Levophed drip has been weaned of patient did have a urine culture which grew enterococci Blood cultures have been negative (4) Acute renal failure: Code(s): N17.9 - Acute kidney failure, unspecified Status: Acute Assessment and Plan: gentle hydration. Avoid nephrotoxic drugs. Monitor antihypertensive drugs Avoid NSAIDs. Routine CMP monitor GFR. Monitor electrolytes potassium levels. Dose antibiotics depending on creatinine clearance Routine follow-up with PCP and merchandise execution leader recommended (5) Acute metabolic encephalopathy: Code(s): G93.41 - Metabolic encephalopathy Status: Acute Assessment and Plan: patient's mental status much improved. Possible cause of encephalopathy could be sedation, renal failure, is status post surgery, infection. Plan DVT prophylaxis. GI prophylaxis. All records reviewed Discussed plan of care with the nursing staff and with the patient in detail. Answered all questions and concerns from the patient. All labs have been reviewed. Code status updated Patient had continued to need prolonged hospitalization for treatment of sepsis and small-bowel obstruction due to anastomosis leak dictation may have been done utilizing a voice recognition system. Attempts have been made to correct errors. However, there may be uncorrected grammatical, spelling, and recognition errors present. Subjective Date/time seen: 02/27/22 11:53 Interval history: patient is a 81-year-old who has been transferred from the ICU to the medical floor. Patient is status post small bowel resection due to anastomotic leak. Has been on antibiotics for about 6 4 days which was discontinued. Denied any complaint today still has loose stools and rectal tube Review of Systems Review of Systems: All systems reviewed & are unremarkable except as noted in HPI and below Exam Const: General: comfortable and no acute distress; No confusion Orientation/consciousness: No confusion HENMT: Ears: TM's normal bilaterally Face/Nose/Sinus: Normal nares present Mouth: Yes moist mucous membranes Eyes: General: appearance normal, both eyes and all related structures Neck: Neck: supple Resp: Effort & Inspection: normal respiratory effort Auscultation: clear to auscultation bilaterally Cardio: Rate: regular rate Rhythm: regular rhythm GI: Inspection: non-distended and incision ( dry, healing. Every other staple removed) GI Palp: Yes Soft to palpation, No Tenderness to palpation present (GI), No Guarding due to palpation present (GI) and No Rebound tenderness present Auscultation: normoactive bowel sounds Skin: General skin exam: normal color Neuro: General: moves all extremities, no focal motor deficits, CN's II-XI i
--- NOTE | 2022-02-27 14:03 | PCOTNOTE ---
Attempted to see patient, patient refused. Patient educated over importance of participating in therapy, patient continued to refuse. Patient's RN notified. Patient not seen for OT.
[2022-02-27 18:44] LABS: Toxigenic C. Diff NEGATIVE (NEGATIVE)
[2022-02-28] VITALS (11 sets, daily range): BP systolic 103–119; BP diastolic 58–69; PULSE 81–108; RESP 14–20; TEMP 36.9–37.6; O2SAT 94–96
[2022-02-28] MEDS: metroNIDAZOLE 250 MG TABLET 500 MG PO ×4 (00:07→17:28)
[2022-02-28] MEDS: ALBUTEROL SULFATE NEB 2.5 MG/3 ML INH INHALATION ×3 (02:37→13:51)
[2022-02-28] MEDS: IPRATROPIUM BR 0.02% INH SOLN 0.5 MG/2.5 ML VIAL INHALATION ×3 (02:37→13:51)
[2022-02-28] MEDS: LEVOTHYROXINE SODIUM 75 MCG TABLET PO (06:01)
[2022-02-28] MEDS: CENTRAL LINE FLUSH 10 ML IV PUSH ×3 (06:01→20:30)
[2022-02-28 06:46] LABS: Hematocrit 26.8 % (42.0-52.0); Hemoglobin 8.1 g/dL (14.0-18.0); Mean Corpuscular HGB Conc 30.2 g/dl (32-36); Mean Corpuscular Hemoglobin 29.2 pg (26-34); Mean Corpuscular Volume 96.8 fl (80-100); Mean Platelet Volume 10.3 fl (7.4-10.4); Platelet Count Result 378 k/mm3 (150-375); Red Blood Count 2.77 M/mm3 (4.6-6.20); Red Cell Distribution Width 14.5 % (11.5-14.5); White Blood Count 12.4 K/mm3 (4.5-10.0)
[2022-02-28 06:54] LABS: Anion Gap 5 mmol/L (8-16); Blood Urea Nitrogen 24 mg/dL (9-20); Calcium 7.2 mg/dL (8.4-10.2); Carbon Dioxide 26 mmol/L (22-30); Chloride 113 mmol/L (98-107); Estimated CRCL calculation 57 ml/min; Estimated Glomerular Filt Rate > 60; Glucose 91 mg/dL (65-110); Potassium 3.6 mmol/L (3.4-5.0); Sodium 144 mmol/L (137-145)
--- NOTE | 2022-02-28 08:33 | PM.IMPN ---
Progress Note: A&P Assessment and Plan (1) Diarrhea: Code(s): R19.7 - Diarrhea, unspecified Status: Acute Assessment and Plan: with rectal tube still has soft stools will order C diff. Just started Imodium today will monitor response (2) Anastomotic leak of intestine: Code(s): K91.89 - Other postprocedural complications and disorders of digestive system Status: Acute Assessment and Plan: status post cholecystectomy and mesenteric tumor removed was discharged on 02/06 readmitted with small bowel obstruction free air in the abdominal cavity possibly secondary to that anastomosis leak. General surgery consulted. TPN was started. IV antibiotics had been continued which has been stopped now Previously on cefepime, vancomycin and Flagyl. Repeat CT of the abdomen shows improvement still has some free air but patient clinically much improved 02/28/22 - On metronidazole 500 mg q6h that was started 02/26/22. Leukocytosis worsened but patient is afebrile with mild abdominal discomfort. Will monitor for today. Appreciate recommendations from General Surgery (3) SBO (small bowel obstruction): Code(s): K56.609 - Unspecified intestinal obstruction, unspecified as to partial versus complete obstruction Status: Acute Assessment and Plan: S/P resection. Appreciate recommendations from General Surgery. (4) Acute renal failure: Code(s): N17.9 - Acute kidney failure, unspecified Status: Acute Assessment and Plan: Resolved. (5) Acute metabolic encephalopathy: Code(s): G93.41 - Metabolic encephalopathy Status: Acute Assessment and Plan: patient's mental status much improved. Possible cause of encephalopathy could be sedation, renal failure, is status post surgery, infection. Plan Enoxaparin prophylaxis Full code Discharge TBD Subjective Date/time seen: 02/28/22 08:33 at bedside. Patient says he is having a little right hip pain and would like to get back in the bed because the chair is uncomfortable. Says he is having abdominal pain. Review of Systems Gastrointestinal: Gastrointestinal: Reports abdominal pain Exam Narrative: GENERAL: NAD, cooperative HEENT: Normocephalic, atraumatic, anicteric NECK: Supple CV: Normal S1, S2, RRR, No MRG RESP: CTAB, Normal work of breathing. Abdomen: Soft, non-tender, non-distended, +BS EXTREMITIES: Warm and well perfused, no clubbing, cyanosis, or edema. SKIN: warm, dry and intact. NEURO:CN II-XII grossly intact. Objective Data Vital Signs Vital Signs: Vital Signs - 24 hr 02/27/22 09:13 02/27/22 13:00 02/27/22 14:00 Temperature 37.3 C Pulse Rate 77 82 84 Respiratory Rate 18 18 Blood Pressure 115/70 Pulse Oximetry 100 Oxygen Delivery 02/27/22 21:31 02/27/22 20:00 02/27/22 21:36 Temperature Pulse Rate 76 84 Respiratory Rate 18 Blood Pressure Pulse Oximetry Oxygen Delivery Room Air 02/27/22 21:46 02/27/22 21:48 02/28/22 02:38 Temperature 37.0 C Pulse Rate 88 94 83 Respiratory Rate 18 14 18 Blood Pressure 121/67 Pulse Oximetry 96 Oxygen Delivery 02/28/22 02:46 02/28/22 05:50 Temperature 37.1 C Pulse Rate 87 94 Respiratory Rate 18 14 Blood Pressure 119/58 L Pulse Oximetry 96 Oxygen Delivery Intake/Output Intake/Output: Intake & Output 02/25/22 02/26/22 02/27/22 02/28/22 23:59 23:59 23:59 23:59 Intake Total 3505 770 550 500 Output Total 3350 2550 2350 500 Balance 155 -1780 -1800 0 Meds/Results Medications: Active Medications Generic Name Dose Route Start Last Admin Trade Name Freq PRN Reason Stop Dose Admin Albuterol 2.5 mg 02/19/22 14:00 02/28/22 02:37 Albuterol Sulfate Neb 2.5 Mg/3 Ml Inh INHALATION 2.5 mg Q6HRT SAURABH Administration Aspirin 81 mg 02/26/22 09:00 02/27/22 09:11 Aspirin 81 Mg Enteric Tablet PO 03/28/22 08:59 81 mg D
[2022-02-28] MEDS: ENOXAPARIN 40 MG/0.4 ML SYRINGE SUB-Q (09:12)
[2022-02-28] MEDS: LOPERAMIDE HCL 2 MG CAPSULE 4 MG PO ×2 (09:13→17:28)
[2022-02-28] MEDS: METOPROLOL TARTRATE 12.5 MG TABLET PO ×2 (09:13→20:29)
[2022-02-28] MEDS: PANTOPRAZOLE 40 MG TABLET PO (09:13)
[2022-02-28] MEDS: POTASSIUM CHLORIDE 20 MEQ TABLET.ER PO ×2 (09:14→17:28)
[2022-02-28] MEDS: ASPIRIN 81 MG ENTERIC TABLET PO (09:14)
[2022-02-28] MEDS: FERROUS SULFATE 324 MG TABLET PO ×2 (09:14→17:29)
[2022-02-28] MEDS: ATORVASTATIN 40 MG TABLET PO (09:14)
--- NOTE | 2022-02-28 12:54 | PM.PNGS ---
Progress Note: A&P Assessment and Plan (1) Diarrhea: Code(s): R19.7 - Diarrhea, unspecified Status: Acute Assessment and Plan: Still with diarrhea but output decreasing from fecal containment device. Still on loperamide and metronidazole. (2) Anastomotic leak of intestine: Code(s): K91.89 - Other postprocedural complications and disorders of digestive system Status: Acute Assessment and Plan: Status post resection, antibiotics have been stopped. Normal abdominal exam and wound appears to be healing well. WBC up slightly again today. He is afebrile. Will repeat labs again tomorrow, may consider CT abdomen/pelvis if leukocytosis worsens or he becomes febrile. Plan I have discussed the patient's case and plan of care with Dr. Sinha. Subjective Subjective Date/Time Seen: 02/28/22 09:54 Post Op day: 10 Patient reports: no new complaints, tolerating a regular diet, diarrhea and afebrile Interval history: Patient seen and examined. He is tolerating his diet and no acute changes overnight. He denies any abdominal pain, nausea, or vomiting. He refused PT yesterday and unsure why but is willing to work with them today. Stool output in rectal tube 250 overnight. Review of Systems Review of Systems: All systems reviewed & are unremarkable except as noted in HPI and below Exam Const: General: comfortable and no acute distress Orientation/consciousness: patient oriented x3 GI: Inspection: non-distended and incision ( dry and healing well) GI Palp: Yes Soft to palpation, Yes Tenderness to palpation present (GI) (mild incisional tenderness), No Guarding due to palpation present (GI) and No Rebound tenderness present Auscultation: normal bowel sounds Other: rectal tube with drown liquid stool in bag Extrem: General: no calf tenderness and no edema Psych: Insight: Fair insight present (Psych) Judgement: Fair judgement present (Psych) Objective Data Vital Signs Vital Signs: Vital Signs - 24 hr 02/27/22 13:00 02/27/22 14:00 02/27/22 21:31 Temperature 99.2 F Pulse Rate 82 84 76 Respiratory Rate 18 18 Blood Pressure 115/70 Pulse Oximetry 100 Oxygen Delivery 02/27/22 20:00 02/27/22 21:36 02/27/22 21:46 Temperature Pulse Rate 84 88 Respiratory Rate 18 18 Blood Pressure Pulse Oximetry Oxygen Delivery Room Air 02/27/22 21:48 02/28/22 02:38 02/28/22 02:46 Temperature 98.6 F Pulse Rate 94 83 87 Respiratory Rate 14 18 18 Blood Pressure 121/67 Pulse Oximetry 96 Oxygen Delivery 02/28/22 05:50 02/28/22 08:55 02/28/22 08:55 Temperature 98.7 F Pulse Rate 94 84 Respiratory Rate 14 18 Blood Pressure 119/58 L Pulse Oximetry 96 94 Oxygen Delivery Room Air 02/28/22 09:07 02/28/22 09:13 Temperature Pulse Rate 92 108 H Respiratory Rate 18 Blood Pressure Pulse Oximetry Oxygen Delivery Intake/Output Intake/Output: Intake & Output 02/25/22 02/26/22 02/27/22 02/28/22 23:59 23:59 23:59 23:59 Intake Total 3505 770 550 500 Output Total 3350 2550 2350 750 Balance 155 -1780 -1800 -250 Meds/Results Medications: Active Medications Generic Name Dose Route Start Last Admin Trade Name Franki PRN Reason Stop Dose Admin Albuterol 2.5 mg 02/19/22 14:00 02/28/22 08:54 Albuterol Sulfate Neb 2.5 Mg/3 Ml Inh INHALATION 2.5 mg Q6HRT SAURABH Administration Aspirin 81 mg 02/26/22 09:00 02/28/22 09:14 Aspirin 81 Mg Enteric Tablet PO 03/28/22 08:59 81 mg DAILY SAURABH Administration Atorvastatin Calcium 40 mg 02/14/22 15:10 02/28/22 09:14 Atorvastatin 40 Mg Tablet PO 40 mg DAILY SAURABH Administration Enoxaparin Sodium 40 mg 02/19/22 09:00 02/28/22 09:12 Enoxaparin 40 Mg/0.4 Ml Syringe SUB-Q 40 mg DAILY SAURABH Administration Ferrous Sulfate 324 mg 02/16/22 17:00 02/28/22 09:14 Ferrous Sulfate 324 Mg Tablet PO 324 mg BIDWM SAURABH Administration Dextrose 1,000 mls @ 50 mls/hr
[2022-03-01] VITALS (13 sets, daily range): BP systolic 104–122; BP diastolic 52–67; PULSE 63–95; RESP 16–18; TEMP 36.6–36.9; O2SAT 93–97
--- NOTE | 2022-03-01 00:41 | PCRCNOTE ---
window of time for administration has passed. see next available administration.
[2022-03-01] MEDS: ALBUTEROL SULFATE NEB 2.5 MG/3 ML INH INHALATION ×4 (01:32→20:49)
[2022-03-01] MEDS: IPRATROPIUM BR 0.02% INH SOLN 0.5 MG/2.5 ML VIAL INHALATION ×4 (01:32→20:49)
[2022-03-01] MEDS: metroNIDAZOLE 250 MG TABLET 500 MG PO ×5 (01:44→23:44)
[2022-03-01] MEDS: CENTRAL LINE FLUSH 10 ML IV PUSH ×3 (05:48→21:39)
[2022-03-01] MEDS: LEVOTHYROXINE SODIUM 75 MCG TABLET PO (05:48)
[2022-03-01 06:37] LABS: Hematocrit 25.9 % (42.0-52.0); Mean Corpuscular HGB Conc 30.9 g/dl (32-36); Mean Corpuscular Hemoglobin 30.8 pg (26-34); Mean Corpuscular Volume 99.6 fl (80-100); Mean Platelet Volume 10.5 fl (7.4-10.4); Platelet Count Result 352 k/mm3 (150-375); Red Cell Distribution Width 14.7 % (11.5-14.5); White Blood Count 10.7 K/mm3 (4.5-10.0)
[2022-03-01 06:53] LABS: Anion Gap 0 mmol/L (8-16); Blood Urea Nitrogen 20 mg/dL (9-20); Calcium 7.1 mg/dL (8.4-10.2); Carbon Dioxide 26 mmol/L (22-30); Chloride 111 mmol/L (98-107); Estimated CRCL calculation 57 ml/min; Estimated Glomerular Filt Rate > 60; Glucose 120 mg/dL (65-110); Sodium 137 mmol/L (137-145)
--- NOTE | 2022-03-01 08:00 | PM.PNGS ---
Progress Note: A&P Assessment and Plan (1) Diarrhea: Code(s): R19.7 - Diarrhea, unspecified Status: Acute Assessment and Plan: Imodium helped a little but still 1000 cc diarrheal stool per fecal containment device yesterday. Will stop Imodium and try BID Questran. (2) Anastomotic leak of intestine: Code(s): K91.89 - Other postprocedural complications and disorders of digestive system Status: Acute Assessment and Plan: No evidence peritonitis or other complication from the surgery. Subjective Subjective Date/Time Seen: 03/01/22 08:00 Post Op day: #11 Patient reports: no new complaints, pain is less, tolerating a regular diet, diarrhea and afebrile Review of Systems Review of Systems: All systems reviewed & are unremarkable except as noted in HPI and below (HPI and those items noted below) Constitutional: Constitutional: Denies chills and Denies fever(s) Cardiovascular: Cardiovascular: Denies chest pain, Denies diaphoresis, Denies dyspnea and Denies paroxysmal nocturnal dyspnea Respiratory: Respiratory: Denies chest congestion, Denies cough and Denies dyspnea Integumentary/Breasts: Skin/Breast: Denies lesions and Denies rash Exam Const: General: comfortable and no acute distress; No confusion GI: Inspection: non-distended, incision ( dry and healing well, no drainage) and other ( almost 1000 cc diarrhea last 24 hours) GI Palp: Yes Soft to palpation, No Tenderness to palpation present (GI), No Guarding due to palpation present (GI) and No Rebound tenderness present Auscultation: normal bowel sounds Neuro: General: moves all extremities, no focal motor deficits, CN's II-XI intact bilaterally and No confusion Speech: normal speech Motor exam (neuro): 5/5 motor strength present throughout and No tremor noted Extrem: General: no calf tenderness and no edema Psych: Speech and movement: Clear speech present Affect: normal affect Attitude: cooperative Thought content: Yes Normal thought content present Insight: Fair insight present (Psych) Judgement: Fair judgement present (Psych) Objective Data Vital Signs Vital Signs: Vital Signs - 24 hr 02/28/22 08:55 02/28/22 08:55 02/28/22 09:07 Temperature Pulse Rate 84 92 Respiratory Rate 18 18 Blood Pressure Pulse Oximetry 94 Oxygen Delivery Room Air 02/28/22 09:13 02/28/22 13:52 02/28/22 14:06 Temperature Pulse Rate 108 H 100 92 Respiratory Rate 18 18 Blood Pressure Pulse Oximetry Oxygen Delivery 02/28/22 14:00 02/28/22 20:29 02/28/22 20:00 Temperature 37.6 C H Pulse Rate 81 92 Respiratory Rate 20 Blood Pressure 103/60 Pulse Oximetry 94 Oxygen Delivery Room Air 02/28/22 22:00 03/01/22 01:34 03/01/22 01:36 Temperature 36.9 C Pulse Rate 91 93 Respiratory Rate 16 16 Blood Pressure 112/69 Pulse Oximetry 96 96 Oxygen Delivery Room Air 03/01/22 01:44 03/01/22 06:00 Temperature 36.7 C Pulse Rate 95 86 Respiratory Rate 16 16 Blood Pressure 104/67 Pulse Oximetry 96 Oxygen Delivery Intake/Output Intake/Output: Intake & Output 02/26/22 02/27/22 02/28/22 03/01/22 23:59 23:59 23:59 23:59 Intake Total 885 202 6634 400 Output Total 2550 2350 1700 Balance -1780 -1800 -440 400 950 cc per fecal containment device last 24 hours Meds/Results Medications: Active Medications Generic Name Dose Route Start Last Admin Trade Name Freq PRN Reason Stop Dose Admin Albuterol 2.5 mg 02/19/22 14:00 03/01/22 01:32 Albuterol Sulfate Neb 2.5 Mg/3 Ml Inh INHALATION 2.5 mg Q6HRT SAURABH Administration Aspirin 81 mg 02/26/22 09:00 02/28/22 09:14 Aspirin 81 Mg Enteric Tablet PO 03/28/22 08:59 81 mg DAILY SAURABH Administration Atorvastatin Calcium 40 mg 02/14/22 15:10 02/28/22 09:14 Atorvastatin 40 Mg Tablet PO 40 mg DAILY SAURABH Administration Cholestyramine Resin 4 gm 03/01/22 10:00 Cholestyramine (W/ Sugar) 4 Gm Powd.Pack
--- NOTE | 2022-03-01 08:16 | PM.IMPN ---
Progress Note: A&P Assessment and Plan (1) Diarrhea: Code(s): R19.7 - Diarrhea, unspecified Status: Acute Assessment and Plan: Diarrhea continues despite use of Imodium. Patient discussed with General Surgery midlevel, Lucina Rolle. There is concern for possible short gut. There is concern for development of dehydration causing metabolic derangement and hospitalization due to persistent diarrhea, so patient will need to remain hospitalized until his diarrhea is better controlled. Dr. Jay has started a new medication today to see if this improves the diarrhea. (2) Anastomotic leak of intestine: Code(s): K91.89 - Other postprocedural complications and disorders of digestive system Status: Acute Assessment and Plan: status post cholecystectomy and mesenteric tumor removed was discharged on 02/06 readmitted with small bowel obstruction free air in the abdominal cavity possibly secondary to that anastomosis leak. General surgery consulted. TPN was started. IV antibiotics had been continued which has been stopped now Previously on cefepime, vancomycin and Flagyl. Repeat CT of the abdomen shows improvement still has some free air but patient clinically much improved 02/28/22 - On metronidazole 500 mg q6h that was started 02/26/22. Leukocytosis worsened but patient is afebrile with mild abdominal discomfort. Will monitor for today. Appreciate recommendations from General Surgery 03/01/22 - Leukocytosis improved. Will monitor. (3) SBO (small bowel obstruction): Code(s): K56.609 - Unspecified intestinal obstruction, unspecified as to partial versus complete obstruction Status: Acute Assessment and Plan: S/P resection. Appreciate recommendations from General Surgery. (4) Acute renal failure: Code(s): N17.9 - Acute kidney failure, unspecified Status: Acute Assessment and Plan: Resolved. (5) Acute metabolic encephalopathy: Code(s): G93.41 - Metabolic encephalopathy Status: Acute Assessment and Plan: patient's mental status much improved. Possible cause of encephalopathy could be sedation, renal failure, is status post surgery, infection. Plan Enoxaparin prophylaxis Full code Discharge TBD Subjective Date/time seen: 03/01/22 08:16 Patient says he feels fine. Continues to have significnat diarrhea. Review of Systems Gastrointestinal: Gastrointestinal: Reports diarrhea Exam Narrative: GENERAL: NAD, cooperative HEENT: Normocephalic, atraumatic, anicteric NECK: Supple CV: Normal S1, S2, RRR, No MRG RESP: CTAB, Normal work of breathing. Abdomen: Soft, non-tender, non-distended, +BS EXTREMITIES: Warm and well perfused, no clubbing, cyanosis, or edema. SKIN: warm, dry and intact. NEURO:CN II-XII grossly intact. Objective Data Vital Signs Vital Signs: Vital Signs - 24 hr 02/28/22 08:55 02/28/22 08:55 02/28/22 09:07 Temperature Pulse Rate 84 92 Respiratory Rate 18 18 Blood Pressure Pulse Oximetry 94 Oxygen Delivery Room Air 02/28/22 09:13 02/28/22 13:52 02/28/22 14:06 Temperature Pulse Rate 108 H 100 92 Respiratory Rate 18 18 Blood Pressure Pulse Oximetry Oxygen Delivery 02/28/22 14:00 02/28/22 20:29 02/28/22 20:00 Temperature 37.6 C H Pulse Rate 81 92 Respiratory Rate 20 Blood Pressure 103/60 Pulse Oximetry 94 Oxygen Delivery Room Air 02/28/22 22:00 03/01/22 01:34 03/01/22 01:36 Temperature 36.9 C Pulse Rate 91 93 Respiratory Rate 16 16 Blood Pressure 112/69 Pulse Oximetry 96 96 Oxygen Delivery Room Air 03/01/22 01:44 03/01/22 06:00 Temperature 36.7 C Pulse Rate 95 86 Respiratory Rate 16 16 Blood Pressure 104/67 Pulse Oximetry 96 Oxygen Delivery Intake/Output Intake/Output: Intake & Output 02/26/22 02/27/22 02/28/22 03/01/22 23:59 2
[2022-03-01] MEDS: FERROUS SULFATE 324 MG TABLET PO ×2 (09:11→18:05)
[2022-03-01] MEDS: ASPIRIN 81 MG ENTERIC TABLET PO (09:11)
[2022-03-01] MEDS: ATORVASTATIN 40 MG TABLET PO (09:11)
[2022-03-01] MEDS: PANTOPRAZOLE 40 MG TABLET PO (09:11)
[2022-03-01] MEDS: ENOXAPARIN 40 MG/0.4 ML SYRINGE SUB-Q (09:11)
[2022-03-01] MEDS: METOPROLOL TARTRATE 12.5 MG TABLET PO ×2 (09:12→21:39)
[2022-03-01] MEDS: POTASSIUM CHLORIDE 20 MEQ TABLET.ER PO ×2 (09:12→18:06)
[2022-03-01] MEDS: CHOLESTYRAMINE (W/ SUGAR) 4 GM POWD.PACK PO ×2 (11:14→19:23)
[2022-03-01 14:58] LABS: EDCOVIDSCREEN Negative (Negative)
[2022-03-02] VITALS (13 sets, daily range): BP systolic 107–111; BP diastolic 44–62; PULSE 77–98; RESP 16–20; TEMP 36.7–37.1; O2SAT 96–99
[2022-03-02] MEDS: IPRATROPIUM BR 0.02% INH SOLN 0.5 MG/2.5 ML VIAL INHALATION ×4 (03:10→20:53)
[2022-03-02] MEDS: ALBUTEROL SULFATE NEB 2.5 MG/3 ML INH INHALATION ×4 (03:10→20:53)
[2022-03-02] MEDS: LEVOTHYROXINE SODIUM 75 MCG TABLET PO (06:21)
[2022-03-02] MEDS: CENTRAL LINE FLUSH 10 ML IV PUSH ×3 (06:21→20:43)
[2022-03-02] MEDS: metroNIDAZOLE 250 MG TABLET 500 MG PO ×4 (06:21→23:15)
[2022-03-02 06:43] LABS: Anion Gap 2 mmol/L (8-16); Blood Urea Nitrogen 16 mg/dL (9-20); Calcium 6.9 mg/dL (8.4-10.2); Carbon Dioxide 24 mmol/L (22-30); Chloride 114 mmol/L (98-107); Estimated CRCL calculation 64 ml/min; Estimated Glomerular Filt Rate > 60; Glucose 102 mg/dL (65-110); Sodium 140 mmol/L (137-145)
--- NOTE | 2022-03-02 08:16 | PM.IMPN ---
Progress Note: A&P Assessment and Plan (1) Diarrhea: Code(s): R19.7 - Diarrhea, unspecified Status: Acute Assessment and Plan: There is concern for possible short gut. There is concern for development of dehydration causing metabolic derangement and hospitalization due to persistent diarrhea, so patient will need to remain hospitalized until his diarrhea is better controlled. One bowel movement recorded for yesterday, which is an improvement on cholestyramine. -Continue cholestyramine -If diarrhea is indeed significantly approved. Patient is ok to be discharge from a medical standpoint. Will sign off. Thank you for the consult. (2) Anastomotic leak of intestine: Code(s): K91.89 - Other postprocedural complications and disorders of digestive system Status: Acute Assessment and Plan: status post cholecystectomy and mesenteric tumor removed was discharged on 02/06 readmitted with small bowel obstruction free air in the abdominal cavity possibly secondary to that anastomosis leak. General surgery consulted. TPN was started. IV antibiotics had been continued which has been stopped now Previously on cefepime, vancomycin and Flagyl. Repeat CT of the abdomen shows improvement still has some free air but patient clinically much improved 02/28/22 - On metronidazole 500 mg q6h that was started 02/26/22. Leukocytosis worsened but patient is afebrile with mild abdominal discomfort. Will monitor for today. Appreciate recommendations from General Surgery 03/01/22 - Leukocytosis improved. Will monitor. 03/02/20 - Leukocytosis improved. Will monitor. (3) SBO (small bowel obstruction): Code(s): K56.609 - Unspecified intestinal obstruction, unspecified as to partial versus complete obstruction Status: Acute Assessment and Plan: S/P resection. Appreciate recommendations from General Surgery. (4) Acute renal failure: Code(s): N17.9 - Acute kidney failure, unspecified Status: Acute Assessment and Plan: Resolved. (5) Acute metabolic encephalopathy: Code(s): G93.41 - Metabolic encephalopathy Status: Acute Assessment and Plan: patient's mental status much improved. Possible cause of encephalopathy could be sedation, renal failure, is status post surgery, infection. Plan Enoxaparin prophylaxis Full code Discharge TBD Subjective Date/time seen: 03/02/22 08:16 Patient says the medicine that he started yesterday is working and he is having less diarrhea. Review of Systems Gastrointestinal: Gastrointestinal: Denies diarrhea Exam Narrative: GENERAL: NAD, cooperative HEENT: Normocephalic, atraumatic, anicteric NECK: Supple CV: Normal S1, S2, RRR, No MRG RESP: CTAB, Normal work of breathing. Abdomen: Soft, non-tender, non-distended, +BS EXTREMITIES: Warm and well perfused, no clubbing, cyanosis, or edema. SKIN: warm, dry and intact. NEURO:CN II-XII grossly intact. Objective Data Vital Signs Vital Signs: Vital Signs - 24 hr 03/01/22 09:12 03/01/22 09:55 03/01/22 09:55 Temperature Pulse Rate 86 63 Respiratory Rate 16 Blood Pressure Pulse Oximetry 93 Oxygen Delivery Room Air 03/01/22 14:00 03/01/22 15:40 03/01/22 20:51 Temperature 36.9 C Pulse Rate 78 77 86 Respiratory Rate 16 18 18 Blood Pressure 104/60 Pulse Oximetry 97 Oxygen Delivery 03/01/22 20:52 03/01/22 21:39 03/01/22 21:53 Temperature 36.6 C Pulse Rate 86 91 Respiratory Rate 18 Blood Pressure 122/52 L Pulse Oximetry 97 95 Oxygen Delivery Room Air 03/01/22 20:00 03/02/22 03:10 03/01/22 21:06 Temperature Pulse Rate 77 89 Respiratory Rate 16 18 Blood Pressure Pulse Oximetry Oxygen Delivery Room Air 03/02/22 03:25 03/02/22 04:56 Temperature 36.9 C Pulse Rate 81 90 Respiratory Rate 16 16 Blood Pr
[2022-03-02 08:44] LABS: Basophils Absolute Auto 0.1 K/mm3 (0.0-0.1); Basophils Percent Auto 0.5 % (0.2-1.2); Eosinophils Absolute Auto 0.2 K/mm3 (0-0.3); Eosinophils Percent Auto 1.8 % (0-4.4); Hematocrit 25.9 % (42.0-52.0); Immature Granulocyte Absolute 0.06 K/mm3 (0.00-0.031); Immature Granulocyte Percent A 0.6 % (0-0.5); Lymphocytes Absolute Auto 1.19 K/mm3 (0.9-3.2); Lymphocytes Percent Auto 11.8 % (18.3-44.2); Mean Corpuscular HGB Conc 30.9 g/dl (32-36); Mean Corpuscular Hemoglobin 30.4 pg (26-34); Mean Corpuscular Volume 98.5 fl (80-100); Monocytes Absolute Auto 0.4 K/mm3 (0.1-0.6); Monocytes Percent Auto 3.7 % (2.6-8.5); Neutrophils Absolute Auto 8.2 K/mm3 (1.3-6.7); Neutrophils Percent Auto 81.6 % (45.5-73.1); Platelet Count Result 368 k/mm3 (150-375); Red Blood Count 2.63 M/mm3 (4.6-6.20); Red Cell Distribution Width 14.8 % (11.5-14.5); White Blood Count 10.1 K/mm3 (4.5-10.0)
[2022-03-02] MEDS: ASPIRIN 81 MG ENTERIC TABLET PO (09:44)
[2022-03-02] MEDS: FERROUS SULFATE 324 MG TABLET PO ×2 (09:45→16:38)
[2022-03-02] MEDS: METOPROLOL TARTRATE 12.5 MG TABLET PO ×2 (09:45→20:43)
[2022-03-02] MEDS: ATORVASTATIN 40 MG TABLET PO (09:45)
[2022-03-02] MEDS: PANTOPRAZOLE 40 MG TABLET PO (09:45)
[2022-03-02] MEDS: ENOXAPARIN 40 MG/0.4 ML SYRINGE SUB-Q (09:46)
[2022-03-02] MEDS: CALCIUM CARBONATE (TUMS) 500 MG (200 MG ELEMENTAL) PO ×3 (09:46→16:39)
--- NOTE | 2022-03-02 10:49 | PM.PNGS ---
Progress Note: A&P Assessment and Plan (1) Diarrhea: Code(s): R19.7 - Diarrhea, unspecified Status: Acute Assessment and Plan: Improved yesterday. Will DC fecal containment device and continue to monitor bowel movements. Continue Questran and metronidazole. (2) Anastomotic leak of intestine: Code(s): K91.89 - Other postprocedural complications and disorders of digestive system Status: Acute Assessment and Plan: No evidence of complications from the surgery 12 days ago. Wound is healing well. Tolerating solid food. Off broad-spectrum antibiotics for several days. 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 Okay to resume if hospitalist thinks it is clinically indicated. Subjective Subjective Date/Time Seen: 03/02/22 10:49 Post Op day: #12 Patient reports: feels better, tolerating a regular diet, diarrhea (Improved) and afebrile Review of Systems Review of Systems: All systems reviewed & are unremarkable except as noted in HPI and below (HPI and those items noted below) Constitutional: Constitutional: Denies chills and Denies fever(s) Cardiovascular: Cardiovascular: Denies chest pain, Denies diaphoresis, Denies dyspnea and Denies paroxysmal nocturnal dyspnea Respiratory: Respiratory: Denies chest congestion, Denies cough and Denies dyspnea Integumentary/Breasts: Skin/Breast: Denies lesions and Denies rash Exam Const: General: comfortable and no acute distress; No confusion GI: Inspection: non-distended and incision (Healing well.) GI Palp: Yes Soft to palpation, No Tenderness to palpation present (GI), No Guarding due to palpation present (GI) and No Rebound tenderness present Auscultation: normal bowel sounds Extrem: General: no calf tenderness and no edema Objective Data Vital Signs Vital Signs: Vital Signs - 24 hr 03/01/22 14:00 03/01/22 15:40 03/01/22 20:51 Temperature 36.9 C Pulse Rate 78 77 86 Respiratory Rate 16 18 18 Blood Pressure 104/60 Pulse Oximetry 97 Oxygen Delivery 03/01/22 20:52 03/01/22 21:39 03/01/22 21:53 Temperature 36.6 C Pulse Rate 86 91 Respiratory Rate 18 Blood Pressure 122/52 L Pulse Oximetry 97 95 Oxygen Delivery Room Air 03/01/22 20:00 03/02/22 03:10 03/01/22 21:06 Temperature Pulse Rate 77 89 Respiratory Rate 16 18 Blood Pressure Pulse Oximetry Oxygen Delivery Room Air 03/02/22 03:25 03/02/22 04:56 03/02/22 09:16 Temperature 36.9 C Pulse Rate 81 90 Respiratory Rate 16 16 Blood Pressure 111/62 Pulse Oximetry 98 96 Oxygen Delivery Room Air 03/02/22 09:16 03/02/22 09:45 Temperature Pulse Rate 85 94 Respiratory Rate 20 Blood Pressure Pulse Oximetry Oxygen Delivery Intake/Output Intake/Output: Intake & Output 02/27/22 02/28/22 03/01/22 03/02/22 23:59 23:59 23:59 23:59 Intake Total 550 1260 1797 250 Output Total 2350 1700 750 150 Balance -1800 -440 1047 100 only 250 out fecal containment device yesterday. Apparently patient is having some solid stool that seeps around the device as well. Diarrhea definitely improved since starting Questran. Meds/Results Medications: Active Medications Generic Name Dose Route Start Last Admin Trade Name Freq PRN Reason Stop Dose Admin Albuterol 2.5 mg 02/19/22 14:00 03/02/22 09:11 Albuterol Sulfate Neb 2.5 Mg/3 Ml Inh INHALATION 2.5 mg Q6HRT SAURABH Administration Aspirin 81 mg 02/26/22 09:00 03/02/22 09:44 Aspirin 81 Mg Enteric Tablet PO 03/28/22 08:59 81 mg DAILY SAURABH Administration Atorvastatin Calcium 40 mg 02/14/22 15:10 03/02/22 09:45 Atorvastatin 40 Mg Tablet PO 40 mg DAILY SAURABH Administration Calcium Carbonate 200 mg 03/02/22 09:00 03/02/22 09:46 Calcium Carbonate (Tums) 500 Mg (200 Mg
--- NOTE | 2022-03-02 11:08 | PCNFU ---
Nutrition Follow-Up Complete: Inadequate oral intake related to acute small bowel obstruction as evidenced by NPO status, need for full parenteral feeding Goal:Meet estimated nutrition needs. Pt is progressing towards goal via oral intake Pt current nutrition is Regular, soft and bite sized level 6, Ensure compact BID. Nutrition recommendation: Continue with current plan of care. Last recorded weight is 79.5 kg - stable at this time. Bowel Motility: +BM 03/02 Labs Reviewed: Hgb:8.0, HCT:25.9 Meds Noted:lovenox, protonix Skin: abdominal incision Additional Notes: Pt diet advanced to soft and bite sized, reports good intake but noted charted intake is 5%. States he is drinking the Ensure but prefers strawberry. Will change ensure to Enlive, strawberry flavor. Encourage good intake of meals and supplements. Monitoring tolerance, plan of care, labs, etc Follow up in 5 days.
[2022-03-02] MEDS: CHOLESTYRAMINE (W/ SUGAR) 4 GM POWD.PACK PO ×2 (11:52→18:26)
--- NOTE | 2022-03-02 21:01 | PC.NURSE ---
Pt. incontinent of stool x1 w/o knowing he was incontinent. Pt. cleaned up and educated on importance of measuring bowel moments per Dr. Jay's orders. Pt. alert and oriented x3 at this time.
[2022-03-03] VITALS (12 sets, daily range): BP systolic 92–114; BP diastolic 58–71; PULSE 75–95; RESP 14–20; TEMP 36.6–37.4; O2SAT 95–100
[2022-03-03] MEDS: IPRATROPIUM BR 0.02% INH SOLN 0.5 MG/2.5 ML VIAL INHALATION ×4 (02:00→20:14)
[2022-03-03] MEDS: ALBUTEROL SULFATE NEB 2.5 MG/3 ML INH INHALATION ×4 (02:00→20:14)
[2022-03-03] MEDS: CENTRAL LINE FLUSH 20 ML IV PUSH (05:12)
[2022-03-03] MEDS: metroNIDAZOLE 250 MG TABLET 500 MG PO ×3 (05:12→17:27)
[2022-03-03] MEDS: CENTRAL LINE FLUSH 10 ML IV PUSH ×3 (05:12→21:31)
[2022-03-03] MEDS: LEVOTHYROXINE SODIUM 75 MCG TABLET PO (05:12)
[2022-03-03 05:15] LABS: Basophils Absolute Auto 0.1 K/mm3 (0.0-0.1); Basophils Percent Auto 0.6 % (0.2-1.2); Eosinophils Absolute Auto 0.2 K/mm3 (0-0.3); Eosinophils Percent Auto 2.5 % (0-4.4); Hematocrit 24.7 % (42.0-52.0); Hemoglobin 7.8 g/dL (14.0-18.0); Immature Granulocyte Absolute 0.03 K/mm3 (0.00-0.031); Immature Granulocyte Percent A 0.4 % (0-0.5); Lymphocytes Absolute Auto 1.36 K/mm3 (0.9-3.2); Lymphocytes Percent Auto 16.1 % (18.3-44.2); Mean Corpuscular HGB Conc 31.6 g/dl (32-36); Mean Corpuscular Hemoglobin 30.2 pg (26-34); Mean Corpuscular Volume 95.7 fl (80-100); Mean Platelet Volume 10.2 fl (7.4-10.4); Monocytes Absolute Auto 0.4 K/mm3 (0.1-0.6); Monocytes Percent Auto 4.4 % (2.6-8.5); Neutrophils Absolute Auto 6.4 K/mm3 (1.3-6.7); Platelet Count Result 352 k/mm3 (150-375); Red Blood Count 2.58 M/mm3 (4.6-6.20); Red Cell Distribution Width 14.5 % (11.5-14.5); White Blood Count 8.5 K/mm3 (4.5-10.0)
[2022-03-03 05:38] LABS: Anion Gap 3 mmol/L (8-16); Blood Urea Nitrogen 13 mg/dL (9-20); Calcium 6.9 mg/dL (8.4-10.2); Carbon Dioxide 22 mmol/L (22-30); Chloride 112 mmol/L (98-107); Estimated CRCL calculation 64 ml/min; Estimated Glomerular Filt Rate > 60; Glucose 106 mg/dL (65-110); Potassium 5.1 mmol/L (3.4-5.0); Sodium 137 mmol/L (137-145)
[2022-03-03] MEDS: ENOXAPARIN 40 MG/0.4 ML SYRINGE SUB-Q (09:19)
[2022-03-03] MEDS: METOPROLOL TARTRATE 12.5 MG TABLET PO ×2 (09:19→21:30)
[2022-03-03] MEDS: PANTOPRAZOLE 40 MG TABLET PO (09:20)
[2022-03-03] MEDS: FERROUS SULFATE 324 MG TABLET PO ×2 (09:20→17:27)
[2022-03-03] MEDS: CALCIUM CARBONATE (TUMS) 500 MG (200 MG ELEMENTAL) PO ×3 (09:20→17:27)
[2022-03-03] MEDS: ASPIRIN 81 MG ENTERIC TABLET PO (09:21)
[2022-03-03] MEDS: ATORVASTATIN 40 MG TABLET PO (09:21)
[2022-03-03] MEDS: SODIUM ZIRCONIUM CYCLOSILICATE 10 GM POWD.PACK PO (10:45)
[2022-03-03] MEDS: CHOLESTYRAMINE (W/ SUGAR) 4 GM POWD.PACK PO ×2 (10:45→17:27)
--- NOTE | 2022-03-03 11:20 | PCOTNOTE ---
Attempted to see patient, patient refused. Patient gave many excuses as to why he could not participate in OT. Patient reported I'm way too tired, chair is too hard, I don't I already sat up for an hour (later reported 2 hours to RN), I already got up and walked to bathroom... I don't need endurance..I put in 30-40 years, I'm retired, I don't have to if I don't want to. Patient educated over importance of participating in therapy to determine d/c destination and abilities in order to say patient is safe to go home. RN notified and came in and talked to patient as well and notified him that MD has orders for patient to stay up in chair, otherwise he will never go home. Patient reports Well I guess I'll be here for the next year! RN also reports patient must have brought himself back to bed without assist as patient did not use call button and none of the staff assisted him into bed. Patient not seen for OT this AM. Will attempt to continue plan of care to provide OT benefits to patient.
--- NOTE | 2022-03-03 11:20 | PM.PNGS ---
Progress Note: A&P Assessment and Plan (1) Anastomotic leak of intestine: Code(s): K91.89 - Other postprocedural complications and disorders of digestive system Status: Acute Assessment and Plan: doing better, cont Flagyl and dinesh Whaley to restart Plavix, home soon Subjective Subjective Date/Time Seen: 03/03/22 11:20 no acute issues, diarrhea better, felipe diet Review of Systems Review of Systems: All systems reviewed & are unremarkable except as noted in HPI and below Exam Const: General: cooperative, comfortable and no acute distress GI: Inspection: normal to inspection, non-distended and incision GI Palp: No abdominal tenderness, Yes Soft to palpation, No Tenderness to palpation present (GI), No Guarding due to palpation present (GI) and No Rigid due to palpation Objective Data Vital Signs Vital Signs: Vital Signs - 24 hr 03/02/22 14:27 03/02/22 14:00 03/02/22 20:43 Temperature 36.7 C Pulse Rate 92 92 98 Respiratory Rate 16 16 Blood Pressure 107/50 L Pulse Oximetry 99 Oxygen Delivery 03/02/22 20:54 03/02/22 20:54 03/02/22 21:11 Temperature Pulse Rate 96 96 91 Respiratory Rate 16 16 Blood Pressure Pulse Oximetry 96 Oxygen Delivery Room Air 03/02/22 21:27 03/02/22 20:00 03/03/22 02:01 Temperature 37.1 C Pulse Rate 98 76 Respiratory Rate 16 16 Blood Pressure 110/44 L Pulse Oximetry 98 Oxygen Delivery Room Air 03/03/22 02:15 03/03/22 06:00 03/03/22 08:21 Temperature 37.3 C Pulse Rate 75 78 95 Respiratory Rate 16 20 18 Blood Pressure 114/58 L Pulse Oximetry 97 Oxygen Delivery 03/03/22 08:21 03/03/22 09:19 03/03/22 09:20 Temperature Pulse Rate 80 87 Respiratory Rate Blood Pressure Pulse Oximetry 97 Oxygen Delivery Room Air Room Air Intake/Output Intake/Output: Intake & Output 02/28/22 03/01/22 03/02/22 03/03/22 23:59 23:59 23:59 23:59 Intake Total 1260 1797 1245 320 Output Total 1980 470 7883 1300 Balance -440 1047 45 -980 Meds/Results Medications: Active Medications Generic Name Dose Route Start Last Admin Trade Name Freq PRN Reason Stop Dose Admin Albuterol 2.5 mg 02/19/22 14:00 03/03/22 08:20 Albuterol Sulfate Neb 2.5 Mg/3 Ml Inh INHALATION 2.5 mg Q6HRT SAURABH Administration Aspirin 81 mg 02/26/22 09:00 03/03/22 09:21 Aspirin 81 Mg Enteric Tablet PO 03/28/22 08:59 81 mg DAILY SAURAHB Administration Atorvastatin Calcium 40 mg 02/14/22 15:10 03/03/22 09:21 Atorvastatin 40 Mg Tablet PO 40 mg DAILY SAURABH Administration Calcium Carbonate 200 mg 03/02/22 09:00 03/03/22 09:20 Calcium Carbonate (Tums) 500 Mg (200 Mg Elemental) PO 200 mg TID SAURABH Administration Cholestyramine Resin 4 gm 03/01/22 10:00 03/03/22 10:45 Cholestyramine (W/ Sugar) 4 Gm Powd.Pack PO 4 gm BID@1000,1800 SAURABH Administration Enoxaparin Sodium 40 mg 02/19/22 09:00 03/03/22 09:19 Enoxaparin 40 Mg/0.4 Ml Syringe SUB-Q 40 mg DAILY SAURABH Administration Ferrous Sulfate 324 mg 02/16/22 17:00 03/03/22 09:20 Ferrous Sulfate 324 Mg Tablet PO 324 mg BIDWM SAURABH Administration Dextrose 1,000 mls @ 50 mls/hr 02/17/22 14:15 Dextrose 10% IV CONT .Q20H PRN if PN is interrupted Ipratropium [place] 0.5 mg 02/19/22 14:00 03/03/22 08:20 Ipratropium Br 0.02% Inh Soln 0.5 Mg/2.5 Ml Vial INHALATION 0.5 mg Q6HRT SAURABH Administration Levothyroxine Sodium 75 mcg 02/14/22 15:10 03/03/22 05:12 Levothyroxine Sodium 75 Mcg Tablet PO 03/16/22 15:09 75 mcg DAILY@0630 SAURABH Administration Metoprolol Tartrate 12.5 mg 02/25/22 09:00 03/03/22 09:19 Metoprolol Tartrate 12.5 Mg Tablet PO 12.5 mg Q12HR SAURABH Administration Metronidazole 500 mg 02/26/22 12:00 03/03/22 09:21 Metronidazole 250 Mg Tablet PO 500 mg Q6HR SAURABH Administration Miconazole Nitrate 1 applic 02/15/22 21:00 03/03/22 09:21 Miconazole 2% Antifungal Ointment 56
--- NOTE | 2022-03-03 11:22 | PC.NURSE ---
Pt is refusing to eat. Pt is refusing to sit in the chair. Pt is refusing to ambulate. Pt is refusing to work with PT. Pt is refusing to work with OT. It has been explained to pt numerous times beginning in the morning of 03/02/22 that in order to progress and discharge that he needs to eat, he needs to be more active including ambulating, he needs to work with therapy, et al. and he states, I don't care. You can keep me here for another year or forever. I'm not going to do anything.
--- NOTE | 2022-03-03 11:30 | PC.NURSE ---
After pt's latest round of refusals, I contacted pt's to inform her of pt's behavior and outbursts and to make her aware that pt potentially discharging is in jeopardy as pt is not complying with the doctor's requirements and advancing in his return to ADL's, etc. She stated that she and her daughter and son-in-law would come up and speak with pt as soon as they could.
--- NOTE | 2022-03-03 11:39 | PC.NURSE ---
I contacted Dr. Sinha (covering for Dr. Jay) and made him aware of pt's behaviors and emotional state and their threat to possible discharge. Dr. Sinha asked that I have the hospitalist intervene as well and would make note regarding possibility of discharge as pt is not progressing. I then contacted the hospitalist (Dr. Merino as of the time of this note) and explained the situation to him including family statements that this is not pt's normal behavior and activity level. Dr. Merino stated that he would speak with pt and see what could be done.
--- NOTE | 2022-03-03 14:07 | PM.IMPN ---
Progress Note: A&P Assessment and Plan (1) Diarrhea: Code(s): R19.7 - Diarrhea, unspecified Status: Acute Assessment and Plan: There is concern for possible short gut. There is concern for development of dehydration causing metabolic derangement and hospitalization due to persistent diarrhea, so patient will need to remain hospitalized until his diarrhea is better controlled. 03/03: Seems to be improving. Patient and family eagerly anticipate discharge 03/04/2022. (2) Anastomotic leak of intestine: Code(s): K91.89 - Other postprocedural complications and disorders of digestive system Status: Acute Assessment and Plan: status post cholecystectomy and mesenteric tumor removed was discharged on 02/06 readmitted with small bowel obstruction free air in the abdominal cavity possibly secondary to that anastomosis leak. General surgery consulted. TPN was started. IV antibiotics had been continued which has been stopped now Previously on cefepime, vancomycin and Flagyl. Repeat CT of the abdomen shows improvement still has some free air but patient clinically much improved 02/28/22 - On metronidazole 500 mg q6h that was started 02/26/22. Leukocytosis worsened but patient is afebrile with mild abdominal discomfort. Will monitor for today. Appreciate recommendations from General Surgery 03/01/22 - Leukocytosis improved. Will monitor. 03/02/22 - Leukocytosis improved. Will monitor. 03/03/22: Leukocytosis resolved with WBC 8.5. (3) SBO (small bowel obstruction): Code(s): K56.609 - Unspecified intestinal obstruction, unspecified as to partial versus complete obstruction Status: Acute Assessment and Plan: S/P resection. (4) Acute renal failure: Code(s): N17.9 - Acute kidney failure, unspecified Status: Acute Assessment and Plan: Resolved. (5) Acute metabolic encephalopathy: Code(s): G93.41 - Metabolic encephalopathy Status: Acute Assessment and Plan: patient's mental status much improved. Possible cause of encephalopathy could be sedation, renal failure, is status post surgery, infection. 03/03: Currently at baseline per family at bedside. Currently w/o s/sx of depression. Subjective Date/time seen: 03/03/22 14:07 Interval history: I was called this morning by RN who stated the patient had refused to get out of bed and stated he would be content lying in bed and dying in the hospital. However this afternoon with daughter and at bedside he is looking forward to going home and getting back to golfing and eating with his buddies. He even has a plan as to how he is going to ease back into golfing after he is released by his surgeon. Currently his appetite is poor but he can only tolerate small amounts food. He had 2 loose stools this morning. Mild abdominal tightness but no pain. No bleeding. Denied chest pain or shortness of breath. Denied focal weakness. He denied any prior history of depression or anxiety. He does not remember saying any of those things to the nurse this morning. He has been able to ambulate to the bathroom and back. Review of Systems Review of Systems: All systems reviewed & are unremarkable except as noted in HPI and below Exam Narrative: Alert and pleasant elderly gentleman who is smiling and cooperative. He is oriented to person place month and date, As well as situation. Neck without JVD. Chest clear to auscultation. Heart normal S1-S2 with regular rate and no audible murmurs. Abdomen mildly protuberant but soft good bowel sounds incision well-healed in midline of lower abdomen. No palpable masses. Extremities without edema. Musculoskeletal with no deformity to visual inspection. Neurologic cranial nerves symmetric to visual inspection. Objective Data Vital Signs Vital Signs: Vital Signs - 24 hr 03/02/22 14:27 03/02/22 20:43 03/02/22
--- NOTE | 2022-03-03 18:00 | PC.NURSE ---
Pt's and son-in-law were in the room during evening med pass. As I entered the room, pt's asked who I was and what my name was? I informed her that my name is Maddie, I am the nurse from yesterday that spoke with her and her daughter in front of pt about pt's refusal to do anything, that I am the nurse who has been here all day with pt again today, that I am the nurse whose name is written on the white board since early this morning, and that I am the nurse who called her around noon asking that she visit pt and assist with trying to motivate him to comply with therapies, eating, ambulating, and complying with treatment in general. Pt's then stated that I was the one who called and said that her was terrible to which I clarified that I said no such thing but reiterated the same lack of compliance and motivation that pt exhibited all day yesterday and provided examples which were facts witnessed and documented by at least half a dozen different people. During the entire time that pt's was making her erroneous accusations, pt was attempting to quiet her while muttering that he has been lying to his . I pointed out to pt's that while it is true that pt has been sitting in the chair for the two hours that is only because she and other family members have been present that entire two hours to which pt muttered it's true. Pt refused to eat breakfast, lunch, and ate about 20% of his dinner (which was served while was in the room).
[2022-03-04 00:35] VITALS: PULSE 90; RESP 20; O2SAT 100
[2022-03-04] MEDS: IPRATROPIUM BR 0.02% INH SOLN 0.5 MG/2.5 ML VIAL INHALATION ×2 (01:19→08:37)
[2022-03-04] MEDS: ALBUTEROL SULFATE NEB 2.5 MG/3 ML INH INHALATION ×2 (01:19→08:37)
[2022-03-04 01:20] VITALS: PULSE 98; RESP 18; O2SAT 96
[2022-03-04 05:06] LABS: Basophils Absolute Auto 0.1 K/mm3 (0.0-0.1); Basophils Percent Auto 0.8 % (0.2-1.2); Eosinophils Absolute Auto 0.2 K/mm3 (0-0.3); Eosinophils Percent Auto 2.6 % (0-4.4); Hematocrit 24.9 % (42.0-52.0); Hemoglobin 7.9 g/dL (14.0-18.0); Immature Granulocyte Absolute 0.03 K/mm3 (0.00-0.031); Immature Granulocyte Percent A 0.4 % (0-0.5); Lymphocytes Absolute Auto 1.25 K/mm3 (0.9-3.2); Lymphocytes Percent Auto 17.1 % (18.3-44.2); Mean Corpuscular HGB Conc 31.7 g/dl (32-36); Mean Corpuscular Hemoglobin 30.7 pg (26-34); Mean Corpuscular Volume 96.9 fl (80-100); Mean Platelet Volume 10.1 fl (7.4-10.4); Monocytes Absolute Auto 0.4 K/mm3 (0.1-0.6); Monocytes Percent Auto 5.6 % (2.6-8.5); Neutrophils Absolute Auto 5.4 K/mm3 (1.3-6.7); Neutrophils Percent Auto 73.5 % (45.5-73.1); Platelet Count Result 363 k/mm3 (150-375); Red Blood Count 2.57 M/mm3 (4.6-6.20); Red Cell Distribution Width 14.5 % (11.5-14.5); White Blood Count 7.3 K/mm3 (4.5-10.0)
[2022-03-04 05:09] LABS: Anion Gap 3 mmol/L (8-16); Blood Urea Nitrogen 10 mg/dL (9-20); Calcium 7.2 mg/dL (8.4-10.2); Carbon Dioxide 24 mmol/L (22-30); Chloride 109 mmol/L (98-107); Estimated CRCL calculation 57 ml/min; Estimated Glomerular Filt Rate > 60; Glucose 100 mg/dL (65-110); Potassium 3.2 mmol/L (3.4-5.0); Sodium 136 mmol/L (137-145)
[2022-03-04] MEDS: metroNIDAZOLE 250 MG TABLET 500 MG PO ×3 (05:33→13:09)
[2022-03-04] MEDS: LEVOTHYROXINE SODIUM 75 MCG TABLET PO (05:33)
[2022-03-04] MEDS: CENTRAL LINE FLUSH 10 ML IV PUSH ×2 (05:34→13:09)
[2022-03-04 06:00] VITALS: BP 109/77; PULSE 94; RESP 18; TEMP 36.6; O2SAT 97
[2022-03-04] MEDS: FERROUS SULFATE 324 MG TABLET PO (08:05)
[2022-03-04] MEDS: CLOPIDOGREL BISULFATE 75 MG TABLET PO (08:05)
[2022-03-04] MEDS: PANTOPRAZOLE 40 MG TABLET PO (08:05)
[2022-03-04] MEDS: ENOXAPARIN 40 MG/0.4 ML SYRINGE SUB-Q (08:05)
[2022-03-04] MEDS: METOPROLOL TARTRATE 12.5 MG TABLET PO (08:05)
[2022-03-04] MEDS: ATORVASTATIN 40 MG TABLET PO (08:06)
[2022-03-04] MEDS: ASPIRIN 81 MG ENTERIC TABLET PO (08:06)
[2022-03-04] MEDS: CALCIUM CARBONATE (TUMS) 500 MG (200 MG ELEMENTAL) PO ×2 (08:06→13:09)
[2022-03-04 08:46] VITALS: PULSE 91; RESP 16
[2022-03-04 09:00] VITALS: PULSE 94; RESP 16
[2022-03-04] MEDS: CHOLESTYRAMINE (W/ SUGAR) 4 GM POWD.PACK PO (10:04)
--- NOTE | 2022-03-04 12:32 | PM.DS ---
DS: Admitting Diagnosis Discharge Date 03/04/2022 Admitting Diagnosis Anastomotic leak, intra-abdominal sepsis DS: Discharge Diagnosis Discharge Diagnosis (1) Anastomotic leak of intestine: Code(s): K91.89 - Other postprocedural complications and disorders of digestive system Status: Acute Assessment and Plan: status post small bowel resection on 02/18, continue routine postoperative care, diarrhea largely resolved continue Questran and Flagyl, follow-up with Dr. Jay in 1 week (2) Sepsis: Code(s): A41.9 - Sepsis, unspecified organism Status: Acute Assessment and Plan: resolved status post resection and IV antibiotics DS: Summary Hospital Course Reason for hospitalization: intra-abdominal sepsis, anastomotic leak Hospital Course: The patient is an 81-year-old male that presented on 02/18 with intra-abdominal sepsis secondary to anastomotic leak. The patient had a previous small-bowel resection for a neuroendocrine tumor. The patient was emergently taken to the operating room by Dr. Jay and small-bowel resection was performed, please see full operative report for details of that procedure. Postoperatively, the patient was very septic and transferred to the ICU. Over his hospital course, his sepsis slowly resolved and he was able to be off all pressors. He is now off all antibiotics and white count has normalized. The patient was subsequently transferred to the floor, and continued to do well from a postoperative standpoint. The patient did develop some diarrhea that was controlled with Questran and p.o. Flagyl. The patient will be discharged with these medications as well. He is to follow-up with Dr. Jay in 1 week. Status at Discharge Functional status at discharge: independent ambulation Overall status at discharge: patient is progressing back to baseline Time Spent with Patient Time attestation: Total time spent providing and/or coordinating discharge services: Time spent: Less than 30 minutes Exam Const: General: cooperative, comfortable and no acute distress Resp: Auscultation: clear to auscultation bilaterally Cardio: Rate: regular rate Rhythm: regular rhythm GI: Inspection: normal to inspection, non-distended and incision GI Palp: Yes abdominal tenderness, Yes Soft to palpation, Yes Tenderness to palpation present (GI), No Guarding due to palpation present (GI) and No Rigid due to palpation DS: Data Data Completed and Pending Completed studies during hospitalization: Pending at discharge 02/18/22 11:55 Surgical [PTH] Routine Labs on day of discharge: Labs from last 24 hours 03/04/22 03/04/22 04:54 04:54 WBC 7.3 RBC 2.57 L Hgb 7.9 L Hct 24.9 L MCV 96.9 MCH 30.7 MCHC 31.7 L RDW 14.5 Plt Count 363 MPV 10.1 Immature Gran % (Auto) 0.4 Neut % (Auto) 73.5 H Lymph % (Auto) 17.1 L [place] % (Auto) 5.6 Eos % (Auto) 2.6 Baso % (Auto) 0.8 Lymph # (Auto) 1.25 [place] # (Auto) 0.4 Eos # (Auto) 0.2 Baso # (Auto) 0.1 Abs Immat Gran (auto) 0.03 Absolute Neuts (auto) 5.4 Absolute Nucleated RBC 0.0 Nucleated RBC % 0.0 Sodium 136 L Potassium 3.2 L Chloride 109 H Carbon Dioxide 24 Anion Gap 3 L BUN 10 Creatinine 0.90 Estim Creat Clear Calc 57 Estimated GFR > 60 Glucose 100 Calcium 7.2 L Discharge Plan Discharge Attending physician on discharge: Levi Jay Consulting providers: Whitley Silveira ; Meliton Galindo ; Kate Harry Discharging Clinician: Kiki Sinha Patient Disposition: Home Health Service Activity: no straining Diet: as tolerated Wound Care Instructions: incision open to air Discharge Instructions: Per Care Coordination, patient to discharge with [facility] ([phone]) for PT/OT and long term services. Agency will call to arrange first visit with start of care week of 02/18/22. Patient Instructions: Antibiotic F
--- NOTE | 2022-03-04 12:41 | PM.IMPN ---
Progress Note: A&P Assessment and Plan (1) Diarrhea: Code(s): R19.7 - Diarrhea, unspecified Status: Acute Assessment and Plan: There is concern for possible short gut. There is concern for development of dehydration causing metabolic derangement and hospitalization due to persistent diarrhea, so patient will need to remain hospitalized until his diarrhea is better controlled. 03/03: Seems to be improving. Patient and family eagerly anticipate discharge 03/04/2022. (2) Anastomotic leak of intestine: Code(s): K91.89 - Other postprocedural complications and disorders of digestive system Status: Acute Assessment and Plan: status post cholecystectomy and mesenteric tumor removed was discharged on 02/06 readmitted with small bowel obstruction free air in the abdominal cavity possibly secondary to that anastomosis leak. General surgery consulted. TPN was started. IV antibiotics had been continued which has been stopped now Previously on cefepime, vancomycin and Flagyl. Repeat CT of the abdomen shows improvement still has some free air but patient clinically much improved 02/28/22 - On metronidazole 500 mg q6h that was started 02/26/22. Leukocytosis worsened but patient is afebrile with mild abdominal discomfort. Will monitor for today. Appreciate recommendations from General Surgery 03/01/22 - Leukocytosis improved. Will monitor. 03/02/22 - Leukocytosis improved. Will monitor. 03/03/22: Leukocytosis resolved with WBC 8.5. (3) SBO (small bowel obstruction): Code(s): K56.609 - Unspecified intestinal obstruction, unspecified as to partial versus complete obstruction Status: Acute Assessment and Plan: S/P resection. (4) Acute renal failure: Code(s): N17.9 - Acute kidney failure, unspecified Status: Acute Assessment and Plan: Resolved. (5) Acute metabolic encephalopathy: Code(s): G93.41 - Metabolic encephalopathy Status: Acute Assessment and Plan: patient's mental status much improved. Possible cause of encephalopathy could be sedation, renal failure, is status post surgery, infection. 03/03: Currently at baseline per family at bedside. Currently w/o s/sx of depression. Subjective Date/time seen: 03/04/22 12:41 Doing well Exam Narrative: Alert and pleasant elderly gentleman who is smiling and cooperative. He is oriented to person place month and date, As well as situation. Neck without JVD. Chest clear to auscultation. Heart normal S1-S2 with regular rate and no audible murmurs. Abdomen mildly protuberant but soft good bowel sounds incision well-healed in midline of lower abdomen. No palpable masses. Extremities without edema. Musculoskeletal with no deformity to visual inspection. Neurologic cranial nerves symmetric to visual inspection. Objective Data Vital Signs Vital Signs: Vital Signs - 24 hr 03/03/22 12:52 03/03/22 14:00 03/03/22 20:15 Temperature 97.8 F Pulse Rate 86 85 93 Respiratory Rate 18 14 18 Blood Pressure 92/61 L Pulse Oximetry 97 95 Oxygen Delivery Room Air Fraction of Inspired Oxygen 03/03/22 20:15 03/03/22 20:35 03/03/22 21:30 Temperature Pulse Rate 93 91 91 Respiratory Rate 18 18 Blood Pressure Pulse Oximetry Oxygen Delivery Fraction of Inspired Oxygen 03/03/22 21:59 03/03/22 20:00 03/04/22 00:35 Temperature 99.3 F Pulse Rate 90 90 90 Respiratory Rate 20 20 20 Blood Pressure 113/71 Pulse Oximetry 100 100 100 Oxygen Delivery Room Air Room Air Fraction of Inspired Oxygen 30 30 03/04/22 01:20 03/04/22 01:20 03/04/22 06:00 Temperature 98 F Pulse Rate 98 98 94 Respiratory Rate 18 18 18 Blood Pressure 109/77 Pulse Oximetry 96 97 Oxygen Delivery Room Air Fraction of Inspired Oxygen 03/04/22 08:46 03/04/22 08:00 Temperature Pulse Rate 91 Respiratory Rate 16 Blood Pressu
== END 2022-03-04 14:04 | disposition home health service (06) | DRG 326 ==
LOC: ANHED 12:03 → ANH3MEDSUR 17:20 → ANHICU 02-19 07:39 → ANH3MEDSUR 02-19 10:17 → ANHICU 02-19 10:17 → ANH3MEDSUR 02-26 10:35
PROVIDERS: Emergency Medicine; Family Medicine; Internal Medicine; Nurse Practitioner; Physician Assistant; Surgery; Admitting Provider Surgery; Emergency Provider General Practice; PCP Family Medicine; Visit Provider Surgery
PROC: 0DB90ZZ Excision of Duodenum, Open Approach (ICD-10-PCS; CPT 49000; principal; 2022-02-18 10:30)
DX: K56.609 Unspecified intestinal obstruction, unspecified as to partial versus complete obstruction (principal); A41.9 Sepsis, unspecified organism; G93.41 Metabolic encephalopathy; J18.9 Pneumonia, unspecified organism; R65.20 Severe sepsis without septic shock; J96.01 Acute respiratory failure with hypoxia; K91.89 Other postprocedural complications and disorders of digestive system; N17.9 Acute kidney failure, unspecified; E87.0 Hyperosmolality and hypernatremia; K92.1 Melena; N39.0 Urinary tract infection, site not specified; I25.10 Atherosclerotic heart disease of native coronary artery without angina pectoris; N40.0 Benign prostatic hyperplasia without lower urinary tract symptoms; K21.9 Gastro-esophageal reflux disease without esophagitis; E78.5 Hyperlipidemia, unspecified; E03.9 Hypothyroidism, unspecified; E87.6 Hypokalemia; E83.41 Hypermagnesemia; N32.89 Other specified disorders of bladder; Z20.822 Contact with and (suspected) exposure to COVID-19; E86.0 Dehydration; K56.7 Ileus, unspecified; B95.2 Enterococcus as the cause of diseases classified elsewhere; I48.91 Unspecified atrial fibrillation; R19.7 Diarrhea, unspecified; Z95.1 Presence of aortocoronary bypass graft; Z87.891 Personal history of nicotine dependence; Z79.899 Other long term (current) drug therapy; Z79.82 Long term (current) use of aspirin; Z79.891 Long term (current) use of opiate analgesic
CPT/HCPCS: 36415; 36569; 36600; 51701; 70450; 71045; 71046; 71275; 74018; 74019; 74176; 74177; 74250; 76775; 80048; 80053; 80202; 81001; 82274; 82375; 82570; 82607; 82728; 82746; 82805; 82948; 83050; 83540; 83550; 83605; 83690; 83735; 83880; 83935; 84100; 84295; 84300; 84443; 84466; 84478; 84484; 84540; 85014; 85018; 85025; 85027; 85610; 85730; 86140; 86850; 86900; 86901; 87040; 87077; 87081; 87086; 87088; 87186; 87426; 87493; 87636; 88307; 92610; 93005; 94002; 94003; 94640; 94667; 97110; 97116; 97161; 97166; 97530; 97535; 99285; A9270; C1751; C9113; C9803; J0131; J0330; J0610; J0692; J0696; J1100; J1650; J1741; J1815; J1940; J1956; J2060; J2250; J2270; J2370; J2405; J2543; J2704; J3010; J3370; J3475; J3480; J7030; J7040; J7070; J7120; P9047; Q9967

== ENCOUNTER 2022-05-10 08:12 | Outpatient (CLI) | payer MEDICARE, SELFPAY ==
[2022-05-10 09:01] LABS: Anion Gap 5 mmol/L (8-16); Blood Urea Nitrogen 10 mg/dL (9-20); Calcium 7.6 mg/dL (8.4-10.2); Carbon Dioxide 27 mmol/L (22-30); Chloride 111 mmol/L (98-107); Estimated Glomerular Filt Rate > 60; Glucose 106 mg/dL (65-110); Potassium 3.2 mmol/L (3.4-5.0); Sodium 143 mmol/L (137-145)
== END 2022-05-10 08:13 | disposition home or self-care (01) ==
LOC: ANHSURGERY 08:17
PROVIDERS: Anesthesiology; PCP Family Medicine; Visit Provider Urology
DX: Z51.81 Encounter for therapeutic drug level monitoring (principal); Z01.818 Encounter for other preprocedural examination
CPT/HCPCS: 36415; 80048

== ENCOUNTER 2022-05-17 00:35 | Day surgery (SDC) | payer MEDICARE, SELFPAY ==
[2022-05-07 14:55] VITALS: BMI 20.8
--- NOTE | 2022-05-07 15:21 | PC.NURSE ---
Report to the Outpatient Waiting Room, entrance under the green pavilion located off [facility], at time __6:30AM on date __05/17/22 . Planned Procedure Time: __8:30AM . Time changes happen often and if your time is changed the preop area will call you the afternoon before. - You and your visitor will be asked to self-screen and do not enter if you have any COVID symptoms. - Only one visitor is requested with a max of two and NO children visitors are allowed at this time. - The patient visitor may be requested to leave or wait in car when not with patient due to distancing restrictions. - A mask is optional within the hospital at this time. Patients may have clear liquids (water, carbonated beverages, clear teas, apple juice) until 3 hours prior to surgery with a maximum of 20 ounces. - No food from midnight until time of surgery Take the following medications with a SIP of water the morning of surgery: __LEVOTHYROXINE, METOPROLOL, TRAMADOL NEEDED DO NOT STOP ANY OF YOUR OTHER PRESCRIPTION MEDICATIONS PRIOR TO SURGERY ?EXCEPT THE FOLLOWING Medications to discontinue per physician ___HOLD ASPIRIN & PLAVIX 7 DAYS PRE-OP PER DR CABRAL(PER PATIENT)- LAST DOSE 05/10/22, HOLD ALL VITAMINS/SUPPLEMENTS 3 DAYS PRE-OP- LAST DOSE 05/13/22. Please no make-up, nail uzbek, hairspray, perfume, deodorant, or body powder the day of surgery. No jewelry (including any body piercings) or valuables the day of surgery, leave them at home. Please take a shower or bath the night before, or the morning of, surgery with an antibacterial soap. Wear comfortable, loose fitting clothing. Children are encouraged to wear pajamas. - Jewelry must be removed prior to entering the operating room. Rings and piercings that are not removed may be cut off. - The hospital will not accept responsibility for valuables. - Please leave all valuables, including medications, at home the day of surgery. If you are going home after surgery, a licensed backhaul driver must drive you home. - NO public transportation without another adult if you receive anesthesia. - We recommend that an adult stay with you for 24 hours following discharge. - We also recommend that you do not drive, make important decision, drink alcoholic beverages, or take any drugs that were not prescribed by your health care provider for at least 24 hours after your discharge time. Follow any additional instructions given to you from your surgeon. If you or anyone in your household have experienced Covid symptoms in the past week, please notify your surgeon or the nurse liaison at the phone number below for possible testing. Telephone instructions given to _PATIENT and asked if any additional questions and then verbalized understanding. Patient advised to call surgeon office or pre surgery nurse liaison [phone] if any additional questions.
--- NOTE | 2022-05-14 07:20 | PM.HPGS ---
History of Present Illness History of Present Illness Consent: Risks, benefits, and alternatives have been discussed and questions answered. Patient agrees to proceed with procedure. 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 He has since undergone excision of that lesion. Additionally he has received induction BCG. Recent cystoscopy showed a small recurrence in the right courtney trigone. After discussion of options he has elected to proceed with TURBT followed by gemcitabine installation. He is aware of the risk including, but not limited to, hematuria, bladder injury, need for additional therapy and recurrent neoplasm in the future. 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 He is a former smoker. The patient drinks approximately 2 beers a week. He lives at home with his . He has 2 children. He denies any marijuana or illicit drugs. His is the durable power cabin service agent for healthcare. Code status full code Smoking packs per day: 1 Smoking cigarettes per day: 20.0 Years smoked: 10 Smoking pack-years: 10.00 Smoking status: Former smoker Tobacco type: cigarettes Smoking end date: 09/15/90 Alcohol intake: current Drinks per week: 1 Alcohol use details: BEER Substance use: never Substance use type: does not use Lack of Transportation: No Lack of Food: Never True Current Housing: I Have Housing Concerned About Future Housing: No Difficulty Paying Gas/Electric Bills: No Difficulty Paying for Meds: No Currently Unemployed: No Education: High School Diploma/GED Difficulty w/ Childcare or Family Care: No Living arrangements: with family Additional living arrangements comments: Gender identity (if verbalized by the patient): Male Spiritual care concerns: No Meds Home Medications and Allergies Home Medications Medication Instructions Recorded Confirmed Type multivitamin (Multiple Vitamins 1 tablet PO DAILY 02/16/19 05/07/22 History tablet) atorvastatin 40 mg tablet 40 mg PO DAILY 05/03/21 05/07/22 History clopidogrel 75 mg tablet 75 mg PO DAILY 05/03/21 05/07/22 History furosemide 20 mg tablet 20 mg PO QAM 05/03/21 05/07/22 History lisinopril 40 mg tablet 40 mg PO QAM 05/03/21 05/07/22 History metoprolol tartrate 25 mg tablet 12.5 mg PO BID 05/03/21 05/07/22 History tramadol 50 mg tablet
[2022-05-17] VITALS (13 sets, daily range): BP systolic 115–151; BP diastolic 59–99; PULSE 76–96; RESP 13–20; TEMP 36.4–36.9; O2SAT 91–100
--- NOTE | 2022-05-17 06:42 | WPDHPUPDATE1 ---
History and Physical Update Update Date/Time: 05/17/22 06:42 History and Physical has been reviewed, including an updated exam of the patient. There are NO changes in the patient's condition. Risks, benefits, and alternatives have been discussed and questions answered. Patient agrees to proceed with procedure.
[2022-05-17] MEDS: LACTATED RINGERS 1,000 ML 30 ML IV CONT (07:15)
[2022-05-17] MEDS: ceFAZolin 2 GM/D5W 50 ML 2 GM/50 ML BAG IVPB (08:14)
--- NOTE | 2022-05-17 08:15 | WPDANESEPPF ---
Anes - Initial Pre Proc Eval Procedure: Operation Date: 05/17/22 08:30 Proposed Procedures p Trans Urethral Resection Bladder Tumor with Gemcitabine Instillation - Mikey Beltre MD Date/Time: 05/17/22 08:15 Surgeon: Mikey Beltre MD Pre Op Diagnosis: Bladder Neck Contracture Patient Data Age: 81 Gender: M Height: 1.78 m Weight: 68.3 kg Last Vital Signs Temp 98.5 F 05/17/22 06:37 Pulse 80 05/17/22 06:37 Resp 20 05/17/22 06:37 BP 125/86 05/17/22 06:37 Pulse Ox 99 05/17/22 06:37 O2 Del Method Room Air 05/17/22 06:37 Allergies Allergy/AdvReac Type Severity Reaction Status Date / Time No Known Allergies Allergy Verified 05/17/22 06:54 Home Medications Medication Instructions Recorded Confirmed Type multivitamin (Multiple Vitamins 1 tablet PO DAILY 02/16/19 05/17/22 History tablet) atorvastatin 40 mg tablet 40 mg PO DAILY 05/03/21 05/17/22 History clopidogrel 75 mg tablet 75 mg PO DAILY 05/03/21 05/17/22 History furosemide 20 mg tablet 20 mg PO QAM 05/03/21 05/17/22 History lisinopril 40 mg tablet 40 mg PO QAM 05/03/21 05/17/22 History metoprolol tartrate 25 mg tablet 12.5 mg PO BID 05/03/21 05/17/22 History tramadol 50 mg tablet 50 mg PO BID PRN Pain 05/03/21 05/17/22 History aspirin 81 mg tablet 81 mg PO DAILY 05/11/21 05/17/22 History levothyroxine 75 mcg capsule 75 mcg PO QAM 09/12/21 05/17/22 History vitamins A,C,U-acbe-xcrfzb 4,296 1 cap PO DAILY 09/12/21 05/17/22 History mcg-226 mg-90 mg capsule (ICaps AREDS) acetaminophen 650 mg 1,300 mg PO Q12H PRN Pain 01/25/22 05/17/22 History tablet,extended release (Tylenol Arthritis Pain) cholestyramine (with sugar) 4 gram 4 g PO DAILY #60 ea 05/02/22 05/17/22 Rx powder for susp in a packet (Questran) pantoprazole 20 mg tablet,delayed 20 mg PO DAILY 05/07/22 05/17/22 History release Patient hx anesthesia problems: none Family hx anesthesia problems: none Results Review: All pre-operative results and documents have been reviewed as part of the pre-operative evaluation. 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 He is a former smoker. The patient drinks approximately 2 beers a week. He lives at home with his . He has 2 children. He denies any marijuana or illicit drugs. His is the durable power photographer portrait for healthcare. Code status full code Smoking packs per day: 1 Smoking cigarettes per day: 20.0 Years smoked: 10 Smoking pack-years: 10.00 Smoking status: Former smoker Tobacco type: cigarettes Smoking end date: 09/15/90 Alcohol intake: current Drinks per week: 1 Alcohol use details: BEER Substance use: never Substance use type: does not use Lack of Transportation: No Lack of Food: Never True Current Housing: I Have Housing Concerned About Future Housing: No Difficulty Paying Gas/Electric Bills: No Difficulty Paying for Meds: No Currently Unemployed:
[2022-05-17] MEDS: LIDOCAINE HCL 2% GEL UROJET 10 ML PKG MUCOUS MEM (08:35)
--- NOTE | 2022-05-17 09:05 | P.OP_ITS ---
Procedure Note - Detailed Date of Procedure 05/17/22 Pre-op Diagnosis Recurrent bladder tumor Post-op Diagnosis Same Procedure Performed TURBT ( large, 4-5 cm) Surgeon Mikey Beltre MD Anesthesia General Description of Procedure patient is brought to the operative suite where he was prepped draped in routin e sterile fashion while in dorsal lithotomy position after the uneventful induction of a general LMA anesthetic. Twenty-four F resectoscope was placed into his bladder. His recurrent neoplasm in the right anterior lateral bladder wall. This involves a fair amount of the bladder neck, more than I appreciated on outpatient cystoscopy. Is resected in its entirety with a separate specimen sent from the bladder tumor base. This is all done with care to avoid injury to either ureteral orifice. A rollerball electrode is used for cautery. An 18 F catheter was placed the termination of the procedure. Estimated Blood Loss 10 Drains Yes Packing No Pathology Yes
--- NOTE | 2022-05-17 09:07 | W.PM.PROC2 ---
Procedure Note - Detailed Date of Procedure 05/17/22 Pre-op Diagnosis Recurrent bladder tumor Post-op Diagnosis Same Procedure Performed Gemcitabine installation into the bladder Surgeon Mikey Beltre MD Anesthesia None Description of Procedure With the patient in the supine position, a 16F Dodson catheter is placed using sterile technique. Using a protective facemask, gown and double layer of gloves Gemcitabine 2gm in 100cc saline is administered through the catheter/into the bladder. The catheter is then plugged. Patient was instructed to lie supine x20min, then to roll both the left and right x20 min. each. Total dwell time will be 60 min., after which the bladder will be drained and catheter removed. Estimated Blood Loss 10 Drains Yes Packing No
[2022-05-17] MEDS: SODIUM CHLORIDE 0.9% IV 23.7 ML, GEMCITABINE HCL 1,000 MG BLADDER ×2 (09:13)
[2022-05-17] MEDS: fentaNYL CITRATE INJ (*CRX) 100 MCG/2 ML VIAL 25 MCG IV PUSH ×3 (09:24→09:55)
--- NOTE | 2022-05-17 09:26 | SUR.PHASEI ---
0925: Simple mask removed.
--- NOTE | 2022-05-17 09:38 | SUR.PHASEI ---
0930: Patient turned on right side.
--- NOTE | 2022-05-17 09:54 | SUR.PHASEI ---
0950: Patient turned on left side.
== END 2022-05-17 12:05 | disposition home or self-care (01) ==
PROVIDERS: PCP Family Medicine; Visit Provider Urology
PROC: 0TBB8ZZ Excision of Bladder, Via Natural or Artificial Opening Endoscopic (ICD-10-PCS; CPT 52240; principal; 2022-05-17 08:30)
DX: C67.8 Malignant neoplasm of overlapping sites of bladder (principal); I10 Essential (primary) hypertension; E78.5 Hyperlipidemia, unspecified; E03.9 Hypothyroidism, unspecified; K21.9 Gastro-esophageal reflux disease without esophagitis; N40.0 Benign prostatic hyperplasia without lower urinary tract symptoms; Z85.46 Personal history of malignant neoplasm of prostate; Z95.1 Presence of aortocoronary bypass graft; Z87.891 Personal history of nicotine dependence; Z79.02 Long term (current) use of antithrombotics/antiplatelets; Z79.82 Long term (current) use of aspirin; Z85.068 Personal history of other malignant neoplasm of small intestine
CPT/HCPCS: 52240; 36415; 51720; 80048; 88305; J0690; J1100; J2405; J2704; J3010; J7120; J9201

== ENCOUNTER 2022-07-05 09:12 | Outpatient (CLI) | payer MEDICARE, SELFPAY ==
[2022-07-05 09:47] LABS: Anion Gap 5 mmol/L (8-16); Blood Urea Nitrogen 9 mg/dL (9-20); Carbon Dioxide 32 mmol/L (22-30); Chloride 106 mmol/L (98-107); Estimated Glomerular Filt Rate > 60; Glucose 127 mg/dL (65-110); Potassium 2.8 mmol/L (3.4-5.0); Sodium 143 mmol/L (137-145)
== END 2022-07-05 09:13 | disposition home or self-care (01) ==
PROVIDERS: Anesthesiology; PCP Family Medicine; Visit Provider Urology
DX: Z51.81 Encounter for therapeutic drug level monitoring (principal)
CPT/HCPCS: 36415; 80048

== ENCOUNTER 2022-07-12 00:35 | Day surgery (SDC) | payer MEDICARE, SELFPAY ==
[2022-07-03 15:26] VITALS: BMI 20.8
--- NOTE | 2022-07-03 15:45 | PC.NURSE ---
Report to the Outpatient Waiting Room, entrance under the green pavilion located off [facility], at time __1:30PM on date __07/12/22 . Planned Procedure Time: __3:30PM . Time changes happen often and if your time is changed the preop area will call you the afternoon before. - You and your visitor will be asked to self-screen and do not enter if you have any COVID symptoms. - A mask is optional within the hospital at this time. Patients may have clear liquids (water, carbonated beverages, clear teas, apple juice) until 3 hours prior to surgery with a maximum of 20 ounces. - No food from midnight until time of surgery Take the following medications with a SIP of water the morning of surgery: __LEVOTHYROXINE, METOPROLOL, TRAMADOL NEEDED DO NOT STOP ANY OF YOUR OTHER PRESCRIPTION MEDICATIONS PRIOR TO SURGERY ?EXCEPT THE FOLLOWING Medications to discontinue per physician __HOLD ASPIRIN & PLAVIX 7 DAYS PRE-OP PER DR CABRAL Date to take last dose 07/05/22 Please no make-up, nail hebrew, hairspray, perfume, deodorant, or body powder the day of surgery. No jewelry (including any body piercings) or valuables the day of surgery, leave them at home. Please take a shower or bath the night before, or the morning of, surgery with an antibacterial soap. Wear comfortable, loose fitting clothing. Children are encouraged to wear pajamas. - Jewelry must be removed prior to entering the operating room. Rings and piercings that are not removed may be cut off. - The hospital will not accept responsibility for valuables. - Please leave all valuables, including medications, at home the day of surgery. If you are going home after surgery, a licensed motor vehicle escort driver must drive you home. - NO public transportation without another adult if you receive anesthesia. - We recommend that an adult stay with you for 24 hours following discharge. - We also recommend that you do not drive, make important decision, drink alcoholic beverages, or take any drugs that were not prescribed by your health care provider for at least 24 hours after your discharge time. Follow any additional instructions given to you from your surgeon. If you or anyone in your household have experienced Covid symptoms in the past week, please notify your surgeon or the nurse liaison at the phone number below for possible testing. Telephone instructions given to __PATIENT and asked if any additional questions and then verbalized understanding. Patient advised to call surgeon office or pre surgery nurse liaison [phone] if any additional questions.
--- NOTE | 2022-07-11 13:36 | WPDANESEPPF ---
Anes - Initial Pre Proc Eval Procedure: Operation Date: 07/12/22 15:30 Proposed Procedures p Trans Urethral Resection Bladder Tumor - Mikey Beltre MD Date/Time: 07/11/22 13:36 Surgeon: Mikey Beltre MD Pre Op Diagnosis: Bladder Ca Patient Data Age: 81 Gender: M Height: 1.78 m Weight: 66 kg Allergies Allergy/AdvReac Type Severity Reaction Status Date / Time No Known Allergies Allergy Verified 07/12/22 14:04 Home Medications Medication Instructions Recorded Confirmed Type multivitamin (Multiple Vitamins 1 tablet PO DAILY 02/16/19 07/03/22 History tablet) atorvastatin 40 mg tablet 40 mg PO DAILY 05/03/21 07/03/22 History clopidogrel 75 mg tablet 75 mg PO DAILY 05/03/21 07/03/22 History furosemide 20 mg tablet 20 mg PO QAM 05/03/21 07/03/22 History lisinopril 40 mg tablet 40 mg PO QAM 05/03/21 07/03/22 History metoprolol tartrate 25 mg tablet 12.5 mg PO BID 05/03/21 07/03/22 History tramadol 50 mg tablet 50 mg PO BID PRN Pain 05/03/21 07/03/22 History aspirin 81 mg tablet 81 mg PO DAILY 05/11/21 07/03/22 History levothyroxine 75 mcg capsule 75 mcg PO QAM 09/12/21 07/03/22 History vitamins A,C,G-apvx-ftabjq 4,296 1 cap PO DAILY 09/12/21 07/03/22 History mcg-226 mg-90 mg capsule (ICaps AREDS) acetaminophen 650 mg 1,300 mg PO Q12H PRN Pain 01/25/22 07/03/22 History tablet,extended release (Tylenol Arthritis Pain) pantoprazole 20 mg tablet,delayed 20 mg PO DAILY 05/07/22 07/03/22 History release hydrocodone 5 mg-acetaminophen 325 1 - 2 tablet PO Q6H PRN pain #20 05/17/22 07/03/22 Rx mg tablet tabs Patient hx anesthesia problems: none Family hx anesthesia problems: none Results Review: All pre-operative results and documents have been reviewed as part of the pre-operative evaluation. 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 He is a former smoker. The patient drinks approximately 2 beers a week. He lives at home with his . He has 2 children. He denies any marijuana or illicit drugs. His is the durable power state's attorney for healthcare. Code status full code Smoking packs per day: 1 Smoking cigarettes per day: 20.0 Years smoked: 10 Smoking pack-years: 10.00 Smoking status: Former smoker Tobacco type: cigarettes Smoking end date: 09/15/90 Alcohol intake: current Drinks per week: 2 Alcohol use details: BEER Substance use: never Substance use type: does not use Lack of Transportation: No Lack of Food: Never True Current Housing: I Have Housing Concerned About Future Housing: No Difficulty Paying Gas/Electric Bills: No Difficulty Paying for Meds: No Currently Unemployed: No Education: High School Diploma/GED Difficulty w/ Childcare or Family Care: No Living arrangements: with family Additional living arrangements comments: [place] Gender identity (if verbalized by the patie
--- NOTE | 2022-07-12 06:25 | WPDHPUPDATE1 ---
History and Physical Update Update Date/Time: 07/12/22 06:25 History and Physical has been reviewed, including an updated exam of the patient. There are NO changes in the patient's condition. Risks, benefits, and alternatives have been discussed and questions answered. Patient agrees to proceed with procedure.
[2022-07-12 13:30] VITALS: BP 133/100; PULSE 82; RESP 14; TEMP 37.1; O2SAT 97; BMI 21.5
[2022-07-12] MEDS: LACTATED RINGERS 1,000 ML 30 ML IV CONT (14:03)
[2022-07-12 14:38] LABS: Potassium 3.1 mmol/L (3.4-5.0)
--- NOTE | 2022-07-12 14:43 | SUR.PREOP ---
1443- Dr. Mcclellan notified of patient's potassium level 3.1- OK to proceed with procedure per Dr. Mcclellan.
--- NOTE | 2022-07-12 15:15 | SUR.PREOP ---
1515- Notified patient and spouse procedure start time may be delayed. Patient and spouse verbalized understanding and denying needs at this time.
[2022-07-12 15:50] VITALS: BP 134/84; PULSE 74; RESP 16
[2022-07-12] MEDS: ceFAZolin 2 GM/D5W 50 ML 2 GM/50 ML BAG IVPB (16:01)
[2022-07-12] MEDS: LIDOCAINE HCL 2% GEL UROJET 10 ML PKG MUCOUS MEM (16:12)
[2022-07-12 16:34] VITALS: BP 127/83; PULSE 75; RESP 16; O2SAT 100
[2022-07-12 16:42] VITALS: O2SAT 98
--- NOTE | 2022-07-12 16:56 | W.PM.PROC2 ---
Procedure Note - Detailed Date of Procedure 07/12/22 Pre-op Diagnosis Bladder Ca Post-op Diagnosis Same Procedure Performed Re-resection bladder tumor base Surgeon Mikey Beltre MD Anesthesia General Description of Procedure Patient is brought to the operative suite was prepped draped in routine sterile fashion while in dorsal lithotomy position. 2% xylocaine jelly was introduced intraurethrally and systemic sedation is administered per the anesthesia department. Twenty-four F resectoscope was placed in the bladder. The site of previous recent resection at the right anterior lateral bladder wall near the bladder neck is resected with care to avoid injury to the ureteral orifice. Base and periphery were cauterized. The remainder of the bladder was endoscopically normal. Scopes were removed the knee was taken to the recovery good condition. Estimated Blood Loss -5.0 Drains No Packing No Pathology Yes Complications No immediate complications Condition Stable
[2022-07-12 17:00] VITALS: BP 154/87; PULSE 76; RESP 15
[2022-07-12 17:30] VITALS: BP 148/85; PULSE 75; RESP 16
--- NOTE | 2022-07-13 13:50 | PM.HPGS ---
History of Present Illness History of Present Illness Consent: Risks, benefits, and alternatives have been discussed and questions answered. Patient agrees to proceed with procedure. 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 Risk of bleeding and need for additional procedures explained. Review of Systems Cardiovascular: Cardiovascular: Denies chest pain, Denies lightheadedness, Denies palpitations and Denies dyspnea Respiratory: Respiratory: Denies dyspnea Gastrointestinal: Gastrointestinal: Denies diarrhea, Denies nausea and Denies vomiting Genitourinary: Genitourinary: Denies hematuria and Denies dysuria Endocrine: Endocrine: Denies palpitations [facility] Past Medical History Medical History (Updated 07/11/22 @ 13:37 by Sawyer Mcclellan DO) SHYAM (acute kidney injury) Arthritis Atrial fibrillation Bladder cancer Bladder neck contracture BPH (benign prostatic hyperplasia) CHF (congestive heart failure) Cholelithiasis 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 He is a former smoker. The patient drinks approximately 2 beers a week. He lives at home with his . He has 2 children. He denies any marijuana or illicit drugs. 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 Code status full code Smoking packs per day: 1 Smoking cigarettes per day: 20.0 Years smoked: 10 Smoking pack-years: 10.00 Smoking status: Former smoker Tobacco type: cigarettes Smoking end date: 09/15/90 Alcohol intake: current Drinks per week: 2 Alcohol use details: BEER Substance use: never Substance use type: does not use Lack of Transportation: No Lack of Food: Never True Current Housing: I Have Housing Concerned About Future Housing: No Difficulty Paying Gas/Electric Bills: No Difficulty Paying for Meds: No Currently Unemployed: No Education: High School Diploma/GED Difficulty w/ Childcare or Family Care: No Living arrangements: with family Additional living arrangements comments: [place] Gender identity (if verbalized by the patient): Male Spiritual care concerns: No Meds Home Medications and Allergies Home Medications Medication Instructions Recorded Confirmed Type multivitamin (Multiple Vitamins 1 tablet PO DAILY 02/16/19 07/12/22 History tablet) atorvastatin 40 mg tablet 40 mg PO DAILY 05/03/21 07/03/22 History clopidogrel 75 mg tablet 75 mg PO DAILY 05/03/21 07/12/22 History furosemide 20 mg tablet 20 mg PO QAM 05/03/21 07/03/22 History lisinopril 40 mg tablet 40 mg PO QAM 05/03/21 07/03/22 History metoprolol tartrate 25 mg tablet 12.5 mg PO BID 05/03/21 07/12/22 History tramadol 50 mg tablet 50 mg PO BID PRN Pain 05/03/21 07/12/22 History aspirin 81 mg tablet 81 mg PO DAILY 05/11/21 07/12/22 History levothyroxine 75 mcg capsule 75 mcg PO QAM 09/12/21 07/12/22 History vitamins A,C,B-aadn-zzradg 4,296 1 cap PO DAILY 09/12/21 07/12/22 History mcg-226 mg-90 mg capsule (ICaps AREDS) acetaminophen 650 mg 1,300 mg PO Q12H PRN Pain 01/25/22 07/03/22 History tablet,extended release (Tylenol
== END 2022-07-12 17:36 | disposition home or self-care (01) ==
PROVIDERS: PCP Family Medicine; Visit Provider Urology
PROC: 0TBB8ZZ Excision of Bladder, Via Natural or Artificial Opening Endoscopic (ICD-10-PCS; CPT 52235; principal; 2022-07-12 15:30)
DX: C67.8 Malignant neoplasm of overlapping sites of bladder (principal); I48.91 Unspecified atrial fibrillation; I11.0 Hypertensive heart disease with heart failure; I50.9 Heart failure, unspecified; N40.0 Benign prostatic hyperplasia without lower urinary tract symptoms; K21.9 Gastro-esophageal reflux disease without esophagitis; E78.5 Hyperlipidemia, unspecified; E03.9 Hypothyroidism, unspecified; Z85.46 Personal history of malignant neoplasm of prostate; Z95.1 Presence of aortocoronary bypass graft; Z87.891 Personal history of nicotine dependence; Z79.02 Long term (current) use of antithrombotics/antiplatelets; Z90.49 Acquired absence of other specified parts of digestive tract; Z79.84 Long term (current) use of oral hypoglycemic drugs
CPT/HCPCS: 52235; 36415; 84132; 88305; J0690; J2405; J2704; J3010; J7120

== ENCOUNTER 2023-05-22 09:28 | Outpatient (CLI) | payer MEDICARE, SELFPAY ==
--- NOTE | ~2023-05-22 | CT_ITS ---
CT of the Abdomen and Pelvis: Indication: Bladder cancer Technique: 2.5 mm axial scans were obtained through the abdomen and pelvis prior to and following in travenous administration of 130 cc of Omnipaque 350. Dose reduction technique was used on this scan b y utilizing automated exposure control and iterative reconstruction technique. The dose-length produc t (DLP) was 679.78 mGy-cm. COMPARISON: 02/23/2022 Findings: Scans through the lung bases are unremarkable. The liver, spleen, pancreas, and adrenal glands are within normal limits. Cholecystectomy clips are p resent. Bilateral renal cysts are present, including a nonenhancing, hyperdense exophytic right renal cyst. There is mild right hydroureteronephrosis. No left hydronephrosis. No evidence of aortic aneur ysm. No lymphadenopathy. No bowel obstruction or bowel wall thickening. There is no evidence to suggest acute appendicitis. Images through the pelvis were performed. There is probable wall thickening at the bladder base, gaye cially in the right side, which may account for partial obstruction of the right ureteral orifice and the previously noted right hydroureteronephrosis. Prostate gland is essentially unremarkable. No asc ites. Impression: Wall thickening of the urinary bladder especially the right posterior bladder. This is consistent wit h history of bladder carcinoma. Mild right hydroureteronephrosis, possibly due to partial obstruction at the right ureteral orifice. Reviewed, dictated and finalized at [facility]. [employer] Impression: Wall thickening of the urinary bladder especially the right posterior bladder. This is consistent with history of bladder carcinoma. Mild right hydroureteronephrosis, possibly due to partial obstruction at the ri ght ureteral orifice.
[2023-05-22 09:55] LABS: Estimated Glomerular Filt Rate > 60
== END 2023-05-22 09:29 | disposition home or self-care (01) ==
PROVIDERS: PCP Family Medicine; Visit Provider Urology
DX: N32.89 Other specified disorders of bladder (principal); N13.30 Unspecified hydronephrosis; C67.9 Malignant neoplasm of bladder, unspecified
CPT/HCPCS: 74178; Q9967